=== PATIENT | female | born 1945 | race Caucasian/White ===

== ENCOUNTER → 2016-07-07 | Outpatient (CLI) | payer OTHER, MEDICARE ==
[~2016-07-07] MED LIST: ADVIN25050 PO; AMIO200T4 PO; AMIO200T7 PO; ASPI-435 PO; CALC-354 PO; CHOL100040 PO; CLC100X PO; CMD/1 PO; CMD2 PO; CYAN10004 IM; DOCU100C31 PO; FERROUS SULFATE PO; FLUT0.15 INH; FURO20TA PO; IPRA1AER2 INH; LEVO100T PO; LOSA50TA54 PO; METO25TA3 PO; WARF2TAB PO
[2016-07-07 12:33] LABS: BASO % 1.8 %; BASO ABS # 0.08 K/uL (0-0.2); COMPLETE YES; HEMATOCRIT 41.2 % (37-47); LYMPH ABS # 0.76 K/uL (1.2-3.4); MEAN CORPUSCULAR HEMOGLOBIN 32.2 pg (25-34); MEAN CORPUSCULAR HGB CONC 33.5 g/dl (32-36); MEAN PLATELET VOLUME 10.2 fL (7.4-10.4); MONO % 10.5 %; NEUT % 68.7 %; PLATELET COUNT 205 K/uL (130-400); RED BLOOD COUNT 4.29 M/uL (4.2-5.4); WHITE BLOOD COUNT 4.48 K/uL (4.8-10.8)
[2016-07-07 12:48] LABS: ALT/SGPT 25 U/L (12-78); BLOOD UREA NITROGEN 12 mg/dl (7-18); BUN/CREATININE RATIO 10.9 (10-20); CALCIUM 9.5 mg/dl (8.5-10.1); CARBON DIOXIDE 29 mmol/L (21-32); CHLORIDE 102 mmol/L (98-107); GLUCOSE 114 mg/dl (70-99); POTASSIUM 3.8 mmol/L (3.5-5.1); SODIUM 139 mmol/L (136-145)
[2016-07-07 12:50] LABS: ALKALINE PHOSPHATASE 104 U/L (45-117); AST/SGOT 23 U/L (15-37)
== END | disposition home or self-care (01) ==
LOC: C.LABPVFM 10:31
PROVIDERS: ATTEND Family Medicine
DX: E03.9 Hypothyroidism, unspecified (principal); I48.0 Paroxysmal atrial fibrillation; E78.5 Hyperlipidemia, unspecified; E55.9 Vitamin D deficiency, unspecified

== ENCOUNTER → 2016-07-27 | Outpatient (CLI) | payer OTHER, MEDICARE ==
--- NOTE | 2016-07-27 16:30 | DIAGNOSTIC IMAGING REPORT ---
CHEST 2 VIEWS ROUTINE HISTORY: COUGH WITH FATIGUE COMPARISON: Chest 07/31/2014. Chest CT 10/18/2015. FINDINGS: The lungs remain hyperexpanded with apical predominant emphysematous changes. Patchy density within the base of the left lower lobe. This is new from the prior study. Mild diffuse interstitial thickening is likely chronic. This remains unchanged. The heart is stable in size. Cardiac valve prosthesis and poststernotomy changes. Left-sided dual-chamber pacemaker. IMPRESSION: There is a new patchy density within the base of the left lower lobe. This likely represents a pneumonia. Recommend one month chest x-ray follow-up to ensure resolution. Electronically signed by: Pedro Mckinney M.D. 07/27/2016 4:28 PM Dictated Date/Time: 07/27/2016 4:26 PM
== END | disposition home or self-care (01) ==
LOC: C.RAD1850 16:11
PROVIDERS: ATTEND Family Medicine
DX: R05 Cough (principal); R91.8 Other nonspecific abnormal finding of lung field

== ENCOUNTER → 2016-08-21 | Outpatient (CLI) | payer OTHER, MEDICARE ==
[~2016-08-21] MED LIST changes: -ADVIN25050 PO; -CMD2 PO; -FERROUS SULFATE PO; -WARF2TAB PO
--- NOTE | 2016-08-21 14:16 | DIAGNOSTIC IMAGING REPORT ---
CHEST 2 VIEWS ROUTINE HISTORY: Follow-up pneumonia. COMPARISON: Chest 07/27/2016. FINDINGS: Emphysema. The heart remains mildly enlarged. Postoperative changes and a cardiac valve prosthesis are noted. Mild diffuse interstitial thickening which is likely chronic. Left-sided dual-chamber pacemaker. Stable blunting of the costophrenic sulci. This could be due to the hyperexpanded lungs. Near-complete resolution of the left lower lobe basilar airspace opacity. No new focal lung consolidations. IMPRESSION: Near-complete resolution of the left lower lobe basilar airspace opacity. This is consistent with a resolving pneumonia. Recommend an additional one month chest x-ray follow-up to ensure complete resolution. Electronically signed by: Pedro Mckinney M.D. 08/21/2016 2:15 PM Dictated Date/Time: 08/21/2016 2:13 PM
== END | disposition home or self-care (01) ==
LOC: C.RAD1850 13:12
PROVIDERS: ATTEND Family Medicine
DX: J18.9 Pneumonia, unspecified organism (principal)

== ENCOUNTER → 2016-09-18 | Outpatient (CLI) | payer OTHER, MEDICARE ==
[~2016-09-18] MED LIST changes: +PRLSR20 PO; +SUCR1TAB PO; +WARF1TAB6 PO
--- NOTE | 2016-09-18 13:00 | DIAGNOSTIC IMAGING REPORT ---
CHEST 2 VIEWS ROUTINE CLINICAL HISTORY: PNEUMONIA pneumonitis COMPARISON STUDY: 08/21/2016 FINDINGS: Lungs are now considered clear. Mild stable cardia megaly. Permanent bipolar cardiac pacer. IMPRESSION: Lungs are now considered clear. Electronically signed by: Orlando Colon M.D. 09/18/2016 12:58 PM Dictated Date/Time: 09/18/2016 12:55 PM
== END | disposition home or self-care (01) ==
LOC: C.RAD1850 12:35
PROVIDERS: ATTEND Family Medicine
DX: J18.9 Pneumonia, unspecified organism (principal)

== ENCOUNTER 2016-09-26 15:18 | Inpatient (IN) | payer OTHER, MEDICARE ==
[~2016-09-26] VITALS: Ht 160 cm; Wt 46.0 kg
[~2016-09-26 15:18] MED LIST changes: -AMIO200T4 PO; -DOCU100C31 PO; -PRLSR20 PO; -SUCR1TAB PO; -WARF1TAB6 PO
[2016-09-26] MEDS ORDERED: SODIUM CHLORIDE 0.9% 500ML 500 ML IV STA (15:45)
[2016-09-26] MEDS ORDERED: AMIODARONE 150MG / 100ML D5W IV STA (15:49)
[2016-09-26] MEDS ORDERED: AMIODARONE 360MG / 200ML D5W IV STA (15:49)
--- NOTE | 2016-09-26 15:56 | DIAGNOSTIC IMAGING REPORT ---
SINGLE VIEW CHEST CLINICAL HISTORY: Palpitations. FINDINGS: An AP, portable, upright chest radiograph is compared to study dated 09/18/2016 and correlated with chest CT dated 10/18/2015. The examination is degraded by portable technique and patient rotation. A 2-lead cardiac AICD is unchanged in position and largely obscures the left mid chest. The patient is status post midline sternotomy and there is evidence of previous cardiac valve surgery. The heart is enlarged and there is atherosclerotic calcification of the thoracic aorta. The pulmonary vasculature is noncongested. Enlargement of the central pulmonary vessels suggests pulmonary artery hypertension. Advanced emphysema and chronic interstitial thickening are similar to previous. No airspace consolidation or large pleural effusion is identified. No pneumothorax is seen. The skeletal structures are osteopenic. The bony thorax is grossly intact. IMPRESSION: 1. Cardiomegaly and AICD. There is no radiographic evidence of congestive failure. 2. Advanced emphysema. 3. No airspace consolidation or pleural effusion is identified. Electronically signed by: Chidi Zaragoza M.D. 09/26/2016 3:54 PM Dictated Date/Time: 09/26/2016 3:49 PM
[2016-09-26] MEDS ORDERED: DOCU100C31 PO (16:09)
--- NOTE | 2016-09-26 16:10 | EMERGENCY ROOM VISIT NOTE ---
History Report prepared by Giselle: Jerzy Morales Under the Supervision of: Dr. Bryson Sellers D.O. First contact with patient: 15:27 Chief Complaint: TACHYCARDIA Stated Complaint: RAPID PULSE, NAUSEA History of Present Illness The patient is a 70 year old female who presents to the Emergency Room with complaints of persistent heart palpitations starting last night. Her pulse is normally around 60s but it has been in the 130s since yesterday. She also reports generalized weakness occurring since yesterday. She notes nausea but denies vomiting. She has a history of A-Fib. She was referred to the Emergency Room by Dr. Hollis, paper plate machine tender with [facility] who was concerned about atrial tachycardia. The patient denies chest pain, shortness of breath, abdominal pain, lower extremity pain/swelling, or any other complaints. She denies any recent travels. Source of History: patient Onset: last night Position: chest Quality: other (heart palpitations) Timing: other (persistent) Associated Symptoms: + nausea, + weakness, No SOB, No abdominal pain, No chest pain, No vomiting Review of Systems See HPI for pertinent positives & negatives. A total of 10 systems reviewed and were otherwise negative. Past Medical & Surgical Medical Problems: (1) Atrial fibrillation (2) Atrial fibrillation (3) CHF (congestive heart failure) (4) CHF (congestive heart failure) (5) COPD (chronic obstructive pulmonary disease) (6) History of open heart surgery Surgical Problems: (1) S/P Maze operation for atrial fibrillation (2) S/P MVR (mitral valve repair) Family History Cancer Diabetes mellitus Heart disease Social History Smoking Status: Former Smoker Alcohol Use: occasionally Marital Status: Occupation Status: retired Current/Historical Medications Scheduled Amiodarone Hcl (Pacerone), 200 MG PO QPM Aspirin (Aspirin 81), 1 TAB PO QAM Calcium Carbonate-Cholecalcife (Caltrate 600+D), 1 TAB PO QPM Cholecalciferol (Vitamin D-1000), 2,000 UNITS PO QAM Cyanocobalamin (Vitamin B-12 1000 Mcg), 1,000 MCG IM MONTHLY Docusate Sodium (Docusate Sodium), 1 CAP PO BID Furosemide (Lasix), 20 MG PO 3XWK Levothyroxine Sodium (Synthroid), 100 MCG PO QAM Losartan Potassium (Cozaar), 50 MG PO QAM Metoprolol Succinate (Toprol Xl), 12.5 MG PO QPM Warfarin Sod (Warfarin Sodium), 2 MG PO 6XWK Warfarin Sod (Warfarin Sodium), 1 MG PO WK Scheduled PRN Fluticasone Propionate (Nasal) (Flonase Allergy Relief), 1 SPRAY INH DAILY PRN for Nasal Congestion Ipratropium-Albuterol (Combivent Respimat), 1 PUFFS INH QID PRN for SOB/Wheezing Allergies Coded Allergies: Penicillins (Verified Allergy, Unknown, HIVES; TAKES CEPHALEXIN W/O PROBLEM, 09/26/16) Sulfa Drugs (Verified Allergy, Unknown, NAUSEA, ITCHY, AND "FUNNY THROAT" , 09/26/16) Macrolides and Ketolides (Verified Adverse Reaction, Unknown, "MYCIN ANTIBIOTICS": ITCHY AND NAUSEA, 09/26/16) Physical Exam Vital Signs Date Time Temp Pulse Resp B/P Pulse Ox O2 Delivery O2 Flow Rate FiO2 09/26/16 17:45 126 20 101/73 92 Room Air 09/26/16 17:00 119 16 91/68 97 Room Air 09/26/16 16:45 117 20 98/67 96 Room Air 09/26/16 16:30 96 Room Air 09/26/16 16:29 130 20 88/68 96 Room Air 09/26/16 16:03 116 09/26/16 15:25 36.6 80 18 111/74 95 Room Air Physical Exam GENERAL: Patient is awake, alert, and in no acute distress. Patient is resting comfortably and showing no signs of anxiety EYES: The conjunctivae are clear. The pupils are round and reactive. EARS, NOSE, MOUTH AND THROAT: The nose is without any evidence of any deformity. Mucous membranes are moist tongue is midline NECK: The neck is nontender and supple. RESPIRATORY: Lung sounds are diminished to both bases, no tachypnea or conversational dyspnea noted. CARDIOVASCULAR: Ectopy noted to auscultation, tachycardia noted. GASTROINTESTINAL: The abdomen is soft. Bowel sounds are present in all quadrants. Abdomen is nontender MUSCULOSKELETAL/EXTREMITIES: There is no evidence of gross deformity full range of motion is noted in the hips and shoulders SKIN: There is no obvious evidence of any rash. There are no petechiae, pallor or cyanosis noted. NEUROLOGIC: Patient is awake alert and oriented x3 Medical Decision & Procedures ER Provider Diagnostic Interpretation: X-ray results as stated below per interpretation by me and the radiologist. SINGLE VIEW CHEST CLINICAL HISTORY: Palpitations. FINDINGS: An AP, portable, upright chest radiograph is compared to study dated 09/18/2016 and correlated with chest CT dated 10/18/2015. The examination is degraded by portable technique and patient rotation. A 2-lead cardiac AICD is unchanged in position and largely obscures the left mid chest. The patient is status post midline sternotomy and there is evidence of previous cardiac valve surgery. The heart is enlarged and there is atherosclerotic calcification of the thoracic aorta. The pulmonary vasculature is noncongested. Enlargement of the central pulmonary vessels suggests pulmonary artery hypertension. Advanced emphysema and chronic interstitial thickening are similar to previous. No airspace consolidation or large pleural effusion is identified. No pneumothorax is seen. The skeletal structures are osteopenic. The bony thorax is grossly intact. IMPRESSION: 1. Cardiomegaly and AICD. There is no radiographic evidence of congestive failure. 2. Advanced emphysema. 3. No airspace consolidation or pleural effusion is identified. Electronically signed by: Chidi Zaragoza M.D. 09/26/2016 3:54 PM Dictated Date/Time: 09/26/2016 3:49 PM Laboratory Results 09/26/16 16:10 Red Blood Count 3.81, Mean Corpuscular Volume 95.3, Mean Corpuscular Hemoglobin 31.5, Mean Corpuscular Hemoglobin Concent 33.1, Mean Platelet Volume 9.6, Neutrophils (%) (Auto) 66.9, Lymphocytes (%) (Auto) 21.1, Monocytes (%) (Auto) 9.7, Eosinophils (%) (Auto) 1.4, Basophils (%) (Auto) 0.7, Neutrophils # (Auto) 3.70, Lymphocytes # (Auto) 1.17, Monocytes # (Auto) 0.54, Eosinophils # (Auto) 0.08, Basophils # (Auto) 0.04 09/26/16 16:10 Test 09/26/16 16:10 09/26/16 17:30 White Blood Count 5.54 K/uL (4.8-10.8) Red Blood Count 3.81 M/uL (4.2-5.4) Hemoglobin 12.0 g/dL (12.0-16.0) Hematocrit 36.3 % (37-47) Mean Corpuscular Volume 95.3 fL (80-100) Mean Corpuscular Hemoglobin 31.5 pg (25-34) Mean Corpuscular Hemoglobin Concent 33.1 g/dl (32-36) Platelet Count 192 K/uL (130-400) Mean Platelet Volume 9.6 fL (7.4-10.4) Neutrophils (%) (Auto) 66.9 % Lymphocytes (%) (Auto) 21.1 % Monocytes (%) (Auto) 9.7 % Eosinophils (%) (Auto) 1.4 % Basophils (%) (Auto) 0.7 % Neutrophils # (Auto) 3.70 K/uL (1.4-6.5) Lymphocytes # (Auto) 1.17 K/uL (1.2-3.4) Monocytes # (Auto) 0.54 K/uL (0.11-0.59) Eosinophils # (Auto) 0.08 K/uL (0-0.5) Basophils # (Auto) 0.04 K/uL (0-0.2) RDW Standard Deviation 47.1 fL (36.4-46.3) RDW Coefficient of Variation 13.6 % (11.5-14.5) Immature Granulocyte % (Auto) 0.2 % Immature Granulocyte # (Auto) 0.01 K/uL (0.00-0.02) Anion Gap 7.0 mmol/L (3-11) Est Creatinine Clear Calc Drug Dose 34.5 ml/min Estimated GFR () 58.1 Estimated GFR (Non- 50.1 BUN/Creatinine Ratio 12.3 (10-20) Calcium Level 9.1 mg/dl (8.5-10.1) Phosphorus Level 2.8 mg/dl (2.5-4.9) Magnesium Level 1.9 mg/dl (1.8-2.4) Total Bilirubin 0.4 mg/dl (0.2-1) Direct Bilirubin 0.1 mg/dl (0-0.2) Aspartate Amino Transf (AST/SGOT) 27 U/L (15-37) Alanine Aminotransferase (ALT/SGPT) 29 U/L (12-78) Alkaline Phosphatase 108 U/L (45-117) Troponin I 0.374 ng/ml (0-0.045) Pro-B-Type Natriuretic Peptide 5659 pg/ml (0-900) Total Protein 7.3 gm/dl (6.4-8.2) Albumin 3.4 gm/dl (3.4-5.0) Lipase 118 U/L (73-393) Thyroid Stimulating Hormone (TSH) 4.390 uIu/ml (0.300-4.500) Free Thyroxine 1.53 ng/dl (0.80-1.60) Prothrombin Time 22.1 SECONDS (9.0-12.0) Prothromb Time International Ratio 2.0 (0.9-1.1) Activated Partial Thromboplast Time 44.0 SECONDS (21.0-31.0) Partial Thromboplastin Ratio 1.7 Laboratory results per my review. Medications Administered Medications (Trade) Dose Ordered Sig/Hector Route Start Time Stop Time Status Last Admin Dose Admin Sodium Chloride (Nss 500ml) 500 ml @ 999 mls/hr Q31M STAT IV 09/26/16 15:45 09/26/16 16:15 DC 09/26/16 16:17 999 MLS/HR Amiodarone HCL/ Dextrose (Nexterone / D5w) 150 mg NOW STAT IV 09/26/16 15:49 09/26/16 15:50 DC 09/26/16 16:38 150 MG Amiodarone HCL/ Dextrose (Nexterone / D5w) 360 mg UD STAT IV 09/26/16 15:49 09/26/16 15:50 DC 09/26/16 16:39 360 MG ECG Indication: palpitations, other (Ventricular pacemaker ) Rate (beats per minute): 117 Findings: other (underlying king salmon beats noted with ST depressions) Comparison ECG Date: December 18, 2015 Change: Paced beats are new when compared to December 18, 2015. ED Course 1527: The patient was evaluated in room A09B. A complete history and physical examination were performed. 1545: Sodium Chloride 500 ml @ 999 mls/hr IV 1549: Amiodarone HCl/Dextrose 360 mg IV, Amiodarone HCl/Dextrose 150 mg IV 1547: I discussed the patient's case with Dr. Hollis, paper plate machine tender with [facility]. 1712: Upon reevaluation, the patient is resting comfortably. I discussed results and treatment plan with her. She verbalizes agreement and understanding. I spoke with Dr. Currie of the [facility]. The patient will be evaluated for further management and care. Medical Decision Prior records/ancillary studies reviewed. Triage Nursing notes reviewed. The patient's history was concerning for palpitations. Differential diagnosis: Etiologies such as premature contractions, electrolyte abnormality, cardiac dysrhythmia, thyroid dysfunction, pulmonary embolism, infection, gastrointestinal, as well as others were entertained. The patient is a 70-year-old female who presented to the emergency department for an evaluation of palpitations. The patient has a history of atrial fibrillation but was found to be in atrial tachycardia at her primary paper plate machine tender office. She was sent to the emergency department for further evaluation. She doesn't a history of her mitral fibrillation and is currently on rate control medication as well as anticoagulation. She was treated with IV fluids and IV amiodarone drip in the emergency department. She was reevaluated multiple times. She was evaluated by the covering paper plate machine tender as well [facility] They were able to manage her rate somewhat but she continues to be in atrial flutter. She was felt to be a good candidate for cardioversion. At this time she will be managed medically and then evaluated in the morning for possible cardioversion of this irregular rhythm. I discussed the patient's laboratory and radiographic studies with her. She was feeling somewhat improved on subsequent reevaluation. Consults Time Called: 1540 Consulting Physician: [facility] Holl[facility] Returned Call: 1548 I discussed the patient's case with [facility] Additional Consults: Time Called: 1710 Consulted Physician: Dr. Currie of the [facility] Returned Call: 1718 Additional Comments: I spoke with Dr. Currie of the [facility]. Impression Primary Impression: Rapid atrial fibrillation Additional Impressions: Palpitations Generalized weakness Elevated troponin Critical Care I have personally spent greater than 40 minutes of critical care time in the direct management of this patient. This includes bedside care, interpretation of diagnostic studies, and testing, discussion with consultants, patient, and family members, and other required patient management activities. This 40 minutes is in excess of all separately billable procedures. Scribe Attestation The scribe's documentation has been prepared under my direction and personally reviewed by me in its entirety. I confirm that the note above accurately reflects all work, treatment, procedures, and medical decision making performed by me. Departure Information Dispostion Being Evaluated By Hospitalist Referrals No Doctor, Assigned (PCP) Patient Instructions My [facility] Problem Qualifiers
[2016-09-26 16:46] LABS: BASO % 0.7 %; BASO ABS # 0.04 K/uL (0-0.2); COMPLETE YES; EOS % 1.4 %; HEMATOCRIT 36.3 % (37-47); IG% 0.2 %; LYMPH % 21.1 %; LYMPH ABS # 1.17 K/uL (1.2-3.4); MEAN CELL VOLUME 95.3 fL (80-100); MEAN CORPUSCULAR HEMOGLOBIN 31.5 pg (25-34); MEAN CORPUSCULAR HGB CONC 33.1 g/dl (32-36); MEAN PLATELET VOLUME 9.6 fL (7.4-10.4); MONO % 9.7 %; NEUT % 66.9 %; PLATELET COUNT 192 K/uL (130-400); RED BLOOD COUNT 3.81 M/uL (4.2-5.4); WHITE BLOOD COUNT 5.54 K/uL (4.8-10.8)
[2016-09-26 17:07] LABS: BUN/CREATININE RATIO 12.3 (10-20); CALCIUM 9.1 mg/dl (8.5-10.1); CREATININE 1.1 mg/dl (0.60-1.20); POTASSIUM 3.9 mmol/L (3.5-5.1)
[2016-09-26 17:38] LABS: THYROID STIMULATING HORMONE 4.39 uIu/ml (0.300-4.500)
[2016-09-26] MEDS ORDERED: MoRPHine SULFATE 2 MG/ML CARP IV PRN (17:45)
[2016-09-26] MEDS ORDERED: NITROGLYCERIN 0.4 MG SL PER TAB CHARGE SL PRN (17:45)
[2016-09-26 17:47] LABS: PARTIAL THROMBOPLASTIN RATIO 1.7; PROTHROMBIN TIME (PATIENT) 22.1 SECONDS (9.0-12.0)
[2016-09-26] MEDS ORDERED: IPRATROPIUM BROMIDE/ALBUTEROL respimat INH INH PRN (18:00)
[2016-09-26 18:18] LABS: MAGNESIUM 1.9 mg/dl (1.8-2.4); PHOSPHORUS 2.8 mg/dl (2.5-4.9)
--- NOTE | 2016-09-26 18:21 | History and Physical ---
History & Physical Date & Time of Service: Sep 26, 2016 at 17:58 Chief Complaint: Rapid Pulse, Nausea Primary Care Physician: Lo Reid M.D. History of Present Illness Source: patient 70-year-old female with past medical history of atrial fibrillation, CHF, COPD, hypothyroidism, coronary artery disease status post open heart surgery, status post mitral valve repair, status post dual-chamber ventricle pacemaker present to the ER after she was referred by her coupon and bond collection clerk Dr. Hollis with complaints of palpitations which started yesterday. She has a history of atrial fibrillation which is managed with amiodarone 200 mg every evening and Toprol-XL 12.5 mg every evening with anticoagulation with Coumadin. She developed palpitations yesterday and also complained of heaviness in her chest. Denies any chest pain, difficulty breathing, dizziness or lightheadedness. Denies any weakness, numbness tingling, fevers or chills. Past Medical/Surgical History Medical Problems: (1) Atrial fibrillation Status: Resolved (2) Atrial fibrillation Status: Chronic (3) CHF (congestive heart failure) Status: Chronic (4) CHF (congestive heart failure) Status: Resolved (5) COPD (chronic obstructive pulmonary disease) Status: Chronic (6) History of open heart surgery Status: Resolved Surgical Problems: (1) S/P Maze operation for atrial fibrillation Status: Resolved (2) S/P MVR (mitral valve repair) Status: Chronic Family History Cancer Diabetes mellitus Heart disease Social History Smoking Status: Former Smoker Marital Status: Occupational Status: retired Immunizations History of Influenza Vaccine: Unknown History of Tetanus Vaccine?: Unknown History of Pneumococcal: Unknown History of Hepatitis B Vaccine: Unknown Multi-Drug Resistant Organisms History of MDRO: No Allergies Coded Allergies: Penicillins (Verified Allergy, Unknown, HIVES; TAKES CEPHALEXIN W/O PROBLEM, 09/26/16) Sulfa Drugs (Verified Allergy, Unknown, NAUSEA, ITCHY, AND "FUNNY THROAT" , 09/26/16) Macrolides and Ketolides (Verified Adverse Reaction, Unknown, "MYCIN ANTIBIOTICS": ITCHY AND NAUSEA, 09/26/16) Home Medications Scheduled Amiodarone Hcl (Pacerone), 200 MG PO QPM Aspirin (Aspirin 81), 1 TAB PO QAM Calcium Carbonate-Cholecalcife (Caltrate 600+D), 1 TAB PO QPM Cholecalciferol (Vitamin D-1000), 2,000 UNITS PO QAM Cyanocobalamin (Vitamin B-12 1000 Mcg), 1,000 MCG IM MONTHLY Docusate Sodium (Docusate Sodium), 1 CAP PO BID Furosemide (Lasix), 20 MG PO 3XWK Levothyroxine Sodium (Synthroid), 100 MCG PO QAM Losartan Potassium (Cozaar), 50 MG PO QAM Metoprolol Succinate (Toprol Xl), 12.5 MG PO QPM Warfarin Sod (Warfarin Sodium), 2 MG PO 6XWK Warfarin Sod (Warfarin Sodium), 1 MG PO WK Scheduled PRN Fluticasone Propionate (Nasal) (Flonase Allergy Relief), 1 SPRAY INH DAILY PRN for Nasal Congestion Ipratropium-Albuterol (Combivent Respimat), 1 PUFFS INH QID PRN for SOB/Wheezing Review of Systems Constitutional: No chills, No fever Eyes: No worsening of vision ENT: No hearing loss Respiratory: No cough, No sputum Cardiovascular: + palpitations, No chest pain Abdomen: No nausea, No pain, No vomiting Musculoskeletal: No joint pain Genitourinary - Female: No dysuria Neurologic: No memory loss, No paralysis, No weakness Endocrine: No fatigue Hematologic / Lymphatic: No abnormal bleeding/bruising Integumentary: No rash Physical Exam Vital Signs Date Time Temp Pulse Resp B/P Pulse Ox O2 Delivery O2 Flow Rate FiO2 09/26/16 17:45 126 20 101/73 92 Room Air 09/26/16 17:00 119 16 91/68 97 Room Air 09/26/16 16:45 117 20 98/67 96 Room Air 09/26/16 16:30 96 Room Air 09/26/16 16:29 130 20 88/68 96 Room Air 09/26/16 16:03 116 09/26/16 15:25 36.6 80 18 111/74 95 Room Air General Appearance: WD/WN, no apparent distress Head: normocephalic Eyes: normal inspection ENT: normal ENT inspection, hearing grossly normal Neck: supple Respiratory/Chest: chest non-tender, lungs clear, normal breath sounds, no respiratory distress, no accessory muscle use Cardiovascular: + tachycardia, + irregularly irregular Abdomen/GI: normal bowel sounds, non tender, soft Back: normal range of motion Extremities/Musculoskelatal: no pedal edema, normal range of motion Neurologic/Psych: alert, normal mood/affect, oriented x 3 Skin: normal color Diagnostics Laboratory Results Results Past 24 Hours Test 09/26/16 16:10 09/26/16 17:30 09/26/16 17:41 Range/Units White Blood Count 5.54 4.8-10.8 K/uL Red Blood Count 3.81 4.2-5.4 M/uL Hemoglobin 12.0 12.0-16.0 g/dL Hematocrit 36.3 37-47 % Mean Corpuscular Volume 95.3 80-100 fL Mean Corpuscular Hemoglobin 31.5 25-34 pg Mean Corpuscular Hemoglobin Concent 33.1 32-36 g/dl Platelet Count 192 130-400 K/uL Mean Platelet Volume 9.6 7.4-10.4 fL Neutrophils (%) (Auto) 66.9 % Lymphocytes (%) (Auto) 21.1 % Monocytes (%) (Auto) 9.7 % Eosinophils (%) (Auto) 1.4 % Basophils (%) (Auto) 0.7 % Neutrophils # (Auto) 3.70 1.4-6.5 K/uL Lymphocytes # (Auto) 1.17 1.2-3.4 K/uL Monocytes # (Auto) 0.54 0.11-0.59 K/uL Eosinophils # (Auto) 0.08 0-0.5 K/uL Basophils # (Auto) 0.04 0-0.2 K/uL RDW Standard Deviation 47.1 36.4-46.3 fL RDW Coefficient of Variation 13.6 11.5-14.5 % Immature Granulocyte % (Auto) 0.2 % Immature Granulocyte # (Auto) 0.01 0.00-0.02 K/uL Sodium Level 139 136-145 mmol/L Potassium Level 3.9 3.5-5.1 mmol/L Chloride Level 104 98-107 mmol/L Carbon Dioxide Level 28 21-32 mmol/L Anion Gap 7.0 3-11 mmol/L Blood Urea Nitrogen 14 7-18 mg/dl Creatinine 1.10 0.60-1.20 mg/dl Est Creatinine Clear Calc Drug Dose 34.5 ml/min Estimated GFR () 58.1 Estimated GFR (Non- 50.1 BUN/Creatinine Ratio 12.3 10-20 Random Glucose 128 70-99 mg/dl Calcium Level 9.1 8.5-10.1 mg/dl Total Bilirubin 0.4 0.2-1 mg/dl Direct Bilirubin 0.1 0-0.2 mg/dl Aspartate Amino Transf (AST/SGOT) 27 15-37 U/L Alanine Aminotransferase (ALT/SGPT) 29 12-78 U/L Alkaline Phosphatase 108 45-117 U/L Troponin I 0.374 0-0.045 ng/ml Pro-B-Type Natriuretic Peptide 5659 0-900 pg/ml Total Protein 7.3 6.4-8.2 gm/dl Albumin 3.4 3.4-5.0 gm/dl Lipase 118 73-393 U/L Thyroid Stimulating Hormone (TSH) 4.390 0.300-4.500 uIu/ml Free Thyroxine 1.53 0.80-1.60 ng/dl Prothrombin Time 22.1 9.0-12.0 SECONDS Prothromb Time International Ratio 2.0 0.9-1.1 Activated Partial Thromboplast Time 44.0 21.0-31.0 SECONDS Partial Thromboplastin Ratio 1.7 Diagnostic Radiology [~ rep ct add3]] SINGLE VIEW CHEST CLINICAL HISTORY: Palpitations. FINDINGS: An AP, portable, upright chest radiograph is compared to study dated 09/18/2016 and correlated with chest CT dated 10/18/2015. The examination is degraded by portable technique and patient rotation. A 2-lead cardiac AICD is unchanged in position and largely obscures the left mid chest. The patient is status post midline sternotomy and there is evidence of previous cardiac valve surgery. The heart is enlarged and there is atherosclerotic calcification of the thoracic aorta. The pulmonary vasculature is noncongested. Enlargement of the central pulmonary vessels suggests pulmonary artery hypertension. Advanced emphysema and chronic interstitial thickening are similar to previous. No airspace consolidation or large pleural effusion is identified. No pneumothorax is seen. The skeletal structures are osteopenic. The bony thorax is grossly intact. IMPRESSION: 1. Cardiomegaly and AICD. There is no radiographic evidence of congestive failure. 2. Advanced emphysema. 3. No airspace consolidation or pleural effusion is identified. EKG Wide QRS rhythm with frequent ventricular-paced complexes and fusion beats Undetermined atrial rhythm Left axis deviation T wave abnormality, consider lateral ischemia Abnormal ECG When compared with ECG of 18-DEC-2013 06:33, Electronic ventricular pacemaker has replaced Sinus rhythm Vent. rate has increased BY 62 BPM Confirmed by Tino Reynoso ([id number]) on 09/26/2016 5:12:48 PM Impression Assessment and Plan 70-year-old female with past medical history of atrial fibrillation, CHF, COPD, hypothyroidism, coronary artery disease status post open heart surgery, status post mitral valve repair, status post dual-chamber ventricle pacemaker present to the ER after she was referred by her coupon and bond collection clerk Dr. Hollis with complaints of palpitations which started yesterday. Atrial fibrillation with RVR: [id number] vasc score of 4. Stroke rate of 4.8% per year - TSH WNL - Electrolytes WNL - Echo ordered - Consult cardiology - Currently on amiodarone drip - Anti-coagulation with Coumadin Elevated Troponin/CAD/ - Initial trop at 0.374 - Trend q8h - Continue aspirin, losartan, metoprolol Hypothyroidism: - Continue Synthroid DVT prophylaxis.: -Coumadin Disposition: Admitted to telemetry Resident Physician Supervision Note: I was present with Dr. Deshpande during the history and exam. I discussed the case with the resident and agree with the findings and plan as documented in the note. Any exceptions or clarifications are listed here: Extremely pleasant 70-year-old female presents to the emergency department after being referred here by her coupon and bond collection clerk. Information is also pain from the [facility] EMR, including echocardiogram from 2015 and a device interrogation from early September 2016. At the most recent interrogation, dated , the patient was predominantly A-paced. At some point late yesterday afternoon or early evening, she started to sense heart palpitations. The patient states that she did not sleep well at all. This morning, she called the [facility]acer clinic and when they did not return her call she went to Dr. Hollis's office. She was found to be an atrial tachycardia and subsequently referred to the emergency department for further evaluation. In the emergency department, she was started on amiodarone drip. Cardiology was consult. Attempts to pace subsequently resulted in atrial flutter with 2:1 block; however her ventricular response had decreased. The patient is he mechanically stable. Cardioversion was discussed but unfortunate patient has eaten with the last 6 hours; given her hemodynamic stability, she will be scheduled for cardioversion in the morning. Amiodarone will be discontinued. Documented By: Da Patterson Level of Care Telemetry Resuscitation Status FULL RESUSCITATION VTE Prophylaxis VTE Risk Assessment Done? Y/N: Yes Risk Level: Moderate Given or contraindicated: Warfarin (Coumadin) Resident Tracking Resident Involvement: Resident Care Provided Care Provided: Adult Hospital Medicine
[2016-09-26 19:40] VITALS: BP 121/79; PULSE 90; TEMP 36.6; O2SAT 97; Ht 160 cm; Wt 46.0 kg
[2016-09-26 19:50] VITALS: O2SAT 97
[2016-09-26] MEDS ORDERED: WARFARIN SOD 2 MG TAB PO SCH (20:30)
[2016-09-26] MEDS ORDERED: METOPROLOL SUCC 25MG EXT REL TAB PO SCH (21:00)
[2016-09-26] MEDS: DOCUSATE SODIUM 100 MG CAP PO SCH (21:08)
[2016-09-26 21:55] LABS: URINE APPEARANCE CLEAR (CLEAR); URINE BILIRUBIN NEG (NEG); URINE COLOR YELLOW; URINE NITRITE NEG (NEG); URINE SPECIFIC GRAVITY 1.009 (1.000-1.030); UROBILINOGEN NEG (NEG)
[2016-09-26 22:04] LABS: MANUAL MICROSCOPIC REQUIRED? NO; REVIEW REQ? NO
[2016-09-26 23:49] VITALS: BP 91/56; PULSE 82; TEMP 36.7; O2SAT 92
[2016-09-27] VITALS (9 sets, daily range): BP systolic 87–124; BP diastolic 53–91; PULSE 60–107; TEMP 36.6; O2SAT 91–98
[2016-09-27] MEDS ORDERED: LEVOTHYROXINE 100 MCG TAB PO SCH (06:00)
[2016-09-27 07:37] LABS: BASO % 1.2 %; BASO ABS # 0.06 K/uL (0-0.2); COMPLETE YES; EOS % 3.9 %; HEMATOCRIT 35.8 % (37-47); IG% 0.2 %; LYMPH % 21.8 %; LYMPH ABS # 1.12 K/uL (1.2-3.4); MEAN CELL VOLUME 95.5 fL (80-100); MEAN CORPUSCULAR HEMOGLOBIN 31.5 pg (25-34); MEAN PLATELET VOLUME 9.4 fL (7.4-10.4); MONO % 12.8 %; NEUT % 60.1 %; PLATELET COUNT 184 K/uL (130-400); RED BLOOD COUNT 3.75 M/uL (4.2-5.4); WHITE BLOOD COUNT 5.14 K/uL (4.8-10.8)
--- NOTE | 2016-09-27 07:57 | Clinical Documentation Query ---
Dr. HINOJOSA JAQUI : CLINICAL DOCUMENTATION QUERIES QUERY 1 OF 2 Patient is a 70 year old female admitted for the evaluation and treatment of tachypalpitations. Documentation includes CHF, not otherwise specified. Echocardiogram from 12/15 demonstrated moderately reduced LVEF at 35-40%, severe RV dilation and severely reduced RV systolic function, grade II diastolic dysfunction. Repeat echocardiogram pending. Please clarify when/as clinically appropriate. Thank you. In your clinical opinion is this patient being managed for: ( ) Chronic combined systolic and diastolic CHF ( ) Other explanation of clinical findings (Please Explain) ( ) Unable to determine (Please Define) ( ) Need to Discuss ( ) Not Agree The medical record reflects the following clinical findings, treatment, and risk factors. Clinical Indicators: As above Treatment: Telemetry, repeat echocardiogram, cardiology consultation, amiodarone Risk Factors: S/P mitral valve repair an MAZE procedure 01/13, historical echocardiogram reading as above, paroxysms of atrial fibrillation/flutter, severe COPD QUERY 2 OF 2 BMI noted to be 18.0 Kg/m*m. In order to capture the severity of illness and risk of mortality associated with this, an associated diagnosis (thin, cachectic, etc.) must be explicitly documented by the provider. See below for Coding Clinic related to BMI reporting. In your clinical opinion is this patient: ( ) Underweight/cachectic ( ) Other explanation of clinical findings (Please Explain) ( ) Unable to determine (Please Define) ( ) Need to Discuss ( ) Not Agree The medical record reflects the following clinical findings, treatment, and risk factors. Clinical Indicators: As above Treatment: AHA diet Risk Factors: Clarification - BMI Reporting Coding Clinic [id number], p15 Question: There has been some confusion as to whether nursing staff documentation is acceptable for assigning BMI. Since hospitals are allowed to code the BMI based on the farmworker brooder farm's documentation, it would seem reasonable to assign the BMI based on the nurse's documentation as well. Can coders use nursing documentation to assign the BMI? Answer: Yes, the BMI can be assigned based on medical record documentation from clinicians, including nurses and dieticians who are not the patient's provider. As stated in the Official Guidelines for Coding and Reporting, BMI code assignment may be based on medical record documentation from clinicians who are not the patient's provider, since this information is typically documented by other clinicians involved in the care of the patient. Dieticians were only mentioned as an example of a clinician that might document BMI information. However, the associated diagnosis (such as overweight, obesity, or underweight) must be documented by the provider. Copyright (2017), [facility] [facility] [employer] ("AHA"), [place], [place]. Reproduced with permission. No portion of this publication may be copied without the express, written consent of [facility]. Please clarify and document your clinical opinion in the progress notes and discharge summary. Terms such as "probable", "suspected", "likely", "questionable", "possible", or "still to be ruled out" are acceptable. IF IN AGREEMENT, YOU MUST DOCUMENT ABOVE DIAGNOSTIC STATEMENT IN DAILY PROGRESS NOTES AND DISCHARGE SUMMARY. This document is not part of the patient's record. Thank You, Tyrell Adkins RN [phone]
--- NOTE | 2016-09-27 08:00 | Clinical Documentation Query ---
FARZAD Mcconnell : CLINICAL DOCUMENTATION QUERIES QUERY 1 OF 2 Patient is a 70 year old female admitted for the evaluation and treatment of tachypalpitations. Documentation includes CHF, not otherwise specified. Echocardiogram from 12/15 demonstrated moderately reduced LVEF at 35-40%, severe RV dilation and severely reduced RV systolic function, grade II diastolic dysfunction. Repeat echocardiogram pending. Please clarify when/as clinically appropriate. Thank you. In your clinical opinion is this patient being managed for: ( ) Chronic combined systolic and diastolic CHF ( ) Other explanation of clinical findings (Please Explain) ( ) Unable to determine (Please Define) ( ) Need to Discuss ( X) Not Agree - Neither The medical record reflects the following clinical findings, treatment, and risk factors. Clinical Indicators: As above Treatment: Telemetry, repeat echocardiogram, cardiology consultation, amiodarone Risk Factors: S/P mitral valve repair an MAZE procedure 01/13, historical echocardiogram reading as above, paroxysms of atrial fibrillation/flutter, severe COPD QUERY 2 OF 2 BMI noted to be 18.0 Kg/m*m. In order to capture the severity of illness and risk of mortality associated with this, an associated diagnosis (thin, cachectic, etc.) must be explicitly documented by the provider. See below for Coding Clinic related to BMI reporting. In your clinical opinion is this patient: (X ) Underweight/cachectic ( ) Other explanation of clinical findings (Please Explain) ( ) Unable to determine (Please Define) ( ) Need to Discuss ( ) Not Agree The medical record reflects the following clinical findings, treatment, and risk factors. Clinical Indicators: As above Treatment: AHA diet Risk Factors: Age, severe COPD Clarification - BMI Reportin Coding Clinic [id number], p15 Question: There has been some confusion as to whether nursing staff documentation is acceptable for assigning BMI. Since hospitals are allowed to code the BMI based on the manufacturer representative's documentation, it would seem reasonable to assign the BMI based on the nurse's documentation as well. Can coders use nursing documentation to assign the BMI? Answer: Yes, the BMI can be assigned based on medical record documentation from clinicians, including nurses and dieticians who are not the patient's provider. As stated in the Official Guidelines for Coding and Reporting, BMI code assignment may be based on medical record documentation from clinicians who are not the patient's provider, since this information is typically documented by other clinicians involved in the care of the patient. Dieticians were only mentioned as an example of a clinician that might document BMI information. However, the associated diagnosis (such as overweight, obesity, or underweight) must be documented by the provider. Copyright (2017), [facility] ("AHA"), [place], [place]. Reproduced with permission. No portion of this publication may be copied without the express, written consent of [facility]. Please clarify and document your clinical opinion in the progress notes and discharge summary. Terms such as "probable", "suspected", "likely", "questionable", "possible", or "still to be ruled out" are acceptable. IF IN AGREEMENT, YOU MUST DOCUMENT ABOVE DIAGNOSTIC STATEMENT IN DAILY PROGRESS NOTES AND DISCHARGE SUMMARY. This document is not part of the patient's record. Thank You, Tyrell Adkins RN [phone]
[2016-09-27] MEDS ORDERED: PROPOFOL IV EMULSION 10 MG/ML 20 ML VIAL IV ONE (08:03)
[2016-09-27 08:14] LABS: BUN/CREATININE RATIO 11.5 (10-20); CREATININE 0.89 mg/dl (0.60-1.20); MAGNESIUM 1.9 mg/dl (1.8-2.4); POTASSIUM 3.7 mmol/L (3.5-5.1)
--- NOTE | 2016-09-27 08:28 | Anesthesiology Progress Note ---
Anesthesia Post Op Note Date & Time Sep 27, 2016 at 08:27 Vital Signs Pain Intensity: 0 Vital Signs Past 12 Hours Date Time Temp Pulse Resp B/P Pulse Ox O2 Delivery O2 Flow Rate FiO2 09/27/16 08:15 60 16 96/54 91 Nasal Cannula 2 09/27/16 08:10 60 16 99/60 91 Nasal Cannula 2 09/27/16 08:05 59 16 90/57 91 Nasal Cannula 2 09/27/16 08:00 60 16 93/57 91 Room Air 09/27/16 07:55 60 16 95/58 90 Nasal Cannula 2 09/27/16 07:55 36.6 107 18 113/75 92 Room Air 09/27/16 07:51 60 16 100/63 95 Nasal Cannula 3 09/27/16 07:49 60 16 102/60 93 Nasal Cannula 3 09/27/16 07:46 60 16 100/64 94 Nasal Cannula 3 09/27/16 07:45 87 16 124/91 98 Nasal Cannula 3 09/27/16 07:20 36.6 87 16 102/69 93 Room Air 09/27/16 04:56 102/69 09/27/16 04:00 Room Air 09/27/16 03:39 36.6 87 16 87/53 93 Room Air 09/26/16 23:59 Room Air 09/26/16 23:49 36.7 82 17 91/56 92 Room Air Notes Mental Status: alert / awake / arousable, participated in evaluation Pt Amnestic to Procedure: Yes Nausea / Vomiting: adequately controlled Pain: adequately controlled Airway Patency, RR, SpO2: stable & adequate BP & HR: stable & adequate Hydration State: stable & adequate Anesthetic Complications: no major complications apparent
[2016-09-27 08:30] LABS: CALCIUM 8.9 mg/dl (8.5-10.1); PHOSPHORUS 2.8 mg/dl (2.5-4.9)
[2016-09-27] MEDS: DOCUSATE SODIUM 100 MG CAP PO SCH (08:43)
[2016-09-27] MEDS ORDERED: ASPIRIN 81 MG ECTAB PO SCH (09:00)
[2016-09-27] MEDS ORDERED: LOSARTAN POTASSIUM 50 MG TAB PO SCH (09:00)
--- NOTE | 2016-09-27 09:10 | CARDIOLOGY CONSULTATION ---
DATE OF CONSULTATION: 09/27/2016 REQUESTING PHYSICIAN: Alexandria Deshpande. HELPER DRIVER: Scott Hollis DO, [facility]. REASON FOR CONSULTATION: Atrial tachycardia. Dear Dr. Deshpande, Thank you for requesting cardiology consultation on Julia with regards to her presumed atrial tachycardia. She notes Sunday night, she awoke, feeling her heart racing. It was very different than her previous episodes of atrial fibrillation. She felt a strong beat. It was regular in nature. She notes she did not sleep much of the night. In the morning, she contacted the office. We asked her to download from her device. Her device interrogation was normal. She came to the office to get an EKG, where she was found to be in presumed atrial tachycardia. We did interrogate her device, which confirmed atrial sensing and ventricular sensing or atrial sensing and ventricular pacing at 130 beats per minute, which was the max tracking rate. In light of that, we have recommended she come to the Emergency Room for further evaluation. She is already on amiodarone for her atrial arrhythmias. In discussion with the ER doctor, we gave her additional boluses of an amiodarone to see if she would convert. Unfortunately, her rate remained very fast. In the days before that, she denies any shortness of breath. She noted mild increase in her shortness of breath, but denied any abdominal distention and lower extremity edema to suggest worsening heart failure. She denied any lightheadedness or dizziness, presyncope, or syncope. She did note with the palpitations that she was mildly nauseous, which was new for her. She denies any bleeding, bruising, dark stools or black stools on anticoagulation. The rest of review of systems is otherwise negative. In the Emergency Room, Dr. Reynoso of electrophysiology tried to overdrive pacer, which converted her into an atrial flutter with 2:1 conduction and her rate actually dropped into the 80s and she started feeling better this morning. After being n.p.o. after midnight, she was successfully cardioverted back to an atrial paced rhythm. PAST MEDICAL HISTORY: 1. Status post mitral valve repair with a Maze procedure in January 2012. 2. Moderate left ventricular dysfunction with an EF in the range of 30%-35%. 3. Paroxysmal atrial fibrillation on chronic Coumadin anticoagulation, status post cardioversion in February 2012, remaining in sinus rhythm until her amiodarone was stopped. 4. Recurrent atrial fibrillation, status post cardioversion in May 2013 and September 2015 on amiodarone. 5. Status post dual chamber defibrillator due to sinus node dysfunction and excessive bradycardia while on amiodarone. 6. Left atrial appendage was oversewn at the time of her mitral valve repair. 7. No evidence of epicardial coronary artery disease in July 2011, preoperatively. 8. Echo in August 2015, severely reduced RV function, severe left atrial enlargement, EF 30% with a stroke volume of 26 mL and type 2 diastolic dysfunction while in atrial fibrillation. 9. Hypothyroidism. 10. Anemia. SOCIAL HISTORY: She is . She has helped from her children locally. She smoked in the past, half a pack per day, but stopped at the time of her surgery in 2011. Her children and grandchildren live locally. FAMILY HISTORY: Noncontributory for mitral valve disease or premature heart disease. ALLERGIES: ERYTHROMYCIN, PENICILLIN AND SULFA. MEDICATIONS: Reviewed in electronic medical record. PHYSICAL EXAMINATION: GENERAL: This morning, she is awake, alert and oriented x3. She is in no acute distress. VITAL SIGNS: Her heart rate is 60, blood pressure 96/54, respirations 16, and sat 91% on 2 liters. HEENNT: Mildly reduced carotid upstrokes. No evidence of carotid bruits. Jugular venous pressure appeared mildly elevated. Sclerae anicteric. Her hearing is normal. LUNGS: Clear to auscultation bilaterally. No rales, rhonchi or wheezing. HEART: Regular rate and rhythm. No appreciable murmurs, rubs or gallops. ABDOMEN: Soft, nontender, and nondistended. Positive bowel sounds. EXTREMITIES: No clubbing, cyanosis or edema. PSYCHIATRIC: Affect appeared appropriate. DIAGNOSTIC STUDIES: Chest x-ray, cardiomegaly with a defibrillator, no evidence of heart failure, advanced emphysema, no airspace consolidation or pleural effusion. LABORATORY STUDIES: Hemoglobin 11.8 and platelet count of 184. Sodium 142 and potassium 3.7. Her AST and ALT are pending. Her troponin is minimally elevated at 0.374 and then 0.401. Her TSH and free T4 are normal. IMPRESSION: 1. Atrial tachycardia, status post cardioversion with jainism of an atrial paced ventricularly sensed rhythm. 2. Chronic anticoagulation with Coumadin. 3. Chronic amiodarone to maintain sinus rhythm. 4. Moderate left ventricular dysfunction. 5. Status post dual chamber defibrillator. 6. Status post mitral valve repair with a Maze procedure in January 2012. Dr. Reynoso was kind enough to get her back into sinus rhythm this morning post-cardioversion. She is feeling better already. She will remain on Coumadin for goal INR of 2-3. She will remain on amiodarone 200 mg daily and she will remain on low dose Toprol. Her blood pressure is normally in the 90s. There is not a lot of room to increase her beta blockers further. Additionally, she remains on Lasix. She notes that when she has abdominal distention, usually that is her sign of worsening right-sided heart failure. Her troponin is likely related to demand ischemia as she did not have coronary artery disease in 2012. 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 As discussed with resident, she can be discharged this afternoon on her previous home medications. Thank you for allowing us to participate in her care.
--- NOTE | 2016-09-27 09:20 | Discharge Instructions ---
Discharge Instructions Date of Service Sep 27, 2016. Admission Reason for Admission: Atrial Fibrillation Discharge Discharge Diagnosis / Problem: Atrial Tacycardia Discharge Goals Goal(s): Decrease discomfort, Improve function, Increase independence, Improve disease control Activity Recommendations Activity Limitations: resume your previous activity Lifting Limitations: none Exercise/Sports Limitations: none May Resume Sexual Activity: when tolerated Shower/Bathe: no limitations Driving or Machine Use: no limitations . Instructions / Follow-Up Instructions / Follow-Up 1) Follow-up with cardiology as scheduled. 2) we discussed what to do should her symptoms recur. If it is going to work week, he can contact cardiology. If it is during the weekend, you can call the on-call physician. If at any time if the symptoms are of sudden onset or severe , he should go to the emergency department, [place] 911 if necessary. Current Hospital Diet Patient's current hospital diet: AHA Diet (Heart Healthy) Discharge Diet Recommended Diet: AHA Diet (Heart Healthy) Procedures Procedures Performed: Carioversion Pending Studies Studies pending at discharge: no Medical Emergencies . Who to Call and When: Medical Emergencies: If at any time you feel your situation is an emergency, please call 911 immediately. . Non-Emergent Contact Non-Emergency issues call your: Signal Fitter Call Non-Emergent contact if: temperature is above 100.5, your pain is not controlled, your pain is unusual for you, your pain is concerning you, you have any medication questions . . "Provider Documentation" section prepared by Da Patterson. . VTE Core Measure Inpt VTE Proph given/why not?: Warfarin (Coumadin)
--- NOTE | 2016-09-27 09:29 | Discharge Summary ---
Discharge Summary Date of Service Sep 27, 2016. 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 Procedures: Cardioversion Vaccinations: None Consultations: Cardiology Pending Studies/Follow-Up: None Medication Reconciliation Continued Medications: Amiodarone Hcl (Pacerone) 200 Mg Tab 200 MG PO QPM, TAB Aspirin (Aspirin 81) 81 Mg Tab 1 TAB PO QAM Calcium Carbonate-Cholecalcife (Caltrate 600+D) 1 Tab Tab 1 TAB PO QPM Cholecalciferol (Vitamin D-1000) 1,000 Unit Tab 2000 UNITS PO QAM Cyanocobalamin (Vitamin B-12 1000 Mcg) 1,000 Mcg Tab 1000 MCG IM MONTHLY, TAB Docusate Sodium (Docusate Sodium) 100 Mg Cap 1 CAP PO BID for 15 Days, #30 CAP Fluticasone Propionate (Nasal) (Flonase Allergy Relief) Unknown Strength Spr 1 SPRAY INH DAILY PRN for Nasal Congestion Furosemide (Lasix) 20 Mg Tab 20 MG PO 3XWK, TAB TAKE ON MON, WED, SUN Ipratropium-Albuterol (Combivent Respimat) 1 Aer Aer 1 PUFFS INH QID PRN for SOB/Wheezing, INH Levothyroxine Sodium (Synthroid) 100 Mcg Tab 100 MCG PO QAM, TAB Losartan Potassium (Cozaar) 50 Mg Tab 50 MG PO QAM, TAB Metoprolol Succinate (Toprol Xl) 25 Mg Tabcr 12.5 MG PO QPM, #30 TAB Warfarin Sod (Warfarin Sodium) 1 Mg Tab 2 MG PO 6XWK TAKE ALL DAYS BUT THURSDAYS Warfarin Sod (Warfarin Sodium) 1 Mg Tab 1 MG PO WK TAKE 1 MG ON THURSDAYS Admission Information HPI (per Admitting provider): 70-year-old female with past medical history of atrial fibrillation, CHF, COPD, hypothyroidism, Maze procedure in 2011, status post dual-chamber ventricle pacemaker present to the ER after she was 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 She has a history of atrial fibrillation which is managed with amiodarone 200 mg every evening and Toprol-XL 12.5 mg every evening with anticoagulation with Coumadin. She developed palpitations yesterday and also complained of heaviness in her chest. Denies any chest pain, difficulty breathing, dizziness or lightheadedness. Denies any weakness, numbness tingling, fevers or chills. Physical Exam (per Admitting): General Appearance: WD/WN, no apparent distress Head: normocephalic Eyes: normal inspection ENT: normal ENT inspection, hearing grossly normal Neck: supple Respiratory/Chest: chest non-tender, lungs clear, normal breath sounds, no respiratory distress, no accessory muscle use Cardiovascular: + tachycardia, + irregularly irregular Abdomen/GI: normal bowel sounds, non tender, soft Back: normal range of motion Extremities/Musculoskelatal: no pedal edema, normal range of motion Neurologic/Psych: alert, normal mood/affect, oriented x 3 Skin: normal color Hospital Course The patient was seen and evaluated in emergency department. Cardiology was consult. The patient was found to be in an atrial tachycardia. She was started on an amiodarone drip. Override pacing was attempted and the patient converted to an atrial flutter with a 2-1 block. This actually reduce her ventricular response the patient felt more comfortable. Cardioversion in the emergency department was considered however she had eaten within the last 6 hours, and since she was hemodynamically stable, it was decided to wait into the morning to attempt cardioversion. At this point the amiodarone drip was discontinued. The patient was admitted to the telemetry unit. She was nothing by mouth after midnight. On the morning after admission she underwent successful cardioversion. Post cardioversion, the patient felt well. She denied any chest pain or shortness of breath. The patient was noted to have a troponin elevation thought secondary to demand ischemia, not surprising given her heart rate over the preceding 12-18 hours. No changes to her home medications were made. The patient was cleared by cardiology for discharge. The patient has follow-up scheduled with cardiology. Prior to discharge, I discussed with her prompt treatment should the symptoms recur; these are detailed the patient instructions. Discharge Examination Pleasant alert. No acute distress. She is lying semierect reclined in her bed talking to her son. Trachea is midline. There is no jugular venous distention. Heart regular rate and rhythm without appreciable murmurs. Lungs clear throughout with nonlabored respirations. Abdomen soft and nontender. Tremors without edema. Total time spent on discharge = This includes examination of the patient, discharge planning, medication reconciliation, and communication with other providers. Discharge Instructions See discharge instructions
--- NOTE | 2016-09-27 09:36 | CARDIOVERSION ---
DATE OF OPERATION: 09/27/2016 DATE OF SERVICE: 09/27/2016. PROCEDURE PERFORMED: Electrical cardioversion. STAFF HOME ECONOMICS EXTENSION WORKER: Tino Reynoso M.D. INDICATION: Mrs. Julia Saini is a 70-year-old woman with a history of atypical atrial flutter and atrial tachycardia. She noticed elevation in her heart rate beginning nearly 24 hours prior to the presentation at [facility]. Interrogation of her ICD revealed this to be an atrial tachycardia later transitioning to an atrial flutter. It was resistant to pace termination. As such, she was advised to consider cardioversion. PROCEDURE IN DETAIL: The patient was informed of the risks, benefits and alternatives to the intended procedure. She understood such and wished to proceed. She was taken to the cardiac catheterization holding area in a fasting state. A general anesthetic was administered by the anesthesiology service and the patient was subsequently cardioverted to normal sinus rhythm with 30 joules delivered in a biphasic fashion. The patient's device was interrogated subsequent to the procedure and her rhythm confirmed on EKG. There were no immediate complications and she appeared to be neurologically intact subsequent to the procedure. IMPRESSION: Successful cardioversion of atrial flutter to paced atrial rhythm. The patient will be returned to the wade for a period of monitoring prior to consideration for discharge. I attest to the content of the Intraoperative Record and any orders documented therein. Any exceptio ns are noted below.
[2016-09-28] MEDS ORDERED: WARFARIN SOD 1 MG TAB PO SCH (16:00)
[2016-12-08] MEDS ORDERED: AMIO200T4 PO (11:06)
[2017-04-18] MEDS ORDERED: SUCR1TAB PO (16:18)
[2017-04-18] MEDS ORDERED: WARF1TAB6 PO (16:18)
[2017-04-18] MEDS ORDERED: PRLSR20 PO (16:18)
== END 2016-09-27 10:36 | disposition home or self-care (01) | DRG 309 ==
LOC: ENRESERVDT → ENRESERVTM → C.EDB 15:21 → C.2T 17:54
PROVIDERS: ADMIT Family Medicine; ATTEND Family Medicine
PROC: 5A2204Z Restoration of Cardiac Rhythm, Single (ICD-10-PCS; principal; 2016-09-27 07:30)
DX: I48.92 Unspecified atrial flutter (principal); I24.8 Other forms of acute ischemic heart disease; Z68.1 Body mass index [BMI] 19.9 or less, adult; R64 Cachexia; I47.1 Supraventricular tachycardia; E03.9 Hypothyroidism, unspecified; I48.0 Paroxysmal atrial fibrillation; I25.10 Atherosclerotic heart disease of native coronary artery without angina pectoris; I48.2 Chronic atrial fibrillation; J44.9 Chronic obstructive pulmonary disease, unspecified; I50.9 Heart failure, unspecified; Z83.3 Family history of diabetes mellitus; Z80.9 Family history of malignant neoplasm, unspecified; Z82.49 Family history of ischemic heart disease and other diseases of the circulatory system; Z87.891 Personal history of nicotine dependence; I51.9 Heart disease, unspecified

== ENCOUNTER → 2016-11-30 | Outpatient (CLI) | payer OTHER, MEDICARE ==
[~2016-11-30] MED LIST changes: -CLC100X PO; +DOCU100C31 PO
--- NOTE | 2016-12-01 12:39 | MAMMOGRAPHY REPORT ---
BILATERAL DIGITAL SCREENING MAMMOGRAM WITH CAD: 11/30/2016 CLINICAL HISTORY: Routine screening. TECHNIQUE: Current study was also evaluated with a Computer Aided Detection (CAD) system. Bilateral CC and MLO views were obtained. COMPARISON: Comparison is made to exams dated: 09/09/2014 mammogram, 08/14/2013 mammogram, 06/21/2012 ma mmogram, 06/08/2011 mammogram, 06/07/2010 mammogram, and 04/27/2009 mammogram - [facility]. BREAST COMPOSITION: The tissue of both breasts is heterogeneously dense, which may obscure small mas ses. FINDINGS: No suspicious masses, calcifications, or areas of architectural distortion are noted in ei ther breast. There has been no significant interval change compared to prior exams. IMPRESSION: ACR BI-RADS CATEGORY 1: NEGATIVE There is no mammographic evidence of malignancy. A 1 year screening mammogram is recommended. The pa tient will receive written notification of the results. Approximately 10% of breast cancers are not detected with mammography. A negative mammographic report should not delay biopsy if a clinically suggestive mass is present. Hue Lambert M.D. ah/:11/30/2016 16:25:05 Licensed Surveyor: Nava THOMPSON(R)(M), [facility] letter sent: Normal 1/2 BI-RADS Code: ACR BI-RADS Category 1: Negative
== END | disposition home or self-care (01) ==
LOC: C.MAMM 11:40
PROVIDERS: ATTEND Family Medicine
DX: Z12.31 Encounter for screening mammogram for malignant neoplasm of breast (principal)

== ENCOUNTER → 2016-12-08 | Day surgery (SDC) | payer OTHER, MEDICARE ==
[~2016-12-08] VITALS: Ht 162.6 cm; Wt 47.0 kg
[~2016-12-08] MED LIST changes: +AMIO200T4 PO
--- NOTE | 2016-12-08 08:46 | History and Physical ---
History & Physical Date of Service Dec 08, 2016. History & Physical HPI: This will serve as the history and physical for planned elective cardioversion. Julia contacted the office after noting that her heart rate which is usually in the 60 the beat per minute range was 120 bpm. She noted a slight increase in her level of dyspnea with activity and her symptoms were consistent with her previous atrial tachycardia. In September 2016 she underwent previous cardioversion for an atrial tachycardia. She denies any chest pain chest pressure chest heaviness. She notes some mild lightheadedness. She denies any PND or orthopnea. She has a lower extremity edema. She has any bleeding bruising dark stools or black stools on anticoagulation. Her appetite and weight have been stable. She does describe some increased fatigue with activity the rest of a complete review of systems otherwise negative PAST MEDICAL HISTORY: 1. Status post mitral valve repair with a Maze procedure in January 2012. 2. Moderate left ventricular dysfunction with an EF in the range of 30%-35%. 3. Paroxysmal atrial fibrillation on chronic Coumadin anticoagulation, status post cardioversion in February 2012, remaining in sinus rhythm until her amiodarone was stopped. 4. Recurrent atrial fibrillation, status post cardioversion in May 2013 and September 2015 on amiodarone. 5. Status post dual chamber defibrillator due to sinus node dysfunction and excessive bradycardia while on amiodarone. 6. Left atrial appendage was oversewn at the time of her mitral valve repair. 7. No evidence of epicardial coronary artery disease in July 2011, preoperatively. 8. Echo in August 2015, severely reduced RV function, severe left atrial enlargement, EF 30% with a stroke volume of 26 mL and type 2 diastolic dysfunction while in atrial fibrillation. 9. Hypothyroidism. 10. Anemia. 11. Recurrent atrial tachycardia status post cardioversion September 2016 SOCIAL HISTORY: She is . She has helped from her children locally. She smoked in the past, half a pack per day, but stopped at the time of her surgery in 2011. Her children and grandchildren live locally. FAMILY HISTORY: Noncontributory for mitral valve disease or premature heart disease. ALLERGIES: ERYTHROMYCIN, PENICILLIN AND SULFA. MEDICATIONS: Reviewed in electronic medical record. PHYSICAL EXAMINATION: (From 12/07/16) GENERAL: This morning, she is awake, alert and oriented x3. She is in no acute distress. VITAL SIGNS: Her heart rate is 125, blood pressure 96/54, respirations 16, HEENNT: Mildly reduced carotid upstrokes. No evidence of carotid bruits. Jugular venous pressure appeared mildly elevated. Sclerae anicteric. Her hearing is normal. LUNGS: Clear to auscultation bilaterally. No rales, rhonchi or wheezing. HEART: Regular rate and rhythm (Tachycardic) . No appreciable murmurs, rubs or gallops. ABDOMEN: Soft, nontender, and nondistended. Positive bowel sounds. EXTREMITIES: No clubbing, cyanosis or edema. PSYCHIATRIC: Affect appeared appropriate. EKG reveals an atrial tachycardia A1 117 bpm with a nonspecific intraventricular conduction delay and nonspecific ST-T changes. We'll compared to her prior ECG atrial tachycardia has replaced an atrial paced rhythm. Outpatient INRs were reviewed. Her INR on 11/02/2016 was 2.3 and on 12/07/2016 was 2.2 Impressions: 1) Recurrent atrial tachycardia s/p CV September 2016 1B) Status post mitral valve repair with a Maze procedure in January 2012. 2. Moderate left ventricular dysfunction with an EF in the range of 30%-35%. 3. Paroxysmal atrial fibrillation on chronic Coumadin anticoagulation, status post cardioversion in February 2012, remaining in sinus rhythm until her amiodarone was stopped. 4. Recurrent atrial fibrillation, status post cardioversion in May 2013 and September 2015 on amiodarone. 5. Status post dual chamber defibrillator due to sinus node dysfunction and excessive bradycardia while on amiodarone. 6. Left atrial appendage was oversewn at the time of her mitral valve repair. 7. No evidence of epicardial coronary artery disease in July 2011, preoperatively. 8. Echo in August 2015, severely reduced RV function, severe left atrial enlargement, EF 30% with a stroke volume of 26 mL and type 2 diastolic dysfunction while in atrial fibrillation. As I discussed with Julia I think she needs to undergo elective cardioversion which is planned today. Her INRs have been therapeutic over the last month. Unfortunately she continues to have recurrent atrial arrhythmias even on amiodarone. As I discussed with her this is a short-term solution to get her back in her normal rhythm. She'll remain on amiodarone. We may need to increase her amiodarone in the short-term to 400 mg daily. We discussed long-term she needs to consider an EP study and ablative therapy. Unfortunately she's had recurrent atrial fibrillation and now atrial tachycardia and she also has a history of a Maze procedure at the time of her mitral valve surgery which will likely make this a very complicated ablation. I discussed with Julia that I would be happy to arrange for EP evaluation at a tertiary care facility. I discussed with her the risks and benefits of cardioversion risks including but not limited to low blood pressure or high blood pressure, stroke, heart attack or dying with the procedure were discussed. Given the fact she has a dual-chamber defibrillator there is no significant risks of kyra arrhythmias. She understands the risks and wishes to proceed. The procedure will be performed today in the Industrial Service Technician under the direction of Dr. Reynoso.
[2016-12-08 10:56] VITALS: BP 103/75; PULSE 115; TEMP 36.6; O2SAT 100; Ht 162.6 cm; Wt 47.0 kg
[2016-12-08 11:30] VITALS: BP 106/74; PULSE 117; O2SAT 99
[2016-12-08 11:32] VITALS: BP 93/56; PULSE 117; O2SAT 99
[2016-12-08 12:15] VITALS: BP 94/59; PULSE 60; O2SAT 96
--- NOTE | 2016-12-08 12:32 | Discharge Instructions ---
Discharge Instructions Date of Service Dec 08, 2016. Admission Reason for Admission: W/Anes Atrial Flutter Dr Reynoso To Do Discharge Discharge Diagnosis / Problem: Atrial tachycardia Discharge Goals Goal(s): Improve function Activity Recommendations Activity Limitations: resume your previous activity Lifting Limitations: none Exercise/Sports Limitations: none . Instructions / Follow-Up Instructions / Follow-Up Follow-up with Dr. Hollis as previously arranged Current Hospital Diet Patient's current hospital diet: Discharge Diet Recommended Diet: AHA Diet (Heart Healthy) Pending Studies Studies pending at discharge: no Medical Emergencies . Who to Call and When: Medical Emergencies: If at any time you feel your situation is an emergency, please call 911 immediately. . Non-Emergent Contact Non-Emergency issues call your: Publications Production Supervisor Call Non-Emergent contact if: you have any medication questions . . "Provider Documentation" section prepared by John Reynoso. . VTE Core Measure Inpt VTE Proph given/why not?: Treatment not indicated
--- NOTE | 2016-12-08 14:44 | Anesthesiology Progress Note ---
Anesthesia Post Op Note Date & Time Dec 08, 2016 at 14:43 Vital Signs Pain Intensity: 0 Vital Signs Past 12 Hours Date Time Temp Pulse Resp B/P (MAP) Pulse Ox O2 Delivery O2 Flow Rate FiO2 12/08/16 12:15 60 16 94/59 (71) 96 Room Air 12/08/16 12:00 60 16 82/56 (65) 96 Room Air 12/08/16 11:55 60 16 85/56 (66) 96 Room Air 12/08/16 11:50 60 16 80/58 (65) 96 Room Air 12/08/16 11:45 60 16 82/52 (62) 96 Room Air 12/08/16 11:40 60 16 86/54 (65) 96 Room Air 12/08/16 11:32 117 16 93/56 99 Nasal Cannula 6 12/08/16 11:30 117 16 106/74 99 Nasal Cannula 6 12/08/16 10:56 36.6 115 16 103/75 100 Room Air Notes Mental Status: alert / awake / arousable, participated in evaluation Pt Amnestic to Procedure: Yes Nausea / Vomiting: adequately controlled Pain: adequately controlled Airway Patency, RR, SpO2: stable & adequate BP & HR: stable & adequate Hydration State: stable & adequate Anesthetic Complications: no major complications apparent
--- NOTE | 2016-12-12 13:57 | Cardiology Procedure Brief Nt ---
Preliminary Cardiology Note Procedure Date Dec 08, 2016. Pre-Procedure Diagnosis Atrial tachycardia Post-Procedure Diagnosis Same Procedure(s) Performed Patient underwent synchronized cardioversion with 100J delivered in a biphasic fashion with return to paced atrial rhythm. Forensic Document Examiner [place] Raw Stock Drier Tender(s) None Estimated Blood Loss None Medication(s) Per anesthesiology record (propofol) Preliminary Findings successful cardioversion from atrial tachycardia to paced atrial rhythm Recommendations Continue current medications. Specimens None Complication(s) None Disposition
== END | disposition home or self-care (01) ==
LOC: C.CATH 10:09
PROVIDERS: ATTEND Internal Medicine Cardiovascular Disease
DX: I47.1 Supraventricular tachycardia (principal); I48.0 Paroxysmal atrial fibrillation; Z79.01 Long term (current) use of anticoagulants; E03.9 Hypothyroidism, unspecified; D64.9 Anemia, unspecified; Z79.899 Other long term (current) drug therapy; Z95.0 Presence of cardiac pacemaker; Z87.891 Personal history of nicotine dependence; J44.9 Chronic obstructive pulmonary disease, unspecified; I10 Essential (primary) hypertension; I50.9 Heart failure, unspecified; Z79.82 Long term (current) use of aspirin

== ENCOUNTER → 2017-02-13 | Outpatient (CLI) | payer OTHER, MEDICARE ==
[~2017-02-13] MED LIST changes: -AMIO200T7 PO; -FLUT0.15 INH; +OPTIRAY 320 IV PRN
--- NOTE | 2017-02-13 14:07 | DIAGNOSTIC IMAGING REPORT ---
(CHEST) THORAX WITH CT DOSE: 164.65 mGycm HISTORY: Cough. Dyspnea. R05 [id number] COPD exacerbation appt ached 02-13-17 @ 1:40 pt a TECHNIQUE: Multiaxial CT images of the chest were performed following the intravenous administration of contrast. A dose lowering technique was utilized adhering to the principles of ALARA. COMPARISON: 10/18/2015 FINDINGS: Unchanging emphysematous and mild fibrotic change throughout both hemithoraces. No evidence for acute infiltrate. No significant nodular pathology. No change in the prior exam. Operative findings consistent with a prior median sternotomy, valve replacement, and permanent bipolar cardiac pacemaker. Moderate cardiomegaly. No significant mediastinal or hilar adenopathy. No focal infiltrate. IMPRESSION: 1. Emphysematous and postoperative changes stable from the prior study. 2. No significant infiltrative or nodular pathology. 3. Moderate stable cardiomegaly. 4. No change from the prior exam. The above report was generated using voice recognition software. It may contain grammatical, syntax or spelling errors. Electronically signed by: Orlando Colon M.D. 02/13/2017 2:06 PM Dictated Date/Time: 02/13/2017 2:00 PM
== END | disposition home or self-care (01) ==
LOC: C.CTS 13:31
PROVIDERS: ATTEND Internal Medicine Pulmonary Disease
DX: R05 Cough (principal); J44.1 Chronic obstructive pulmonary disease with (acute) exacerbation; I51.7 Cardiomegaly

== ENCOUNTER → 2017-02-19 | Outpatient (CLI) | payer OTHER, MEDICARE ==
[~2017-02-19] MED LIST changes: -OPTIRAY 320 IV PRN
[2017-02-22 15:25] VITALS: PULSE 61; O2SAT 90
--- NOTE | 2017-03-09 11:08 | CODING QUERY MEDICAL NECESSITY ---
SUPPORTING DIAGNOSIS NEEDED Dr. De Luna, A supporting diagnosis is required for the test/procedure performed on this patient in order for us to be reimbursed by the patient's insurance. Please provide a supporting diagnosis for the following test/procedure listed below next to the test name along with your signature. *If there is no additional diagnosis for this patient that would support the following test/procedure please document that below next to the test/procedure. Test(s)/Procedure(s) that require a supporting diagnosis: * ([id number]) PULSE OX OVERNIGHT STUDY DIAGNOSIS: DATE OF SERVICE: 02/22/17 Provider Signature: Date: Thank you Adalberto Miller [facility] Information Management Once completed, please kindly fax back to [phone] For questions please call [phone]
== END | disposition home or self-care (01) ==
LOC: C.RC 17:17
PROVIDERS: ATTEND Internal Medicine Pulmonary Disease
DX: J44.1 Chronic obstructive pulmonary disease with (acute) exacerbation (principal)

== ENCOUNTER → 2017-06-01 | Outpatient (CLI) | payer OTHER, MEDICARE ==
[~2017-06-01] MED LIST changes: +ANAS1TAB59 PO; +ASCO1CAP3 PO; +CALCTAB7 PO; +CHOL1000 PO; -CMD/1 PO; +CYAN10005 PO; +CYNI1000 SQ; +ENOX40IN SQ; +HYDR-5688 PO; -METO25TA3 PO; +METO25TA4 PO; +OXGN; +WARF-298 PO; +WARF4TAB44 PO
--- NOTE | 2017-06-05 13:36 | MAMMOGRAPHY REPORT ---
UNILATERAL RIGHT DIGITAL DIAGNOSTIC MAMMOGRAM TOMOSYNTHESIS WITH CAD AND TARGETED RIGHT ULTRASOUND: 1 CLINICAL HISTORY: The patient presents for workup of a right breast mass seen on a recent cardiac CT. The patient reports no new lumps or other complaints. TECHNIQUE: Breast tomosynthesis in addition to standard 2D mammography was performed. Current study was also evaluated with a Computer Aided Detection (CAD) system. Right CC and MLO 2-D and tomosynthe sis images were obtained. COMPARISON: Comparison is made to exams dated: 11/30/2016 mammogram, 09/09/2014 mammogram, 08/14/2013 ma mmogram, 06/21/2012 mammogram, 06/08/2011 mammogram, and 06/07/2010 mammogram - [facility]. BREAST COMPOSITION: The tissue of the right breast is heterogeneously dense, which may obscure small masses. FINDINGS: Mammograms of the right breast demonstrate an obscured 16 mm mass within the right lower i nner quadrant. The remainder of the right breast is stable compared to prior exams, without suspicio us masses, calcifications, or areas of architectural distortion noted. Scattered benign-appearing ca lcifications are stable. Targeted ultrasound was performed of the right lower inner quadrant in the region of the breast mass. In the right breast at 5:00, approximately 5 cm from the nipple, there is an irregular mixed echoge nicity, predominantly hypoechoic, solid mass which measures 1.3 x 1.0 x 1.6 cm. This corresponds wit h the mammographic mass as well as the mass seen on the prior CT and is suspicious for malignancy. R ecommend ultrasound guided core needle biopsy for further evaluation. IMPRESSION: ACR BI-RADS CATEGORY 4: SUSPICIOUS, TARGETED ULTRASOUND ACR BI-RADS CATEGORY 4: SUSPICIO US 1. Irregular hypoechoic 1.6 cm mass in the right breast at 5:00, which corresponds with the mass seen on the recent CT. The mass is suspicious for malignancy and ultrasound guided core needle biopsy is recommended for further evaluation. 2. At the time of the biopsy, recommend ultrasound of the right axilla. A phone call was made to the physician's office to confirm faxed results were received. The patient has been verbally notified of the results. She tentatively scheduled the biopsy before leaving the department. Note that the patient will be continuing her aspirin and Coumadin for the procedure. Approximately 10% of breast cancers are not detected with mammography. A negative mammographic report should not delay biopsy if a clinically suggestive mass is present. Hue Lambert M.D. ah/:06/01/2017 14:45:05 Rayon Tester: Jessica THOMPSON(Eliud)(Rich), [facility] letter sent: Abnormal 4/5 BI-RADS Code: ACR BI-RADS Category 4: Suspicious Ultrasound BI-RADS: ACR BI-RADS Category 4: Suspici ous
== END | disposition home or self-care (01) ==
LOC: C.MAMM 13:50
PROVIDERS: ATTEND Obstetrics & Gynecology
DX: N63.14 Unspecified lump in the right breast, lower inner quadrant (principal)

== ENCOUNTER → 2017-06-08 | Outpatient (CLI) | payer OTHER, MEDICARE ==
[~2017-06-08] MED LIST changes: -ANAS1TAB59 PO; -ASCO1CAP3 PO; -CALCTAB7 PO; -CHOL1000 PO; +CMD/1 PO; -CYAN10005 PO; -CYNI1000 SQ; -ENOX40IN SQ; -HYDR-5688 PO; +METO25TA3 PO; -METO25TA4 PO; -OXGN; -WARF-298 PO; -WARF4TAB44 PO
--- NOTE | 2017-06-08 14:04 | Discharge Instructions ---
Discharge Instructions Procedure Procedure Date: Jun 08, 2017. Reason for visit: Right Mass. Discharge Discharge Date: Jun 08, 2017. Discharge Diagnosis: status post breast biopsy Instructions Activity Recommendations: Additional Limitations (see below) Return to School/Work: no limitations Recommended Home Diet: No Limitations Provider Instructions: ACTIVITY RECOMMENDATIONS: * No lifting, pushing, pulling or exercising the affected side for three days. RETURN TO SCHOOL/WORK: * You may return to work/school after the procedure, but do not perform any strenuous activities for 24 to 48 hours. MEDICATIONS: * Tylenol (two 325 mg) every four to six hours if needed for mild pain (if not allergic to Tylenol). DIET: * Resume previous diet. SPECIAL CARE INSTRUCTIONS: * Keep biopsy site dry for 24 hours. May shower after 24 hours, but do not soak (bathe) incision. * May remove Tegaderm (plastic patch) tomorrow AFTER showering. * Leave the steri-strips on for one week. Allow the steri-strips to fall off by themselves. If not off after one week, you may remove them. You may place a Bandaid crosswise over the strips, if desired. * Apply ice 10 minutes on and 10 minutes off as needed. * Wear a bra at bedtime to sleep more comfortably for 2-3 days. * Your referring physician should have the results after approximately 5 to 7 business days. * Call for unusual bleeding, fever, drainage, etc or if you have any questions call during normal business hours or after hours call Dr Lambert, . FOLLOW UP VISIT: Follow-up with Referring Physician as scheduled. Allergies Coded Allergies: Penicillins (Verified Allergy, Unknown, HIVES; TAKES CEPHALEXIN W/O PROBLEM, 09/26/16) Sulfa Antibiotics (Verified Allergy, Unknown, NAUSEA, ITCHY, AND "FUNNY THROAT", 09/26/16) Macrolides and Ketolides (Verified Adverse Reaction, Unknown, "MYCIN ANTIBIOTICS": ITCHY AND NAUSEA, 09/26/16) Luis Mejia Recommendations: Call your doctor if: * Temperature above 101 degrees * Pain not relieved by pain medicine ordered * There is increased drainage or redness from any incision * You have any unanswered questions or concerns. Your Doctors Instructions noted above were prepared by provider Hue Lambert. Patient Signature Section: Patient Instructions Signature Page Julia Saini Patient (or Guardian) Signature/Date: I have read and understand the instructions given to me by my caregivers. Caregiver/RN/Doctor Signature/Date: The above-named patient and/or guardian has received patient instructions on this date. + Original Patient Signature Page (only) stays with chart. Please make copy for patient.
--- NOTE | 2017-06-08 14:36 | MAMMOGRAPHY REPORT ---
ULTRASOUND GUIDED BIOPSY RIGHT BREAST: 06/08/2017 CLINICAL HISTORY: Suspicious right 5:00 breast mass. PATIENT CONSENT: The procedure, risks and benefits were discussed with the patient and informed writt en consent was obtained. A timeout was performed immediately prior to the procedure. PROCEDURE DESCRIPTION: Preprocedural ultrasound was performed of the right axilla, which shows morpho logically normal axillary lymph nodes without evidence of axillary adenopathy. With ultrasound shayy nce, aseptic technique, and lidocaine as the local anesthetic (1% lidocaine to anesthetize the skin a nd 1% lidocaine with epinephrine to anesthetize the deeper tissues), the mass of concern in the right 5:00 breast was sampled 4 times with a 14-gauge Achieve biopsy needle. Immediately thereafter, wit h ultrasound guidance, aseptic technique, and lidocaine as the local anesthetic, a metallic localizer clip was placed centrally in the mass. Direct pressure was applied to the site immediately post pro cedure and hemostasis was achieved. Postprocedure unilateral mammograms were performed to confirm pl acement of the clip in the expected location of the breast mass. The patient tolerated the procedur e without complication. She was given wound care instructions. The specimens were sent to pathology for analysis. COMPARISON: Comparison is made to exams dated: 06/01/2017 ultrasound, 06/01/2017 mammogram, 7 mammogram, 09/09/2014 mammogram, 08/14/2013 mammogram, and 06/21/2012 mammogram - [facility]. IMPRESSION: ULTRASOUND GUIDED BIOPSY Ultrasound guided core needle biopsy of the suspicious mass in the right 5:00 breast, with clip place ment. The patient will receive pathology results from her ordering provider. If pathology results a re malignant, consider preoperative bilateral breast MRI given the dense breast parenchyma mammograph ically. Hue Lambert M.D. /:06/08/2017 14:11:24 Multi Operation Machine Operator: Agustina WELSH)(Rich), [facility]
--- NOTE | 2017-06-11 07:35 | MAMMOGRAPHY REPORT ---
BILATERAL DIGITAL DIAGNOSTIC MAMMOGRAM TOMOSYNTHESIS: 06/08/2017 CLINICAL HISTORY: Status post right breast biopsy. TECHNIQUE: Breast tomosynthesis in addition to standard 2D mammography was performed. Postprocedura l right CC and ML tomosynthesis images including C views and full left MLO and cc 2-D and tomosynthes is images were obtained. COMPARISON: Comparison is made to exams dated: 06/01/2017 ultrasound, 06/01/2017 mammogram, 7 mammogram, 09/09/2014 mammogram, 08/14/2013 mammogram - [facility], and 04/20/2008. BREAST COMPOSITION: The tissue of both breasts is heterogeneously dense, which may obscure small mas ses. FINDINGS: A new biopsy marker clip is seen within the biopsied mass within the right 5:00 breast. N o significant postbiopsy hematoma is seen. Mammograms were also obtained of the left breast given that the right breast mass is suspicious for m alignancy and given that the patient's last screening mammograms of her left breast were performed ov er 6 months ago. Mammograms of the left breast demonstrate no suspicious masses, calcifications, or areas of architectural distortion. IMPRESSION: POST PROCEDURE IMAGING FOR MARKER PLACEMENT 1. New biopsy marker clip status post ultrasound guided biopsy of the right 5:00 breast mass. Patho logy results are pending. 2. No mammographic evidence of malignancy in the left breast. Approximately 10% of breast cancers are not detected with mammography. A negative mammographic report should not delay biopsy if a clinically suggestive mass is present. Hue Lambert M.D. ah/:06/08/2017 14:33:49 Caseworker Intake: Agustina THOMPSON(Eliud)(M), [facility] BI-RADS Code: Post Procedure Imaging For Marker Placement
== END | disposition home or self-care (01) ==
LOC: C.MAMM 13:30
PROVIDERS: ATTEND Obstetrics & Gynecology
DX: R92.0 Mammographic microcalcification found on diagnostic imaging of breast (principal); N63.10 Unspecified lump in the right breast, unspecified quadrant; C50.911 Malignant neoplasm of unspecified site of right female breast

== ENCOUNTER 2017-07-02 06:53 | Inpatient (IN) | payer OTHER, MEDICARE ==
[2017-06-20 11:31] VITALS: Ht 160 cm; Wt 47.1 kg
--- NOTE | 2017-06-20 12:35 | PAT Medication Instructions ---
Service Date Jun 20, 2017. Current Home Medication List Amiodarone Hcl (Cordarone), 200 MG PO HS Aspirin (Aspirin 81), 1 TAB PO QAM Calcium Carbonate-Cholecalcife (Caltrate 600+D), 1 TAB PO QPM Cholecalciferol (Vitamin D-1000), 2,000 UNITS PO QAM Cyanocobalamin (Vitamin B-12 1000 Mcg), 1,000 MCG IM MONTHLY Docusate Sodium (Docusate Sodium), 1 CAP PO BID Furosemide (Lasix), 20 MG PO 3XWK Home O2 Therapy (Oxygen), 2 LITERS NA HS Ipratropium-Albuterol (Combivent Respimat), 1 PUFFS INH QID PRN for SOB/Wheezing Levothyroxine Sodium (Synthroid), 100 MCG PO QAM Losartan Potassium (Cozaar), 50 MG PO QAM Metoprolol Succinate (Toprol Xl), 12.5 MG PO QPM Warfarin Sod (Warfarin Sodium), 2 MG PO QPM Medication Instructions For Your Scheduled Surgery -Continue as directed: Cyanocobalamin (Vitamin B-12 1000 Mcg), 1,000 MCG IM MONTHLY - Follow your surgeon and foundry operator's instructions for: Warfarin Sod (Warfarin Sodium), 2 MG PO QPM - Hold the following medications the morning of surgery: Losartan Potassium (Cozaar), 50 MG PO QAM Furosemide (Lasix), 20 MG PO 3XWK Cholecalciferol (Vitamin D-1000), 2,000 UNITS PO QAM Docusate Sodium (Docusate Sodium), 1 CAP PO BID - Take the following medications the morning of surgery with a sip of water: Levothyroxine Sodium (Synthroid), 100 MCG PO QAM Ipratropium-Albuterol (Combivent Respimat), 1 PUFFS INH QID PRN for SOB/ Wheezing (if needed) Aspirin (Aspirin 81), 1 TAB PO QAM - Take the following medications as scheduled the night before surgery: Metoprolol Succinate (Toprol Xl), 12.5 MG PO QPM Ipratropium-Albuterol (Combivent Respimat), 1 PUFFS INH QID PRN for SOB/ Wheezing (if needed) Home O2 Therapy (Oxygen), 2 LITERS NA HS Calcium Carbonate-Cholecalcife (Caltrate 600+D), 1 TAB PO QPM Docusate Sodium (Docusate Sodium), 1 CAP PO BID Amiodarone Hcl (Cordarone), 200 MG PO HS If you have any questions please call us at [phone] or [phone] or [phone]
[2017-06-20 14:07] LABS: BASO % 0.9 %; BASO ABS # 0.05 K/uL (0-0.2); EOS % 1.7 %; HEMATOCRIT 36.3 % (37-47); HEMOGLOBIN 11.9 g/dL (12.0-16.0); LYMPH % 17.8 %; LYMPH ABS # 1.02 K/uL (1.2-3.4); MEAN CELL VOLUME 94.8 fL (80-100); MEAN CORPUSCULAR HEMOGLOBIN 31.1 pg (25-34); MEAN CORPUSCULAR HGB CONC 32.8 g/dl (32-36); MEAN PLATELET VOLUME 9.9 fL (7.4-10.4); MONO ABS # 0.46 K/uL (0.11-0.59); NEUT % 71.6 %; NEUT ABS # 4.11 K/uL (1.4-6.5); PLATELET COUNT 192 K/uL (130-400); RED CELL DISTRIBUTION WIDTH CV 13.3 % (11.5-14.5); RED CELL DISTRIBUTION WIDTH SD 46.3 fL (36.4-46.3); WHITE BLOOD COUNT 5.74 K/uL (4.8-10.8)
[2017-06-20 14:14] LABS: CALCIUM 9.1 mg/dl (8.5-10.1); CREATININE 0.92 mg/dl (0.60-1.20); POTASSIUM 4.2 mmol/L (3.5-5.1)
[2017-06-20 14:16] LABS: INR 2.1 (0.9-1.1); PTT PATIENT 35.3 SECONDS (21.0-31.0)
[2017-07-02] VITALS (11 sets, daily range): BP systolic 91–124; BP diastolic 56–75; PULSE 80–89; TEMP 36.3–36.7; O2SAT 93–98
[~2017-07-02] VITALS: Ht 160 cm; Wt 47.1 kg
[~2017-07-02 06:53] MED LIST changes: +CLINDAMYCIN IV 900 MG in DEXTROSE 5% 50ML IV SCH; +LACTATED RINGER'S 1000ML 1,000 ML IV SCH; +OXGN
[2017-07-02] MEDS ORDERED: ENOX40IN SQ (07:24)
[2017-07-02 07:52] LABS: INR 1.1 (0.9-1.1); PTT PATIENT 26.2 SECONDS (21.0-31.0)
[2017-07-02] MEDS ORDERED: ONDANSETRON INJ 2 MG/ML 2 ML VIAL ONE ×2 (08:08→09:39)
[2017-07-02] MEDS ORDERED: PROPOFOL IV EMULSION 10 MG/ML 20 ML VIAL IV ONE (08:08)
[2017-07-02] MEDS ORDERED: DEXAMETHASONE SOD INJ 4 MG/ML VIAL ONE ×2 (08:08→09:39)
[2017-07-02] MEDS ORDERED: LIDOCAINE HCL 2% 2 ML VIAL (20MG/ML) ONE (08:08)
[2017-07-02] MEDS ORDERED: FENTANYL CITRATE INJ 50 MCG/1 ML 2 ML VIAL ONE (08:09)
[2017-07-02] MEDS ORDERED: MIDAZOLAM HCL 1 MG/ML 2ML VIAL ONE (08:09)
[2017-07-02] MEDS ORDERED: ISOSULFAN BLUE 10 MG/ML VIAL 5 ML ONE (08:10)
[2017-07-02] MEDS ORDERED: BUPIVACAINE 0.5 % 5 MG/1 ML MPF 30ML VIAL ONE (08:10)
[2017-07-02] MEDS ORDERED: ONDANSETRON INJ 2 MG/ML 2 ML VIAL IV PRN ×2 (08:30→10:30)
[2017-07-02] MEDS ORDERED: EpHEDrine SULFATE INJ 50 MG/ML AMP IV PRN (08:30)
[2017-07-02] MEDS ORDERED: ATROPINE SULFATE 0.1 MG/ML 5ML SYR IV PRN (08:30)
[2017-07-02] MEDS ORDERED: FENTANYL CITRATE INJ 50 MCG/1 ML 2 ML VIAL IV PRN (08:30)
--- NOTE | 2017-07-02 08:35 | History & Physical Bridge Note ---
H&P Re-Evaluation Bridge Note: I have examined the patient, reviewed the History & Physical and in the interval since the performance of the History & Physical I have noted the following changes of clinical significance: No changes noted
--- NOTE | 2017-07-02 08:48 | DIAGNOSTIC IMAGING REPORT ---
RIGHT BREAST LYMPHOSCINTIGRAPHY CLINICAL HISTORY: Breast cancer. Inject only. COMPARISON STUDY: Diagnostic mammogram June 08, 2017. PROCEDURE: The procedure, risks and benefits were discussed with the patient and informed consent was obtained. The procedure was performed by Dr. Amador following a timeout. Skin of the right breast was prepped. A total of 0.54 mCi of Lymphoseek was injected in 5 intradermal aliquots within a right periareolar distribution at 8:15 AM on July 02, 2017. No imaging was requested at this time. The patient tolerated the procedure well and no immediate complications were evident. IMPRESSION: Right breast lymphoscintigraphy. Electronically signed by: Alex Amador M.D. 07/02/2017 8:47 AM Dictated Date/Time: 07/02/2017 8:45 AM
[2017-07-02] MEDS ORDERED: PHENYLEPHRINE 100MCG/ML 5ML SYR ONE (09:38)
[2017-07-02] MEDS ORDERED: EpHEDrine SULFATE 50MG/5ML SYR ONE (09:38)
--- NOTE | 2017-07-02 10:20 | [facility] Operative Report ---
Operative Report Operative Date Jul 02, 2017. Pre-Operative Diagnosis Right Breast Cancer Post-Operative Diagnosis Same as preoperative Procedure(s) Performed Right Breast Lumpectomy with Right [place] Lymph Node Biopsy Surgeon Dr. Calos Ocampo [employer] Repairer Surgeon(s) Adalberto Piña PA-C Estimated Blood Loss 20ml Findings clip w/n breast tissue Specimens FROZEN: 1.) Right Breast, Right [place] Node, Left OR7 @ 0992, Results phoned to surgeon @ 7486 PERMANENT: A.) Right Breast, Additional Right Axillary Lymph Node FRESH: B) Right Breast Tissue, Long Silk Lateral, Short Silk Superior, Plain Suture Inferior, Methylene Blue Deep Margin PERMANENT: C.) Right Breast, Additional Superior Tissue, Long Silk Lateral, Short Silk Medial, Methylene Blue New Deep Margin D.) Right Breast, Additional Inferior Tissue, Long Silk Lateral, Short Silk Medial, Methylene Blue New Deep Margin E.) Right Breast, Additional Inferior Skin, Long Silk Lateral, Short Silk Medial Anesthesia gen/ LMA Complication(s) None Disposition Recovery Room / PACU I attest to the content of the Intraoperative Record and any orders documented therein. Any exceptions are noted below.
[2017-07-02] MEDS ORDERED: LACTATED RINGER'S 1000ML 1,000 ML IV SCH (10:27)
[2017-07-02] MEDS ORDERED: PROMETHAZINE HCL INJ 25 MG in SODIUM CHLORIDE 0.9% 50ML 50 ML IV PRN (10:30)
[2017-07-02] MEDS ORDERED: MoRPHine SULFATE 4 MG/ML 1 ML CARP\\VIAL IV PRN (10:30)
[2017-07-02] MEDS ORDERED: HYDROCODONE/ACETAMOPHEN 5/325MG TAB PO PRN ×2 (10:30)
[2017-07-02] MEDS ORDERED: MoRPHine SULFATE 2 MG/ML CARP IV PRN (10:30)
[2017-07-02] MEDS ORDERED: PROMETHAZINE HCL INJ 12.5 MG in SODIUM CHLORIDE 0.9% 50ML 50 ML IV PRN (10:45)
--- NOTE | 2017-07-02 10:47 | OPERATIVE REPORT ---
DATE OF OPERATION: 07/02/2017 NAME OF OPERATION: Right partial mastectomy with sentinel lymph node biopsy. PREOPERATIVE DIAGNOSIS: Right breast cancer. POSTOPERATIVE DIAGNOSIS: Same. STAFF SURGEON: Dr. Ocampo. MEMBER OF CONGRESS: López Piña PA-C. ANESTHESIA: General LMA. PROCEDURE IN DETAIL: The patient was brought in the operating room and placed on the operating table in supine position. Her right chest and axilla were prepped and draped in usual fashion. She had undergone injection in radiology for sentinel lymph node biopsy. As a note, during the entire procedure, my assistant commissioner helped with prepping and draping, exposing the tissue and then closure of all the wounds. Initially, incision was made in the right axilla, carrying dissection down using a Neoprobe to identify the sentinel lymph node. This was sent for frozen section and found to be negative. Two additional lymph nodes were sent for permanent section. During the frozen section, lumpectomy was performed, making an elliptical incision in the lower right breast and then carrying dissection down around the tissue and excising it and marking it as right breast tissue with a long silk suture lateral, short silk suture superior, plain suture inferior, and methylene blue as the new deep margin. At this point, I took additional superior tissue which was marked long silk suture lateral, short silk suture medial, and methylene blue as new deep margin. I then took additional inferior tissue. In doing this, I had to take additional skin and tissue down to the muscle. It was marked also with long silk suture lateral, short silk suture medial, and methylene blue new deep margin, with the additional skin sent with a long silk suture lateral, short silk suture medial. At this point, the deep tissue in both incisions were reapproximated using 2-0 plain suture, skin in the axilla reapproximated using 4-0 nylon suture and then subcutaneous tissue in the right breast reapproximated using 3-0 Vicryl suture, then the skin reapproximated using 5-0 Prolene suture. Dressings applied. The patient transferred to recovery room in stable condition. As a note, I also used the Faxitron with the tissue placed into the Faxitron with the clip and mass in the center of the tissue. I attest to the content of the Intraoperative Record and any orders documented therein. Any exception s are noted below.
--- NOTE | 2017-07-02 12:07 | Anesthesiology Progress Note ---
Anesthesia Post Op Note Date & Time Jul 02, 2017 at 12:07 Vital Signs Pain Intensity: 0.0 Vital Signs Past 12 Hours Date Time Temp Pulse Resp B/P (MAP) Pulse Ox O2 Delivery O2 Flow Rate FiO2 07/02/17 11:20 36.6 83 17 97/66 (76) 95 Nasal Cannula 2.0 07/02/17 11:20 95 Nasal Cannula 2.0 07/02/17 11:20 95 Nasal Cannula 2.0 07/02/17 11:10 36.2 81 15 102/66 97 Nasal Cannula 2 07/02/17 11:00 81 18 96/64 93 Nasal Cannula 2 07/02/17 10:50 81 17 103/69 98 Oxymask 10 07/02/17 10:40 81 14 101/68 99 Oxymask 10 07/02/17 10:34 36.3 81 15 105/71 99 Oxymask 10 07/02/17 07:30 36.7 89 18 124/75 (91) 96 Room Air Notes Mental Status: alert / awake / arousable, participated in evaluation Pt Amnestic to Procedure: Yes Nausea / Vomiting: adequately controlled Pain: adequately controlled Airway Patency, RR, SpO2: stable & adequate BP & HR: stable & adequate Hydration State: stable & adequate Anesthetic Complications: no major complications apparent
[2017-07-02] MEDS ORDERED: CLINDAMYCIN 600 MG/54 ML D5W IV SCH (14:00)
[2017-07-02] MEDS ORDERED: HydrALAZINE HCL 20 MG/ML VIAL IV. PRN (14:30)
--- NOTE | 2017-07-02 14:40 | Medical Consult ---
Consultation Date of Consultation: Jul 02, 2017. Attending Physician: Calos Ocampo M.D. Reason for Consultation: Medical management History of Present Illness Patient is a 71 y/o female, with PMHx of CAD, systolic CHF, paroxysmal a.fib, hypothyroidism, and COPD, s/p R partial mastectomy with sentinel lymph node biopsy by Dr. Ocampo on 07/02. Hospital team was consulted for medical management. Patient is feeling well postop. Sitting up in bed. No SOB. Wears 2 L O2 HS. Tolerated lunch w/ no issues. Pain is well controlled. No flatus or BM postop. Patient denies any fever, chills, sweats, lightheadedness, dizziness, vision changes, CP, palpitations, edema, SOB, wheezing, cough, abdominal pain, nausea, vomiting, diarrhea, urinary symptoms, melena, numbness/tingling, weakness, muscle/joint pain, anxiety/depression, active bleeding, or new skin discoloration/changes. Past Medical/Surgical History Medical /Surgical History: paroxysmal atrial fibrillation systolic CHF COPD hypothyroidism CAD s/p mitral valve repair s/p dual-chamber ventricle defibrillator due to sinus node dysfunction and excessive bradycardia while on amiodarone s/p MAZE operation for a.fib Family History Cancer Diabetes mellitus Heart disease Social History Smoking Status: Former Smoker Marital Status: Housing Status: lives with family Occupation Status: retired Allergies Coded Allergies: Diazepam (Verified Allergy, Unknown, FEELS WEIRD, 07/02/17) Penicillins (Verified Allergy, Unknown, HIVES; TAKES CEPHALEXIN W/O PROBLEM, 07/02/17) Sulfa Antibiotics (Verified Allergy, Unknown, NAUSEA, ITCHY, AND "FUNNY THROAT", 09/26/16) Macrolides and Ketolides (Verified Adverse Reaction, Unknown, "MYCIN ANTIBIOTICS": ITCHY AND NAUSEA, 07/02/17) ERYTHROMYCIN Home Medications Reported Home Medications Medications Dose Route/Sig Max Daily Dose Days Date Category Dose Instructions Lovenox (Enoxaparin Sodium) 40 Mg/0.4 Ml Inj 40 Mg SQ DAILY 07/02/17 Reported Oxygen Gas 2 Liters NA HS 06/20/17 Reported Cordarone (Amiodarone Hcl) 200 Mg Tab 200 Mg PO HS 12/08/16 Reported Docusate Sodium 100 Mg Cap 1 Cap PO BID 15 09/26/16 Reported Warfarin Sodium (Warfarin Sod) 1 Mg Tab 2 Mg PO QPM 08/17/16 Reported Aspirin 81 (Aspirin) 81 Mg Tab 1 Tab PO QAM 05/13/15 Reported Cozaar (Losartan Potassium) 50 Mg Tab 50 Mg PO QAM 05/13/15 Reported Lasix (Furosemide) 20 Mg Tab 20 Mg PO 3XWK 05/13/15 Reported TAKE ON MON, WED, FRI Vitamin D-1000 (Cholecalciferol) 1,000 Unit Tab 2,000 Units PO QAM 05/13/15 Reported Caltrate 600+D (Calcium Carbonate-Cholecalcife) 1 Tab Tab 1 Tab PO QPM 05/13/15 Reported Synthroid (Levothyroxine Sodium) 100 Mcg Tab 100 Mcg PO QAM 05/13/15 Reported Combivent Respimat (Ipratropium-Albuterol) 1 Aer Aer 1 Puffs INH QID PRN 12/21/13 Reported Toprol Xl (Metoprolol Succinate) 25 Mg Tabcr 12.5 Mg PO QPM 04/30/13 Reported Vitamin B-12 1000 Mcg (Cyanocobalamin) 1,000 Mcg Tab 1,000 Mcg IM MONTHLY 03/01/12 Reported Current Inpatient Medications Current Inpatient Medications Medications (Trade) Dose Ordered Sig/Hector Route Start Time Stop Time Status Last Admin Dose Admin Lactated Ringer's 1,000 ml @ 15 mls/hr Q24H IV 07/02/17 06:00 07/03/17 05:59 Clindamycin Phosphate 900 mg/ Dextrose 56 ml @ 112 mls/hr PREOP IV 07/02/17 06:00 07/02/17 16:00 07/02/17 08:55 112 MLS/HR Fentanyl Citrate (Fentanyl Inj) 25 mcg Q5M PRN IV 07/02/17 08:30 07/02/17 14:30 Ondansetron HCl (Zofran Inj) 4 mg ONE PRN IV 07/02/17 08:30 07/02/17 14:30 Ephedrine Sulfate (EpHEDrine SULFATE INJ) 5 mg Q5M PRN IV 07/02/17 08:30 07/02/17 14:30 Atropine Sulfate (Atropine Sulfate 0.1mg/ml Inj) 0.5 mg Q1M PRN IV 07/02/17 08:30 07/02/17 14:30 Amiodarone HCl (Cordarone Tab) 200 mg HS PO 07/02/17 21:00 08/01/17 20:59 Levothyroxine Sodium (Synthroid Tab) 100 mcg DAILYBB PO 07/03/17 06:00 08/02/17 06:59 Losartan Potassium (coZAAR TAB) 50 mg QAM PO 07/03/17 09:00 08/02/17 08:59 Metoprolol Succinate (Toprol Xl Tab) 12.5 mg QPM PO 07/02/17 21:00 08/01/17 20:59 Acetaminophen/ Hydrocodone Bitart ([place] 5/325 Tab) 1 tab Q4 PRN PO 07/02/17 10:30 07/16/17 10:29 Acetaminophen/ Hydrocodone Bitart ([place] 5/325 Tab) 2 tab Q4 PRN PO 07/02/17 10:30 07/16/17 10:29 Morphine Sulfate (MoRPHine SULFATE INJ) 2 mg Q4H PRN IV 07/02/17 10:30 07/16/17 10:29 Morphine Sulfate (MoRPHine SULFATE INJ) 4 mg Q4H PRN IV 07/02/17 10:30 07/16/17 10:29 Promethazine HCl 25 mg/Sodium Chloride 51 ml @ 204 mls/hr Q6H PRN IV 07/02/17 10:30 08/01/17 10:29 Ondansetron HCl (Zofran Inj) 4 mg Q6H PRN IV 07/02/17 10:30 08/01/17 10:29 Promethazine HCl 12.5 mg/Sodium Chloride 50.5 ml @ 204 mls/hr Q6H PRN IV 07/02/17 10:45 08/01/17 10:44 Lactated Ringer's 1,000 ml @ 50 mls/hr Q20H IV 07/02/17 10:27 07/02/17 15:00 07/02/17 10:27 50 MLS/HR Heparin Sodium/ Dextrose 500 ml @ 14 mls/hr Q24H IV 07/02/17 18:00 08/01/17 17:59 UNV Clindamycin Phosphate 600 mg/ Dextrose 54 ml @ 108 mls/hr Q8H IV 07/02/17 16:00 07/03/17 15:59 Warfarin Sodium (Coumadin Tab) 4 mg DAILY@16 PO 07/02/17 16:00 07/03/17 16:01 Warfarin Sodium (Coumadin Tab) 2 mg DAILY@16 PO 07/04/17 16:00 08/03/17 15:59 Physical Exam Date Time Temp Pulse Resp B/P (MAP) Pulse Ox O2 Delivery O2 Flow Rate FiO2 07/02/17 13:20 36.3 83 16 102/68 (79) 97 Nasal Cannula 2.0 07/02/17 12:20 36.4 80 16 107/61 (76) 97 Nasal Cannula 2.0 07/02/17 11:50 36.3 80 16 98/68 (78) 97 Nasal Cannula 2.0 07/02/17 11:20 36.6 83 17 97/66 (76) 95 Nasal Cannula 2.0 07/02/17 11:20 95 Nasal Cannula 2.0 07/02/17 11:20 95 Nasal Cannula 2.0 07/02/17 11:10 36.2 81 15 102/66 97 Nasal Cannula 2 07/02/17 11:00 81 18 96/64 93 Nasal Cannula 2 07/02/17 10:50 81 17 103/69 98 Oxymask 10 07/02/17 10:40 81 14 101/68 99 Oxymask 10 07/02/17 10:34 36.3 81 15 105/71 99 Oxymask 10 07/02/17 07:30 36.7 89 18 124/75 (91) 96 Room Air General Appearance: no apparent distress, + thin, + pertinent finding (O2 NC) Head: normocephalic, atraumatic Eyes: normal inspection, PERRL ENT: hearing grossly normal Neck: supple Respiratory/Chest: lungs clear, no respiratory distress, no accessory muscle use, + decreased breath sounds (throughout), + pertinent finding (R breast incision site dressing C/D/I ) Cardiovascular: regular rate, rhythm Abdomen/GI: normal bowel sounds, non tender, soft Back: normal inspection Extremities/Musculoskelatal: no calf tenderness, no pedal edema Neurologic/Psych: alert, normal mood/affect, oriented x 3 Skin: normal color, warm/dry, no rash Laboratory Results Last 24 Hours Test 07/02/17 07:27 Prothrombin Time 11.2 SECONDS Prothromb Time International Ratio 1.1 Activated Partial Thromboplast Time 26.2 SECONDS Partial Thromboplastin Ratio 1.0 Assessment & Plan Patient is a 71 y/o female, with PMHx of CAD, systolic CHF, paroxysmal a.fib, hypothyroidism, and COPD, s/p R partial mastectomy with sentinel lymph node biopsy by Dr. Ocampo on 07/02. Hospital team was consulted for medical management. s/p R partial mastectomy with sentinel lymph node biopsy by Dr. Ocampo on 07/02: - Surgical management, pain management, DVT prophylaxis as per primary team - Follow postop CBC and PRP CAD, systolic CHF w/ EF 30%, paroxysmal a.fib- follows w/ Dr. Hollis: - Continue Coumadin as per surgical team- follow INR and adjust dosage PRN - Continue Amiodarone, Metoprolol - Hold Losartan and Lasix pending postop PRP and IVF - IV Hydralazine PRN Hypothyroidism: Continue Synthroid COPD- follows w/ Dr. De Luna: - O2 protocol- wears 2L HS - Encourage incentive spirometer - Continue home inhalers DVT prophylaxis: Coumadin as per surgical team Code status: LEVEL I, FULL Dispo: As per primary team Attending Attestation & Consult Note: Pt seen/examined, chart reviewed, care plan d/w AKIRA Blount. I agree w/ the cason components of her documentation. 71yo female w/ CAD, chronic systolic CHF, PAF, COPD - underwent right-sided partial mastectomy today by Dr. Ocampo. I saw the patient post-op on the surgical floor; denied cp, dyspnea, orthopnea, nausea. Heparin drip to be hung by nursing staff soon. Pt confirms INR goal is 2-3. Right breast pain controlled. PMH, PSH, allergies, meds, sochx, famhx, ros - reviewed VSS no fever gen - NAD, thin neck - no JVD heart - RRR, s1, s2, no murmur lungs - CTA b/l abd - soft, NT, ND, BS+ ext - no edema chest - dressings in place on right, no obvious hematoma A/P: 1. chronic systolic CHF - appears compensated; d/c any additional maintenance fluids. Cont BB, lasix, ARB. Daily weights. BMP am. 2. PAF - defer anticoagulation management to Dr. Ocampo & Dr. Flores. Agree with current plan for heparin bridge while here + coumadin. I am assuming she will use lovenox bridge at discharge? Watch for hematoma formation. CBC in am. Cont amiodarone. 3. CAD - no ischemic sx's at this time. Olga TEJADA MD
[2017-07-02] MEDS: CLINDAMYCIN IV 600 MG in DEXTROSE 5% 50ML 50 ML IV SCH (15:32)
--- NOTE | 2017-07-02 15:50 | MAMMOGRAPHY REPORT ---
SPECIMEN RIGHT BREAST: 07/02/2017 CLINICAL HISTORY: Status post right breast surgical excision. COMPARISON: Comparison is made to exams dated: 06/08/2017 ultrasound biopsy, 06/01/2017 ultrasound, mammogram, 11/30/2016 mammogram, 09/09/2014 mammogram, and 08/14/2013 mammogram - [facility]. Findings: A radiograph was performed of the right breast surgical specimen. A mass with an internal biopsy marker clip is seen centrally within the specimen. Results were discussed with Dr. Ocampo over the telephone. IMPRESSION: SPECIMEN The imaged specimen contains the mass and associated biopsy marker clip. Hue Lambert M.D. ah/:07/02/2017 11:22:20 Medical Research Tech: Jessica THOMPSON(Eliud)(M), [facility]
[2017-07-02] MEDS ORDERED: WARFARIN SOD 7.5 MG TAB PO SCH (16:00)
[2017-07-02] MEDS: WARFARIN SOD 4 MG TAB PO SCH (16:22)
[2017-07-02] MEDS: HEPARIN 25,000 UNIT/500ML D5W 500 ML IV SCH ×2 (17:47→22:56)
[2017-07-02] MEDS: AMIODARONE 200 MG TAB PO SCH (20:48)
[2017-07-02] MEDS ORDERED: METOPROLOL SUCC 25MG EXT REL TAB PO SCH (21:00)
[2017-07-03] VITALS (9 sets, daily range): BP systolic 85–99; BP diastolic 46–65; PULSE 82–92; TEMP 36.3–36.8; O2SAT 93–99
[2017-07-03] MEDS: CLINDAMYCIN IV 600 MG in DEXTROSE 5% 50ML 50 ML IV SCH ×2 (00:05→08:30)
[2017-07-03] MEDS ORDERED: hydrOXYzine HCL 25 MG TAB PO ONE (01:30)
[2017-07-03] MEDS: ACETAMINOPHEN 325 MG TAB PO PRN (01:44)
[2017-07-03] MEDS: LEVOTHYROXINE 100 MCG TAB PO SCH (05:38)
--- NOTE | 2017-07-03 06:01 | Surgery Progress Note ---
Surgery Progress Note Date of Service Jul 03, 2017. Subjective awake alert min pain Objective Vital Signs: Date Time Temp Pulse Resp B/P (MAP) Pulse Ox O2 Delivery O2 Flow Rate FiO2 07/03/17 03:51 89/51 (64) 07/03/17 03:49 36.7 82 16 85/46 (59) 96 Nasal Cannula 2.0 07/03/17 00:05 Nasal Cannula 2.0 07/02/17 23:31 36.6 83 16 91/56 (68) 93 Nasal Cannula 2.0 07/02/17 21:00 84 100/64 (76) 07/02/17 18:59 36.6 81 18 100/68 (79) 94 Room Air 07/02/17 15:25 94 Room Air 07/02/17 15:20 36.4 81 18 95/64 (74) 94 Room Air 07/02/17 14:18 36.3 81 16 102/67 (79) 98 Nasal Cannula 2.0 07/02/17 13:20 36.3 83 16 102/68 (79) 97 Nasal Cannula 2.0 07/02/17 12:20 36.4 80 16 107/61 (76) 97 Nasal Cannula 2.0 07/02/17 11:50 36.3 80 16 98/68 (78) 97 Nasal Cannula 2.0 07/02/17 11:20 36.6 83 17 97/66 (76) 95 Nasal Cannula 2.0 07/02/17 11:20 95 Nasal Cannula 2.0 07/02/17 11:20 95 Nasal Cannula 2.0 07/02/17 11:10 36.2 81 15 102/66 97 Nasal Cannula 2 07/02/17 11:00 81 18 96/64 93 Nasal Cannula 2 07/02/17 10:50 81 17 103/69 98 Oxymask 10 07/02/17 10:40 81 14 101/68 99 Oxymask 10 07/02/17 10:34 36.3 81 15 105/71 99 Oxymask 10 07/02/17 07:30 36.7 89 18 124/75 (91) 96 Room Air General Appearance: no apparent distress Respiratory/Chest: no respiratory distress Abdomen: soft Incision(s): dry, intact Laboratory Results: Results Past 24 Hours Test 07/02/17 07:27 07/03/17 04:44 Range/Units Prothrombin Time 11.2 9.0-12.0 SECONDS Prothromb Time International Ratio 1.1 0.9-1.1 Activated Partial Thromboplast Time 26.2 21.0-31.0 SECONDS Partial Thromboplastin Ratio 1.0 Assessment & Plan 07/03/17- s/p Rt partial mastectomy w/ sentinel lymph node bx currently on Warfarin per coag clinic and low dose Heparin restarted asa . Check PTT- possibly increase Heparin. probable d/c tomorrow
[2017-07-03 07:37] LABS: HEMATOCRIT 32.3 % (37-47); HEMOGLOBIN 10.6 g/dL (12.0-16.0); MEAN CELL VOLUME 93.4 fL (80-100); MEAN CORPUSCULAR HEMOGLOBIN 30.6 pg (25-34); MEAN CORPUSCULAR HGB CONC 32.8 g/dl (32-36); MEAN PLATELET VOLUME 9.7 fL (7.4-10.4); PLATELET COUNT 161 K/uL (130-400); RED CELL DISTRIBUTION WIDTH CV 13.4 % (11.5-14.5); RED CELL DISTRIBUTION WIDTH SD 45.8 fL (36.4-46.3)
[2017-07-03] MEDS: HEPARIN 25,000 UNIT/500ML D5W 500 ML IV SCH ×2 (07:43→22:57)
[2017-07-03 07:51] LABS: INR 1.1 (0.9-1.1); PTT PATIENT 51.6 SECONDS (21.0-31.0)
[2017-07-03 08:10] LABS: CALCIUM 8.6 mg/dl (8.5-10.1); CREATININE 1.01 mg/dl (0.60-1.20); POTASSIUM 4.1 mmol/L (3.5-5.1)
[2017-07-03] MEDS ORDERED: FUROSEMIDE 20 MG TAB PO SCH (09:00)
[2017-07-03] MEDS ORDERED: ASPIRIN 81 MG ECTAB PO SCH (09:00)
[2017-07-03] MEDS ORDERED: LOSARTAN POTASSIUM 50 MG TAB PO SCH ×3 (09:00)
[2017-07-03] MEDS ORDERED: NURSING VERBAL MED ORDER ONE (09:00)
[2017-07-03] MEDS ORDERED: SODIUM CHLORIDE 0.9% 500ML 500 ML IV STA (10:47)
[2017-07-03] MEDS ORDERED: HYDR-5688 PO (13:23)
--- NOTE | 2017-07-03 13:25 | Discharge Instructions ---
Discharge Instructions Date of Service Jul 03, 2017. Admission Reason for Admission: Right Breast Cancer Discharge Discharge Diagnosis / Problem: Rt breast cancer Discharge Goals Goal(s): Decrease discomfort, Improve function, Improve disease control Activity Recommendations Activity Limitations: as noted below Lifting Limitations: no more than 10 pounds Exercise/Sports Limitations: until after follow-up appointment May Resume Sexual Activity: when tolerated Shower/Bathe: tomorrow Driving or Machine Use: resume 3 days after discharge . Instructions / Follow-Up Instructions / Follow-Up SPECIAL CARE INSTRUCTIONS: * Cover incisions and change daily for comfort/drainage. * May use ibuprofen for pain as tolerated. * Expect some swelling and bruising. Call your doctor if: * Temperature above 101 degrees * Pain not relieved by pain medicine ordered * There is increased drainage or redness from any incision * You have any unanswered questions or concerns [phone]. FOLLOW UP VISIT: If not already scheduled, please call the office for a follow-up visit. for next week- some suture removal OFFICE PHONE NUMBER: Dr. Ocampo Office Current Hospital Diet Patient's current hospital diet: Regular Diet Discharge Diet Recommended Diet: Regular Diet Procedures Procedures Performed: Right Breast Lumpectomy with Right [place] Lymph Node Biopsy Pending Studies Studies pending at discharge: no Medical Emergencies . Who to Call and When: Medical Emergencies: If at any time you feel your situation is an emergency, please call 911 immediately. . Non-Emergent Contact Non-Emergency issues call your: Primary Care Provider, Surgeon . "Provider Documentation" section prepared by Calos Ocampo. . VTE Core Measure Inpt VTE Proph given/why not?: Unfractionated heparin SQ, Warfarin (Coumadin), SCD's
[2017-07-03] MEDS: WARFARIN SOD 4 MG TAB PO SCH (15:50)
[2017-07-03] MEDS: AMIODARONE 200 MG TAB PO SCH (21:28)
[2017-07-04] MEDS: HEPARIN 25,000 UNIT/500ML D5W 500 ML IV SCH (02:20)
[2017-07-04] MEDS: LEVOTHYROXINE 100 MCG TAB PO SCH (05:49)
[2017-07-04] MEDS: ACETAMINOPHEN 325 MG TAB PO PRN (05:57)
--- NOTE | 2017-07-04 07:05 | DISCHARGE SUMMARY ---
PRINCIPAL DIAGNOSIS: Right breast cancer. PROCEDURES: The patient underwent a right partial mastectomy with sentinel lymph node biopsy. HISTORY OF PRESENT ILLNESS: The patient is a 71-year-old female who is on chronic anticoagulants and has a recent diagnosis of right breast cancer. HOSPITAL COURSE: The patient was brought into the hospital on 07/02/2017 where she was taken to the operating room and underwent right partial mastectomy with sentinel lymph node biopsy. Postoperatively, she was kept on IV heparin and given Coumadin. She is doing quite well and was advanced and is felt stable for discharge home today to be followed in the surgical clinic next week.
[2017-07-04 07:48] VITALS: BP 94/60; PULSE 87; TEMP 36.6; O2SAT 92
[2017-07-04 08:10] LABS: INR 1.3 (0.9-1.1)
[2017-07-04 08:56] VITALS: O2SAT 92
[2017-07-04 09:44] VITALS: BP 94/60; PULSE 87; TEMP 36.6; O2SAT 92
[2017-07-04] MEDS ORDERED: WARFARIN SOD 2 MG TAB PO SCH (16:00)
== END 2017-07-04 10:50 | disposition home or self-care (01) | DRG 580 ==
LOC: C.ACU 06:53 → C.MSW 09:00 → ENRESERV 10:56
PROVIDERS: ADMIT Surgery; ATTEND Surgery
PROC: 07B50ZX Excision of Right Axillary Lymphatic, Open Approach, Diagnostic (ICD-10-PCS; principal; 2017-07-02 09:00)
PROC: 0HBT0ZZ Excision of Right Breast, Open Approach (ICD-10-PCS; principal; 2017-07-02 09:00)
DX: C50.311 Malignant neoplasm of lower-inner quadrant of right female breast (principal); I50.22 Chronic systolic (congestive) heart failure; I48.0 Paroxysmal atrial fibrillation; J44.9 Chronic obstructive pulmonary disease, unspecified; I25.10 Atherosclerotic heart disease of native coronary artery without angina pectoris; E03.9 Hypothyroidism, unspecified; E53.8 Deficiency of other specified B group vitamins; E55.9 Vitamin D deficiency, unspecified; M81.0 Age-related osteoporosis without current pathological fracture; Z86.711 Personal history of pulmonary embolism; I25.2 Old myocardial infarction; Z95.810 Presence of automatic (implantable) cardiac defibrillator; Z87.891 Personal history of nicotine dependence; Z79.01 Long term (current) use of anticoagulants; Z79.82 Long term (current) use of aspirin; Z79.899 Other long term (current) drug therapy; Z88.0 Allergy status to penicillin; Z88.1 Allergy status to other antibiotic agents; Z88.2 Allergy status to sulfonamides; Z82.49 Family history of ischemic heart disease and other diseases of the circulatory system; Z83.3 Family history of diabetes mellitus; Z80.52 Family history of malignant neoplasm of bladder

== ENCOUNTER → 2017-10-04 | Outpatient (CLI) | payer OTHER, MEDICARE ==
[~2017-10-04] MED LIST changes: -AMIO200T4 PO; +ANAS1TAB19 PO; +ASCO1CAP3 PO; -CALC-354 PO; +CALCTAB7 PO; +CHOL1000 PO; -CLINDAMYCIN IV 900 MG in DEXTROSE 5% 50ML IV SCH; -CMD/1 PO; -CYAN10004 IM; +CYAN10005 PO; +CYNI1000 SQ; -LACTATED RINGER'S 1000ML 1,000 ML IV SCH; -METO25TA3 PO; +METO25TA4 PO; -OXGN; +WARF-298 PO
[2017-10-04 14:42] VITALS: BP 86/61; PULSE 89; TEMP 36.5; O2SAT 96
--- NOTE | 2017-10-04 16:09 | Radiation Oncology Follow-Up ---
Radiation Oncology Follow-Up Date of Visit October 04, 2017. Reason For Visit One-month follow-up and cancer survivorship care plan Radiation Completion Date finished 08-28-2017 , utilizing accelerated partial breast irradiation Diagnosis (1) Malignant neoplasm of lower-inner quadrant of right breast of female, estrogen receptor positive Status: Acute Onset Date: 06/08/2017 Histology Subtype: Ductal Stage: l Permanent Comment: Incidental finding of right breast mass on cardiac CT Status post biopsy 06/08/2017 Invasive ductal carcinoma grade 2 Status post lumpectomy and sentinel lymph node biopsy 07/02/2017 Stage pT1c pN0M0 Oncotype DX 42 Patient declined chemotherapy Status post completion of radiation therapy August 28, 2017. She received 3850 cGy utilizing accelerated partial breast irradiation. Last Edited By: Sanjuana Rehman on Sep 06, 2017 09:12 History of Present Illness Ms. Saini has a family history of breast cancer. Patient was undergoing a cardiac workup and a CT scan of the chest was performed on 03/23/2017. This revealed a 1.3 cm nodule in the lower midline of the right breast. Patient subsequently underwent further evaluation of this finding. On 06/01/2017 she underwent a unilateral right digital diagnostic mammogram with targeted right breast ultrasound. The mammograms demonstrated an obscured 1.6 cm mass within the right lower inner quadrant. Targeted ultrasound was performed to the right lower inner quadrant in the region of the breast mass. At the 5 o'clock position approximate 5 cm the nipple there was an irregular mixed echogenicity predominantly hypoechoic solid mass measuring 1.3 x 1.0 x 1.6 cm that corresponds to the mammographic mass and the CT findings. Recommended ultrasound-guided core needle biopsy was made and the lesion was given a BI- RADS Category 4. On 06/08/2016 patient underwent ultrasound-guided biopsy of the right 5:00 breast mass. This tissue confirmed an invasive ductal carcinoma, Ke grade 2 of 3. Estrogen receptors were positive (95%, intermediate/week intensity, H score 140). Progesterone receptors were negative. HER-2/rory overexpression was negative with a Ki-67 proliferation index of 18%. The carcinoma measured up to 1.3 cm in greatest dimension on the glass slide. Case : [id number]. The patient was seen by Dr. Calos Ocampo. He discussed treatment options with the patient and she agreed to proceed with a breast conserving therapy. This consisted of a right breast partial mastectomy and sentinel node biopsy. This procedure was performed on 07/02/2017. This confirmed a residual invasive carcinoma measuring 1.5 cm with a Ke grade 2 of 3. No DCIS was appreciated. The margins were evaluated and were negative for invasive carcinoma. The distance from the closest margin was 1.5 cm from the inferior margin. 22 lymph nodes were identified one sentinel one non-sentinel and both were negative for metastatic carcinoma. The AJCC pathologic staging was therefore pT1c pN0 (SN -), ER positive, RI negative, HER-2/rory negative. Case : [id number]. The patient was seen by Dr. Anshu Claudio to discuss role of adjuvant systemic therapy. An Oncotype DX test has been ordered and these results are pending. We are also asked to see the patient in referral and is for this reason the patient is being seen today. Interim History She has been doing well over this past month. She denies any changes to her breast the skin irritation following treatment resolved without difficulty. She has mild discomfort laterally and of the upper inner arm. She is noted no masses and no change of the axilla. She has had no swelling of her arm. She was seen in medical oncology and started an aromatase inhibitor. She denies side effects. She had an elevated CA-27-29 and was sent for additional studies. She had a bone scan September 21, 2017. There is no definite evidence of osteoblastic metastasis. There was somewhat heterogeneous uptake in the lower extremities most prominent in the right tibia, this appearance is atypical for metastasis. However if the patient is having pain in this site recommend radiographs for further evaluation. She stated that x-rays were taken and were negative. She does not have pain in this area. She had a CT scan of the abdomen and pelvis which showed marked bilateral emphysema. Bilateral tiny pulmonary nodules. Close interval imaging surveillance CT suggested. Postoperative changes within the right breast including a seroma. Incomplete characterized right adrenal mass. Adrenal mass protocol CT versus abdominal MRI was suggested. Tiny nonspecific sclerotic density within the midline sacrum. Dilated left atrium. With these findings she has been scheduled for a CT for further evaluation of the right adrenal area. Allergies Coded Allergies: Penicillins (Verified Allergy, Intermediate, HIVES; TAKES CEPHALEXIN W/O PROBLEM, 07/03/17) Sulfa Antibiotics (Verified Allergy, Intermediate, NAUSEA, ITCHY, AND "FUNNY THROAT", 07/03/17) Macrolides and Ketolides (Verified Adverse Reaction, Intermediate, "MYCIN ANTIBIOTICS": ITCHY AND NAUSEA, 07/03/17) ERYTHROMYCIN Diazepam (Verified Adverse Reaction, Mild, FEELS WEIRD, 07/03/17) Home Medications Scheduled Anastrozole (Arimidex), 1 TAB PO DAILY Aspirin (Aspirin 81), 1 TAB PO QAM Calcium Carbonate-Vitamin D W/ (Caltrate 600 Plus), 1 TAB PO DAILY Cholecalciferol (Vitamin D-1000), 2,000 UNITS PO QAM Cyanocobalamin (Cyanocobalamin), 1,000 MCG SQ MONTHLY Docusate Sodium (Docusate Sodium), 1 CAP PO BID Furosemide (Lasix), 20 MG PO 3XWK Levothyroxine Sodium (Synthroid), 100 MCG PO QAM Losartan Potassium (Cozaar), 25 MG PO QAM Metoprolol Succinate (Toprol Xl), 12.5 MG PO QPM Warfarin Sod (Warfarin Sodium), 2 MG PO QPM Scheduled PRN Ipratropium-Albuterol (Combivent Respimat), 1 PUFFS INH QID PRN for SOB/Wheezing Review of Systems Gastrointestinal: Symptoms: WNL Oral: Symptoms: No Problems Respiratory: Symptoms: WNL, Dry Cough Other Respiratory: occ dry cough Urinary: Symptoms: WNL Comments: occ nocturia Skin: Symptoms: No Problems Breast: Right Upper Arm Measurement: 20.0 Right Mid Arm Measurement: 19.0 Right Wrist Measurement: 14.0 Left Upper Arm Measurement: 20.0 Left Mid Arm Measurement: 18.5 Left Wrist Measurement: 13.5 Arm Dominence: Right Patient Cosmetic Evaluation: Excellent Staff Cosmetic Evalaluation: Excellent Physical Exam Vital Signs Date Time Temp Pulse Resp B/P (MAP) Pulse Ox O2 Delivery O2 Flow Rate FiO2 10/04/17 14:42 36.5 89 16 86/61 96 Fatigue: None General Appearance: + thin Eyes: normal inspection, EOMI ENT: normal ENT inspection, hearing grossly normal Neck: supple, no adenopathy, thyroid normal Respiratory/Chest: lungs clear, no respiratory distress, no accessory muscle use Breast: Breast examination reveals well-healed incisions of the right breast. There are no masses or tenderness and no axillary adenopathy. She has no edema or skin retractions. Using the [place] score cosmesis she has a good outcome. There is some asymmetry. Left breast showed no masses or tenderness and no axillary adenopathy. Cardiovascular: regular rate, rhythm, no gallop, no murmur Abdomen: non tender, soft Extremities: no pedal edema Neurologic/Psychiatric: no motor/sensory deficits Skin: warm/dry Pain Management Patient Reports Pain: No Side: Bilateral Patient Preferred Pain Scale: 0 - 10 Initial Pain Intensity: 0.0 Pain Management Plan She denies pain therefore requires no pain management. Laboratory Laboratory Results: were reviewed Pathology Pathology Results: were reviewed, and pertinent findings noted in HPI Imaging Imaging Studies: were reviewed, and pertinent findings noted below Imaging Comments Reviewed in the interim history. Assessment & Plan Plan: Continue regular follow-up with Dr. Torres. She is completing additional studies due to the elevated CA-27-29. Today we completed a cancer survivorship care plan. A copy of the document was given to the patient. She was given a survivorship booklet. Mammograms were scheduled for the right breast in 2 months and bilateral in 8. She is going to be seen by a specialist for bra fitting. She will continue regular follow-up with her primary care provider. We asked her to return to our office in 6 months. She may call if she has any questions or concerns in the interim. Total Time In Follow-Up I spent 20 minutes speaking to the patient in performing examination. I spent 20 minutes reviewing information, preparing the survivorship booklet, and completing this note. Copy To Alex Torres MD; Calos Ocampo M.D.; Lo Reid M.D.
== END | disposition home or self-care (01) ==
LOC: C.ONC 14:37
PROVIDERS: ATTEND Physician Assistant Medical
DX: Z08 Encounter for follow-up examination after completed treatment for malignant neoplasm (principal); Z92.3 Personal history of irradiation; Z85.3 Personal history of malignant neoplasm of breast

== ENCOUNTER → 2017-10-08 | Outpatient (CLI) | payer OTHER, MEDICARE ==
[~2017-10-08] MED LIST changes: -ASCO1CAP3 PO; -CHOL1000 PO; -CYAN10005 PO; +OPTIRAY 320 IV PRN
--- NOTE | 2017-10-08 15:26 | DIAGNOSTIC IMAGING REPORT ---
ADRENAL (ABDOMEN) COMBO CLINICAL HISTORY: 71 years-old Female presenting with adrenal gland disorder. TECHNIQUE: Multidetector CT of the abdomen was performed before and after the administration of intravenous contrast. IV contrast: 93 mL of Optiray 320. A dose lowering technique was used consistent with the principles of ALARA (as low as reasonably achievable). COMPARISON: None. CT DOSE (mGy.cm): The estimated cumulative dose is 531.50 mGycm. FINDINGS: Orthodontic Technician topogram: Median sternotomy wires and prosthetic mitral valve. Partially visualized leads to the right atrium and right ventricular apex. The right ventricular apex lead is an implanted cardiac defibrillator lead. Lung bases: Emphysema. Solid 3 mm peripheral nodule in the right lower lobe (series 3 image 21). Multichamber enlargement of the heart. Partially visualized mitral valve replacement. No pericardial or pleural effusion. Liver: Normal morphology. No liver lesion. Patent hepatic vasculature. Biliary: Mild intrahepatic bladder ductal prominence centrally. No extra hepatic ductal dilatation. Slight biliary ductal wall hyperenhancement may be present. Gallbladder may contain gallstones. Pancreas: Normal. Spleen: Normal. Adrenal glands: Left adrenal gland normal. Right adrenal gland contains a 2 cm ovoid lesion, which is consistent with a benign adenoma by density. This contains few small foci of calcification. This has an absolute washout of 67.2%, again consistent with an adenoma. Kidneys and ureters: Several subcentimeter hypodensities noted in the kidneys mainly on the right. These likely represent cysts but are too small to characterize. No nephrolithiasis. No hydronephrosis. Duplicated right renal collecting system. Single left ureter. Bowel: Moderate stool burden throughout the visualized portion of the mildly distended colon. Wall thickening of the gastric antrum, which resolves on delayed phase consistent with peristalsis. No bowel obstruction. Peritoneal cavity: No free fluid or intraperitoneal gas. Lymph nodes: No enlarged lymph nodes in the abdomen. Vasculature: Atherosclerosis of the normal caliber abdominal aorta. IVC patent. Abdominal wall: Postsurgical changes of the right inferior breast with a seroma and surgical clip suggesting prior lumpectomy. Musculoskeletal: Osteopenia. 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 IMPRESSION: 1. Findings consistent with benign right adrenal adenoma. This contains few punctate foci of calcifications. 2. 3 mm solid pulmonary nodule at the right lower lobe. 3. Right breast seroma within the lumpectomy bed. 4. Cardiomegaly with mitral valve replacement. 5. Questionable gallstones. Electronically signed by: Bogdan Fontanez M.D. 10/08/2017 3:25 PM Dictated Date/Time: 10/08/2017 3:15 PM
== END | disposition home or self-care (01) ==
LOC: C.CTS 14:30
PROVIDERS: ATTEND Family Medicine
DX: E27.9 Disorder of adrenal gland, unspecified (principal); R91.1 Solitary pulmonary nodule; L76.34 Postprocedural seroma of skin and subcutaneous tissue following other procedure; I51.7 Cardiomegaly; Z95.2 Presence of prosthetic heart valve

== ENCOUNTER 2018-07-23 17:15 | Inpatient (IN) ==
[2018-07-23] MEDS ORDERED: SODIUM CHLORIDE 0.9% 1000ML 1,000 ML IV SCH (18:45)
--- NOTE | 2018-07-23 19:44 | XRay Report ---
SINGLE VIEW CHEST CLINICAL HISTORY: Generalized weakness. FINDINGS: An AP, portable, upright chest radiograph is compared to study dated 09/26/2016 and correlat ed with chest CT dated 05/03/2018. The examination is degraded by portable technique and patient rota tion. The patient is status post midline sternotomy and cardiac valve surgery. A 2-lead cardiac AICD is unchanged in position and largely obscures the left mid chest. The heart is enlarged and there is atherosclerotic calcification of the thoracic aorta. The pulmonary vasculature is noncongested. Enla rgement of the central pulmonary arteries suggests pulmonary artery hypertension. Advanced emphysema and chronic interstitial thickening are similar to previous. No airspace consolidation or pleural eff usion is identified. No pneumothorax is seen. The skeletal structures are osteopenic. The bony thorax is grossly intact. IMPRESSION: 1. Cardiomegaly and AICD. There is no radiographic evidence of congestive failure. 2. Advanced emphysema. Electronically signed by: Chidi Zaragoza M.D. 07/23/2018 7:43 PM
[2018-07-23 20:00] LABS: Basophils # (auto) 0.03 K/uL (0-0.2); Basophils % (auto) 0.6 %; Eosinophils # (auto) 0.04 K/uL (0-0.5); Eosinophils % (auto) 0.8 %; Hemoglobin 12.5 g/dL (12.0-16.0); Immature Granulocytes # (auto) 0.01 K/uL (0.00-0.02); Immature Granulocytes % (auto) 0.2 %; Lymphocytes # (auto) 0.77 K/uL (1.2-3.4); Lymphocytes % (auto) 15.6 %; Mean Corpuscular Hgb Conc 32.9 g/dL (32-36); Mean Corpuscular Volume 93.1 fL (80-100); Mean Platelet Volume 9.6 fL (7.4-10.4); Monocytes # (auto) 0.54 K/uL (0.11-0.59); Monocytes % (auto) 10.9 %; Neutrophils # (auto) 3.56 K/uL (1.4-6.5); Neutrophils % (auto) 71.9 %; Platelet Count 130 K/uL (130-400); RDW Coefficient of Variation 13.3 % (11.5-14.5); RDW Standard Deviation 45.6 fL (36.4-46.3); Red Blood Count 4.08 M/uL (4.2-5.4); White Blood Count 4.95 K/uL (4.8-10.8)
[2018-07-23 20:08] LABS: INR 1.1 (0.9-1.1); Prothrombin Time 11.4 Seconds (9.0-12.0)
[2018-07-23 20:21] LABS: Albumin Level 3.3 gm/dl (3.4-5.0); BUN Creatinine Ratio 13.5 (10-20); Calcium 8.6 mg/dl (8.5-10.1); Creatinine Clr Calc Pharmacy 44.7 ml/min; Est GFR (Non-African American) 81.1; Magnesium 1.6 mg/dl (1.8-2.4); Potassium 3.6 mmol/L (3.5-5.1)
[2018-07-23 20:38] LABS: Albumin Globulin Ratio 0.8 (0.9-2); Bilirubin,Total 0.9 mg/dl (0.2-1); Globulin 4.2 gm/dl (2.5-4.0); Total Protein 7.5 gm/dl (6.4-8.2); Troponin I 0.738 ng/ml (0-0.045)
[2018-07-23] MEDS ORDERED: SODIUM CHLORIDE 0.9% 1000ML 500 ML IV ONE (20:56)
[2018-07-23] MEDS ORDERED: MAGNESIUM SULFATE / D5W 1 GM/100 ML BAG IV ONE (20:56)
[2018-07-23] MEDS ORDERED: IPRATROPIUM BROMIDE/ALBUTEROL respimat INH INH PRN (22:47)
--- NOTE | 2018-07-23 22:47 | History & Physical Report ---
Date of Service July 23, 2018 Assessment & Plan (1) Elevated troponin: Elevated troponin with EKG changes -trend trops -heparin drip, hold apixiban -Pt follows with Dr. Hollis, will consult -Continue home ASA, lasix, coreg Sinobronchitis -will start doxy BID Afib -rate controlled -hep drip, holding apixiban -Continue coreg COPD -Continue home treatments Breast Ca -Continue home meds -?weight loss related to cancer dx Weight loss -D/W patient further to ascertain details, amount, length, etc. -Consider adding boost once diet resumed Hypothyroid -Cont home meds DVTP: heparin drip CODE: full Dispo: tele admit, awaiting further evaluation. 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: (6) COPD (chronic obstructive pulmonary disease): (7) Breast cancer: (8) S/P Maze operation for atrial fibrillation: (9) S/P MVR (mitral valve repair): (10) History of open heart surgery: (11) AICD (automatic cardioverter/defibrillator) present: (12) Sinobronchitis: (13) Hypothyroid: History of Present Illness Chief Complaint: "feeling unwell" Primary Care Provider: Lo Reid MD Patient is a 72yo F PMH Afib, s/p maze procedure CHF s/p MV repair/AICD, COPD, ER+ breast cancer (s/p partial mastectomy/radiation, current PO treatment), hypothyroidism, who presents with general complaints of feeling unwell for the past month. She reports cough x 10 days, some ear pain, sinus congestion, some diarrhea 10 days ago(resolved), clamminess, and excess burping today. Denies CP , palpitations, lightheadedness, fever. She presented to ER in mid-June with low back pain after caring for her s/p his heart surgery. She states she is "a worrier" and has not been eating as much, resulting in weight loss of unquanitifiable amount which she states has only been over the past few months. Current BMI of 16. She states that she uses home pulse ox for her afib and reports her numbers were "all over the place" in the past month, and she inquired with her pacemaker company and was notified that she had reverted into afib again. Last ablation was in january 2018. In the ER, she was found to have elevated troponin and lateral ST depression on her EKG. She was given a liter bolus for hypotension in the ER and given a supplement of magnesium. Allergies Allergy/AdvReac Type Severity Reaction Status Date / Time Penicillins Allergy Intermediate HIVES; Verified 07/23/18 21:36 TAKES CEPHALEXIN W/O PROBLEM Sulfa (Sulfonamide Allergy Intermediate NAUSEA, Verified 07/23/18 21:36 Antibiotics) ITCHY, AND "FUNNY THROAT" Macrolide Antibiotics AdvReac Intermediate "MYCIN Verified 07/23/18 21:36 ANTIBIOTICS": ITCHY AND NAUSEA diazepam AdvReac Mild FEELS WEIRD Verified 07/23/18 21:36 Home Medications Home Medications Medication Instructions Recorded Confirmed Type metoprolol succinate [Toprol XL] 25 mg PO QPM #30 tab 04/30/13 07/23/18 History ipratropium-albuterol [Combivent 1 puff INHALATION QID PRN #0 inh 12/21/1307/23 History Respimat] aspirin [Aspirin Low Dose] 81 mg PO DAILY #0 05/13/15 07/23/18 History cyanocobalamin (vitamin B-12) 1,000 mcg SUBCUT MONTHLY #0 05/13/15 07/23/18 History furosemide [Lasix] 20 mg PO 3XWK #0 tab 05/13/15 07/23/18 History docusate sodium 100 mg PO HS 15 Days #30 cap 09/26/16 07/23/18 History anastrozole [Arimidex] 1 mg PO DAILY 90 Days #90 tab 10/04/17 07/23/18 History calcium carbonate-vitamin D3 1 tab PO DAILY #0 tab 10/04/17 07/23/18 History [Caltrate 600 + D] apixaban 2.5 mg tablet 2.5 mg PO BID 03/07/18 07/23/18 History levothyroxine 88 mcg capsule 88 mcg PO QAM 04/03/18 07/23/18 History fluticasone-vilanterol [Breo 1 inh INHALATION DAILY 06/16/18 07/23/18 History Ellipta] acetaminophen [Tylenol] 650 mg PO Q6H PRN 07/23/18 07/23/18 History Past Med/Surg History Medical History Anticoagulant disorder 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) Atrial fibrillation (Chronic) History of open heart surgery (Resolved) CHF (congestive heart failure) COPD (chronic obstructive pulmonary disease) (Chronic) Breast cancer (Resolved) Malignant neoplasm of lower-inner quadrant of right breast of female, estrogen receptor positive (Resolved 06/08/17) "Incidental finding of right breast mass on cardiac CT Status post biopsy 06/08/2017 Invasive ductal carcinoma grade 2 Status post lumpectomy and sentinel lymph node biopsy 07/02/2017 Stage pT1c pN0M0 Oncotype DX 42 Patient declined chemotherapy Status post completion of radiation therapy August 28, 2017. She received 3850 cGy utilizing accelerated partial breast irradiation." On 07/17/17 11:36 Sanjuana Rehman wrote "Incidental finding of right breast mass on cardiac CT Status post biopsy 06/08/2017 Invasive ductal carcinoma grade 2 Status post lumpectomy and sentinel lymph node biopsy 07/02/2017 Stage pT1c pN0M0 Oncotype DX pending" On 07/17/17 11:31 Sanjuana Rehman wrote "Incidental finding of right breast mass on cardiac CT Status post biopsy 06/08/2017 Invasive ductal carcinoma grade 2 Status post lumpectomy and sentinel lymph node biopsy 07/02/2017 Stage pT1c pN0M0" Surgical History S/P MVR (mitral valve repair) (Chronic) S/P Maze operation for atrial fibrillation (Resolved) Social History marital status: Current Living Situation: Spouse current occupational status: retired Feels Safe at Home: Yes Safety Concerns: Feels Safe At This Time Smoking Status: Former smoker Hx Alcohol Use: No Hx Substance Use: No Beliefs That Will Affect Care: None Preferred Language: Khmer Communication Ability: Effective Geophysical Operator Required: No Review of Systems All systems reviewed & are unremarkable except as noted in HPI & below Constitutional: + weakness, + anorexia and + weight loss Ear, Nose, Mouth, Throat: + ear pain, + nasal congestion and + post nasal drip Respiratory: + cough and + chest congestion Cardiovascular: no chest pain, no radiating jaw, neck or arm pain, no palpitations, no syncope and no edema Gastrointestinal: no abdominal pain Physical Exam 2 Vital Signs (Past 24 Hours): Last Vital Signs Temp 36.8 C 07/23/18 17:30 Pulse 87 07/23/18 20:14 Resp 16 07/23/18 20:14 BP 76/42 L 07/23/18 20:14 Pulse Ox 98 07/23/18 20:14 Constitutional: WD/WN, vitals as above + ill appearing and + cachectic Eyes: PERRL, conjunctivae normal, anicteric sclerae ENMT: external ear and nose normal, oropharynx normal Neck: normal visual inspection Respiratory: normal respiratory effort, lungs clear to auscultation + cough ; no respiratory distress Cardiovascular: RRR, no murmur, no edema Skin: no rashes, warm and dry + turgor decreased Neurologic: PERRL, EOMI, accommodation nl, no face palsy, no dysarthria Psychiatric: A+Ox3, euthymic affect Affect: + anxious affect Results & Data Laboratory Results 07/23/18 07/23/18 07/23/18 Range/Units 19:40 19:40 19:40 WBC 4.95 (4.8-10.8) K/uL RBC 4.08 L (4.2-5.4) M/uL Hgb 12.5 (12.0-16.0) g/dL Hct 38.0 (37-47) % MCV 93.1 (80-100) fL MCH 30.6 (25-34) pg MCHC 32.9 (32-36) g/dL RDW Std Deviation 45.6 (36.4-46.3) fL RDW Coeff of Jason 13.3 (11.5-14.5) % Plt Count 130 (130-400) K/uL MPV 9.6 (7.4-10.4) fL Immature Gran % (Auto) 0.2 % Neut % (Auto) 71.9 % Lymph % (Auto) 15.6 % [place] % (Auto) 10.9 % Eos % (Auto) 0.8 % Baso % (Auto) 0.6 % Immature Gran # (Auto) 0.01 (0.00-0.02) K/uL Neut # (Auto) 3.56 (1.4-6.5) K/uL Lymph # (Auto) 0.77 L (1.2-3.4) K/uL [place] # (Auto) 0.54 (0.11-0.59) K/uL Eos # (Auto) 0.04 (0-0.5) K/uL Baso # (Auto) 0.03 (0-0.2) K/uL PT (9.0-12.0) Seconds INR (0.9-1.1) APTT 29.3 (21.0-31.0) Seconds PTT Ratio 1.1 Sodium 134 L (136-145) mmol/L Potassium 3.6 (3.5-5.1) mmol/L Chloride 99 (98-107) mmol/L Carbon Dioxide 28 (21-32) mmol/L Anion Gap 7.0 (3-11) BUN 10 (7-18) mg/dl Creatinine 0.73 (0.6-1.2) mg/dl Est Cr Clr Drug Dosing 44.7 ml/min Est GFR ( Amer) 94.0 Est GFR (Non-Af Amer) 81.1 BUN/Creatinine Ratio 13.5 (10-20) Glucose 97 (70-99) mg/dl Calcium 8.6 (8.5-10.1) mg/dl Magnesium 1.6 L (1.8-2.4) mg/dl Total Bilirubin 0.9 (0.2-1) mg/dl AST 21 (15-37) U/L ALT 13 (12-78) U/L Alkaline Phosphatase 77 (45-117) U/L Troponin I 0.738 H* (0-0.045) ng/ml Total Protein 7.5 (6.4-8.2) gm/dl Albumin 3.3 L (3.4-5.0) gm/dl Globulin 4.2 H (2.5-4.0) gm/dl Albumin/Globulin Ratio 0.8 L (0.9-2) TSH 1.170 (0.300-4.500) uIu/ml 07/23/18 Range/Units 19:40 WBC (4.8-10.8) K/uL RBC (4.2-5.4) M/uL Hgb (12.0-16.0) g/dL Hct (37-47) % MCV (80-100) fL MCH (25-34) pg MCHC (32-36) g/dL RDW Std Deviation (36.4-46.3) fL RDW Coeff of Jason (11.5-14.5) % Plt Count (130-400) K/uL MPV (7.4-10.4) fL Immature Gran % (Auto) % Neut % (Auto) % Lymph % (Auto) % [place] % (Auto) % Eos % (Auto) % Baso % (Auto) % Immature Gran # (Auto) (0.00-0.02) K/uL Neut # (Auto) (1.4-6.5) K/uL Lymph # (Auto) (1.2-3.4) K/uL [place] # (Auto) (0.11-0.59) K/uL Eos # (Auto) (0-0.5) K/uL Baso # (Auto) (0-0.2) K/uL PT 11.4 (9.0-12.0) Seconds INR 1.1 (0.9-1.1) APTT (21.0-31.0) Seconds PTT Ratio Sodium (136-145) mmol/L Potassium (3.5-5.1) mmol/L Chloride (98-107) mmol/L Carbon Dioxide (21-32) mmol/L Anion Gap (3-11) BUN (7-18) mg/dl Creatinine (0.6-1.2) mg/dl Est Cr Clr Drug Dosing ml/min Est GFR ( Amer) Est GFR (Non-Af Amer) BUN/Creatinine Ratio (10-20) Glucose (70-99) mg/dl Calcium (8.5-10.1) mg/dl Magnesium (1.8-2.4) mg/dl Total Bilirubin (0.2-1) mg/dl AST (15-37) U/L ALT (12-78) U/L Alkaline Phosphatase (45-117) U/L Troponin I (0-0.045) ng/ml Total Protein (6.4-8.2) gm/dl Albumin (3.4-5.0) gm/dl Globulin (2.5-4.0) gm/dl Albumin/Globulin Ratio (0.9-2) TSH (0.300-4.500) uIu/ml Medications Administered Current Inpatient Medications Acetaminophen (Tylenol) 650 mg PO Q4H PRN PRN Reason: Pain or Fever Stop: 08/22/18 23:45 Al Hydrox/Mg Hydrox/Simethicone (Maalox) 15 ml PO Q4H PRN PRN Reason: Dyspepsia Stop: 08/22/18 23:45 Albuterol (Combivent Respimat) 1 puffs INH QID PRN PRN Reason: Shortness Of Breath Or Wheezing Stop: 08/22/18 22:46 Anastrozole (Arimidex) 1 mg PO DAILY MONIK Stop: 08/23/18 08:59 Docusate Sodium (Colace) 100 mg PO HS MONIK Stop: 08/23/18 20:59 Furosemide (Lasix) 20 mg PO MoWeFr MONIK Stop: 08/23/18 08:59 Heparin Sodium/Dextrose (Heparin Sodium/Dextrose) 25,000 units in 500 mls @ 15 mls/hr IV .Q24H MONIK; Protocol Stop: 08/23/18 00:43 Last Admin: 07/24/18 01:17 Dose: 750 units/hr, 15 mls/hr Levothyroxine Sodium (Synthroid) 88 mcg PO DAILYBB [facility] Stop: 08/23/18 06:29 Magnesium Hydroxide (Milk Of Magnesia) 30 ml PO Q12H PRN PRN Reason: Constipation Stop: 08/22/18 23:45 Metoprolol Succinate (Toprol Xl) 25 mg PO QPM MONIK Stop: 08/23/18 20:59 Miscellaneous (Order Awaiting Action) 1 ea N/A QS [facility] Stop: 08/23/18 00:00 Last Admin: 07/24/18 00:46 Dose: Not Given Nitroglycerin (Nitrostat) 0.4 mg SL UD PRN PRN Reason: Chest Pain Stop: 08/22/18 23:45 Ondansetron HCl (Zofran) 4 mg IV Q6H PRN PRN Reason: Nausea Stop: 08/22/18 23:45 Polyethylene Glycol (Miralax Powder Packet) 17 gm PO DAILY PRN PRN Reason: Constipation Stop: 08/22/18 23:45 Code Status & VTE Plan Code Status full Supervising Physician Co-Signing Physician Notes Attending addendum: I have physically seen this patient, have supervised the medical residents activities, and agree with the H&P unless as otherwise noted. Assessment and Plan: NSTEMI/atrial fibrillation/hypertension/status post MVR/status post maze operation for A. fib/status post AICD-- The patient will be admitted to telemetry for serial cardiac enzymes, serial EKG's, cardiac rhythm monitoring and a 2-D echocardiogram with Dopplers. Hold apixaban. Start heparin drip standard dosing per protocol without bolus. Continue aspirin, Lasix and Coreg. Consult cardiology, patient follows with Dr. Quintanilla. COPD/sinobronchitis-- Duonebs every 4 hours while awake and every 2 hours when necessary. Doxycycline 100 mg p.o. twice daily Sputum Gram stain and culture Remainder of orders and notations as noted. Resident Activity Tracking Resident Involvement: Resident Care Provided Care Provided: Adult Hospital Medicine
[2018-07-23] MEDS ORDERED: POLYETHYLENE (MIRALAX) 17 GM PACK PO PRN (23:46)
[2018-07-23] MEDS ORDERED: ALUMINUM/MAGNESIUM SUSP 30 ML UDC PO PRN (23:46)
[2018-07-23] MEDS ORDERED: MAGNESIUM HYDROXIDE SUSP 30 ML UDC PO PRN (23:46)
[2018-07-23] MEDS ORDERED: NITROGLYCERIN SL 0.4 MG/TAB TAB SL PRN (23:46)
[2018-07-23] MEDS ORDERED: ONDANSETRON INJ 2 MG/ML 2 ML VIAL IV PRN (23:46)
[2018-07-23] MEDS ORDERED: ACETAMINOPHEN 325 MG TAB PO PRN (23:46)
[2018-07-24] MEDS ORDERED: HEPARIN STANDARD DEXTROSE 25,000 UNITS/500 ML IV SCH (00:44)
[2018-07-24] MEDS: Heparin IV Standard *NO* Bolus IV SCH ×2 (00:45→02:13)
[2018-07-24 01:04] LABS: Partial Thromboplastin Ratio 1.1; Partial Thromboplastin Time 29.3 Seconds (21.0-31.0)
--- NOTE | 2018-07-24 01:18 | Emergency Department Note ---
Entered by Natalie Calhoun acting as a scribe for Forest Leger MD ED Provider Note CHIEF COMPLAINT: Nasal congestion HISTORY OF PRESENT ILLNESS: The patient is a 72 year old female who presents to the ER with complaints of a nasal congestion that began several days ago. The patient reports that she has also been experiencing generalized weakness as well as nausea. She states that she has felt "tight" and has had a loss of appetite and a cough. She notes that she has a history of breast cancer, mastectomy, a-fib, and a cardiac ablation. The patient reports that she had episodes of diarrhea 10 days ago. She states that she last took Tylenol 3 hours ago. Pt denies LOC, headache, fevers, chills, diaphoresis, visual changes, neck pain , chest pain, breathing difficulties, abdominal pain, back pain, melena, hematochezia, urinary symptoms, numbness, lymphadenopathy, rash, or other complaints. REVIEW OF SYSTEMS: See HPI for pertinent positives and negatives. A total of ten systems were reviewed and were otherwise negative. PMHx/PSHx: a-fib, breast cancer, mastectomy, back surgery and a cardiac ablation. SOCIAL HISTORY: Patient lives at home. PHYSICAL EXAM: GENERAL: Awake, alert, well-appearing, in no distress HENT: Normocephalic, atraumatic. Oropharynx unremarkable. EYES: Normal conjunctiva. Sclera non-icteric. NECK: Inspection normal. Non-tender. Supple. No nuchal rigidity. FROM. No masses. RESPIRATORY: Clear to auscultation. No wheezes. No rales. Normal respiratory effort. CARDIAC: Normal rate. Irregular rhythm. No murmurs. No rubs. Extremities warm and well perfused. Pulses equal. No JVD. GI: Soft, non-distended. No tenderness to palpation. No rebound or guarding. No masses. RECTAL: Deferred. MUSCULOSKELETAL: Atraumatic. Chest examination reveals no tenderness. The back is symmetrical on inspection without obvious abnormality. There is no CVA tenderness to palpation. No joint edema. Pacemaker in left upper chest. LOWER EXTREMITIES: Calves are equal size bilaterally and non-tender. No edema. No discoloration. NEURO: Normal sensorium. No sensory or motor deficits noted. SKIN: No rash or jaundice noted. EMERGENCY DEPARTMENT COURSE: 184: Past medical records reviewed. The patient was evaluated in room C6, and a complete history and physical examination were performed. 2315: I reviewed the patient's case with Dr. Lara - [facility] Hsopitalist. He will evaluate the patient for further management. MEDICAL DECISION MAKING: Prior records/ancillary studies reviewed and summarized above. Nursing notes reviewed and agree them. Additional history obtained from family.. The patient's history was concerning for nausea, weight loss, and congestion. Differential diagnosis: Etiologies such as pneumonia, metabolic, infection, hypo/hyperglycemia, electrolyte abnormalities, cardiac sources, intracerebral event, toxicologic, neurologic, as well as others were entertained. Physical examination: As above. ER treatment provided: IV Lock Normal saline hydration IV magnesium On reassessment the patient felt better. Diagnostics interpretation by me: ECG: Rate controlled atrial flutter. No acute ischemic change noted. The labs revealed an unremarkable CBC. Chemistry panel revealed hypomagnesemia. The patient's troponin is elevated concerning for myocardial damage. TSH negative Imaging studies: Chest x-ray negative for acute disease. Emphysematous changes. The patient has an elevated troponin. She has had weight loss. She has hypomagnesemia. Her blood pressures are low. She seems dehydrated. She was hydrated. Magnesium given. Further management will be necessary. Consultation: A consultation was placed with the hospitalist. The case was discussed and diagnostics were reviewed. The patient was evaluated in the ER for further treatment. IMPRESSION: Elevated troponin, nausea, hypomagnesemia, cough, a flutter PLAN: Admitted The scribe's documentation has been prepared under my direction and personally reviewed by me in its entirety. I confirm that the note above accurately reflects all work, treatment, procedures, and medical decision making performed by me. Impression & Plan Elevated troponin, Nausea, Cough, Atrial flutter Past Med/Surg History Medical History Anticoagulant disorder detention (current) use of anticoagulants (Chronic) Atrial fibrillation (Chronic) History of open heart surgery (Resolved) CHF (congestive heart failure) COPD (chronic obstructive pulmonary disease) (Chronic) Breast cancer (Resolved) Malignant neoplasm of lower-inner quadrant of right breast of female, estrogen receptor positive (Resolved 06/08/17) "Incidental finding of right breast mass on cardiac CT Status post biopsy 06/08/2017 Invasive ductal carcinoma grade 2 Status post lumpectomy and sentinel lymph node biopsy 07/02/2017 Stage pT1c pN0M0 Oncotype DX 42 Patient declined chemotherapy Status post completion of radiation therapy August 28, 2017. She received 3850 cGy utilizing accelerated partial breast irradiation." On 07/17/17 11:36 Sanjuana Rehman wrote "Incidental finding of right breast mass on cardiac CT Status post biopsy 06/08/2017 Invasive ductal carcinoma grade 2 Status post lumpectomy and sentinel lymph node biopsy 07/02/2017 Stage pT1c pN0M0 Oncotype DX pending" On 07/17/17 11:31 Sanjuana Rehman wrote "Incidental finding of right breast mass on cardiac CT Status post biopsy 06/08/2017 Invasive ductal carcinoma grade 2 Status post lumpectomy and sentinel lymph node biopsy 07/02/2017 Stage pT1c pN0M0" Surgical History S/P MVR (mitral valve repair) (Chronic) S/P Maze operation for atrial fibrillation (Resolved) Social History marital status: Current Living Situation: Spouse current occupational status: retired Feels Safe at Home: Yes Safety Concerns: Feels Safe At This Time Smoking Status: Former smoker Hx Alcohol Use: No Hx Substance Use: No Beliefs That Will Affect Care: None Preferred Language: Hebrew Communication Ability: Effective 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 Results & Data Vital Signs Vital Signs - 24 hr 07/23/18 17:30 07/23/18 20:14 07/23/18 22:42 Temperature 36.8 C Temperature Source Oral Sepsis Recent Fever Within 48 Hours No Sepsis New/Unexplained Change in Mental Status No Sepsis Action Taken by Nursing No Action Required Pulse Rate 110 H Pulse Rate [Left] 87 84 Pulse Rhythm Regular Regular Pulse Rhythm [Left] Regular Pulse Strength Normal Pulse Strength [Left] Normal Respiratory Rate 20 16 16 Respiratory Effort / Characteristics Non-Labored Spontaneous Non-Labored Spontaneous Non-Labored Respiratory Depth Normal Normal Normal Respiratory Pattern Regular Regular Blood Pressure 95/56 L Blood Pressure [Left Arm] Blood Pressure [Right Arm] 76/42 L 93/48 L Blood Pressure Mean 69 Blood Pressure Mean [Left Arm] Blood Pressure Mean [Right Arm] 53 63 Blood Pressure Position Sitting Blood Pressure Position [Left Arm] Blood Pressure Position [Right Arm] Lying Pulse Oximetry 92 98 86 L Oxygen Delivery Method Room Air Room Air Room Air Oxygen Flow Rate 2 07/23/18 23:47 Temperature 36.9 C Temperature Source Oral Sepsis Recent Fever Within 48 Hours Sepsis New/Unexplained Change in Mental Status Sepsis Action Taken by Nursing Pulse Rate Pulse Rate [Left] 98 H Pulse Rhythm Pulse Rhythm [Left] Pulse Strength Pulse Strength [Left] Respiratory Rate 16 Respiratory Effort / Characteristics Non-Labored Respiratory Depth Normal Respiratory Pattern Blood Pressure Blood Pressure [Left Arm] 105/55 L Blood Pressure [Right Arm] Blood Pressure Mean Blood Pressure Mean [Left Arm] 71 Blood Pressure Mean [Right Arm] Blood Pressure Position Blood Pressure Position [Left Arm] Lying Blood Pressure Position [Right Arm] Pulse Oximetry 88 L Oxygen Delivery Method Room Air Oxygen Flow Rate Home Medications Current Medication List: was personally reviewed by me Laboratory Data Attestation: I reviewed the patient's lab results. Result diagrams: 07/23/18 19:40 07/23/18 19:40 Lab Results 07/23/18 07/23/18 07/23/18 Range/Units 19:40 19:40 19:40 WBC 4.95 (4.8-10.8) K/uL RBC 4.08 L (4.2-5.4) M/uL Hgb 12.5 (12.0-16.0) g/dL Hct 38.0 (37-47) % MCV 93.1 (80-100) fL MCH 30.6 (25-34) pg MCHC 32.9 (32-36) g/dL RDW Std Deviation 45.6 (36.4-46.3) fL RDW Coeff of Jason 13.3 (11.5-14.5) % Plt Count 130 (130-400) K/uL MPV 9.6 (7.4-10.4) fL Immature Gran % (Auto) 0.2 % Neut % (Auto) 71.9 % Lymph % (Auto) 15.6 % Riley % (Auto) 10.9 % Eos % (Auto) 0.8 % Baso % (Auto) 0.6 % Immature Gran # (Auto) 0.01 (0.00-0.02) K/uL Neut # (Auto) 3.56 (1.4-6.5) K/uL Lymph # (Auto) 0.77 L (1.2-3.4) K/uL Riley # (Auto) 0.54 (0.11-0.59) K/uL Eos # (Auto) 0.04 (0-0.5) K/uL Baso # (Auto) 0.03 (0-0.2) K/uL PT 11.4 (9.0-12.0) Seconds INR 1.1 (0.9-1.1) APTT (21.0-31.0) Seconds PTT Ratio Sodium 134 L (136-145) mmol/L Potassium 3.6 (3.5-5.1) mmol/L Chloride 99 (98-107) mmol/L Carbon Dioxide 28 (21-32) mmol/L Anion Gap 7.0 (3-11) BUN 10 (7-18) mg/dl Creatinine 0.73 (0.6-1.2) mg/dl Est Cr Clr Drug Dosing 44.7 ml/min Est GFR ( Amer) 94.0 Est GFR (Non-Af Amer) 81.1 BUN/Creatinine Ratio 13.5 (10-20) Glucose 97 (70-99) mg/dl Calcium 8.6 (8.5-10.1) mg/dl Magnesium 1.6 L (1.8-2.4) mg/dl Total Bilirubin 0.9 (0.2-1) mg/dl AST 21 (15-37) U/L ALT 13 (12-78) U/L Alkaline Phosphatase 77 (45-117) U/L Troponin I 0.738 H* (0-0.045) ng/ml Total Protein 7.5 (6.4-8.2) gm/dl Albumin 3.3 L (3.4-5.0) gm/dl Globulin 4.2 H (2.5-4.0) gm/dl Albumin/Globulin Ratio 0.8 L (0.9-2) TSH 1.170 (0.300-4.500) uIu/ml 07/23/18 Range/Units 19:40 WBC (4.8-10.8) K/uL RBC (4.2-5.4) M/uL Hgb (12.0-16.0) g/dL Hct (37-47) % MCV (80-100) fL MCH (25-34) pg MCHC (32-36) g/dL RDW Std Deviation (36.4-46.3) fL RDW Coeff of Jason (11.5-14.5) % Plt Count (130-400) K/uL MPV (7.4-10.4) fL Immature Gran % (Auto) % Neut % (Auto) % Lymph % (Auto) % Riley % (Auto) % Eos % (Auto) % Baso % (Auto) % Immature Gran # (Auto) (0.00-0.02) K/uL Neut # (Auto) (1.4-6.5) K/uL Lymph # (Auto) (1.2-3.4) K/uL Riley # (Auto) (0.11-0.59) K/uL Eos # (Auto) (0-0.5) K/uL Baso # (Auto) (0-0.2) K/uL PT (9.0-12.0) Seconds INR (0.9-1.1) APTT 29.3 (21.0-31.0) Seconds PTT Ratio 1.1 Sodium (136-145) mmol/L Potassium (3.5-5.1) mmol/L Chloride (98-107) mmol/L Carbon Dioxide (21-32) mmol/L Anion Gap (3-11) BUN (7-18) mg/dl Creatinine (0.6-1.2) mg/dl Est Cr Clr Drug Dosing ml/min Est GFR ( Amer) Est GFR (Non-Af Amer) BUN/Creatinine Ratio (10-20) Glucose (70-99) mg/dl Calcium (8.5-10.1) mg/dl Magnesium (1.8-2.4) mg/dl Total Bilirubin (0.2-1) mg/dl AST (15-37) U/L ALT (12-78) U/L Alkaline Phosphatase (45-117) U/L Troponin I (0-0.045) ng/ml Total Protein (6.4-8.2) gm/dl Albumin (3.4-5.0) gm/dl Globulin (2.5-4.0) gm/dl Albumin/Globulin Ratio (0.9-2) TSH (0.300-4.500) uIu/ml Administered Medications Sodium Chloride (Nss 1000ml) 1,000 mls @ 125 mls/hr IV .Q8H MONIK Stop: 07/24/18 02:44 Last Infusion: 07/23/18 23:49 Dose: 0 mls/hr Admin: 07/23/18 19:15 Dose: 125 mls/hr Miscellaneous (Order Awaiting Action) 1 ea N/A QS MONIK Stop: 08/23/18 00:00 Last Admin: 07/24/18 00:46 Dose: Not Given Discontinued Medications Heparin Sodium/Dextrose () 1 ea IV Q15M MONIK; Protocol Stop: 08/23/18 00:00 Last Admin: 07/24/18 00:45 Dose: 1 ea Magnesium Sulfate/Dextrose (Magnesium Sulfate / D5w) 1 gm in 100 mls @ 100 mls/ hr IV ONE ONE Stop: 07/23/18 21:55 Last Infusion: 07/23/18 22:26 Dose: 0 mls/hr Admin: 07/23/18 21:16 Dose: 100 mls/hr Sodium Chloride (Nss 1000ml) 500 mls @ 999 mls/hr IV .Q31M ONE Stop: 07/23/18 21:26 Last Infusion: 07/23/18 22:26 Dose: 0 mls/hr Admin: 07/23/18 21:16 Dose: 999 mls/hr Imaging Data Radiologist's Impression: Radiology results as stated below per my review and the radiologist's interpretation: SINGLE VIEW CHEST CLINICAL HISTORY: Generalized weakness. FINDINGS: An AP, portable, upright chest radiograph is compared to study dated and correlated with chest CT dated 05/03/2018. The examination is degraded by portable technique and patient rotation. The patient is status post midline sternotomy and cardiac valve surgery. A 2-lead cardiac AICD is unchanged in position and largely obscures the left mid chest. The heart is enlarged and there is atherosclerotic calcification of the thoracic aorta. The pulmonary vasculature is noncongested. Enlargement of the central pulmonary arteries suggests pulmonary artery hypertension. Advanced emphysema and chronic interstitial thickening are similar to previous. No airspace consolidation or pleural effusion is identified. No pneumothorax is seen. The skeletal structures are osteopenic. The bony thorax is grossly intact. IMPRESSION: 1. Cardiomegaly and AICD. There is no radiographic evidence of congestive failure. 2. Advanced emphysema. Electronically signed by: Chidi Zaragoza M.D. 07/23/2018 7:43 PM ECG Data Attestation: I personally reviewed and interpreted this ECG as follows: Indication: other (dizzy) Rate (beats per minute): 94 Rhythm: atrial flutter Findings: + other (non-specific interventricular delay) and + ST depression ( lateral) Comparison ECG Date: from (08-DEC-2016) Change: the following changes noted (ST depressions are slightly more pronounced ) Blood Pressure Blood Pressure Findings: Low blood pressure Blood Pressure Disposition: further management by hospitalist Discharge Plan Visit Data *Final* Discharge Date/Time: 07/23/18 23:15 Chief Complaint: Illness Stated Complaint: UNABLE TO EAT, NOT FEELING WELL- HX CANCER/HEART D ED Provider: Forest Leger Discharge Problem: Elevated troponin, Nausea, Cough, Atrial flutter Patient Disposition: Being Evaluated by Hospitalist Discharge Instructions Interventions: ED Discharge Assessment Last Done: 07/23/18 23:15 The scribe's documentation has been prepared under my direction and personally reviewed by me in its entirety. I confirm that the note above accurately reflects all work, treatment, procedures, and medical decision making performed by me.
[2018-07-24] MEDS: LEVOTHYROXINE SODIUM 88 MCG TABLET PO SCH (06:18)
[2018-07-24 06:43] LABS: Appearance Urine Clear (Clear); Bilirubin Urine Negative (Negative); Color Urine Yellow; Glucose Urine UA Negative (Negative); Ketones Urine 2+ (Negative); Leukocyte Esterase Urine Negative (Negative); Nitrite Urine Negative (Negative); Protein Urine Negative (Negative); Specific Gravity Urine 1.015 (1.000-1.030); Urobilinogen Urine Negative (Negative)
[2018-07-24 07:10] LABS: Basophils # (auto) 0.06 K/uL (0-0.2); Basophils % (auto) 1.2 %; Eosinophils # (auto) 0.04 K/uL (0-0.5); Eosinophils % (auto) 0.8 %; Hematocrit (blood only) 35.4 % (37-47); Immature Granulocytes # (auto) 0.01 K/uL (0.00-0.02); Immature Granulocytes % (auto) 0.2 %; Lymphocytes # (auto) 1.01 K/uL (1.2-3.4); Lymphocytes % (auto) 20.9 %; Mean Corpuscular Hgb Conc 33.9 g/dL (32-36); Mean Corpuscular Volume 92.2 fL (80-100); Mean Platelet Volume 9.5 fL (7.4-10.4); Monocytes # (auto) 0.55 K/uL (0.11-0.59); Monocytes % (auto) 11.4 %; Neutrophils # (auto) 3.17 K/uL (1.4-6.5); Neutrophils % (auto) 65.5 %; Platelet Count 121 K/uL (130-400); RDW Coefficient of Variation 13.4 % (11.5-14.5); RDW Standard Deviation 45.1 fL (36.4-46.3); Red Blood Count 3.84 M/uL (4.2-5.4); White Blood Count 4.84 K/uL (4.8-10.8)
[2018-07-24 07:31] LABS: Partial Thromboplastin Ratio 2.2
[2018-07-24 07:35] LABS: Partial Thromboplastin Time 58.8 Seconds (21.0-31.0)
[2018-07-24 07:43] LABS: BUN Creatinine Ratio 15.7 (10-20); Calcium 8.2 mg/dl (8.5-10.1); Creatinine Clr Calc Pharmacy 52.1 ml/min; Est GFR (African American) 103.5; Est GFR (Non-African American) 89.3; Potassium 3.7 mmol/L (3.5-5.1)
[2018-07-24 07:53] LABS: Troponin I 0.724 ng/ml (0-0.045)
[2018-07-24] MEDS: ANASTROZOLE 1 MG TAB PO SCH (08:18)
[2018-07-24] MEDS: ATORVASTATIN 40 MG TAB PO SCH (08:29)
[2018-07-24] MEDS ORDERED: FUROSEMIDE 20 MG TAB PO SCH (09:00)
[2018-07-24] MEDS: DIGOXIN 0.25 MG TAB PO SCH ×2 (09:19→16:57)
[2018-07-24] MEDS: APIXABAN 2.5 MG TAB PO SCH ×2 (09:19→21:19)
[2018-07-24] MEDS: DOXYCYCLINE HYCLATE 100 MG CAP PO SCH ×2 (11:54→21:19)
--- NOTE | 2018-07-24 13:00 | Family Medicine Progress Note ---
Addendum entered and electronically signed by Bill Pollack DO 07/24/18 16: 01: Addendum (Blank) Addendum July 24, 2018 16:00 clarifications: acute sinusitis and bronchitis elevated troponin does not appear to represent NSTEMI -- further on chart review , pt has not had a normal troponin going back to 2012 in our system chronic systolic chf - stable Original Note: Date of Service July 24, 2018 Assessment & Plan (1) Elevated troponin: 72 y/o F with PMH A fib (s/p maze procedure), CHF (s/p MV repair, AICD), COPD, ER+ Breast ca (s/p partial mastectomy/radiation, currently on PO tx) presents with s/s sinusitis/bronchitis and an elevated trop. 1) Elevated troponin -EKG- lateral ST depression -trops : .738, .725, .745. Pt has no s/s ACS at present. Per cards unlikely CAD as cause. Likely due pt's underlying cardiomyopathy combined with this acute stress. Pt will likely need outpt stress test -Continue home ASA, lasix, metoprolol 2) Acute Bronchitis/Sinusitis -will cont doxy BID. Allergies to PCN, Sulfa, Macrolides 3) Afib -rate controlled at present. Transfer to med/surg -d/c hep drip, re-start apixiban -Cont metoprolol -Echo 2013: LV normal in size, normal LV wall thickness. LV systolic function is moderately reduced. EF 35-40% 4) COPD -Continue home treatments 5) Breast Ca/ Weight loss -Cont home meds -decreased appetite 2/2 LBP caused by helping lifting injury and constipation from tramadol use and viral GI course thereafter. Cancer dx prob not helping matters. -Pt states has appetite today, tolerating HH diet. Boost shakes added to diet 6) Hypothyroid -Cont home meds FULL DVT Prophylaxis- Eliquis Dispo: med/surg, likely d/c tomorrow Supervising Physician Co-Signing Physician Notes I personally examined the patient and verified all cason points of history and exam, discussed case, and agree with decision making with Dr Palafox. She is notes overall she has had a bad month or so but it has been a series of separate events. Initially about a month ago she was helping lift her and she strained her back very severely she was in a lot of pain and the pain was keeping her from eating. After that she was started on tramadol and the tramadol caused severe constipation, and while her back pain got better after therapy, the constipation was bad enough that it kept her from eating. Once the constipation improved about 2 weeks ago she got the viral gastroenteritis that has been prevalent in the community and this caused GI distress which kept her from eating. Unfortunately most recently she has had postnasal drip cough and congestion, and she feels fairly nauseated from this which is kept her from eating. With all of this she has lost weight, but she feels that it has all been an unfortunate series of unconnected events. Today in fact she feels hungry. She is not very short of breath, her congestion is not that bad right now let us been going on for a good 10 days. She has no fevers chills or sweats , no significant shortness of breath. She does have a cough. She has no ongoing GI symptoms right now, no abdominal pain. She has no pain after eating. Vitals noted, in general she is awake alert oriented x3 pleasant no acute distress. HEENT normocephalic atraumatic mucous membranes are moist. Cardio is regular without rubs murmurs or gallops. Lungs are diminished air entry globally but no rales rhonchi or wheezes with good effort. Skin shows no rashes no pallor or icterus. Abdomen is soft nondistended nontender most notably no epigastric tenderness. Neuro shows no focal deficits Involuntary weight loss�her delineation of events does appear reassuring in that she has had an unfortunate series of events and appears to be fairly frail and thin at baseline, but there does not seem to be a true "failure to thrive" common thread. She is hungry right now, encourage intake, protein shakes, continue to follow. She notes that it was actually her family bringing her to the hospital because of her poor oral intake that was the main reason they brought her here. Sinusitis/bronchitis�she actually minimizes this a good bit, given the duration and her baseline of COPD, doxycycline does appear to be reasonable coverage. Continue. Atrial fibrillation�rate is controlled, she is anticoagulated. Elevated troponin�cardiology does not believe that coronary artery disease is at play. Continue to follow. Possibly is a troponin spill due to her cardiomyopathy at baseline combined with physiologic stress, if not done in the recent past, however, it would be reasonable to do physiologic stress testing to rule out any type of true demand ischemia, given that she does not appear to have any known coronary disease. Subjective 72 y/o F found today in bed in NAD. Pt reports no CP, SOB, syncope, palpitations. Ongoing complaints of sinusitis sxs cough. Tolerating PO intake. No issues ambulating or voiding. Pt has no other acute concerns or complaints. Review of Systems All systems reviewed & are unremarkable except as noted in HPI & below Physical Exam 2 Vital Signs (Past 24 Hours): Last Vital Signs Temp 36.8 C 07/24/18 11:45 Pulse 109 H 07/24/18 11:45 Resp 16 07/24/18 11:45 BP 96/51 L 07/24/18 11:45 Pulse Ox 97 07/24/18 11:45 Constitutional: + cachectic Eyes: PERRL, conjunctivae normal, anicteric sclerae ENMT: external ear and nose normal, oropharynx normal Respiratory: normal respiratory effort, lungs clear to auscultation + cough Cardiovascular: RRR, no murmur, no edema Gastrointestinal (Abdomen): normal bowel sounds, soft, nontender, no hepatosplenomegaly Skin: no rashes, warm and dry Psychiatric: A+Ox3, euthymic affect Results & Data Laboratory Results Laboratory Results - last 24 hr 07/23/18 07/23/18 07/23/18 19:40 19:40 19:40 WBC 4.95 RBC 4.08 L Hgb 12.5 Hct 38.0 MCV 93.1 MCH 30.6 MCHC 32.9 RDW Std Deviation 45.6 RDW Coeff of Jason 13.3 Plt Count 130 MPV 9.6 Immature Gran % (Auto) 0.2 Neut % (Auto) 71.9 Lymph % (Auto) 15.6 Clare % (Auto) 10.9 Eos % (Auto) 0.8 Baso % (Auto) 0.6 Immature Gran # (Auto) 0.01 Neut # (Auto) 3.56 Lymph # (Auto) 0.77 L Clare # (Auto) 0.54 Eos # (Auto) 0.04 Baso # (Auto) 0.03 PT 11.4 INR 1.1 APTT PTT Ratio Sodium 134 L Potassium 3.6 Chloride 99 Carbon Dioxide 28 Anion Gap 7.0 BUN 10 Creatinine 0.73 Est Cr Clr Drug Dosing 44.7 Est GFR ( Amer) 94.0 Est GFR (Non-Af Amer) 81.1 BUN/Creatinine Ratio 13.5 Glucose 97 Calcium 8.6 Magnesium 1.6 L Total Bilirubin 0.9 AST 21 ALT 13 Alkaline Phosphatase 77 Troponin I 0.738 H* Total Protein 7.5 Albumin 3.3 L Globulin 4.2 H Albumin/Globulin Ratio 0.8 L Triglycerides Cholesterol LDL Cholesterol, Calc VLDL Cholesterol, Calc HDL Cholesterol Cholesterol/HDL Ratio TSH 1.170 Urine Color Urine Appearance Urine pH Ur Specific [place] Urine Protein Urine Glucose (UA) Urine Ketones Urine Blood Urine Nitrite Urine Bilirubin Urine Urobilinogen Ur Leukocyte Esterase 07/23/18 07/24/18 07/24/18 19:40 06:15 06:55 WBC 4.84 RBC 3.84 L Hgb 12.0 Hct 35.4 L MCV 92.2 MCH 31.3 MCHC 33.9 RDW Std Deviation 45.1 RDW Coeff of Jason 13.4 Plt Count 121 L MPV 9.5 Immature Gran % (Auto) 0.2 Neut % (Auto) 65.5 Lymph % (Auto) 20.9 Clare % (Auto) 11.4 Eos % (Auto) 0.8 Baso % (Auto) 1.2 Immature Gran # (Auto) 0.01 Neut # (Auto) 3.17 Lymph # (Auto) 1.01 L Clare # (Auto) 0.55 Eos # (Auto) 0.04 Baso # (Auto) 0.06 PT INR APTT 29.3 PTT Ratio 1.1 Sodium Potassium Chloride Carbon Dioxide Anion Gap BUN Creatinine Est Cr Clr Drug Dosing Est GFR ( Amer) Est GFR (Non-Af Amer) BUN/Creatinine Ratio Glucose Calcium Magnesium Total Bilirubin AST ALT Alkaline Phosphatase Troponin I Total Protein Albumin Globulin Albumin/Globulin Ratio Triglycerides Cholesterol LDL Cholesterol, Calc VLDL Cholesterol, Calc HDL Cholesterol Cholesterol/HDL Ratio TSH Urine Color Yellow Urine Appearance Clear Urine pH 7.0 Ur Specific [place] 1.015 Urine Protein Negative Urine Glucose (UA) Negative Urine Ketones 2+ H Urine Blood Negative Urine Nitrite Negative Urine Bilirubin Negative Urine Urobilinogen Negative Ur Leukocyte Esterase Negative 07/24/18 07/24/18 06:55 06:55 WBC RBC Hgb Hct MCV MCH MCHC RDW Std Deviation RDW Coeff of Jason Plt Count MPV Immature Gran % (Auto) Neut % (Auto) Lymph % (Auto) Clare % (Auto) Eos % (Auto) Baso % (Auto) Immature Gran # (Auto) Neut # (Auto) Lymph # (Auto) Clare # (Auto) Eos # (Auto) Baso # (Auto) PT INR APTT 58.8 H* PTT Ratio 2.2 Sodium 135 L Potassium 3.7 Chloride 103 Carbon Dioxide 24 Anion Gap 8.0 BUN 10 Creatinine 0.61 Est Cr Clr Drug Dosing 52.1 Est GFR ( Amer) 103.5 Est GFR (Non-Af Amer) 89.3 BUN/Creatinine Ratio 15.7 Glucose 86 Calcium 8.2 L Magnesium Total Bilirubin AST ALT Alkaline Phosphatase Troponin I 0.724 H* Total Protein Albumin Globulin Albumin/Globulin Ratio Triglycerides 48 Cholesterol 112 LDL Cholesterol, Calc 44 VLDL Cholesterol, Calc 10 HDL Cholesterol 58 Cholesterol/HDL Ratio 2 TSH Urine Color Urine Appearance Urine pH Ur Specific [place] Urine Protein Urine Glucose (UA) Urine Ketones Urine Blood Urine Nitrite Urine Bilirubin Urine Urobilinogen Ur Leukocyte Esterase Medications Administered Current Inpatient Medications Acetaminophen (Tylenol) 650 mg PO Q4H PRN PRN Reason: Pain or Fever Stop: 08/22/18 23:45 Al Hydrox/Mg Hydrox/Simethicone (Maalox) 15 ml PO Q4H PRN PRN Reason: Dyspepsia Stop: 08/22/18 23:45 Albuterol (Combivent Respimat) 1 puffs INH QID PRN PRN Reason: Shortness Of Breath Or Wheezing Stop: 08/22/18 22:46 Anastrozole (Arimidex) 1 mg PO DAILY [facility] Stop: 08/23/18 08:59 Last Admin: 07/24/18 08:18 Dose: 1 mg Apixaban (Eliquis) 2.5 mg PO BID [facility] Stop: 08/23/18 08:59 Last Admin: 07/24/18 09:19 Dose: 2.5 mg Atorvastatin Calcium (Lipitor) 40 mg PO QAM [facility] Stop: 08/23/18 08:59 Last Admin: 07/24/18 08:29 Dose: 40 mg Digoxin (Lanoxin) 0.25 mg PO BID@0900,1600 [facility] Stop: 07/24/18 16:01 Last Admin: 07/24/18 09:19 Dose: 0.25 mg Digoxin (Lanoxin) 0.125 mg PO DAILY@1600 [facility] Stop: 08/24/18 15:59 Docusate Sodium (Colace) 100 mg PO HS [facility] Stop: 08/23/18 20:59 Doxycycline Hyclate (Vibramycin) 100 mg PO BID [facility] Stop: 07/31/18 08:59 Last Admin: 07/24/18 11:54 Dose: 100 mg Furosemide (Lasix) 20 mg PO MoWeFr [facility] Stop: 08/23/18 08:59 Last Admin: 07/24/18 08:18 Dose: 20 mg Levothyroxine Sodium (Synthroid) 88 mcg PO DAILYBB [facility] Stop: 08/23/18 06:29 Last Admin: 07/24/18 06:18 Dose: 88 mcg Magnesium Hydroxide (Milk Of Magnesia) 30 ml PO Q12H PRN PRN Reason: Constipation Stop: 08/22/18 23:45 Metoprolol Succinate (Toprol Xl) 25 mg PO QPM [facility] Stop: 08/23/18 20:59 Miscellaneous (Order Awaiting Action) 1 ea N/A QS [facility] Stop: 08/23/18 00:00 Last Admin: 07/24/18 08:17 Dose: Not Given Nitroglycerin (Nitrostat) 0.4 mg SL UD PRN PRN Reason: Chest Pain Stop: 08/22/18 23:45 Ondansetron HCl (Zofran) 4 mg IV Q6H PRN PRN Reason: Nausea Stop: 08/22/18 23:45 Polyethylene Glycol (Miralax Powder Packet) 17 gm PO DAILY PRN PRN Reason: Constipation Stop: 08/22/18 23:45 Resident Activity Tracking Resident Involvement: Resident Care Provided Care Provided: Adult Hospital Medicine
[2018-07-24] MEDS ORDERED: METOPROLOL SUCC 25MG EXT REL TAB PO SCH (21:00)
[2018-07-24] MEDS ORDERED: DOCUSATE SODIUM 100 MG CAP PO SCH (21:00)
--- NOTE | 2018-07-24 22:12 | Consultation Report ---
DATE OF CONSULTATION: 07/24/2018 REQUESTING PHYSICIAN: Bill Pollack DO CHANGE ATTENDANT: Scott Hollis DO, [facility]. REASON FOR CONSULTATION: Mild troponin elevation, chronic atrial arrhythmias, and weight loss. Dear Bill: Thank you for requesting cardiology consultation on Julia. She notes she just felt weaker and weaker since she had a compression fracture. She also describes a very harsh sounding cough. She also had a loss of her appetite with this cough. At times, it is somewhat productive. She denies any fevers or chills or night sweats. She just feels very weak. She was placed on Marinol by her primary care provider without any improvement in her appetite. As you remember, she hurt her back caring for her who had bypass surgery. In the ER, she was thought to have sinobronchitis. In addition, there was concern given her EKG changes and minimally elevated troponin that she may be having an acute coronary syndrome. She denies any chest pain, chest pressure, or chest heaviness. She denies any lightheadedness, dizziness, presyncope, or syncope. She has had no increased abdominal distention which has been her sign of heart failure in the past. She denies any lower extremity edema. She denies any bleeding, bruising, dark stool, or black stools on anticoagulation. She is unaware of any palpitations or fluttering, as she now appears to be in chronic atrial tachycardia with rates that have been reasonably well controlled. She notes her p.o. intake is poor. Her weight continues to decline. The rest of her systems otherwise negative. PAST MEDICAL HISTORY: 1. Status post mitral valve repair with a maze procedure 01/2012. 2. Paroxysmal atrial fibrillation on apixaban, status post multiple cardioversions previously on amiodarone, status post ablation of her atrial tachycardia in 2016 and repeat ablation for atrial tachycardia 01/2018. 3. Echocardiogram 08/2015 with a severely reduced RV function, severe left atrial enlargement, EF 30% with a stroke volume of 26 mL and type 2 diastolic dysfunction. 4. Status post [employer] defibrillator, 11/2015. 5. Anemia. 6. Hypothyroidism. 7. Severe chronic obstructive pulmonary disease. 8. Frailty. SOCIAL HISTORY: She is . She did smoke a half a pack per day, stopped doing in 2011. Her children and grandchildren live locally. FAMILY HISTORY: Noncontributory for mitral valve disease and premature heart disease. ALLERGIES: ERYTHROMYCIN, PENICILLIN, AND SULFA. MEDICATIONS: Reviewed in electronic medical record. PHYSICAL EXAMINATION: GENERAL: She is awake, alert, oriented x3. She is frail, she looks more ill than the last time I saw her. VITAL SIGNS: Her heart rate is 105, blood pressure 109/61, respirations 16. Her sats 98% on room air. HEENT: Mildly reduced carotid upstrokes, no evidence of carotid bruits. Jugular venous pressure did not appear elevated. His sclerae are anicteric. Her hearing is normal. LUNGS: Markedly decreased breath sounds on the entire left side with improved aeration in the right upper and middle lobe lung hong. There were no rales, rhonchi, or wheezing. HEART: Irregular rate and rhythm. No appreciable murmurs, rubs, or gallops. ABDOMEN: Soft, nontender, nondistended. Positive bowel sounds. EXTREMITIES: No clubbing, cyanosis, or edema. PSYCHIATRIC: Affect appeared appropriate. NEUROLOGIC: She is awake, alert and oriented x3. DIAGNOSTIC STUDIES: Chest x-ray: Cardiomegaly, defibrillator, no heart failure, advanced emphysema. Chest CT, 05/03/2018, advanced emphysema, cardiomegaly, mild mediastinal adenopathy. No suspicious pulmonary nodules or masses. LABORATORY STUDIES: White count of 4.84. Platelet count of 121. Sodium 135, potassium 3.7, bicarbonate 24, BUN 10, creatinine 0.61. Peak troponin 0.738, second troponin 0.724. Her albumin is 3.3. TSH is normal. EKG: Atrial tachycardia with a controlled ventricular response, ST-T changes then when compared to the EKG at her in the [facility] system from 07/10/2018. No significant change. IMPRESSION: 1. Recurrent atrial tachycardia with borderline controlled heart rates on chronic anticoagulation with apixaban. 2. No evidence of coronary artery disease in 2011 on her preop catheterization. 3. Status post mitral valve repair with a maze procedure. 4. History of severely reduced right ventricular function with severe left atrial enlargement, ejection fraction of 30%. 5. Status post dual chamber defibrillator. 6. Recent episode of an upper respiratory tract infection and bronchitis. 7. Failure to thrive with ongoing weight loss. 8. Mildly elevated troponin. I believe her troponin is a related to demand ischemia and her current illness. Clinically, this does not sound like she is having an ACS or is in heart failure. Her rates with her atrial tachycardia are fast. We will give her digoxin 0.25 mg x2 doses today given her low weight and then start her back on 0.125 mg daily. This may need to be adjusted to Sunday, Sunday, and Sunday as an outpatient. As I discussed with Dr. Pollack by phone, we may need to adjust her medical regimen as she has severe COPD and has very little air movement. She is on antibiotics. She may consider using Xopenex. She notes steroids in the past caused her to have significant jitteriness. One concern for her is failure to thrive at home, in addition to her recent back pain, would be the loss of her atrial kick with her atrial tachycardia. She has already had a maze procedure and 2 ablations at [facility] in [place]. The product managent intern told her the last time she was there that he would not consider a repeat ablation. If we cannot control her rates, then we could consider an AV node ablation with biventricular pacing. Unfortunately, this would not help with the loss of her atrial kick and given the extent of her cardiac disease, this may lead to worsening heart failure. Clinically, it does not sound like she is having right-sided heart failure. As usually when she has right sided CHF it is associated with increased abdominal distension. She may benefit from medical marijuana as a way to increase her appetite and help with the severity of her back pain that she is still having. We will continue to follow her with you. Thank you for allowing us to participate in her care. RONDA
[2018-07-25] MEDS: LEVOTHYROXINE SODIUM 88 MCG TABLET PO SCH (05:37)
[2018-07-25 06:13] LABS: Hematocrit (blood only) 38.1 % (37-47); Hemoglobin 12.8 g/dL (12.0-16.0); Mean Corpuscular Hgb Conc 33.6 g/dL (32-36); Mean Corpuscular Volume 92.3 fL (80-100); Platelet Count 127 K/uL (130-400); RDW Coefficient of Variation 13.3 % (11.5-14.5); RDW Standard Deviation 44.6 fL (36.4-46.3); Red Blood Count 4.13 M/uL (4.2-5.4); White Blood Count 4.09 K/uL (4.8-10.8)
[2018-07-25 06:26] LABS: Partial Thromboplastin Ratio 1.1; Partial Thromboplastin Time 29.7 Seconds (21.0-31.0)
[2018-07-25 06:44] LABS: Albumin Level 2.8 gm/dl (3.4-5.0); BUN Creatinine Ratio 21.8 (10-20); Calcium 8.4 mg/dl (8.5-10.1); Creatinine Clr Calc Pharmacy 51.3 ml/min; Est GFR (Non-African American) 88.8; Potassium 3.7 mmol/L (3.5-5.1)
[2018-07-25 06:47] LABS: Albumin Globulin Ratio 0.7 (0.9-2); Bilirubin,Total 0.5 mg/dl (0.2-1); Globulin 4.1 gm/dl (2.5-4.0); Total Protein 6.9 gm/dl (6.4-8.2)
[2018-07-25 07:32] LABS: Basophils # (auto) 0.11 K/uL (0-0.2); Basophils % (auto) 2.7 %; Eosinophils # (auto) 0.08 K/uL (0-0.5); Lymphocytes # (auto) 1.37 K/uL (1.2-3.4); Lymphocytes % (auto) 33.5 %; Monocytes # (auto) 0.76 K/uL (0.11-0.59); Monocytes % (auto) 18.6 %; Neutrophils # (auto) 1.77 K/uL (1.4-6.5); Neutrophils % (auto) 43.2 %
--- NOTE | 2018-07-25 08:00 | Cardiology Progress Note ---
Date of Service July 25, 2018 She feels much better this morning. She still has a cough. Her color looks better she denies any lightheadedness dizziness presyncope or syncope. She is concerned that the doxycycline may have made her nauseous. She has no chest pain or chest pressure. She has any palpitations or fluttering or feeling her heart racing. She did eat her breakfast this morning Physical Exam 2 Vital Signs (Past 24 Hours): Last Vital Signs Temp 36.8 C 07/25/18 07:38 Pulse 83 07/25/18 07:38 Resp 18 07/25/18 07:38 BP 97/63 L 07/25/18 07:38 Pulse Ox 96 07/25/18 07:38 PHYSICAL EXAMINATION: GENERAL: She is awake, alert, oriented x3. She is frail but looks better today HEENT: Mildly reduced carotid upstrokes, no evidence of carotid bruits. Jugular venous pressure did not appear elevated. His sclerae are anicteric. Her hearing is normal. LUNGS: Improved aeration bilaterally with faint rhonchi on the left HEART: Irregular rate and rhythm. No appreciable murmurs, rubs, or gallops. ABDOMEN: Soft, nontender, nondistended. Positive bowel sounds. EXTREMITIES: No clubbing, cyanosis, or edema. PSYCHIATRIC: Affect appeared appropriate. IMPRESSION: 1. Recurrent atrial tachycardia with borderline controlled heart rates on chronic anticoagulation with apixaban. 2. No evidence of coronary artery disease in 2011 on her preop catheterization. 3. Status post mitral valve repair with a maze procedure. 4. History of severely reduced right ventricular function with severe left atrial enlargement, ejection fraction of 30%. 5. Status post dual chamber defibrillator. 6. Recent episode of an upper respiratory tract infection and bronchitis. 7. Failure to thrive with ongoing weight loss. 8. Chronic mildly elevated troponin. She looks better this morning from my standpoint. Her heart rates are better controlled with digoxin and I would discharge her on digoxin 0.125 mg daily, Toprol 25 mg nightly, and apixaban 2.5 mg twice daily. She chronically has a blood pressure in the 90s and is asymptomatic with this. The hospitalist service will have to confirm whether she has an intolerance to doxycycline. She notes feeling nauseous and having dry heaves after taking it. Given how compromised her lungs are as well as her cardiovascular system she will need antibiotics when she goes home. She will need a BMP and a digoxin level in 10 days time. We may need to reduce her digoxin to 0.125 mg Sunday given her small size. We will arrange for follow-up.
[2018-07-25] MEDS: APIXABAN 2.5 MG TAB PO SCH (08:26)
[2018-07-25] MEDS: DOXYCYCLINE HYCLATE 100 MG CAP PO SCH (08:26)
[2018-07-25] MEDS: ANASTROZOLE 1 MG TAB PO SCH (08:26)
[2018-07-25] MEDS: ATORVASTATIN 40 MG TAB PO SCH (08:26)
--- NOTE | 2018-07-25 11:54 | Discharge Summary ---
Date of Service July 25, 2018 Admission HPI Per Admitting Provider Patient is a 72yo F PMH Afib, s/p maze procedure CHF s/p MV repair/AICD, COPD, ER+ breast cancer (s/p partial mastectomy/radiation, current PO treatment), hypothyroidism, who presents with general complaints of feeling unwell for the past month. She reports cough x 10 days, some ear pain, sinus congestion, some diarrhea 10 days ago(resolved), clamminess, and excess burping today. Denies CP , palpitations, lightheadedness, fever. She presented to ER in mid-June with low back pain after caring for her s/p his heart surgery. She states she is "a worrier" and has not been eating as much, resulting in weight loss of unquanitifiable amount which she states has only been over the past few months. Current BMI of 16. She states that she uses home pulse ox for her afib and reports her numbers were "all over the place" in the past month, and she inquired with her pacemaker company and was notified that she had reverted into afib again. Last ablation was in january 2018. In the ER, she was found to have elevated troponin and lateral ST depression on her EKG. She was given a liter bolus for hypotension in the ER and given a supplement of magnesium. Principal Diagnosis wt loss, afib, elevated trops, sinusitis Discharge Exam Constitutional + cachectic Eyes PERRL, conjunctivae normal, anicteric sclerae ENMT external ear and nose normal, oropharynx normal Respiratory normal respiratory effort, lungs clear to auscultation + cough Cardiovascular RRR, no murmur, no edema Gastrointestinal (Abdomen) normal bowel sounds, soft, nontender, no hepatosplenomegaly Skin no rashes, warm and dry Psychiatric A+Ox3, euthymic affect Discharge Data Allergies Allergy/AdvReac Type Severity Reaction Status Date / Time Penicillins Allergy Intermediate HIVES; Verified 07/23/18 21:36 TAKES CEPHALEXIN W/O PROBLEM Sulfa (Sulfonamide Allergy Intermediate NAUSEA, Verified 07/23/18 21:36 Antibiotics) ITCHY, AND "FUNNY THROAT" Macrolide Antibiotics AdvReac Intermediate "MYCIN Verified 07/23/18 21:36 ANTIBIOTICS": ITCHY AND NAUSEA diazepam AdvReac Mild FEELS WEIRD Verified 07/23/18 21:36 Consultations 07/23/18 20:57 ED Decision to Admit Stat 07/24/18 00:13 Consult Cardiology Routine Hospital Course (1) Elevated troponin: 72 y/o F with PMH A fib (s/p maze procedure, Last ablation Jan 2018), CHF (s/p MV repair, AICD), COPD, ER+ Breast ca (s/p partial mastectomy/radiation, currently on PO tx) presented to [facility] 07/23 at the discretion of her children for concerns over weight loss. Pt had general complaints of feeling unwell for the past month. Pt's recently had heart sx and she was taking care of him. He is a larger man and pt reports she had a lower back injury trying to help lift him. The pain along with constipation 2/2 tramadol use and a bout of viral gastroenteritis shortly thereafter created the perfect storm of unfortunate events that led to weight loss (current BMI of 16). Additionally, pt reported cough x 10 days, some ear pain, and sinus congestion. Pt also stated that she used home pulse ox for her afib and reported her numbers were very variable in the past month, and she inquired with her pacemaker company and was notified that she had reverted into afib again. In the ER, she was found to have elevated troponin and lateral ST depression on her EKG. The following is the medical management during pt's stay here. 1) Elevated troponin -In ER, pt's EKG showed lateral ST depression. Initial trop was.738, and they were trended as follows: .725, .745. Pt had no signs or symptoms of ACS during stay. In consulting/speaking with cardiology, it is unlikely that CAD is at play. Pt has chronically elevated trops. Furthermore, there was no evidence of coronary artery disease in 2011 on her preop catheterization. Elevated trops likely due pt's underlying cardiomyopathy combined with these other acute stressors that she presented with. Pt will likely need outpt stress test to see if there is any underlying ischemia, and Dr. Hollis's office will arrange for f/ u appt. Cards notes that pt's heart rates are better controlled with digoxin. She will be d/c on digoxin 0.125 mg daily, Toprol 25 mg nightly, and apixaban 2.5 mg twice daily. Please note that pt will need a BMP and a digoxin level in 10 days time. 2) Acute Bronchitis/Sinusitis -Pt's symptoms of cough x 10 days, ear pain, and sinus congestion likely bronchitis/sinusitis. Pt was started on doxy 100mg BID, with some noted subjective improvement; however, pt notes N/V from doxy. Pt will be d/c on azithromycin to continue coverage. It is noted in her chart that pt has macrolide allergy (itchy/nausea), but pt cannot recall this. She will be given zofran script to combat this. 3) Afib -Pt's A fib was rate controlled during stay here. She was initally given a hep drip, but then re-started on her home apixiban dose the next day. Pt continued metoprolol here, and will be added on digoxin on d/c as above. Echo from 2013 showed: LV normal in size, normal LV wall thickness. LV systolic function is moderately reduced. Severely reduced right ventricular function with severe left atrial enlargement, ejection fraction of 30%. 4) Weight loss -As mentioned above, pt's weight loss probably due to series of unfortunate events that compounded one another. Pt had a good appetite during stay here, and tolerated a HH diet. Boost shakes were also given to pt, and she was instructed to drink multiple shakes per day to help meet her nutritional needs. Pt also instructed to maintain good hand hygiene and encourage others to as well , so that a similar series of events does not recur. Pt's home meds for hypothyroidism, breast ca, and COPD were continued here. DVT Prophylaxis with Eliquis. At time of d/c, pt had no other acute concerns or complaints. Total Time Total Time Spent Total Time Spent (In Minutes): >30 min Discharge Plan Discharge Items Patient Disposition: Home - Self-Care Reason For Visit: NSTEMI Discharge Diagnosis: Acute bronchitis/sinusitis Discharge Goals: Decrease discomfort and Diagnostic testing Activity: Per 'Additional Instructions' section Non-emergency contact: Primary Care Provider Call non-emergency contact if: you have any medication questions and your symptoms worsen Follow-up/Referrals: Lo Reid MD [Primary Care Provider] - 07/29/18 10:50 am (Please, follow up at Dr. Reid's office on SundayJuly 29 at 10:50 am. *If you need to change this appointment, call the office at [phone].) Diet: Heart Healthy [facility] Provider Instructions: You were admitted for concerns about weight loss, bronchitis/sinusitis and an elevated troponin (heart injury marker). Please follow the below instructions on discharge: -For your sinusitis, you were given doxy antibiotic. Please continue azithromycin antibiotic on discharge. If you notice you are still nauseous with this new antibiotic, please take zofran for your nausea, which you will be given script for. -Your elevated heart markers were likely due to your underlying cardiomyopathy along with your new stressors that brought you here. It is unlikely to be due to coronary artery disease as your levels have been consistent in the range they were when you presented. Please f/u with Dr. Hollis for possible outpatient stress test to see if you have any underlying ischemia. They will arrange for an appt. -Your A fib was rate was controlled here. You will be discharged on digoxin 0.125 mg daily, Toprol 25 mg nightly, and apixaban 2.5 mg twice daily. Please note that you will need a BMP and a digoxin level in 10 days time, and this will be arranged by your PCP. -Please continue to eat/drink as much as you can. Boost shakes are a great source of nutrition and calories that you may consider adding to your diet. -Please maintain good hand hygiene and encourage others to as well Prescriptions: New azithromycin 250 mg tablet 250 mg PO DAILY 3 Days Qty: 3 RF: 0 ondansetron 8 mg tablet,disintegrating 8 mg PO DAILY Qty: 10 RF: 0 digoxin [Digox] 125 mcg tablet 0.125 mg PO DAILY Qty: 10 RF: 0 Continue apixaban [Eliquis] 2.5 mg tablet 2.5 mg PO BID RF: 0 levothyroxine 88 mcg capsule 88 mcg PO QAM RF: 0 metoprolol succinate [Toprol XL] 25 mg Tablet Extended Release 24 Hr 25 mg PO QPM Qty: 30 RF: 0 ipratropium-albuterol [Combivent Respimat] 20-100 mcg/actuation Mist 1 puff INHALATION QID PRN (Reason: Shortness Of Breath Or Wheezing) Qty: 0 RF : 0 aspirin [Aspirin Low Dose] 81 mg Tablet,Delayed Release (Dr/Ec) 81 mg PO DAILY Qty: 0 RF: 0 furosemide [Lasix] 20 mg Tablet 20 mg PO 3XWK Qty: 0 RF: 0 cyanocobalamin (vitamin B-12) 1,000 mcg/mL Kit 1,000 mcg SUBCUT MONTHLY Qty: 0 RF: 0 docusate sodium 100 mg Capsule 100 mg PO HS 15 Days Qty: 30 RF: 0 calcium carbonate-vitamin D3 [Caltrate 600 + D] 600 mg (1,500 mg)-800 unit Tablet,Chewable 1 tab PO DAILY Qty: 0 RF: 0 anastrozole [Arimidex] 1 mg Tablet 1 mg PO DAILY 90 Days Qty: 90 RF: 1 fluticasone-vilanterol [Breo Ellipta] 100-25 mcg/dose Blister With Device 1 inh INHALATION DAILY RF: 0 acetaminophen [Tylenol] 325 mg Capsule 650 mg PO Q6H PRN (Reason: Pain) RF: 0 Stand-Alone Forms: [facility] Discharge Orders: Discharge Order (Routine); Ordered 07/25/18 Ordered By: German Palafox Admission Data Admit Date/Time: 07/23/18 23:00 Attending Provider: Bill Pollack Admit Provider: Elliot Lara Primary Care Provider: Lo Reid Other Providers: Elliot Lara ; Scott Hollis Service: Telemetry Other Interventions: Discharge Summary Assessment (RN) Last Done: 07/25/18 13:05 DC Date/Time DO NOT enter until pt leaves facility: 07/25/18 13:00 Supervising Physician Co-Signing Physician Notes I personally examined the patient and verified all cason points of history and exam, discussed case, and agree with decision making with Dr Palafox. Overall feeling better and feeling up to going home. She believes the doxycycline upset her stomach, but she feels confident enough in her ability to eat that she wants to go home anyway. We discussed treatment for a COPD exacerbation with really requiring atypical coverage and discussed that given her nausea from doxycycline azithromycin would be a very reasonable alternative , but did discuss that in the chart she has listed side effects to macrolide antibiotics. We discussed Zithromax multiple ways, and she does not remember having any problems with it. She is willing to try. We discussed nausea as a medication side effect both to the antibiotic as well as to the increased dose of digoxin as possible causes of concern given her recent but multifactorial failure to thrive. She is aware of this will be paying close attention to her oral intake and having close PCP follow-up. Vitals noted, in general she is awake alert oriented x3 pleasant no acute distress. HEENT normocephalic atraumatic mucous membranes are moist. No icterus. Involuntary weight loss�her delineation of events does appear reassuring in that she has had an unfortunate series of events and appears to be fairly frail and thin at baseline, but there does not seem to be a true "failure to thrive" common thread. Her eating has improved, and she feels stable to go home. We encouraged her to drink boost or Ensure at least once or twice a day to help improve her calorie deficit, and more if she is having any trouble eating. We also discussed close PCP follow-up to troubleshoot should she have any new events, up, as well as the possibility of new med side effects as above, which we would want her to be aware of so they could be stopped quickly. acute sinusitis and acute bronchitis�improving, given that the doxycycline appears to be making her sick to her stomach we will give a cautious trial of Zithromax. Given that she is on room air and improving otherwise if she has difficulties with this, we would hold off on further antibiotic treatment altogether. And just follow her closely. Atrial fibrillation�rate is controlled, she is anticoagulated. Elevated troponin does not appear to represent NSTEMI�cardiology does not believe that coronary artery disease is at play. further on chart review, pt has not had a normal troponin going back to 2011 in our system Continue to follow. Possibly is a troponin spill due to her cardiomyopathy at baseline combined with physiologic stress, if not done in the recent past, however, it would be reasonable to do physiologic stress testing to rule out any type of true demand ischemia, given that she does not appear to have any known coronary disease. chronic systolic chf - stable Stable for home Resident Activity Tracking Resident Involvement: Resident Care Provided Care Provided: Adult Hospital Medicine
[2018-07-25] MEDS ORDERED: DIGOXIN 0.125 MG TAB PO SCH (16:00)
== END 2018-07-25 13:00 | disposition home or self-care (01) | DRG 191 ==
LOC: ED 17:15 → 2E 23:00 → SUATTDRO 23:00 → 2E 23:15

== ENCOUNTER 2024-07-28 16:32 | Inpatient (IN) ==
[2024-07-28 17:15] LABS: Basophils # (auto) 0.03 K/uL (0.00-0.20); Basophils % (auto) 0.7 %; Eosinophils # (auto) 0.24 K/uL (0.00-0.50); Eosinophils % (auto) 5.2 %; Hematocrit (blood only) 32.8 % (37.0-47.0); Hemoglobin 10.4 g/dl (12.0-16.0); Immature Granulocytes # (auto) 0.02 K/uL (0.01-0.20); Immature Granulocytes % (auto) 0.4 %; Lymphocytes # (auto) 0.69 K/uL (1.20-3.40); Mean Corpuscular Hemoglobin 30.3 pg (25.0-34.0); Mean Corpuscular Hgb Conc 31.7 g/dL (32.0-36.0); Mean Corpuscular Volume 95.6 fL (80.0-100.0); Mean Platelet Volume 9.4 fL (9.4-12.4); Neutrophils # (auto) 3.02 K/uL (1.40-6.50); Neutrophils % (auto) 65.7 %; Platelet Count 182 K/uL (130-400); RDW Coefficient of Variation 13.2 % (11.5-14.5); RDW Standard Deviation 46.2 fL (36.4-46.3); Red Blood Count 3.43 M/uL (4.20-5.40)
--- NOTE | 2024-07-28 17:21 | Emergency Department Note ---
Impression & Plan Elevated troponin Admission ED Provider Note HPI: History obtained from patient. The patient is a 78-year-old female with history of atrial fibrillation, currently on Eliquis, history of COPD, on 2 L nasal cannula oxygen at baseline at home, presents the emergency department with chief complaint of worsening shortness of breath and bilateral lower extremity edema. Patient states she is also had the chills. Patient states she has had the symptoms for about the past 2 weeks at home. Patient states that she is increased her baseline oxygen from 2 L to 3.5 L over the past week. On arrival here to the ED, the patient is hemodynamically stable. ROS: - Per HPI Differential Diagnosis: Acute CHF exacerbation, pneumonia, viral upper respiratory infection with dyspnea, acute coronary syndrome, PE, amongst other potential pathologies. *Outpatient medications and allergy history reviewed. PE: General: Alert, frail-appearing, cachectic HEENT: Normocephalic, trachea midline Eyes: Extraocular eye movement is intact, no scleral erythema Pulmonary: Clear to auscultation bilaterally, no wheezing Cardio: Regular rate and rhythm GI: Abdomen is soft to palpation : No suprapubic tenderness MSK: No evidence of trauma or malformation of the extremities, 2+ pitting edema of the bilateral lower extremities without erythema Skin: No evidence of rash Neuro: Alert, no focal deficits Psychiatric: Cooperative INDEPENDENT INTERPRETATIONS: security monitor: (As interpreted by myself): - An order was placed for continuous cardiac monitoring - Patient was noted to be in paced rhythm with a rate of 73 EKG: (As interpreted by myself): Rate: 79 Rhythm: Paced rhythm Intervals: QRS 162 ms, QTc 513 ms, otherwise within normal limits ST changes: No ST elevation Time: 1650 Chest x-ray: (As interpreted by myself): No focal infiltrate Medical Decision Making: IV was established and lab work obtained, patient was placed on gambling monitor. Lab work shows a hemoglobin of 10.4, white blood cell count is 4.6. Platelet count is normal. Venous blood gas shows a pH of 7.46, pCO2 of 51, CMP does not show any evidence of any critical findings. Troponin is elevated at 157, BNP is elevated at 1222. Chest x-ray does not show any evidence of any acute infiltrate per my interpretation, viral panel testing is negative. EKG shows a paced rhythm without any obvious acute ischemic changes. Patient denies any chest pain. On my reassessment the patient is resting comfortably in bed on 4 L nasal cannula oxygen, she is sleeping, her pressures in the 80s systolic therefore will avoid IV Lasix at this time. I suspect that she has some fluid overload causing her lower extremity edema and shortness of breath. This is likely also the source of her elevated troponin. Doubt ACS at this time given lack of any chest pain and EKG without acute ischemic changes. I discussed all the above findings with the patient, she is in agreement for admission. She was ordered aspirin. Case was then discussed via [place] text with the on-call hospitalist, Dr. Link, the patient was placed for admission in stable condition. Consultants/Discussions held with other healthcare providers: -Hospitalist, Dr. Link Disposition discussion held by myself with: -Patient Diagnosis: 1. Dyspnea, acute 2. Elevated troponin, acute 3. Lower extremity edema, acute 4. Elevated BNP, acute Disposition: Admission Orlando Paige DO Emergency Medicine Past Med/Surg History Problem List Elevated troponin (Acute) Chronic respiratory failure with hypoxia Acute respiratory failure with hypoxia Ex-smoker Nocturnal hypoxia Exertional shortness of breath COPD with emphysema Emphysema lung History of tobacco use Hx of chronic obstructive lung disease Hypothyroid Sinobronchitis AICD (automatic cardioverter/defibrillator) present ST segment changes on electrocardiogram Elevated troponin (Acute) Nausea (Acute) Cough (Acute) Atrial flutter (Acute) Anticoagulant disorder intermediate (current) use of anticoagulants (Chronic) Atrial fibrillation (Chronic) CHF (congestive heart failure) COPD (chronic obstructive pulmonary disease) (Chronic) S/P MVR (mitral valve repair) (Chronic) Social History (Updated 04/12/22 @ 08:33 by HOWARD Novoa) Smoking Status: Former smoker Tobacco Type: Cigarettes Age Started Using Tobacco: 16; Age Quit Using Tobacco: 63; packs per day: 0.5; Cigarettes Per Day: 20; Second Hand Exposure: Yes; Hx Alcohol Use: No Hx Substance Use: No Preferred Language: [place] Communication Ability: Effective Visual Impairment: No Limitations Hearing Ability: Normal Mathematics Education Professor Required: No Beliefs That Will Affect Care: None marital status: Current Living Situation: Spouse current occupational status: retired Feels Safe at Home: Yes Assistive Devices: None Allergies Allergies Allergy/AdvReac Type Severity Reaction Status Date / Time Penicillins Allergy Intermediate HIVES; Verified 07/28/24 19:03 TAKES CEPHALEXIN W/O PROBLEM Sulfa (Sulfonamide Allergy Intermediate NAUSEA, Verified 07/28/24 19:03 Antibiotics) ITCHY, AND "FUNNY THROAT" Macrolide Antibiotics AdvReac Intermediate "MYCIN Verified 07/28/24 19:03 ANTIBIOTICS": ITCHY AND NAUSEA diazepam AdvReac Mild FEELS WEIRD Verified 07/28/24 19:03 Home Meds Home Medications Medication Instructions Recorded Confirmed metoprolol succinate 25 mg 25 mg PO QPM #30 tabs 04/30/13 07/28/24 tablet,extended release 24 hr (Toprol XL) docusate sodium 100 mg capsule 100 mg PO HS PRN constation 15 09/26/16 07/28/24 days #30 caps anastrozole 1 mg tablet (Arimidex) 1 mg PO QDD 90 days #90 tabs 10/04/17 07/28/24 calcium 600 mg (as carbonate)-vit 1 tab PO QDD #0 tabs 10/04/17 07/28/24 D3 20 mcg (800 unit) chewable tablet (Caltrate plus D) cholecalciferol (vitamin D3) 25 25 mcg PO QDD 11/16/21 07/28/24 mcg (1,000 unit) capsule famotidine 20 mg tablet (Pepcid AC) 20 mg PO BID 10/16/22 07/28/24 sacubitril 49 mg-valsartan 51 mg 1 tab PO BID 10/16/22 07/28/24 tablet (Entresto) levothyroxine 112 mcg capsule 112 mcg PO DAILYBB 05/15/23 07/28/24 digoxin 125 mcg (0.125 mg) tablet 125 mcg PO 4XWK 07/19/23 07/28/24 torsemide 20 mg tablet 20 mg PO QAM 07/19/23 07/28/24 spironolactone 25 mg tablet 12.5 mg PO QAM 05/06/24 07/28/24 acetaminophen 325 mg tablet 650 mg PO QID PRN Pain 07/28/24 07/28/24 cyanocobalamin (vitamin B-12) 1,000 mcg IM MONTHLY 02/24/25 02/24/25 1,000 mcg/mL injection solution Previous Rx's Medication Instructions Recorded Portable Oxygen #1 ea 10/10/21 albuterol sulfate 90 mcg/actuation 2 puff inhalation QID PRN 07/24/23 aerosol inhaler (Ventolin HFA) shortness of breath or wheezing #3 Inhalers apixaban 2.5 mg tablet (Eliquis) 2.5 mg PO BID #180 tabs 11/20/23 budesonide 160 mcg-glycopyr 9 2 inh inhalation BID #32.1 grams 12/10/23 mcg-formot 4.8 mcg/actuation HFA inhaler (Breztri Aerosphere) Results & Data (ED) Vital Signs Vital Signs - 24 hr 07/28/24 16:40 07/28/24 16:48 07/28/24 17:30 Temperature 36.7 C Temperature Source Temporal Artery Scan Pulse Rate 89 89 95 H Pulse Rate [Right Finger] Pulse Rate from SpO2 Sensor Respiratory Rate 17 17 21 Blood Pressure 100/56 L 109/66 Blood Pressure [Left Arm] Blood Pressure Mean 70 80 Blood Pressure Mean [Left Arm] Pulse Oximetry 97 97 99 Oxygen Delivery Method Room Air Nasal Cannula Nasal Cannula Oxygen Flow Rate 4 Sepsis Recent Fever Within 48 Hours No Sepsis New/Unexplained Change in Mental Status N/A Sepsis Action Taken by Nursing No Action Required 07/28/24 17:35 07/28/24 17:36 07/28/24 18:00 Temperature Temperature Source Pulse Rate 76 76 Pulse Rate [Right Finger] Pulse Rate from SpO2 Sensor 80 Respiratory Rate 20 Blood Pressure 92/52 L Blood Pressure [Left Arm] Blood Pressure Mean 65 Blood Pressure Mean [Left Arm] Pulse Oximetry 97 96 Oxygen Delivery Method Nasal Cannula Oxygen Flow Rate 4 Sepsis Recent Fever Within 48 Hours Sepsis New/Unexplained Change in Mental Status Sepsis Action Taken by Nursing 07/28/24 19:18 07/28/24 20:44 Temperature Temperature Source Pulse Rate Pulse Rate [Right Finger] 75 74 Pulse Rate from SpO2 Sensor Respiratory Rate 16 19 Blood Pressure Blood Pressure [Left Arm] 90/55 L 75/41 L Blood Pressure Mean Blood Pressure Mean [Left Arm] 66 52 Pulse Oximetry 96 99 Oxygen Delivery Method Nasal Cannula Nasal Cannula Oxygen Flow Rate 4 4 Sepsis Recent Fever Within 48 Hours Sepsis New/Unexplained Change in Mental Status Sepsis Action Taken by Nursing Laboratory Data 07/28/24 21:28 02/24/25 16:55 Lab Results 07/28/24 07/28/24 07/28/24 Range/Units 16:55 17:45 17:59 WBC 4.60 L (4.8-10.8) K/ul RBC 3.43 L (4.20-5.40) M/uL Hgb 10.4 L (12.0-16.0) g/dl Hct 32.8 L (37.0-47.0) % MCV 95.6 (80.0-100.0) fL MCH 30.3 (25.0-34.0) pg MCHC 31.7 L (32.0-36.0) g/dL RDW Std Deviation 46.2 (36.4-46.3) fL RDW Coeff of Jason 13.2 (11.5-14.5) % Plt Count 182 (130-400) K/uL MPV 9.4 (9.4-12.4) fL Immature Gran % (Auto) 0.4 % Neut % (Auto) 65.7 % Lymph % (Auto) 15.0 % [place] % (Auto) 13.0 % Eos % (Auto) 5.2 % Baso % (Auto) 0.7 % Neut # (Auto) 3.02 (1.40-6.50) K/uL Lymph # (Auto) 0.69 L (1.20-3.40) K/uL [place] # (Auto) 0.60 H (0.11-0.59) K/uL Eos # (Auto) 0.24 (0.00-0.50) K/uL Baso # (Auto) 0.03 (0.00-0.20) K/uL Immature Gran # (Auto) 0.02 (0.01-0.20) K/uL PT 11.9 (9.0-12.0) Seconds INR 1.1 (0.9-1.1) APTT 28 (21-31) Seconds PTT Ratio 1.0 VBG pH 7.46 H (7.36-7.41) VBG pCO2 51 H (38-50) mmHg VBG pO2 31 mmHg VBG HCO3 36 mmol/L VBG O2 Saturation < 60.0 % VBG Base Excess 10.6 mEq/L Sodium 139 (136-145) mmol/L Potassium 3.7 (3.5-5.1) mmol/L Chloride 98 (98-107) mmol/L Carbon Dioxide 36 H (21-32) mmol/L Anion Gap 5 (3-11) BUN 16 (6-23) mg/dl Creatinine 1.07 (0.6-1.2) mg/dl Est Cr Clr Drug Dosing 27.6 ml/min eGFR 52.51 BUN/Creatinine Ratio 15.0 (10-20) Glucose 104 H (70-99(Fasting)) mg/dl Calcium 9.8 (8.6-10.3) mg/dl Magnesium 1.7 (1.7-2.4) mg/dl Total Bilirubin 0.6 (0.2-1.0) mg/dl AST 22 (13-39) U/L ALT 10 (7-52) U/L Alkaline Phosphatase 77 (34-104) U/L Troponin I High Sens 157.4 H* (0-14) pg/ml B-Natriuretic Peptide 1222 H (0-100) pg/ml Total Protein 6.8 (6.0-8.3) gm/dl Albumin 3.8 (3.4-5.0) gm/dl Globulin 3.0 (2.5-4.0) gm/dl Albumin/Globulin Ratio 1.3 (0.9-2) TSH 1.948 (0.300-4.500) uIu/ml Adenovirus (PCR) Not Detected (NotDetected) B. pertussis DNA (PCR) Not Detected (NotDetected) B.parapertussis DNA PCR Not Detected (NotDetected) C. pneumoniae DNA (PCR) Not Detected (NotDetected) Coronavirus OC43 (PCR) Not Detected (NotDetected) Coronavirus HKU1 (PCR) Not Detected (NotDetected) Coronavirus 229E (PCR) Not Detected (NotDetected) SARS-CoV-2 (PCR) Not Detected (NotDetected) Coronavirus NL63 (PCR) Not Detected (NotDetected) Human Metapneumovir PCR Not Detected (NotDetected) Influenza Type A (PCR) Not Detected (NotDetected) Influenza Type B (PCR) Not Detected (NotDetected) M. pneumoniae (PCR) Not Detected (NotDetected) Parainfluenza 1 (PCR) Not Detected (NotDetected) Parainfluenza 2 (PCR) Not Detected (NotDetected) Parainfluenza 3 (PCR) Not Detected (NotDetected) Parainfluenza 4 (PCR) Not Detected (NotDetected) RSV (PCR) Not Detected (NotDetected) Entero/Rhino (PCR) Not Detected (NotDetected) 07/28/24 Range/Units 19:02 WBC (4.8-10.8) K/ul RBC (4.20-5.40) M/uL Hgb (12.0-16.0) g/dl Hct (37.0-47.0) % MCV (80.0-100.0) fL MCH (25.0-34.0) pg MCHC (32.0-36.0) g/dL RDW Std Deviation (36.4-46.3) fL RDW Coeff of Jason (11.5-14.5) % Plt Count (130-400) K/uL MPV (9.4-12.4) fL Immature Gran % (Auto) % Neut % (Auto) % Lymph % (Auto) % [place] % (Auto) % Eos % (Auto) % Baso % (Auto) % Neut # (Auto) (1.40-6.50) K/uL Lymph # (Auto) (1.20-3.40) K/uL [place] # (Auto) (0.11-0.59) K/uL Eos # (Auto) (0.00-0.50) K/uL Baso # (Auto) (0.00-0.20) K/uL Immature Gran # (Auto) (0.01-0.20) K/uL PT (9.0-12.0) Seconds INR (0.9-1.1) APTT (21-31) Seconds PTT Ratio VBG pH (7.36-7.41) VBG pCO2 (38-50) mmHg VBG pO2 mmHg VBG HCO3 mmol/L VBG O2 Saturation % VBG Base Excess mEq/L Sodium (136-145) mmol/L Potassium (3.5-5.1) mmol/L Chloride (98-107) mmol/L Carbon Dioxide (21-32) mmol/L Anion Gap (3-11) BUN (6-23) mg/dl Creatinine (0.6-1.2) mg/dl Est Cr Clr Drug Dosing ml/min eGFR BUN/Creatinine Ratio (10-20) Glucose (70-99(Fasting)) mg/dl Calcium (8.6-10.3) mg/dl Magnesium (1.7-2.4) mg/dl Total Bilirubin (0.2-1.0) mg/dl AST (13-39) U/L ALT (7-52) U/L Alkaline Phosphatase (34-104) U/L Troponin I High Sens 151.2 H* (0-14) pg/ml B-Natriuretic Peptide (0-100) pg/ml Total Protein (6.0-8.3) gm/dl Albumin (3.4-5.0) gm/dl Globulin (2.5-4.0) gm/dl Albumin/Globulin Ratio (0.9-2) TSH (0.300-4.500) uIu/ml Adenovirus (PCR) (NotDetected) B. pertussis DNA (PCR) (NotDetected) B.parapertussis DNA PCR (NotDetected) C. pneumoniae DNA (PCR) (NotDetected) Coronavirus OC43 (PCR) (NotDetected) Coronavirus HKU1 (PCR) (NotDetected) Coronavirus 229E (PCR) (NotDetected) SARS-CoV-2 (PCR) (NotDetected) Coronavirus NL63 (PCR) (NotDetected) Human Metapneumovir PCR (NotDetected) Influenza Type A (PCR) (NotDetected) Influenza Type B (PCR) (NotDetected) M. pneumoniae (PCR) (NotDetected) Parainfluenza 1 (PCR) (NotDetected) Parainfluenza 2 (PCR) (NotDetected) Parainfluenza 3 (PCR) (NotDetected) Parainfluenza 4 (PCR) (NotDetected) RSV (PCR) (NotDetected) Entero/Rhino (PCR) (NotDetected) Administered Medications Discontinued Medications Aspirin (Aspirin Chew 324 Mg) 324 mg PO NOW STA Stop: 07/28/24 18:38 Last Admin: 07/28/24 19:18 Dose: 324 mg Documented By: ASW Magnesium Sulfate/Dextrose (Magnesium Sulfate / D5w) 1 gm in 100 mls @ 50 mls/hr IV ONE ONE Stop: 07/28/24 21:23 Last Infusion: 07/28/24 22:53 Dose: Infused Documented By: Admin: 07/28/24 20:55 Dose: 50 mls/hr Documented By: ASW Imaging Data Radiologist's Impression: Chest X-Ray 07/28/24 16:48 INDICATION: Chest pain TECHNIQUE: Frontal radiograph of the chest. COMPARISON: Radiograph from 10/20/2022. FINDINGS: Cardiomegaly. Left-sided pacemaker. Pulmonary vasculature appear within normal limits. Chronic appearing interstitial lung markings. No infiltrate, pleural effusion or pneumothorax. No acute osseous abnormality evident. IMPRESSION: No acute cardiopulmonary process. Electronically signed by Yoni Arechiga 07-28-2024 5:23 PM Discharge Plan Visit Data Chief Complaint: Cardiac Assessment Stated Complaint: IRREGULAR HEARTBEAT, SOB, BACK PAIN, FEVER ED Provider: Orlando Paige Discharge Problem: Elevated troponin Discharge Instructions Interventions: ED Discharge Assessment Last Done: 07/28/24 21:33
[2024-07-28 17:30] LABS: Albumin Globulin Ratio 1.3 (0.9-2); Albumin Level 3.8 gm/dl (3.4-5.0); Bilirubin,Total 0.6 mg/dl (0.2-1.0); Calcium 9.8 mg/dl (8.6-10.3); Creatinine Clr Calc Pharmacy 27.6 ml/min; Magnesium 1.7 mg/dl (1.7-2.4); Potassium 3.7 mmol/L (3.5-5.1); Total Protein 6.8 gm/dl (6.0-8.3)
[2024-07-28 17:41] LABS: INR 1.1 (0.9-1.1); Partial Thromboplastin Time 28 Seconds (21-31); Prothrombin Time 11.9 Seconds (9.0-12.0)
[2024-07-28 17:46] LABS: Thyroid Stimulating Hormone 1.948 uIu/ml (0.300-4.500)
[2024-07-28 17:55] LABS: Troponin I High Sensitivity 157.4 pg/ml (0-14)
[2024-07-28 18:05] LABS: Base Excess VBG 10.6 mEq/L; HCO3 VBG 36 mmol/L; Oxygen Saturation VBG < 60.0 %; PCO2 VBG 51 mmHg (38-50); PO2 VBG 31 mmHg; pH VBG 7.46 (7.36-7.41)
[2024-07-28 18:51] LABS: Adenovirus PCR Not Detected (NotDetected); Bordetella parapertussis PCR Not Detected (NotDetected); Bordetella pertussis PCR Not Detected (NotDetected); Chlamydia pneumoniae PCR Not Detected (NotDetected); Coronavirus 229E PCR Not Detected (NotDetected); Coronavirus CoV-2 (COVID19)PCR Not Detected (NotDetected); Coronavirus HKU1 PCR Not Detected (NotDetected); Coronavirus NL63 PCR Not Detected (NotDetected); Coronavirus OC43PCR Not Detected (NotDetected); Human Metapneumovirus PCR Not Detected (NotDetected); Influenza A PCR Not Detected (NotDetected); Influenza B PCR Not Detected (NotDetected); Mycoplasma pneumoniae PCR Not Detected (NotDetected); Parainfluenza Virus 1 PCR Not Detected (NotDetected); Parainfluenza Virus 2 PCR Not Detected (NotDetected); Parainfluenza Virus 3 PCR Not Detected (NotDetected); Parainfluenza Virus 4 PCR Not Detected (NotDetected); Respiratory Syncytial VirusPCR Not Detected (NotDetected); Rhinovirus/Enterovirus PCR Not Detected (NotDetected)
[2024-07-28] MEDS: ASPIRIN CHEW 324 MG PO STA (19:18)
[2024-07-28] MEDS: MAGNESIUM SULFATE / D5W 1 GM/100 ML BAG IV ONE (20:55)
--- NOTE | 2024-07-28 21:01 | History & Physical Report ---
Date of Service July 28, 2024 Assessment & Plan (1) SOB (shortness of breath): Plan: Shortness of breath Underlying pulmonary hypertension, hronic respiratory failure secondary to COPD on home O2 hx chronic systolic heart failure status post ICD (EF 30 to 35%, TTE 2023), Patient presenting with right-sided heart failure symptoms ? New onset anemia contributory to SOB, patient gives history of intermittent epistaxis and possible UGIB at home, history Eliquis Rx for A-fib status post ablation status post maze procedure UGIB abdominal pain in the setting of Eliquis Rx valvular heart disease (moderate TR, mild MS/MR), history MVR R breast cancer status post surgery on anastrozole hypothyroidism, euthyroid as of recent outpatient TSH Malnutrition Re: Low BMI past tobacco abuse Admit to PCU Lasix albumin 1 dose given borderline BP Strict I/Os, daily weights, CHF education, fluid restriction TTE, Cardiology consult re: CHF (Patient known to Dr. Hollis of [facility].) IV PPI for possible UGIB Hold Eliquis for now given GI bleed concerns and significant hemoglobin drop from baseline GI consult re: UGIB, gastritis on CT N.p.o. in anticipation of endoscopy Anemia workup, transfuse PRBC to maintain hemoglobin of at least 8 and/or for symptomatic anemia Nutrition consult re: low BMI DVT prophylaxis. SCDs while Eliquis on hold Full code Text document was generated using [employer] voice recognition software. It may contain grammatical or spelling errors. Kindly contact undersigned for clarification of any documentation item in question. History of Present Illness Chief Complaint: Shortness of breath Primary Care Provider: Jodie Campbell PA-C History obtained from patient, family, and records. Medical history significant for chronic systolic heart failure status post ICD (EF 30 to 35%, TTE 2023), valvular heart disease (moderate TR, mild MS/MR), history MVR, A-fib status post ablation status post maze procedure on Eliquis, pulmonary hypertension, chronic respiratory failure secondary to COPD on home O2, R breast cancer status post surgery on anastrozole, hypothyroidism, past tobacco abuse. Last confinement 2016 for atrial tachycardia status post cardioversion. Patient seen at PCPs office 2 weeks ago. Complains of shortness of breath most on exertion and leg swelling more on the right. Low appetite. No weight gain. No unusual cough symptoms. Compliant with home medications. Episodic epistaxis without unusual headache symptoms. Outpatient hemoglobin 9.8 weeks ago from normal baseline. Patient complaining of achy abdominal pain and distention. Worsening heartburn unresponsive to Pepcid Rx. Discomfort somewhat worsened after eating. Poor appetite with some weight loss as per patient. One-time episode of dark-colored stools. Denies chest pain. Worsening SOB. No hematuria. Denies fever or chills. Right leg still more swollen than the left. Patient directed to ER for evaluation. Medical History as above No prior EGDs. Surgical History : ICD, cataract surgery, right partial mastectomy, pelvic surgery, dental surgery Family History : Heart disease, bladder cancer Personal/Social history : Past tobacco abuse, no EtOH intake, retired schoolteacher Allergies Allergy/AdvReac Type Severity Reaction Status Date / Time Penicillins Allergy Intermediate HIVES; Verified 07/28/24 19:03 TAKES CEPHALEXIN W/O PROBLEM Sulfa (Sulfonamide Allergy Intermediate NAUSEA, Verified 07/28/24 19:03 Antibiotics) ITCHY, AND "FUNNY THROAT" Macrolide Antibiotics AdvReac Intermediate "MYCIN Verified 07/28/24 19:03 ANTIBIOTICS": ITCHY AND NAUSEA diazepam AdvReac Mild FEELS WEIRD Verified 07/28/24 19:03 Home Medications Medication Instructions Recorded Confirmed Type metoprolol succinate 25 mg 25 mg PO QPM #30 tabs 04/30/13 07/28/24 History tablet,extended release 24 hr (Toprol XL) docusate sodium 100 mg capsule 100 mg PO HS PRN constation 15 09/26/07/28/24 History days #30 caps anastrozole 1 mg tablet (Arimidex) 1 mg PO QDD 90 days #90 tabs 10/04/17 07/28/24 History calcium 600 mg (as carbonate)-vit 1 tab PO QDD #0 tabs 10/04/17 07/28/24 History D3 20 mcg (800 unit) chewable tablet (Caltrate plus D) Portable Oxygen #1 ea 10/10/21 07/28/24 Rx cholecalciferol (vitamin D3) 25 25 mcg PO QDD 11/16/21 07/28/24 History mcg (1,000 unit) capsule famotidine 20 mg tablet (Pepcid AC) 20 mg PO BID 10/16/22 07/28/24 History sacubitril 49 mg-valsartan 51 mg 1 tab PO BID 10/16/22 07/28/24 History tablet (Entresto) levothyroxine 112 mcg capsule 112 mcg PO DAILYBB 05/15/23 07/28/24 History digoxin 125 mcg (0.125 mg) tablet 125 mcg PO 4XWK 07/19/23 07/28/24 History torsemide 20 mg tablet 20 mg PO QAM 07/19/23 07/28/24 History albuterol sulfate 90 mcg/actuation 2 puff inhalation QID PRN 07/24/23 07/28/24 Rx aerosol inhaler (Ventolin HFA) shortness of breath or wheezing #3 Inhalers apixaban 2.5 mg tablet (Eliquis) 2.5 mg PO BID #180 tabs 11/20/23 07/28/24 Rx budesonide 160 mcg-glycopyr 9 2 inh inhalation BID #32.1 grams 12/10/23 07/28/24 Rx mcg-formot 4.8 mcg/actuation HFA inhaler (Breztri Aerosphere) spironolactone 25 mg tablet 12.5 mg PO QAM 05/06/24 07/28/24 History acetaminophen 325 mg tablet 650 mg PO QID PRN Pain 07/28/24 07/28/24 History cyanocobalamin (vitamin B-12) 1,000 mcg IM MONTHLY 07/28/24 07/28/24 History 1,000 mcg/mL injection solution Past Med/Surg History Problem List SOB (shortness of breath) Elevated troponin (Acute) Chronic respiratory failure with hypoxia Acute respiratory failure with hypoxia Ex-smoker Nocturnal hypoxia Exertional shortness of breath COPD with emphysema Emphysema lung History of tobacco use Hx of chronic obstructive lung disease Hypothyroid Sinobronchitis AICD (automatic cardioverter/defibrillator) present ST segment changes on electrocardiogram Elevated troponin (Acute) Nausea (Acute) Cough (Acute) Atrial flutter (Acute) Anticoagulant 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 (Chronic) Atrial fibrillation (Chronic) CHF (congestive heart failure) COPD (chronic obstructive pulmonary disease) (Chronic) S/P MVR (mitral valve repair) (Chronic) Social History (Updated 04/12/22 @ 08:33 by HOWARD Novoa) Smoking Status: Former smoker Age Started Using Tobacco: 16; Age Quit Using Tobacco: 63; packs per day: 0.5; Second Hand Exposure: Yes; Hx Alcohol Use: No Hx Substance Use: No Preferred Language: [place] Communication Ability: Effective Visual Impairment: No Limitations Hearing Ability: Normal Healthcare Associate Required: No Beliefs That Will Affect Care: None marital status: Current Living Situation: Spouse current occupational status: retired Other Information That Helps Us Care for You: No Feels Safe at Home: Yes Safety Concerns: Feels Safe At This Time Assistive Devices: Oxygen - Continuous Review of Systems Review of Systems: As per HPI, all other systems reviewed and negative Physical Exam Physical Exam: GENERAL: Comfortable, pleasant, underweight, no respiratory distress SKIN: Pallor, warm HEENT: Pale palpebral conjunctivae, no ptosis, dry buccal mucosa, nasal cannula in place NECK : Supple, no tenderness CHEST : Decreased breath sounds, no tenderness HEART : RRR, systolic murmur ABDOMEN: Some distention, minimal hypogastric tenderness EXTREMITIES : Minimal LE swelling without tenderness, palpable pulses, no other conspicuous deformities noted NEUROLOGIC : Coherent, no facial asymmetry, no other gross focality Results & Data Results & Data Vital Signs (Past 12 Hours) Vital Signs Temp Pulse Pulse Resp BP BP Pulse Ox 07/28/24 20:44 74 19 75/41 L 99 07/28/24 19:18 75 16 90/55 L 96 07/28/24 18:00 76 20 92/52 L 96 07/28/24 17:36 76 07/28/24 17:35 97 07/28/24 17:30 95 H 21 109/66 99 07/28/24 16:48 89 17 97 07/28/24 16:40 36.7 C 89 17 100/56 L 97 O2 Del Method O2 Flow Rate 07/28/24 20:44 Nasal Cannula 4 07/28/24 19:18 Nasal Cannula 4 07/28/24 18:00 07/28/24 17:36 07/28/24 17:35 Nasal Cannula 4 07/28/24 17:30 Nasal Cannula 07/28/24 16:48 Nasal Cannula 4 07/28/24 16:40 Room Air Laboratory Results Laboratory Results WBC 4.60 K/ul (4.8-10.8) L 07/28/24 16:55 RBC 3.43 M/uL (4.20-5.40) L 07/28/24 16:55 Hgb 10.4 g/dl (12.0-16.0) L 07/28/24 16:55 Hct 32.8 % (37.0-47.0) L 07/28/24 16:55 MCV 95.6 fL (80.0-100.0) 07/28/24 16:55 MCH 30.3 pg (25.0-34.0) 07/28/24 16:55 MCHC 31.7 g/dL (32.0-36.0) L 07/28/24 16:55 RDW Std Deviation 46.2 fL (36.4-46.3) 07/28/24 16:55 RDW Coeff of Jason 13.2 % (11.5-14.5) 07/28/24 16:55 Plt Count 182 K/uL (130-400) 07/28/24 16:55 MPV 9.4 fL (9.4-12.4) 07/28/24 16:55 Immature Gran % (Auto) 0.4 % 07/28/24 16:55 Neut % (Auto) 65.7 % 07/28/24 16:55 Lymph % (Auto) 15.0 % 07/28/24 16:55 Frio % (Auto) 13.0 % 07/28/24 16:55 Eos % (Auto) 5.2 % 07/28/24 16:55 Baso % (Auto) 0.7 % 07/28/24 16:55 Neut # (Auto) 3.02 K/uL (1.40-6.50) 07/28/24 16:55 Lymph # (Auto) 0.69 K/uL (1.20-3.40) L 07/28/24 16:55 Frio # (Auto) 0.60 K/uL (0.11-0.59) H 07/28/24 16:55 Eos # (Auto) 0.24 K/uL (0.00-0.50) 07/28/24 16:55 Baso # (Auto) 0.03 K/uL (0.00-0.20) 07/28/24 16:55 Immature Gran # (Auto) 0.02 K/uL (0.01-0.20) 07/28/24 16:55 PT 11.9 Seconds (9.0-12.0) 07/28/24 16:55 INR 1.1 (0.9-1.1) 07/28/24 16:55 APTT 28 Seconds (21-31) 07/28/24 16:55 PTT Ratio 1.0 07/28/24 16:55 VBG pH 7.46 (7.36-7.41) H 07/28/24 17:59 VBG pCO2 51 mmHg (38-50) H 07/28/24 17:59 VBG pO2 31 mmHg 07/28/24 17:59 VBG HCO3 36 mmol/L 07/28/24 17:59 VBG O2 Saturation < 60.0 % 07/28/24 17:59 VBG Base Excess 10.6 mEq/L 07/28/24 17:59 Sodium 139 mmol/L (136-145) 07/28/24 16:55 Potassium 3.7 mmol/L (3.5-5.1) 07/28/24 16:55 Chloride 98 mmol/L (98-107) 07/28/24 16:55 Carbon Dioxide 36 mmol/L (21-32) H 07/28/24 16:55 Anion Gap 5 (3-11) 07/28/24 16:55 BUN 16 mg/dl (6-23) 07/28/24 16:55 Creatinine 1.07 mg/dl (0.6-1.2) 07/28/24 16:55 Est Cr Clr Drug Dosing 27.6 ml/min 07/28/24 16:55 eGFR 52.51 07/28/24 16:55 BUN/Creatinine Ratio 15.0 (10-20) 07/28/24 16:55 Glucose 104 mg/dl (70-99(Fasting)) H 07/28/24 16:55 Calcium 9.8 mg/dl (8.6-10.3) 07/28/24 16:55 Magnesium 1.7 mg/dl (1.7-2.4) 07/28/24 16:55 Total Bilirubin 0.6 mg/dl (0.2-1.0) 07/28/24 16:55 AST 22 U/L (13-39) 07/28/24 16:55 ALT 10 U/L (7-52) 07/28/24 16:55 Alkaline Phosphatase 77 U/L (34-104) 07/28/24 16:55 Troponin I High Sens 151.2 pg/ml (0-14) H* 07/28/24 19:02 B-Natriuretic Peptide 1222 pg/ml (0-100) H 07/28/24 16:55 Total Protein 6.8 gm/dl (6.0-8.3) 07/28/24 16:55 Albumin 3.8 gm/dl (3.4-5.0) 07/28/24 16:55 Globulin 3.0 gm/dl (2.5-4.0) 07/28/24 16:55 Albumin/Globulin Ratio 1.3 (0.9-2) 07/28/24 16:55 TSH 1.948 uIu/ml (0.300-4.500) 07/28/24 16:55 Adenovirus (PCR) Not Detected (NotDetected) 07/28/24 17:45 B. pertussis DNA (PCR) Not Detected (NotDetected) 07/28/24 17:45 B.parapertussis DNA PCR Not Detected (NotDetected) 07/28/24 17:45 C. pneumoniae DNA (PCR) Not Detected (NotDetected) 07/28/24 17:45 Coronavirus OC43 (PCR) Not Detected (NotDetected) 07/28/24 17:45 Coronavirus HKU1 (PCR) Not Detected (NotDetected) 07/28/24 17:45 Coronavirus 229E (PCR) Not Detected (NotDetected) 07/28/24 17:45 SARS-CoV-2 (PCR) Not Detected (NotDetected) 07/28/24 17:45 Coronavirus NL63 (PCR) Not Detected (NotDetected) 07/28/24 17:45 Human Metapneumovir PCR Not Detected (NotDetected) 07/28/24 17:45 Influenza Type A (PCR) Not Detected (NotDetected) 07/28/24 17:45 Influenza Type B (PCR) Not Detected (NotDetected) 07/28/24 17:45 M. pneumoniae (PCR) Not Detected (NotDetected) 07/28/24 17:45 Parainfluenza 1 (PCR) Not Detected (NotDetected) 07/28/24 17:45 Parainfluenza 2 (PCR) Not Detected (NotDetected) 07/28/24 17:45 Parainfluenza 3 (PCR) Not Detected (NotDetected) 07/28/24 17:45 Parainfluenza 4 (PCR) Not Detected (NotDetected) 07/28/24 17:45 RSV (PCR) Not Detected (NotDetected) 07/28/24 17:45 Entero/Rhino (PCR) Not Detected (NotDetected) 07/28/24 17:45 Impressions Chest X-Ray 07/28/24 16:48 INDICATION: Chest pain TECHNIQUE: Frontal radiograph of the chest. COMPARISON: Radiograph from 10/20/2022. FINDINGS: Cardiomegaly. Left-sided pacemaker. Pulmonary vasculature appear within normal limits. Chronic appearing interstitial lung markings. No infiltrate, pleural effusion or pneumothorax. No acute osseous abnormality evident. IMPRESSION: No acute cardiopulmonary process. Electronically signed by Yoni Arechiga 07-28-2024 5:[address] abdomen pelvis: A nonspecific 9.6 x 7.5 cm hepatic isodense mass like structure seen projecting centrally along the inferior border of the liver. The need for additional imaging/dedicated contrast MRA exam to be determined clinically. Hepatic steatosis. Nonspecific periportal edema. Diffuse gastric mucosal edema predominantly of the antrum suggestive of gastritis/antral gastritis. Recommend clinical correlation. Segmental small bowel adynamic ileus. Moderately large volume stool/gas in the colon. Gas filled distended rectosigmoid. Likely a contracted gallbladder present with mild wall thickening/enhancement. No biliary/pancreatic ductal dilatation. Mesenteric edema. Diffuse body wall edema/anasarca. An unchanged 1.6 cm right adrenal mass, likely adenoma with punctate foci of calcifications Diagnostic Findings EKG as per my interpretation : Rate 80, paced rhythm
[2024-07-28] MEDS ORDERED: traMADol HCL 50 MG TABLET PO PRN (21:04)
[2024-07-28] MEDS ORDERED: ACETAMINOPHEN 325 MG TAB PO PRN (21:04)
[2024-07-28] MEDS ORDERED: NITROGLYCERIN SL 0.4 MG/TAB TAB SL PRN (21:33)
[2024-07-28 22:17] LABS: Ferritin 27.8 ng/ml (8-388); Hematocrit (blood only) 26.9 % (37.0-47.0); Hemoglobin 8.7 g/dl (12.0-16.0); Reticulocyte % 1.43 % (0.50-2.00); Reticulocytes # 0.04 10^6/uL (0.020-0.100)
[2024-07-28] MEDS: OPTIRAY 320 100ml IV ONE (23:24)
[2024-07-28 23:51] LABS: Folate (Folic Acid),Ser orPlas 14.13 ng/ml (>5.38)
[2024-07-28] MEDS: FUROSEMIDE INJ 20 MG/2 ML VIAL IV ONE (23:52)
[2024-07-28] MEDS: ALBUMIN 25% 25 GM/100 ML VIAL IV ONE (23:53)
[2024-07-29] MEDS: POTASSIUM CHLORIDE PWD 20 MEQ PACK PO STA (00:01)
[2024-07-29] MEDS ORDERED: DOCUSATE SODIUM 100 MG CAP PO PRN (00:02)
[2024-07-29 00:16] LABS: Appearance Urine Clear (Clear); Bilirubin Urine Negative (Negative); Blood Urine Negative (Negative); Color Urine Yellow; Glucose Urine UA Negative (Negative); Ketones Urine Negative (Negative); Leukocyte Esterase Urine Negative (Negative); Nitrite Urine Negative (Negative); Protein Urine Negative (Negative); Specific Gravity Urine 1.018 (1.000-1.030); Urobilinogen Urine Negative (Negative)
--- NOTE | 2024-07-29 00:40 | CT Scan Report ---
Exam(s): CT ABDOMEN + PELVIS With Contrast IV Amt: 93 ML OPTIRAY 320 EXAM: CT Abdomen and Pelvis With Intravenous Contrast CLINICAL HISTORY: Reason for exam: abd pain, eliquis. TECHNIQUE: Axial computed tomography images of the abdomen and pelvis with intravenous contrast. Automated exposure control was utilized for the study. A dose lowering technique was utilized adhering to the principles of ALARA. CONTRAST: Patient received 93 ML OPTIRAY 320 of IV contrast COMPARISON: STUDY CT abdomen/pelvis: 10/08/2017 FINDINGS: Motion-induced image degradation. Lung bases: Emphysematous changes. No mass. No consolidation. Moderately severe cardiomegaly. Intracardiac electrode leads. Mitral valve replacement. Median sternotomy. ABDOMEN: Liver: Diffusely heterogeneously hypodense liver parenchyma. Demonstrates nonspecific periportal edema. On the coronal image series 300 image 20 a large rounded 9.6 x 7.5 cm isodense mass like structure is seen projecting inferiorly along the inferior border of the liver. Gallbladder and bile ducts: Likely a contracted gallbladder present with mild wall thickening/enhancement (series 300 image 19). No ductal dilation. Pancreas: No contour deforming mass. No ductal dilatation. No splenomegaly. Adrenals: Again demonstrates a 1.6 x 1.1 cm right suprarenal/ adrenal mass with small rounded foci of calcifications. Left adrenal gland: Unremarkable Kidneys and ureters: Stable a few right renal small cortical hypodensities/cysts. No solid mass. No hydronephrosis. Stomach and bowel: Diffuse mucosal edema/wall thickening predominantly involving the gastric antrum demonstrated (series 3 image 151, series 300 image 22). A gas filled 3.2 cm dilated proximal small bowel segment is seen anteriorly in the left side mid abdomen . Moderately large colonic stool volume. Gas and stool filled distended rectosigmoid. No evidence of mechanical bowel obstruction. PELVIS: Appendix: No evidence of acute appendicitis in the region of the appendix. Bladder: A distended urinary bladder. No mass. Reproductive: Prior hysterectomy. ABDOMEN and PELVIS: Intraperitoneal space: Mesenteric edema. No free air. No significant fluid collection. Bones/joints: No acute fracture. No dislocation. Soft tissues: Diffuse body wall soft tissue edema/anasarca. Vasculature: Extensive calcified/noncalcified atherosclerosis of the aortoiliac vasculature and branch vessels.. No abdominal aortic aneurysm. Lymph nodes: No significantly enlarged lymph nodes. IMPRESSION: . A nonspecific 9.6 x 7.5 cm hepatic isodense mass like structure seen projecting centrally along the inferior border of the liver. The need for additional imaging/dedicated contrast MRA exam to be determined clinically. Hepatic steatosis. Nonspecific periportal edema. Diffuse gastric mucosal edema predominantly of the antrum suggestive of gastritis/antral gastritis. Recommend clinical correlation. Segmental small bowel adynamic ileus. Moderately large volume stool/gas in the colon. Gas filled distended rectosigmoid. Likely a contracted gallbladder present with mild wall thickening/enhancement. No biliary/pancreatic ductal dilatation. Mesenteric edema. Diffuse body wall edema/anasarca. An unchanged 1.6 cm right adrenal mass, likely adenoma with punctate foci of calcifications Electronically signed by: Michael Barrios MD, DABR 07/29/24 00:39 AM
[2024-07-29] MEDS: FAMOTIDINE 20 MG TAB PO SCH (00:44)
[2024-07-29] MEDS: PANTOprazole 80 MG in DEXTROSE 5% 100 ML IV STA (02:29)
[2024-07-29] MEDS: LEVOTHYROXINE SODIUM 112 MCG TABLET PO SCH (02:44)
--- OUTSIDE RECORDS SUMMARY | 2024-07-29 03:30 | External Medical Summary | Summary of Care ---
Author Name Unknown Organization [facility] Address [address] [place] [address] Phone [phone] Care Team Providers Care Supervisor Polishing Name Role Phone Jodie Campbell PA-C Primary Care Provider [phone] Reason for Visit * Reason Comments Medication Refill Encounter Details Date Type Department Care Team (Latest Contact Info) Description 07/15/2024 2:00 PM EST Office Visit [facility] [address] [facility] [place] [address] Jodie Campbell PA-C [address] [facility] [place] [address] Hypothyroidism due to acquired atrophy of thyroid*; Chronic obstructive pulmonary disease, unspecified COPD type (HCC); S/P ablation of atrial fibrillation; Chronic systolic congestive heart failure (HCC); Pulmonary emphysema, unspecified emphysema type (HCC); Paroxysmal atrial fibrillation (HCC); Cardiomyopathy, unspecified type (HCC); Senile osteoporosis; Primary pulmonary hypertension ([facility]); Malaise and fatigue Allergies Active Allergy Reactions Criticality Noted Date Comments Diazepam Low 04/12/2022 Other reaction(s): FEELS WEIRD Doxycycline 08/15/2022 Other reaction(s): sick to stomach Erythromycin Base Nausea/vomiting 10/27/2009 Penicillins Hives 10/27/2009 Sulfa Antibiotics Nausea/vomiting 10/27/2009 documented as of this encounter (statuses as of 07/16/2024) Medications TYLENOL 325 MG PO TABS 650mg every 4 hours as needed Active CLINDAMYCIN HCL 300 MG PO CAPS take before dental procedures only Active COLACE 100 MG PO CAPS 1-2 tab daily Active CALCIUM 600+D3 600-200 MG-UNIT PO TABSIndications:O steoporosis one pill daily 30 Tab 5 03/25/20 14 Active Spironolactone 25 MG Oral Tablet (Aldactone) Take 0.5 Tablets by mouth in the morning. 06/08/19 24 Active Digoxin 125 MCG Oral Tablet (Lanoxin)Indicati ons:Chronic atrial fibrillation (HCC) Take 1 tablet by mouth on Mon, Wed, Fri, and Sat only. 07/03/19 24 Active Breztri Aerosphere 160-9-4.8 MCG/ACT Inhalation Aerosol (Budeson-Glycopyr rol-Formoterol) INHALE TWO PUFFS BY MOUTH TWICE DAILY 32.1 g 3 07/23/19 24 Active Albuterol Sulfate HFA 108 (90 Base) MCG/ACT Inhalation Aerosol Solution inhale 2 puffs four times daily As Needed for shortness of breath or wheezing 54 g 3 4 10:34 AM EDT 07/24/19 24 Active Cyanocobalamin 1000 MCG/ML Injection Solution (Cyanocobalamin) INJECT 1ML INTRAMUSCULARLY EVERY THIRTY DAYS 4 mL 3 4 5:22 PM EST 08/14/19 24 2024 Active Entresto 49-51 MG Oral Tablet (sacubitril-valsa rtan 49-51 mg per tab)Indications:P aroxysmal atrial fibrillation (HCC) Take 1 Tablet by mouth 2 times a day. 180 Tablet 3 5 8:44 AM EST 09/18/19 24 Active Vitamin D 125 MCG (5000 UT) Oral Capsule Take 125 mcg by mouth in the morning. 90 Capsule 3 09/28/19 24 Active Metoprolol Succinate ER 25 MG Oral Tablet Extended Release 24 Hour (toPROL XL)Indications:PA F (paroxysmal atrial fibrillation) (HCC) TAKE ONE TABLET BY MOUTH EVERY DAY 90 Tablet 3 4 9:28 AM EST 12/21/19 24 2024 Active Anastrozole 1 MG Oral Tablet (Arimidex)Indicat ions:Malignant neoplasm of right breast in female, estrogen receptor positive, unspecified site of breast (HCC) Take 1 Tablet by mouth in the morning. 90 Tablet 3 01/03/20 24 Active Digoxin 125 MCG Oral Tablet (Lanoxin)Indicati ons:Chronic atrial fibrillation (HCC) Take 1 Tablet by mouth in the morning. 90 Tablet 3 5 8:44 AM EST 03/17/20 24 Active Apixaban 2.5 MG Oral Tablet (Eliquis) take one tablet by mouth twice daily 180 Tablet 1 5 10:49 AM EST 03/18/20 24 Active Torsemide 10 MG Oral Tablet (Demadex) take two tablets by mouth daily 180 Tablet 3 5 6:38 PM EST 05/19/20 24 Active Levothyroxine Sodium 112 MCG Oral Tablet (Levoxyl) Take 1 Tablet by mouth in the morning. 90 Tablet 5 8:18 AM EST 06/16/19 25 Active Famotidine 20 MG Oral Tablet (Pepcid) take 1 tablet by mouth twice daily 180 Tablet 3 06/26/19 25 Active BD Luer-Vicky Syringe 25G X 1-1/2" 3 ML (Syringe/Needle (Disp))Indication s:Vitamin B12 deficiency (dietary) anemia USE ONCE A MONTH FOR INJECTION 12 Each 5 9:38 AM EST 06/27/19 25 Active Albuterol Sulfate HFA 108 (90 Base) MCG/ACT Inhalation Aerosol Solution INHALE 2 PUFFS 4 TIMES DAILY NEEDED FOR SHORTNESS OF BREATH OR WHEEZING 04/14/20 22 2024 Disconti nued(Med ication List Clean Up) Torsemide 10 MG Oral Tablet (Demadex)Indicati ons:Non-ischemic cardiomyopathy (HCC),Chronic systolic congestive heart failure (HCC) Take 2 Tablets by mouth in the morning. 06/08/19 24 2024 Disconti nued(Med ication List Clean Up) Apixaban 2.5 MG Oral Tablet (Eliquis) Take 1 Tablet by mouth 2 times a day. 180 Tablet 1 03/18/20 24 2024 Disconti nued(Med ication List Clean Up) documented as of this encounter (statuses as of 07/16/2024) Active Problems Problem Noted Date Diagnosed Date Chronic systolic congestive heart failure 2024 Pulmonary emphysema 07/15/2024 Paroxysmal atrial fibrillation 07/15/2024 Cardiomyopathy 07/15/2024 Hypothyroidism due to acquired atrophy of thyroi d 07/15/2024 Primary pulmonary hypertension 07/15/2024 Unspecified severe protein-calorie malnutrition 09/11/2022 Chronic obstructive pulmonary disease 09/11/2022 Malignant neoplasm of right female breast 2022 Senile osteoporosis 10/15/2020 Malignant neoplasm of breast in female, estrogen receptor positive 04/22/2019 S/P ablation of atrial fibrillation 01/24/2018 S/P MVR (mitral valve repair) 01/24/2018 S/P Maze operation for atrial fibrillation 02/19 Atrial tachycardia 02/19/2017 ICD (implantable cardioverter-defibrillator) in place 12/01/2015 Non-ischemic cardiomyopathy 11/24/2015 A-fib 07/28/2011 Abnormal electrocardiogram 10/27/2009 Tobacco use disorder 10/27/2009 Chest pain 10/27/2009 Mitral valve insufficiency Atrial fibrillation, chronic Hypothyroid documented as of this encounter (statuses as of 07/16/2024) Resolved Problems Problem Noted Date Diagnosed Date Resolved Date Encounter for examination fo r normal comparison and control in clinical research program 12/01/2015 02/08/2016 Overview (09/20/2020): [employer] Product Surveillance Registry PI: Radha Mcpherson MD Diagnosis changed due to Research Module. Go to Snapshot for study details. Old myocardial infarction 11/25/2009 Overview (09/14/2015): ICD-10 update of inactive term Osteoporosis 09/08/2022 Overview (09/08/2022): Duplicate diagnosis on problem list. documented as of this encounter (statuses as of 07/16/2024) Immunizations Name Administration Dates Next Due COVID-19 mRNA, LNP-s, No Pre serve, 2-Dose Series ([place]) 03/01/2021,08/16/2020,07/19/2020 Covid-19, Mrna, Lnp-s, Pf, B ivalent, 30 Mcg, IM, 12 yrs and above ([place]) 03/23/2022 Pneumococcal Conjugate Vacc, 13 Valent (Prevnar) 11/16/2014,11/13/2014 Pneumococcal Polysaccharide PPV23 (Pneumovax) 01/18/2012 Seasonal Influenza Vac., MDV , IM, 0.5 mL (Fluzone) 03/09/2020,03/03/2019,03/13/2014,04/10 Seasonal Influenza Virus Vac cine, Unspecified Formulation 05/12/2022,03/10/2021,05/06/2013 Seasonal Influenza, High Dos e, Trivalent, PF, IM (Fluzone HD) 03/03/2019,02/21/2018 Seasonal Influenza, Quad, Na lexa (Flumist) 02/17/2017 Seasonal Influenza, Quadriva lent Hd, 65+ Yrs 03/09/2020 TD - Tetanus/Diptheria (ADULT) 07/21/1999 TD, Preservative Free 07/21/1999 TDAP, Age 7 and older, IM (Adacel) 03/08/2015 Zoster Vaccine Recombinant (Shingrix) 07/12/2021 ,05/04/2021 documented as of this encounter Social History Tobacco Use Types Packs/Day Years Used Date Smoking Tobacco: Former Cigarettes 0.5 45 0 07/20/1966 - 07/20/2011 Smokeless Tobacco: Never Alcohol Use Standard Drinks/Week Comments Not Currently 0 (1 standard drink = 0.6 oz pur e alcohol) Comments No Sex and Gender Information Value Date Recorded Sex Assigned at Not on file Legal Sex Female 5:01 AM EST Gender Identity Not on file Sexual Orientation Not on file Occupation Industry Job Start Date Job End Date Retired teacher Not on file Not on file Not on file documented as of this encounter Last Filed Vital Signs Vital Sign Reading Time Taken Comments Blood Pressure 90/60 07/15/2024 2:40 PM EST Pulse 73 07/15/2024 2:40 PM EST Temperature 37.1 C (98.8 F) 07/15/2024 2:40 PM ES T Respiratory Rate 18 07/15/2024 2:40 PM EST Oxygen Saturation 94% 07/15/2024 2:40 PM EST 2L of O2 Inhaled Oxygen Concentration - - Weight 43.2 kg (95 lb 4 oz) 07/15/2024 2:[address] Height - - Body Mass Index 16.87 06/08/2022 1:52 PM EST documented in this encounter Progress Notes * Shannan Jodie CHASE Santoro - 07/15/2024 3:03 PM EST Images from the original note were not included. History of Present Illness Julia Saini is a 78 year old female that presents for Medication Refill Patient is an 78 year old female who presents for a follow up. Feeling more tired and old. Also cold all the time. Taking her thyroid medications. Denies chest pain, palpitations, dizzy Some sob, swelling in feet, some headaches, Appetite low Sleep good Urination/ bowel movements normal Physical Exam Vitals: 07/15/24 1440 Temp: 98.8 F (37.1 C) Pulse: 73 Resp: 18 SpO2: 94% BP: 90/60 BP Readings from Last 3 Encounters: 07/15/24 90/60 01/03/24 90/58 07/02/23 100/64 Wt Readings from Last 3 Encounters: 07/15/24 95 lb 4 oz (43.2 kg) 01/03/24 92 lb (41.7 kg) 10/16/23 92 lb (41.7 kg) General: alert, healthy, no distress, well nourished, well developed, comfortable, and cooperative Head: Normocephalic, No masses, lesions, tenderness or abnormalities Eye Exam: PERRLA, extraocular movements intact, conjunctiva are pink and non- injected, sclera clear Neck: supple, no adenopathy, no bruits, thyroid normal size, non-tender, without nodularity Heart: regular rate & rhythm, no murmur, and no gallops Lungs: chest symmetric with normal AP diameter, no chest deformities noted, normal respiratory rateand rhythm, no chest wall tenderness, diaphragmatic excursion normal, lungs clear to auscultation Extremities: less than 2 second capillary refill, no joint deformities, effusion, or inflammation, no skin discoloration, no clubbing, no cyanosis, mild lower extremity edema. I have reviewed the following results: TSH Assessment and Plan Hypothyroidism due to acquired atrophy of thyroid (Primary) Chronic obstructive pulmonary disease, unspecified COPD type (HCC) S/P ablation of atrial fibrillation Chronic systolic congestive heart failure (HCC) Pulmonary emphysema, unspecified emphysema type (HCC) Paroxysmal atrial fibrillation (HCC) Cardiomyopathy, unspecified type (HCC) Senile osteoporosis Primary pulmonary hypertension (HCC) Malaise and fatigue - CBC; Future; Expected date: 07/15/2024 - COMPREHENSIVE METABOLIC PANEL; Future; Expected date: 07/15/2024 Follow Up: Return in about 6 months (around 01/12/2025) for Clinic Visit. | For: Clinic Visit Wrap-Up Time: I spent a total of 30-39 minutes (exact time 35 mins) on the date of service in preparation, delivery, and documentation of the care provided to Julia Saini excluding any time spent in the performance of separately billed services. documented in this encounter Nursing Notes * Rosemary Cunningham NA - 07/15/2024 2:30 PM EST Julia Saini presents for medication refill. Patient complaining of fatigue, cold sensitivity, and neck pain for about a week and a half. Describes pain with neck movement. States she is experiences neck pain at this time rated at an 8/10 and describes it as a very annoying ache. Describes her fatigue as lack of energy and lack of motivation. Medications & HM reviewed. documented in this encounter Plan of Treatment Upcoming Encounters Date Type Department Care Team (Late st Contact Info) Description 10/20/2024 1:30 PM EDT Imaging Radiology [facility] [address] [place] [phone] 10/20/2024 2:20 PM EDT Office Visit Rheumatology [facility] [address] [place] [phone] Tyrell Gutierrez MD [address] [facility] [place] [address] 01/02/2025 2:00 PM EDT [facility] [place] [address] [facility] [place] [phone] Susan Wallace CRNP [address] [place], [place] [address], [place] [address] 01/12/2025 2:20 PM EDT Office Visit [facility] [place] [address] [facility] [place] [address] Jodie Campbell PA-C [address] [facility] [place] [address] Health Maintenance Due Date Last Done Comments Depression Screening 1957 Alpha-1 Antitrypsin 12/29/1961 Adult Wellness Visit 12/29/2009 *COPD SEVERITY VERIFIED BY PFT 09/14/2022 *BISPHONATE OR OTHER ACCEPTABLE MEDICATION NEEDED FOR OSTEOPOROSIS (REFER TO SMARTSET #1146) 01/14/2023 DXA Scan 12/29/2023 12/28/2021, 12/03, 12/22/2019, Additional history exists COVID-19 Vaccine ( season) 2024 03/23/2022, 03/01/2021, 08/16/2020, Additional history exists Influenza Vaccine (FLU shot) (#1) 2024 05/12/2022, 03/10/2021, 03/09/2020, Additional history exists DIG LEVEL FOR MEDICATION MONITORING YEARLY 06/14/2024 06/14/2023, 06/08/2023 DTap/Tdap Vaccines (2 - Td or Tdap) 03/08/2025 03/08/2015, 07/21/1999, 07/21/1999 TSH 03/14/2025 03/14/2024, 02/02, 11/14/2022, Additional history exists O2 ASSESSMENT COMPLETED IN PAST YEAR FOR COPD 07/15/2025 07/15/2024 Pneumococcal Vaccine: 50+ Years Completed 11/16/2014, 11/13/2014, 01/18/2012 Lung Cancer Screening Completed 10/16/2018, 018 Zoster Vaccines Completed 07/12/2021, 05/04/2021 VITAMIN D LEVEL ONCE IN A LIFETIME-USE SMARTSET# 50423 Completed 11/14/2022, 01/02/2022, 10/20/2021, Additional history exists HPV (Gardasil) Vaccine Aged Out No lo nger eligible based on patient's age to complete this topic Hepatitis B Vaccine Aged Out No longe r eligible based on patient's age to complete this topic MENINGOCOCCAL (MENACTRA/MENVEO) Aged Out No longer eligible based on patient's age to complete this topic documented as of this encounter Medical Devices Not on filedocumented as of this encounter Procedures Procedure Name Priority Date/Time Associated Diagnosis Comments COMPREHENSIVE METABOLIC PANEL Routine 07/15/2024 3:37 PM EST Malaise and fatigue CBC Routine 07/15/2024 3:37 PM EST Malaise and fatigue documented in this encounter Results * (ABNORMAL) COMPREHENSIVE METABOLIC PANEL (07/15/2024 3:37 PM EST) BUN 17 6 - 20 mg/dL 07/15/2024 4:33 PM EST [facility]- CREATININE 1.1(H) 0.5 - 1.0 mg/dL 07/15/2024 4:33 PM EST [facility] 56- EGFR 51(L) >=60 mL/min 07/15/2024 4:33 PM [facility] 56- Comment:eGFR is calculated b ased on the CKD-EPI 2020 equation. SODIUM 140 135 - 146 mmol/L 07/15/2024 4:33 PM EST [facility] 56- POTASSIUM 3.8 3.5 - 5.1 mmol/L 07/15/2024 4:33 PM EST [facility] 56- CHLORIDE 98 98 - 107 mmol/L 07/15/2024 4:33 PM EST [facility] 56- CO2 31 22 - 32 mmol/L 07/15/2024 4:33 PM EST [facility] 56- ANION GAP 11 7 - 15 mmol/L 07/15/2024 4:33 PM EST [facility] 56- GLUCOSE 115 70 - 120 mg/dL 07/15/2024 4:33 PM EST [facility] 56- Albumin 3.7(L) 3.8 - 5.0 g/dL 07/15/2024 4:33 PM [facility] [place] 56- AST 25 10 - 35 U/L 07/15/2024 4:33 PM EST [facility] 56- Alkaline Phosphatase 85 35 - 130 U/L 07/15/2024 4:33 PM EST [facility] 56 Bilirubin, Total 0.5 <=1.2 mg/dL 07/15/2024 4:33 PM EST [facility] 56 CALCIUM 9.6 8.4 - 10.2 mg/dL 07/15/2024 4:33 PM EST [facility] 56 Protein 6.5 6.0 - 8.3 g/dL 07/15/2024 4:33 PM EST [facility] 56 ALT 13 10 - 35 U/L 07/15/2024 4:33 PM EST [facility] 56 Blood Venous blood specimen / Unknown Venipuncture / Unknown 07/15/2024 3:37 PM EST 07/15/2024 3:37 PM EST September Shannan [facility] BLOOD ORDERABLES Final Res ult [facility] [address] [place] [address] * (ABNORMAL) CBC (07/15/2024 3:37 PM EST) WBC 4.27 4.00 - 10.80 K/uL 07/15/2024 3:55 PM EST [facility] 56 RBC 3.22 3.85 - 5.15 M/uL 07/15/2024 3:55 PM [facility] 56 HGB 9.8(L) 12.0 - 15.3 g/dL 07/15/2024 3:55 PM EST [facility] 56- HCT 31.9(L) 36.0 - 45.2 % 07/15/2024 3:55 PM [facility] 56 MCV 99.1 81.5 - 97.5 fL 07/15/2024 3:55 PM EST [facility] 56 MCH 30.4 27.0 - 34.0 pg 07/15/2024 3:55 PM EST [facility] 56 MCHC 30.7 32.0 - 36.0 g/dL 07/15/2024 3:55 PM EST [facility] 56 RDW 13.5 11.5 - 15.5 % 07/15/2024 3:55 PM EST [facility] 56- PLT 178 140 - 400 K/uL 07/15/2024 3:55 PM EST [facility] 56- MPV 9.5 6.6 - 11.1 fL 07/15/2024 3:55 PM EST [facility] 56 Blood Venous blood specimen / Unknown Venipuncture / Unknown 07/15/2024 3:37 PM EST 07/15/2024 3:37 PM EST September Shannan [facility] BLOOD ORDERABLES Final Res ult [facility] [address] [facility] [address] documented in this encounter Visit Diagnoses Diagnosis Hypothyroidism due to acquired atrophy of thyroid- Primary Chronic obstructive pulmonary disease, unspecified COPD type (HCC) S/P ablation of atrial fibrillation Other postprocedural status Chronic systolic congestive heart failure (HCC) Chronic systolic heart failure Pulmonary emphysema, unspecified emphysema type (HCC) Paroxysmal atrial fibrillation (HCC) Atrial fibrillation Cardiomyopathy, unspecified type (HCC) Senile osteoporosis Primary pulmonary hypertension (HCC) Primary pulmonary hypertension Malaise and fatigue Other malaise and fatigue documented in this encounter Care Teams Supervisor Polishing Relationship Specialty Start Date End Date Shannan Jodie CHASE Santoro [address] [facility] [place] [address] PCP - General Physician Boiler Reliner 09/11/22 documented as of this encounter
--- OUTSIDE RECORDS SUMMARY | 2024-07-29 03:30 | External Medical Summary | Summary of Care ---
Author Name Unknown Organization [facility] Address [address] [place] [address] Phone [phone] Care Team Providers Care Acoustic Intelligence Specialist Name Role Phone Jodie Campbell PA-C Primary Care Provider [phone] Reason for Referral * Evaluate & Treat - Unlimited Visits (Within 10 days (routine)) - Authorized Specialty Diagnoses / Procedures Referred By Contact Referred To Contact Cardiovascular Medicine / Cardiology Diagnoses Chronic systolic congestive heart failure (HCC) Jodie Campbell PA-C [address] [place] [address] Phone: tel: fax: Referral ID Status Reason Start Date Expiration Date Visits Requested Visits Authorized [id number] Authorized Specialty Services Required 07/22/[phone] Question Answer Referral Priority Within 10 days (routine) Where should this appointment be scheduled? [facility] For which of the following conditions are you referring? Heart Failure Clinic Reason for Visit * Reason Onset Date Comments Test Results 07/21/2024 LABS - abnormal Encounter Details Date Type Department Care Team (Late st Contact Info) Description 07/21/2024 Telephone Family Practice [facility] [place] [address] [place] [address] Jodie Campbell PA-C [address] [place] [address] Test Results (LABS - abnormal ) Allergies Active Allergy Reactions Criticality Noted Date Comments Diazepam Low 04/12/2022 Other reaction(s): FEELS WEIRD Doxycycline 08/15/2022 Other reaction(s): sick to stomach Erythromycin Base Nausea/vomiting 10/27/2009 Penicillins Hives 10/27/2009 Sulfa Antibiotics Nausea/vomiting 10/27/2009 documented as of this encounter (statuses as of 07/22/2024) Medications TYLENOL 325 MG PO TABS 650mg every 4 hours as needed Active CLINDAMYCIN HCL 300 MG PO CAPS take before dental procedures only Active COLACE 100 MG PO CAPS 1-2 tab daily Active CALCIUM 600+D3 600-200 MG-UNIT PO TABSIndications: Osteoporosis one pill daily 30 Tab 5 03/25/20 14 Active Spironolactone 25 MG Oral Tablet (Aldactone) Take 0.5 Tablets by mouth in the morning. 06/08/19 24 Active Digoxin 125 MCG Oral Tablet (Lanoxin)Indicat ions:Chronic atrial fibrillation (HCC) Take 1 tablet by mouth on Mon, Wed, Fri, and Sat only. 07/03/19 24 Active Breztri Aerosphere 160-9-4.8 MCG/ACT Inhalation Aerosol (Budeson-Glycopy rrol-Formoterol) INHALE TWO PUFFS BY MOUTH TWICE DAILY [...] 3 4 5:22 PM EST 08/14/19 24 025 Active Entresto 49-51 MG Oral Tablet (sacubitril-vals jane 49-51 mg per tab)Indications: Paroxysmal atrial fibrillation (HCC) Take 1 Tablet by mouth 2 times a day. 180 Tablet 3 5 8:44 AM EST 09/18/19 24 Active Vitamin D 125 MCG (5000 UT) Oral Capsule Take 125 mcg by mouth in the morning. 90 Capsule 3 09/28/19 24 Active Metoprolol Succinate ER 25 MG Oral Tablet Extended Release 24 Hour (toPROL XL)Indications:P AF (paroxysmal atrial fibrillation) (HCC) TAKE ONE TABLET BY MOUTH EVERY DAY 90 Tablet 3 4 9:28 AM EST 12/21/19 24 025 Active Anastrozole 1 MG Oral Tablet (Arimidex)Indica tions:Malignant neoplasm of right breast in female, estrogen receptor positive, unspecified site of breast (HCC) Take 1 Tablet by mouth in the morning. 90 Tablet 3 01/03/20 24 Active Digoxin 125 MCG Oral Tablet (Lanoxin)Indicat ions:Chronic atrial fibrillation (HCC) Take 1 Tablet by [...] Syringe 25G X 1-1/2" 3 ML (Syringe/Needle (Disp))Indicatio ns:Vitamin B12 deficiency (dietary) anemia USE ONCE A MONTH FOR INJECTION 12 Each 5 9:38 AM EST 06/27/19 25 Active documented as of this encounter (statuses as of 07/22/2024) Active Problems Problem Noted Date Diagnosed Date [...] as of this encounter (statuses as of 07/22/2024) Resolved Problems Problem Noted Date Diagnosed Date Resolved Date Encounter for examination fo r normal comparison and control in clinical research program 12/01/2015 02/08/2016 Overview (09/20/2020): [employer] Product Surveillance Registry PI: Radha Mcpherson MD Diagnosis changed due to Research Module. Go to Snapshot for study details. Old myocardial infarction 11/25/2009 Overview (09/14/2015): ICD-10 update of inactive term Osteoporosis 09/08/2022 Overview (09/08/2022): Duplicate diagnosis on problem list. documented as of this encounter (statuses as of 07/22/2024) Immunizations Name Administration Dates Next Due COVID-19 mRNA, LNP-s, No Pre serve, 2-Dose Series ([employer]) 03/01/2021,08/16/2020,07/19/2020 Covid-19, Mrna, Lnp-s, Pf, B ivalent, 30 Mcg, IM, 12 yrs and above ([employer]) 03/23/2022 Pneumococcal Conjugate Vacc, 13 Valent (Prevnar) [...] on file documented as of this encounter Miscellaneous Notes * Telephone Encounter - Mallorie Ellsworth RN - 07/22/2024 9:21 AM EST Pt agreeable to [facility] * Telephone Encounter - Jodie Campbell PA-C - 07/22/2024 8:15 AM EST Needs a recheck to eval her stool. She also needs to get in with cardiology/ increased congestive heart levels. * Telephone Encounter - Susan Carnes LPN - 07/21/2024 4:41 PM EST Patient reports a couple of tarry stools last week, and heartburn. Takes famotidine BID as ordered but doesn't feel that it's helping. Feels a little nauseated from time to time. Reports edema in herfeet is about the same as it has been. She says over the past weeks feels like there's been a decline in her health. (When I spoke with her on Sunday she denied dark stools, bloody or tarry stools FYI) Patient wants to know what's going to be done about this. Please advise. * Telephone Encounter - Susan Carnes LPN - 07/21/2024 4:39 PM EST ----- Message from Forest Frey MD sent at 07/21/2024 8:55 AM EST ----- Call please more anemic than she had been is iron deficient is she having any gastrointestinal issues any darker black bowel movements nausea heartburn vomiting is her swelling much worse than it hasbeen in the past * Telephone Encounter - Lesly Kong OSA - 07/21/2024 11:52 AM EST Who is Requesting Test Results: patient Primary Care Provider : Jodie Campbell PA-C Tests Results Requested : Labs Date of Test : 07/15/2024 Location of Test: [facility] Ordering Provider: Jodie Campbell Patient has been made aware that the turnaround time for test results are typically as follows: Laboratory results = within 2-3 days ([facility]), 3-5 days (Non[facility], ie[facility]) Urine Cultures = within 2-3 days depending on growth within the culture Pathology results (biopsy results/PAP) = 1-2 weeks Radiology results = about 1 week Cologuard results = within 2 weeks from the shipment date COVID testing = about 24 hours documented in this encounter Plan of Treatment Upcoming Encounters Date Type Department Care Team (Late st Contact Info) Description 10/20/2024 1:30 PM EDT Imaging Radiology [facility] [address] [place] [phone] 10/20/2024 2:20 PM EDT Office Visit Rheumatology [facility] [address] [place] [address] Tyrell Gutierrez MD [address] [facility] [place] [address] 01/02/2025 2:00 PM EDT Office Visit Hematology/Oncology [facility] [address] [facility] [place] [phone] Susan Wallace CRNP [address] [facility] [place] [address] 01/12/2025 2:20 PM EDT Office Visit Family Practice [facility] [address] [facility] [place] [address] Jodie Campbell PA-C [address] [facility] [place] [address] Scheduled Referrals Name Type Priority Associated Diagnoses Orde r Schedule CARDIOLOGY REFERRAL OP Referral Within 10 days (routine) Chronic systolic congestive heart failure (HCC) Ordered: 07/22/2024 Health Maintenance Due Date Last Done Comments [...] D LEVEL ONCE IN A LIFETIME-USE SMARTSET# [id number] Completed 11/14/2022, 01/02/2022, 10/20/2021, Additional history exists HPV (Gardasil) Vaccine Aged Out No lo nger eligible based on patient's age to complete this topic Hepatitis B Vaccine Aged Out No longe r eligible based on patient's age to complete this topic MENINGOCOCCAL (MENACTRA/MENVEO) Aged Out No longer eligible based on patient's age to complete this topic Meningitis B Vaccine (Bexsero/Trumemba) Aged Out No longer eligible based on patient's age to complete this topic documented as of this encounter Medical Devices Not on filedocumented as of this encounter Visit Diagnoses Diagnosis Chronic systolic congestive heart failure (HCC)- Primary Chronic systolic heart failure documented in this encounter Care Teams Acoustic Intelligence Specialist Relationship Specialty Start Date End Date Jodie Campbell PA-C [address] [place] [address] PCP - General Physician Remote Encoding Center Manager 09/11/22 documented as of this encounter
--- OUTSIDE RECORDS SUMMARY | 2024-07-29 03:30 | External Medical Summary | Summary of Care ---
Author Name Unknown Organization [facility] Address [address] [place] [address] Phone [phone] Care Team Providers Care Machine Operator General Name Role Phone Jodie Campbell PA-C Primary Care Provider [phone] Reason for Referral * Evaluate & Treat - Unlimited Visits (Within 10 days (routine)) - Authorized Specialty Diagnoses / Procedures Referred By Contact Referred To Contact Cardiovascular Medicine / Cardiology Diagnoses Chronic systolic congestive heart failure (HCC) Joide Campbell PA-C [address] [place] [address] Phone: tel: fax: Referral ID Status Reason Start Date Expiration Date Visits Requested Visits Authorized [id number] Authorized Specialty Services Required 07/22/[phone] Question Answer Referral Priority Within 10 days (routine) Where should this appointment be scheduled? [facility] For which of the following conditions are you referring? Heart Failure Clinic Reason for Visit * Reason Onset Date Comments Test Results 07/21/2024 LABS - abnormal Appointment 07/21/2024 Encounter Details Date Type Department Care Team (Late st Contact Info) Description 07/21/2024 Telephone Family Practice [place] [facility] [address] [place] [address] Jodie Campbell PA-C [address] [facility] [place] [address] Test Results (LABS - abnormal ); Appointment Allergies Active Allergy Reactions Criticality Noted Date Comments Diazepam Low 04/12/2022 Other reaction(s): FEELS WEIRD Doxycycline 08/15/2022 Other reaction(s): sick to stomach Erythromycin Base Nausea/vomiting 10/27/2009 Penicillins Hives 10/27/2009 Sulfa Antibiotics Nausea/vomiting 10/27/2009 documented as of this encounter (statuses as of 07/23/2024) Medications TYLENOL 325 MG PO TABS 650mg [...] as of this encounter (statuses as of 07/23/2024) Active Problems Problem Noted Date Diagnosed Date [...] as of this encounter (statuses as of 07/23/2024) Resolved Problems Problem Noted Date Diagnosed Date Resolved Date Encounter for examination fo r normal comparison and control in clinical research program 12/01/2015 02/08/2016 Overview (09/20/2020): [employer] Product Surveillance Registry PI: Radha Mcpherson MD Diagnosis changed due to Research Module. Go to Snapshot for study details. Old myocardial infarction 11/25/2009 Overview (09/14/2015): ICD-10 update of inactive term Osteoporosis 09/08/2022 Overview (09/08/2022): Duplicate diagnosis on problem list. documented as of this encounter (statuses as of 07/23/2024) Immunizations Name Administration Dates Next Due COVID-19 mRNA, LNP-s, No Pre serve, 2-Dose Series ([employer]) 03/01/2021,08/16/2020,07/19/2020 Covid-19, Mrna, Lnp-s, Pf, B ivalent, 30 Mcg, IM, 12 yrs and above ([employer]) 03/23/2022 Pneumococcal Conjugate Vacc, 13 Valent (Prevnar) [...] encounter Miscellaneous Notes * Telephone Encounter - Harmony Herbert OSA - 07/23/2024 11:38 AM EST Pt denies scheduling for tarry stools, faxed referral to Dr. Hollis, contacted Dr. Hollis's office to let them know pt was looking for appointment soon * Telephone Encounter - Mallorie Ellsworth RN - 07/22/2024 9:21 AM EST Pt agreeable to to below advice. Please make an appt for her with at [facility]. He is her executive talent acquisition consultant. There is a cardiology referral ordered. Also schedule her an appt in to assess her tarry stools. * Telephone Encounter - Jodie Campbell PA-C [...] of Test : 07/15/2024 Location of Test: [facility] Ordering Provider: Jodie Campbell Patient [...] Description 10/20/2024 1:30 PM EDT Imaging Radiology [facility] [address] [place] [phone] 10/20/2024 2:20 PM EDT Office Visit Rheumatology [facility] [address] [place] [phone] Tyrell Gutierrez MD [address] [place] [address] [place] [address] 01/02/2025 2:00 PM EDT Office Visit Hematology/Oncology [facility] [place] [address] [place] [address] [phone] Susan Wallace CRNP [address] [place] [address] [place] [address] 01/12/2025 2:20 PM EDT Office [facility] [place] [address] [place] [address] Jodie Campbell PA-C [address] [place] [address] Scheduled Referrals Name Type Priority Associated Diagnoses [...] D LEVEL ONCE IN A LIFETIME-USE SMARTSET# [id number] Completed 11/14/2022, 01/02/2022, 10/20/2021, Additional history exists [...] failure documented in this encounter Care Teams Machine Operator General Relationship Specialty Start Date End Date Shannan September CHASE Santoro [address] [place] [address] PCP - General Physician Ticket Sorter 09/11/22 documented as of this encounter
--- OUTSIDE RECORDS SUMMARY | 2024-07-29 03:30 | External Medical Summary | Summary of Care ---
Author Name Unknown Organization [facility] Address [address] [place] [address] Phone [phone] Care Team Providers Care Compressor Service Technician Name Role Phone Jodie Campbell PA-C Primary Care Provider [phone] Reason for Referral * Evaluate & Treat - Unlimited Visits (Within 10 days (routine)) - Authorized Specialty Diagnoses / Procedures Referred By Contact Referred To Contact Cardiovascular Medicine / Cardiology Diagnoses Chronic systolic congestive heart failure (HCC) Jodie Campbell PA-C [address] [place] [address] Phone: tel: fax: Referral ID Status Reason Start Date Expiration Date Visits Requested Visits Authorized [id number] Authorized Specialty Services Required 07/22/[phone] [...] Practice [place] Samy [place]endo[place] [address] [place] [address] Jodie Campbell PA-C [address] [facility] [place] [address] Test Results (LABS - abnormal ); Appointment [...] clinical research program 12/01/2015 02/08/2016 Overview (09/20/2020): [employer] Product Surveillance Registry PI: Radha Mcpherson MD Diagnosis changed due to Research Module. Go to Snapshot for study details. Old myocardial infarction 11/25/2009 Overview (09/14/2015): ICD-10 update of inactive term Osteoporosis 09/08/2022 Overview (09/08/2022): Duplicate diagnosis on problem list. documented as of this encounter (statuses as of 07/22/2024) Immunizations Name Administration Dates Next Due COVID-19 mRNA, LNP-s, No Pre serve, 2-Dose Series ([employer]) 03/01/2021,08/16/2020,07/19/2020 Covid-19, Mrna, Lnp-s, Pf, B ivalent, 30 Mcg, IM, 12 yrs and above ([employer]) 03/23/2022 Pneumococcal Conjugate Vacc, 13 Valent (Prevnar) [...] make an appt for her with at [facility]. He is her caustic cresylate shift superintendent. There is a cardiology referral ordered. Also schedule her an appt in FP to assess her tarry stools. * Telephone [...] Description 10/20/2024 1:30 PM EDT Imaging Radiology [facility] [address] [place] [phone] 10/20/2024 2:20 PM EDT Office Visit Rheumatology [facility] [address] [place] [phone] Tyrell Gutierrez MD [address] [place] [address] [place] [address] 01/02/2025 2:00 PM EDT Office Visit Hematology/Oncology [facility] [address] [facility] [place] [phone] Susan Wallace CRNP [address] [place] [address] 01/12/2025 2:20 PM EDT Office Visit Family Practice [facility] [address] [facility] [place] [address] Jodie Campbell PA-C [address] [facility] [place] [address] Scheduled Referrals Name Type Priority Associated Diagnoses [...] D LEVEL ONCE IN A LIFETIME-USE SMARTSET# [id number] Completed 11/14/2022, 01/02/2022, 10/20/2021, Additional history exists [...] failure documented in this encounter Care Teams Compressor Service Technician Relationship Specialty Start Date End Date Maraseptember CHASE Santoro [address] [place], [place] [address] PCP - General Physician Clinical Quality Assurance Specialist 09/11/22 documented as of this encounter
--- OUTSIDE RECORDS SUMMARY | 2024-07-29 03:31 | External Medical Summary | Summary of Care ---
Author Name Unknown Organization [facility] Address [address] [place] [address] Phone [phone] Care Team Providers Care Thermal Intelligence Analyst Name Role Phone Jodie Campbell PA-C Primary Care Provider [phone] Reason for Visit * Reason Comments Medication Refill Encounter Details Date Type Department Care Team (Latest Contact Info) Description 07/15/2024 2:00 PM EST Office Visit [facility] [address] [facility] [place] [address] Jodie Campbell PA-C [address] [facility] [place] [address] Hypothyroidism due to acquired atrophy of thyroid*; Chronic obstructive pulmonary disease, unspecified COPD type (HCC); S/P ablation of atrial fibrillation; Chronic systolic congestive heart failure (HCC); Pulmonary emphysema, unspecified emphysema type (HCC); Paroxysmal atrial fibrillation (HCC); Cardiomyopathy, unspecified type (HCC); Senile osteoporosis; Primary pulmonary hypertension ([facility]); Malaise and fatigue Allergies Active Allergy Reactions [...] clinical research program 12/01/2015 02/08/2016 Overview (09/20/2020): [employer] Product Surveillance Registry PI: Radha Mcpherson MD Diagnosis changed due to Research Module. Go to Snapshot for study details. Old myocardial infarction 11/25/2009 Overview (09/14/2015): ICD-10 update of inactive term Osteoporosis 09/08/2022 Overview (09/08/2022): Duplicate diagnosis on problem list. documented as of this encounter (statuses as of 07/16/2024) Immunizations Name Administration Dates Next Due COVID-19 mRNA, LNP-s, No Pre serve, 2-Dose Series ([employer]) 03/01/2021,08/16/2020,07/19/2020 Covid-19, Mrna, Lnp-s, Pf, B ivalent, 30 Mcg, IM, 12 yrs and above ([employer]) 03/23/2022 Pneumococcal Conjugate Vacc, 13 Valent (Prevnar) [...] Description 10/20/2024 1:30 PM EDT Imaging Radiology [facility] [address] [place] [phone] 10/20/2024 2:20 PM EDT Office Visit Rheumatology [facility] [address] [place] [address] Tyrell Gutierrez MD [address] [facility] [place] [address] 01/02/2025 2:00 PM EDT [facility] [place] [address] [facility] [place] [phone] Susan Wallace CRNP [address] [place], [place] [address], [place] [address] 01/12/2025 2:20 PM EDT Office Visit Family Practice [facility] [place] [address] [facility] [place] [address] Jodie Campbell PA-C [address] [facility] [place] [address] Health Maintenance Due Date Last Done Comments [...] D LEVEL ONCE IN A LIFETIME-USE SMARTSET# [id number] Completed 11/14/2022, 01/02/2022, 10/20/2021, Additional history exists [...] 20 mg/dL 07/15/2024 4:33 PM EST [facility] [place] 56- CREATININE 1.1(H) 0.5 - 1.0 mg/dL 07/15/2024 4:33 PM EST [facility] [place] 56- EGFR 51(L) >=60 mL/min 07/15/2024 4:33 PM [facility] 56- Comment:eGFR is calculated b ased on the CKD-EPI 2020 equation. SODIUM 140 135 - 146 mmol/L 07/15/2024 4:33 PM EST [facility] [place] 56- POTASSIUM 3.8 3.5 - 5.1 mmol/L 07/15/2024 4:33 PM EST [facility] [place] 56- CHLORIDE 98 98 - 107 mmol/L 07/15/2024 4:33 PM EST [facility] [place] 56- CO2 31 22 - 32 mmol/L 07/15/2024 4:33 PM EST [facility] [place] 56- ANION GAP 11 7 - 15 mmol/L 07/15/2024 4:33 PM EST [facility] [place] 56- GLUCOSE 115 70 - 120 mg/dL 07/15/2024 4:33 PM EST [facility] [place] 56- Albumin 3.7(L) 3.8 - 5.0 g/dL 07/15/2024 4:33 PM [facility] [place] 56- AST 25 10 - 35 U/L 07/15/2024 4:33 PM EST [facility] 56- Alkaline Phosphatase 85 35 - 130 U/L 07/15/2024 4:33 PM EST [facility] 56 Bilirubin, Total 0.5 <=1.2 mg/dL 07/15/2024 4:33 PM EST [facility] 56 CALCIUM 9.6 8.4 - 10.2 mg/dL 07/15/2024 4:33 PM EST [facility] 56 Protein 6.5 6.0 - 8.3 g/dL 07/15/2024 4:33 PM EST [facility] 56 ALT 13 10 - 35 U/L 07/15/2024 4:33 PM EST [facility] 56 Blood Venous blood specimen / Unknown Venipuncture / Unknown 07/15/2024 3:37 PM EST 07/15/2024 3:37 PM EST September Shannan STONE LAB BLOOD ORDERABLES Final Res ult [facility] [address] [place] [address] * (ABNORMAL) CBC (07/15/2024 3:37 PM EST) WBC 4.27 4.00 - 10.80 K/uL 07/15/2024 3:55 PM EST [facility] 56 RBC 3.22 3.85 - 5.15 M/uL 07/15/2024 3:55 PM [facility] 56 HGB 9.8(L) 12.0 - 15.3 g/dL 07/15/2024 3:55 PM EST [facility] 56- HCT 31.9(L) 36.0 - 45.2 % 07/15/2024 3:55 PM [facility] 56 MCV 99.1 81.5 - 97.5 fL 07/15/2024 3:55 PM EST [facility] 56 MCH 30.4 27.0 - 34.0 pg 07/15/2024 3:55 PM EST [facility] 56 MCHC 30.7 32.0 - 36.0 g/dL 07/15/2024 3:55 PM EST [facility] 56 RDW 13.5 11.5 - 15.5 % 07/15/2024 3:55 PM EST [facility] 56- PLT 178 140 - 400 K/uL 07/15/2024 3:55 PM EST [facility] 56- MPV 9.5 6.6 - 11.1 fL 07/15/2024 3:55 PM EST [facility] 56 Blood Venous blood specimen / Unknown Venipuncture / Unknown 07/15/2024 3:37 PM EST 07/15/2024 3:37 PM EST September Shannan STONE LAB BLOOD ORDERABLES Final Res ult [facility] 56 [facility] [address] documented in this encounter Visit Diagnoses Diagnosis [...] fatigue documented in this encounter Care Teams Thermal Intelligence Analyst Relationship Specialty Start Date End Date Shannan Jodie CHASE Santoro [address] [facility] [place] [address] PCP - General Physician Handicraft Or Hobby Shop Manager 09/11/22 documented as of this encounter
--- OUTSIDE RECORDS SUMMARY | 2024-07-29 03:31 | External Medical Summary | Summary of Care ---
Author Name Unknown Organization [facility] Address [address] [place] [address] Phone [phone] Care Team Providers Care Tanker Service Attendant Name Role Phone Jodie Campbell PA-C Primary Care Provider [phone] Reason for Visit * Reason Comments Medication Refill Encounter Details Date Type Department Care Team (Latest Contact Info) Description 07/15/2024 2:00 PM EST Office Visit [facility] [address] [facility] [place] [address] Jodie Campbell PA-C [address] [facility] [place] [address] Hypothyroidism due to acquired atrophy of thyroid*; Chronic obstructive pulmonary disease, unspecified COPD type (HCC); S/P ablation of atrial fibrillation; Chronic systolic congestive heart failure (HCC); Pulmonary emphysema, unspecified emphysema type (HCC); Paroxysmal atrial fibrillation (HCC); Cardiomyopathy, unspecified type (HCC); Senile osteoporosis; Primary pulmonary hypertension ([facility]); Malaise and fatigue Allergies Active Allergy Reactions [...] clinical research program 12/01/2015 02/08/2016 Overview (09/20/2020): [employer] Product Surveillance Registry PI: Radha Mcpherson MD Diagnosis changed due to Research Module. Go to Snapshot for study details. Old myocardial infarction 11/25/2009 Overview (09/14/2015): ICD-10 update of inactive term Osteoporosis 09/08/2022 Overview (09/08/2022): Duplicate diagnosis on problem list. documented as of this encounter (statuses as of 07/16/2024) Immunizations Name Administration Dates Next Due COVID-19 mRNA, LNP-s, No Pre serve, 2-Dose Series ([employer]) 03/01/2021,08/16/2020,07/19/2020 Covid-19, Mrna, Lnp-s, Pf, B ivalent, 30 Mcg, IM, 12 yrs and above ([employer]) 03/23/2022 Pneumococcal Conjugate Vacc, 13 Valent (Prevnar) [...] Description 10/20/2024 1:30 PM EDT Imaging Radiology [facility] [address] [place] [phone] 10/20/2024 2:20 PM EDT Office Visit Rheumatology [facility] [address] [place] [phone] Tyrell Gutierrez MD [address] [facility] [place] [address] 01/02/2025 2:00 PM EDT [facility] [place] [address] [facility] [place] [phone] Susan Wallace CRNP [address] [place], [place] [address], [place] [address] 01/12/2025 2:20 PM EDT Office Visit Family [facility] [place] [address] [facility] [place] [address] Jodie Campbell PA-C [address] [facility] [place] [address] Health Maintenance Due Date Last Done Comments [...] D LEVEL ONCE IN A LIFETIME-USE SMARTSET# [id number] Completed 11/14/2022, 01/02/2022, 10/20/2021, Additional history exists [...] 20 mg/dL 07/15/2024 4:33 PM EST [facility] [place] 56- CREATININE 1.1(H) 0.5 - 1.0 mg/dL 07/15/2024 4:33 PM EST [facility] [place] 56- EGFR 51(L) >=60 mL/min 07/15/2024 4:33 PM [facility] 56- Comment:eGFR is calculated b ased on the CKD-EPI 2020 equation. SODIUM 140 135 - 146 mmol/L 07/15/2024 4:33 PM EST [facility] [place] 56- POTASSIUM 3.8 3.5 - 5.1 mmol/L 07/15/2024 4:33 PM EST [facility] [place] 56- CHLORIDE 98 98 - 107 mmol/L 07/15/2024 4:33 PM EST [facility] [place] 56- CO2 31 22 - 32 mmol/L 07/15/2024 4:33 PM EST [facility] [place] 56- ANION GAP 11 7 - 15 mmol/L 07/15/2024 4:33 PM EST [facility] [place] 56- GLUCOSE 115 70 - 120 mg/dL 07/15/2024 4:33 PM EST [facility] [place] 56- Albumin 3.7(L) 3.8 - 5.0 g/dL 07/15/2024 4:33 PM [facility] [place] 56- AST 25 10 - 35 U/L 07/15/2024 4:33 PM EST [facility] 56- Alkaline Phosphatase 85 35 - 130 U/L 07/15/2024 4:33 PM EST [facility] 56 Bilirubin, Total 0.5 <=1.2 mg/dL 07/15/2024 4:33 PM EST [facility] 56 CALCIUM 9.6 8.4 - 10.2 mg/dL 07/15/2024 4:33 PM EST [facility] 56 Protein 6.5 6.0 - 8.3 g/dL 07/15/2024 4:33 PM EST [facility] 56 ALT 13 10 - 35 U/L 07/15/2024 4:33 PM EST [facility] 56 Blood Venous blood specimen / Unknown Venipuncture / Unknown 07/15/2024 3:37 PM EST 07/15/2024 3:37 PM EST September Shannan STONE LAB BLOOD ORDERABLES Final Res ult [facility] [address] [place] [address] * (ABNORMAL) CBC (07/15/2024 3:37 PM EST) WBC 4.27 4.00 - 10.80 K/uL 07/15/2024 3:55 PM EST [facility] 56 RBC 3.22 3.85 - 5.15 M/uL 07/15/2024 3:55 PM [facility] 56 HGB 9.8(L) 12.0 - 15.3 g/dL 07/15/2024 3:55 PM EST [facility] 56- HCT 31.9(L) 36.0 - 45.2 % 07/15/2024 3:55 PM [facility] 56 MCV 99.1 81.5 - 97.5 fL 07/15/2024 3:55 PM EST [facility] 56 MCH 30.4 27.0 - 34.0 pg 07/15/2024 3:55 PM EST [facility] 56 MCHC 30.7 32.0 - 36.0 g/dL 07/15/2024 3:55 PM EST [facility] 56 RDW 13.5 11.5 - 15.5 % 07/15/2024 3:55 PM EST [facility] 56- PLT 178 140 - 400 K/uL 07/15/2024 3:55 PM EST [facility] 56- MPV 9.5 6.6 - 11.1 fL 07/15/2024 3:55 PM EST [facility] 56 Blood Venous blood specimen / Unknown Venipuncture / Unknown 07/15/2024 3:37 PM EST 07/15/2024 3:37 PM EST September Shannan STONE LAB BLOOD ORDERABLES Final Res ult [facility] 56 [address] [facility] [address] documented in this encounter Visit Diagnoses Diagnosis [...] fatigue documented in this encounter Care Teams Tanker Service Attendant Relationship Specialty Start Date End Date Shannan Jodie CHASE Santoro 200 [facility] [place] [address] PCP - General Physician Booking Supervisor 09/11/22 documented as of this encounter
--- OUTSIDE RECORDS SUMMARY | 2024-07-29 03:31 | External Medical Summary ---
Author Name Unknown Address Unknown Organization [id number]:LABORATORY [facility] [place] - [address] [place] [address] Laboratory Report Ordering Provider Test Date Status MATHEW GUILLERMO III 07/15/2024 15:37:04 Final Observation Date Value Abnormality Reference (Units ) Status Iron 07/15/2024 15:37:04 20 Below low normal 33-151 (ug/dL) Final Iron-binding capacity 07/15/2024 15:37:04 337 250-425 (ug/dL) Final Transferrin Sat % 07/15/2024 15:37:04 6 Below low normal 15-55 (%) Final Performing Location LABORATORY C - [address] [place] [address]
--- OUTSIDE RECORDS SUMMARY | 2024-07-29 03:31 | External Medical Summary | Summary of Care ---
Author Name Unknown Organization [facility] Address [address] [place] [address] Phone [phone] Care Team Providers Care Vocational Services Specialist Name Role Phone Jodie Campbell PA-C Primary Care Provider [phone] Encounter Details Date Type Department Care Team (Late st Contact Info) Description 06/24/2024 Population Health External Data Unspecified Department Allergies Active Allergy Reactions Criticality Noted Date Comments Diazepam Low 04/12/2022 Other reaction(s): FEELS WEIRD Doxycycline 08/15/2022 Other reaction(s): sick to stomach Erythromycin Base Nausea/vomiting 10/27/2009 Penicillins Hives 10/27/2009 Sulfa Antibiotics Nausea/vomiting 10/27/2009 documented as of this encounter (statuses as of 06/24/2024) Medications TYLENOL 325 MG PO TABS 650mg every 4 hours as needed Active CLINDAMYCIN HCL 300 MG PO CAPS take before dental procedures only Active COLACE 100 MG PO CAPS 1-2 tab daily Active CALCIUM 600+D3 600-200 MG-UNIT PO TABSIndications:O steoporosis one pill daily 30 Tab 5 03/25/20 14 Active Albuterol Sulfate HFA 108 (90 Base) MCG/ACT Inhalation Aerosol Solution INHALE 2 PUFFS 4 TIMES DAILY NEEDED FOR SHORTNESS OF BREATH OR WHEEZING 04/14/20 22 Active BD Luer-Vicky Syringe 22G X 1-1/2" 3 MLIndications:Vit capps B12 deficiency (dietary) anemia USE ONCE A MONTH FOR INJECTION 12 Each 05/30/20 23 Active Torsemide 10 MG Oral Tablet (Demadex)Indicati ons:Non-ischemic cardiomyopathy (HCC),Chronic systolic congestive heart failure (HCC) Take 2 Tablets by mouth in the morning. 06/08/19 24 Active Spironolactone 25 MG Oral Tablet (Aldactone) [...] 025 Active Entresto 49-51 MG Oral Tablet (sacubitril-valsa rtan 49-51 mg per tab)Indications:P aroxysmal atrial fibrillation (HCC) Take 1 Tablet by mouth 2 times a day. 180 Tablet 3 5 8:44 AM EST 09/18/19 24 Active Vitamin D 125 MCG (5000 UT) Oral Capsule Take 125 mcg by mouth in the morning. 90 Capsule 3 09/28/19 24 Active Famotidine 20 MG Oral Tablet (Pepcid) take 1 tablet by mouth twice daily 180 Tablet 3 4 12:22 PM EDT 10/02/19 24 Active Torsemide 10 MG Oral Tablet (Demadex) Take 2 Tablets by mouth daily. 180 Tablet 3 4 7:13 AM EST 10/23/19 24 Active Metoprolol Succinate ER 25 MG Oral Tablet Extended Release 24 Hour (toPROL XL)Indications:PA F (paroxysmal atrial fibrillation) ([facility]) TAKE ONE TABLET BY MOUTH EVERY DAY 90 Tablet 3 4 9:28 AM EST 12/21/19 24 025 Active Anastrozole 1 MG Oral Tablet (Arimidex)Indicat [...] Active Apixaban 2.5 MG Oral Tablet (Eliquis) Take 1 Tablet by mouth 2 times a day. 180 Tablet 1 03/18/20 24 Active Apixaban 2.5 MG Oral Tablet (Eliquis) take one tablet by mouth twice daily 180 Tablet 1 5 10:49 AM EST 03/18/20 24 Active Torsemide 10 MG Oral Tablet (Demadex) take two tablets by mouth daily 180 Tablet 3 05/19/20 24 Active Levothyroxine Sodium 112 MCG Oral Tablet (Levoxyl) Take 1 Tablet by mouth in the morning. 90 Tablet 5 8:18 AM EST 06/16/19 25 Active documented as of this encounter (statuses as of 06/24/2024) Active Problems Problem Noted Date Diagnosed Date Unspecified severe protein-calorie malnutrition 09/11/2022 Chronic obstructive [...] as of this encounter (statuses as of 06/24/2024) Resolved Problems Problem Noted Date Diagnosed Date Resolved Date Encounter for examination fo r normal comparison and control in clinical research program 12/01/2015 02/08/2016 Overview (09/20/2020): [employer] Product Surveillance Registry PI: Radha Mcpherson MD Diagnosis changed due to Research Module. Go to Snapshot for study details. Old myocardial infarction 11/25/2009 Overview (09/14/2015): ICD-10 update of inactive term Osteoporosis 09/08/2022 Overview (09/08/2022): Duplicate diagnosis on problem list. documented as of this encounter (statuses as of 06/24/2024) Immunizations Name Administration Dates Next Due COVID-19 mRNA, LNP-s, No Pre serve, 2-Dose Series ([employer]) 03/01/2021,08/16/2020,07/19/2020 Covid-19, Mrna, Lnp-s, Pf, B ivalent, 30 Mcg, IM, 12 yrs and above (Pfizer) 03/23/2022 Pneumococcal Conjugate Vacc, 13 Valent (Prevnar) [...] drink = 0.6 oz pur e alcohol) Utilities Answer Date Recorded Do you have trouble paying y our heating, water, or electric bill? (Adult - for ages 18 years and over) Not on file 11/20/2023 Is your family able to pay t he heat, water, or electric bill? (Household - for ages 0-17 years) Not on file 11/20/2023 Does your family have access to good internet? (Household - for ages 0-17 years) Not on file 11/20/2023 Social Connections Answer Date Recorded How often do you feel lonely or isolated from those around you? (Adult - for ages 18 years and over) Not on file 11/20/2023 Comments No Sex and Gender Information Value Date Recorded Sex Assigned at Not on file Legal Sex Female 5:01 AM EST Gender Identity Not on file Sexual Orientation Not on file Occupation Industry Job Start Date Job End Date Retired teacher Not on file Not on file Not on file documented as of this encounter Plan of Treatment Upcoming Encounters Date Type Department Care Team (Late st Contact Info) Description 07/15/2024 2:00 PM EST Office Visit Family Practice [facility] [address] [place] [address] Jodie Campbell PA-C [address] [place] [address] 10/20/2024 1:30 PM EDT Imaging Radiology [facility] [address] [place] [phone] 10/20/2024 2:20 PM EDT Office Visit Rheumatology [facility] [address] [place] [phone] Tyrell Gutierrez MD [address] [facility] [place] [address] 01/02/2025 2:00 PM EDT Office Visit Hematology/Oncology [facility] [address] [place] [address] Susna Wallace CRNP [address] [place] [address] Health Maintenance Due Date Last Done Comments [...] FOR MEDICATION MONITORING YEARLY 06/14/2024 06/14/2023, 06/08/2023 O2 ASSESSMENT COMPLETED IN PAST YEAR FOR COPD 01/02/2025 01/03/2024 DTap/Tdap Vaccines (2 - Td or Tdap) 03/08/2025 03/08/2015, 07/21/1999, 07/21/1999 TSH 03/14/2025 03/14/2024, 02/02, 11/14/2022, Additional history exists Pneumococcal Vaccine: 50+ Years Completed 11/16/2014, 11/13/2014, 01/18/2012 Lung Cancer Screening Completed 10/16/2018, 018 Zoster Vaccines Completed 07/12/2021, 05/04/2021 VITAMIN D LEVEL ONCE IN A LIFETIME-USE SMARTSET# [id number] Completed 11/14/2022, 01/02/2022, 10/20/2021, Additional history exists [...] Not on filedocumented as of this encounter Care Teams Vocational Services Specialist Relationship Specialty Start Date End Date ShannanSeptember Yvan, CHASE [address] [place] [address] PCP - General Physician Occupational Therapist Assistants 09/11/22 documented as of this encounter
--- OUTSIDE RECORDS SUMMARY | 2024-07-29 03:31 | External Medical Summary ---
Author Name Unknown Address Unknown Organization K01:[facility] [place] - [facility] [address] [facility] [place] [address] Laboratory Report Ordering Provider Test Date Status MATHEW GUILLERMO III 07/15/2024 15:37:04 Final Exclude Heart Failure: <300 pg/mL
Diagnose Heart Failure:
Age <50 yr: >450 pg/mL
50-75 yr: >900 pg/mL
>75 yr: >1800 pg/mL
GFR is 30-59 mL/min: >1200 pg/mL or Age- adjusted values
GFR <30 mL/min: do not use, not reliable

Prognostic threshold: 1000 pg/mL Observation Date Value Abnormality Reference (Units ) Status BNP, Pro-hormone 07/15/2024 15:37:04 3172 Above high no rmal <300 (pg/mL) Final Performing Location [facility] - [address] [place] [address]
--- OUTSIDE RECORDS SUMMARY | 2024-07-29 03:31 | External Medical Summary ---
Author Name Unknown Address Unknown Organization K09:[facility]AT[facility]- [address] [place] [address] Laboratory Report Ordering Provider Test Date Status 07/15/2024 15:37:04 Final Observation Date Value Abnormality Reference (Units ) Status BUN 07/15/2024 15:37:04 17 6-20 (mg/dL) Final Creatinine 07/15/2024 15:37:04 1.1 Above high normal 0.5-1.0 (mg/dL) Final Glomerular filtration rate/1.73 sq M.predicted [Volume Rate/Area] in Serum, Plasma or Blood by Creatinine-based formula (CKD-EPI) 07/15/2024 15:37:04 51 Below low normal >=60 (mL/min) Final eGFR is calculated based on the CKD-EPI 2020 equation. Sodium 07/15/2024 15:37:04 140 135-146 (m mol/L) Final Potassium 07/15/2024 15:37:04 3.8 3.5-5.1 (m mol/L) Final Cl 07/15/2024 15:37:04 98 98-107 (mm ol/L) Final CO2 07/15/2024 15:37:04 31 22-32 (mmo l/L) Final Anion gap 07/15/2024 15:37:04 11 7-15 (mmol /L) Final Glucose 07/15/2024 15:37:04 115 70-120 (mg /dL) Final Albumin 07/15/2024 15:37:04 3.7 Below low normal 3.8 -5.0 (g/dL) Final AST (Aspartate aminotransferase) 07/15/2024 15:37:04 25 10-35 (U/L) Fin al Alk Phos 07/15/2024 15:37:04 85 35-130 (U/ L) Final Bilirubin, Total 07/15/2024 15:37:04 0.5 <=1 .2 (mg/dL) Final Calcium 07/15/2024 15:37:04 9.6 8.4-10.2 ( mg/dL) Final Protein 07/15/2024 15:37:04 6.5 6.0-8.3 (g /dL) Final ALT (Alanine aminotransferase) 07/15/2024 15:37:04 13 10-35 (U/L) Jony shaw Performing Location LAB[facility]ATORY [facility] [place] [address]
--- OUTSIDE RECORDS SUMMARY | 2024-07-29 03:31 | External Medical Summary ---
Author Name Unknown Address Unknown Organization K01:LABORATORY [facility] [place] - [address] [facility] [place] [facility] [address] Laboratory Report Ordering Provider Test Date Status MATHEW GUILLERMO III 07/15/2024 15:37:04 Final Observation Date Value Abnormality Reference (Units ) Status Folic Acid 07/15/2024 15:37:04 15.3 >4.5 (ng/ mL) Final Performing Location [facility] - [address] [facility] [address]
--- OUTSIDE RECORDS SUMMARY | 2024-07-29 03:31 | External Medical Summary ---
Author Name Unknown Address Unknown Organization K01:[facility]ORY [facility] [place] - [address] [facility] [facility] [address] Laboratory Report Ordering Provider Test Date Status MATHEW GUILLERMO III 07/15/2024 15:37:04 Final Observation Date Value Abnormality Reference (Units ) Status Ferritin 07/15/2024 15:37:04 86 13-150 (ng /mL) Final Postmenopausal women have hi gher ferritin levels than pre-menopausal women. The above reference interval is based on pre-menopausal women. Performing Location [facility] - [address] [facility] [address]
--- OUTSIDE RECORDS SUMMARY | 2024-07-29 03:31 | External Medical Summary | Summary of Care ---
Author Name Unknown Organization [facility] Address [address] [place] [address] Phone [phone] Care Team Providers Care Pharmacy Manager Name Role Phone Jodie Campbell PA-C Primary Care Provider [phone] Reason for Visit * Reason Comments Medication Refill Encounter Details Date Type Department Care Team (Late st Contact Info) Description 06/03/2024 Refill Family Practice [facility] [address] [facility] [place] [address] Jodie Campbell PA-C [address] [facility] [place] [address] Allergies Active Allergy Reactions Criticality Noted Date Comments Diazepam Low 04/12/2022 Other reaction(s): FEELS WEIRD Doxycycline 08/15/2022 Other reaction(s): sick to stomach Erythromycin Base Nausea/vomiting 10/27/2009 Penicillins Hives 10/27/2009 Sulfa Antibiotics Nausea/vomiting 10/27/2009 documented as of this encounter (statuses as of 06/11/2024) Medications TYLENOL 325 MG PO TABS 650mg [...] morning. 90 Tablet 3 01/03/20 24 Active Levothyroxine Sodium 112 MCG Oral Tablet (Levoxyl) Take 1 Tablet by mouth in the morning. 90 Tablet 4 12:10 PM EDT 03/11/20 24 Active Digoxin 125 MCG Oral Tablet [...] by mouth twice daily 180 Tablet 1 4 6:49 PM EST 03/18/20 24 Active Torsemide 10 MG Oral Tablet (Demadex) take two tablets by mouth daily 180 Tablet 3 05/19/20 24 Active documented as of this encounter (statuses as of 06/11/2024) Active Problems Problem Noted Date Diagnosed Date [...] as of this encounter (statuses as of 06/11/2024) Resolved Problems Problem Noted Date Diagnosed Date Resolved Date Encounter for examination fo r normal comparison and control in clinical research program 12/01/2015 02/08/2016 Overview (09/20/2020): [employer] Product Surveillance Registry PI: Radha Mcpherson MD Diagnosis changed due to Research Module. Go to Snapshot for study details. Old myocardial infarction 11/25/2009 Overview (09/14/2015): ICD-10 update of inactive term Osteoporosis 09/08/2022 Overview (09/08/2022): Duplicate diagnosis on problem list. documented as of this encounter (statuses as of 06/11/2024) Immunizations Name Administration Dates Next Due COVID-19 mRNA, LNP-s, No Pre serve, 2-Dose Series ([employer]) 03/01/2021,08/16/2020,07/19/2020 Covid-19, Mrna, Lnp-s, Pf, B ivalent, [...] encounter Miscellaneous Notes * Telephone Encounter - Lindsey Garcia CPhT - 06/11/2024 3:27 PM EST pt calling to check on status of levothyroxine. Caller can be reached at [phone]. Thank you, Lindsey Garcia CphT Corporate Manager III [facility] Services([facility]) 06/11/24 * Telephone Encounter - Elijah Dominguez DO - 06/06/2024 1:06 PM EST Refused Prescriptions: Disp Refills Levothyroxine Sodium 112 MCG Oral Tablet (*90 Tab*0 Sig: Take 1 Tablet by mouth in the morning. Refused By: ELIJAH DOMINGUEZ Reason for Refusal: Appt. Required, please call patient * Telephone Encounter - Mirna Hankins CPhT - 06/06/2024 12:17 PM ESTPending Prescriptions: Disp Refills Levothyroxine Sodium 112 MCG Oral Tablet (*90 Tab*0 Sig: Take 1 Tablet by mouth in the morning. * Telephone Encounter - Mirna Hankins CPhT - 06/06/2024 12:16 PM EST Received message from [facility] regarding patient needing an appointment. Call Placed, Left message on voicemail to call back and schedule appointment. Thank you, Mirna Hankins CPhT Corporate Manager Centralized Clinical Pharmacy Services ([facility]) 06/06/2024,12:16 PM * Telephone Encounter - Belen Shepard [facility] - 06/05/2024 9:42 AM ESTPending Prescriptions: Disp Refills Levothyroxine Sodium 112 MCG Oral Tablet (*90 Tab*0 Sig: Take 1 Tablet by mouth in the morning. * Telephone Encounter - Belen Shepard RPh - 06/05/2024 9:42 AM EST Please contact patient so that an appointment can be scheduled with her PRIMARY CARE provider before this refill can be authorized. After contacting patient, please forward request to Jodie Campbell PA-C. Last Visit: 09/11/2022 (in office), Visit date not found (telemedicine) Next Visit: Visit date not found Belen Barcenas, PharmD Clinical Pharmacist Centralized Clinical Pharmacy Services [phone] 06/05/2024 9:42 AM documented in this encounter Plan of Treatment Upcoming Encounters Date Type Department Care Team (Late st Contact Info) Description 10/20/2024 1:30 PM EDT Imaging Radiology [facility] [address] [place] [phone] 10/20/2024 2:20 PM EDT Office Visit Rheumatology [address] [place] [address] Tyrell Gutierrez MD [facility] [place] [address] 01/02/2025 2:00 PM EDT Office Visit Hematology/Oncology [facility] [address] [facility] [place] [phone] Susan Wallace CRNP [address] [place] [address] [place] [address] Health Maintenance Due Date Last Done Comments [...] D LEVEL ONCE IN A LIFETIME-USE SMARTSET# [id number] Completed 11/14/2022, 01/02/2022, 10/20/2021, Additional history exists [...] filedocumented as of this encounter Care Teams Pharmacy Manager Relationship Specialty Start Date End Date Shannan September Yvan, CHASE [address] [place] [address] PCP - General Physician [place] Supervisor 09/11/22 documented as of this encounter
--- OUTSIDE RECORDS SUMMARY | 2024-07-29 03:31 | External Medical Summary ---
Author Name Unknown Address Unknown Organization K01:[facility]ORY [facility] [place] [address] [place] [address] Laboratory Report Ordering Provider Test Date Status MATHEW GUILLERMO III 07/15/2024 15:37:04 Final Observation Date Value Abnormality Reference (Units ) Status Vitamin B12 07/15/2024 15:37:04 797 850-9867 (pg/mL) Final Performing Location [facility] - [address] [place] [address]
--- OUTSIDE RECORDS SUMMARY | 2024-07-29 03:31 | External Medical Summary | Summary of Care ---
Author Name Unknown Organization [facility] Address [address] [place] [address] Phone [phone] Care Team Providers Care Steamfitter Name Role Phone oJdie Campbell PA-C Primary Care Provider [phone] Reason for Visit * Reason Onset Date Comments Medication Refill 06/16/2024 Encounter Details Date Type Department Care Team (Late st Contact Info) Description 06/16/2024 Refill Family Practice [facility] [address] [facility] [place] [address] Jodie Campbell PA-C 200 [facility] [place] [address] Allergies Active Allergy Reactions Criticality Noted Date Comments Diazepam Low 04/12/2022 Other reaction(s): FEELS WEIRD Doxycycline 08/15/2022 Other reaction(s): sick to stomach Erythromycin Base Nausea/vomiting 10/27/2009 Penicillins Hives 10/27/2009 Sulfa Antibiotics Nausea/vomiting 10/27/2009 documented as of this encounter (statuses as of 06/16/2024) Medications TYLENOL 325 MG PO TABS 650mg [...] by mouth in the morning. 90 Tablet 06/16/19 25 Active Levothyroxine Sodium 112 MCG Oral Tablet (Levoxyl) Take 1 Tablet by mouth in the morning. 90 Tablet 4 12:10 PM EDT 03/11/20 24 2024 Disconti nued(Ref ill) documented as of this encounter (statuses as of 06/16/2024) Active Problems Problem Noted Date Diagnosed Date [...] as of this encounter (statuses as of 06/16/2024) Resolved Problems Problem Noted Date Diagnosed Date Resolved Date Encounter for examination fo r normal comparison and control in clinical research program 12/01/2015 02/08/2016 Overview (09/20/2020): [employer] Product Surveillance Registry PI: Radha Mcpherson MD Diagnosis changed due to Research Module. Go to Snapshot for study details. Old myocardial infarction 11/25/2009 Overview (09/14/2015): ICD-10 update of inactive term Osteoporosis 09/08/2022 Overview (09/08/2022): Duplicate diagnosis on problem list. documented as of this encounter (statuses as of 06/16/2024) Immunizations Name Administration Dates Next Due COVID-19 mRNA, LNP-s, No Pre serve, 2-Dose Series ([employer]) 03/01/2021,08/16/2020,07/19/2020 Covid-19, Mrna, Lnp-s, Pf, B ivalent, 30 Mcg, IM, 12 yrs and above ([employer]) 03/23/2022 Pneumococcal Conjugate Vacc, 13 Valent (Prevnar) [...] encounter Miscellaneous Notes * Telephone Encounter - Ani Reyna [facility] - 06/16/2024 10:10 AM ESTSigned Prescriptions: Disp Refills Levothyroxine Sodium 112 MCG Oral Tablet (*90 Tab*0 Sig: Take 1 Tablet by mouth in the morning.Authorizing Provider: JODIE CAMPBELL AOrdering User: ANI REYNA-- * Telephone Encounter - Ani Reyna RP - 06/16/2024 10:09 AM EST RX authorized. Zero refills given until upcoming appt. 07/15/2024 Thanks, Ani Reyna, PharmD Clinical Pharmacist [facility] ([facility]) [phone] 06/16/2024 10:09 AM * Telephone Encounter - Beverly Garces CPhT - 06/16/2024 9:55 AM EST Pt is asking high priority stating that she is going to be out on and pt set up OV for 07/15. Did you pend patient's preferred pharmacy and medication before forwarding?yes Pharmacy: [email or web address] Pending Prescriptions: Disp Refills Levothyroxine Sodium 112 MCG Oral Tablet *90 Tab*0 Sig: Take 1 Tablet by mouth in the morning. Last Visit: 09/11/2022 (in office), Visit date not found (telemedicine) Next Visit: 07/15/2024 If no future appointments scheduled, and last appointment is greater than a year ago, please schedule patient for a follow-up appointment Last date the medication was ordered: 03/11/2024 Is this request for a controlled substance?No Urine Drug Screen:No results found for this or any previous visit. Patient Phone Numbers Labs: Lab Results Component Value Date/Time CREAT 1.0 06/08/2023 02:40 PM CREAT 1.08 (A) 06/06/2023 12:00 AM CREAT 1.0 06/21/2020 12:14 PM POTASSIUM 3.7 06/08/2023 02:40 PM POTASSIUM 4.2 06/06/2023 12:00 AM POTASSIUM 4.3 04/22/2019 02:47 PM TSH 1.13 03/14/2024 02:48 PM LDL 74 09/11/2022 11:32 AM LDL 70 11/04/2009 09:08 AM ALT 21 06/08/2023 02:40 PM ALT 12 04/22/2019 02:47 PM documented in this encounter Plan of Treatment Upcoming Encounters Date Type Department Care Team (Late st Contact Info) Description 07/15/2024 2:00 PM EST Office Visit Family Practice [facility] 200 [facility] [place] [address] Jodie Campbell PA-C [address] [facility] [address] 10/20/2024 1:30 PM EDT Imaging Radiology [facility] [address] [place] [phone] 10/20/2024 2:20 PM EDT Office Visit Rheumatology [facility] [address] [place] [phone] Tyrell Gutierrez MD [address] [place] [address] [place] [address] 01/02/2025 2:00 PM EDT Office Visit Hematology/Oncology [facility] 200 [facility] [place] [phone] Susan Wallace CRNP [address] [place] [address] Health Maintenance Due Date Last Done Comments [...] D LEVEL ONCE IN A LIFETIME-USE SMARTSET# [id number] Completed 11/14/2022, 01/02/2022, 10/20/2021, Additional history exists [...] filedocumented as of this encounter Care Teams Steamfitter Relationship Specialty Start Date End Date ShannanSeptember CHASE Santoro [address] [place] [address] PCP - General Physician Biological Technical Officer 09/11/22 documented as of this encounter
--- OUTSIDE RECORDS SUMMARY | 2024-07-29 03:31 | External Medical Summary | Summary of Care ---
Author Name Unknown Organization [facility] Address [address] [place] [address] Phone [phone] Care Team Providers Care Metal Engineering Process Worker Name Role Phone Jodie Chaudhari PA-C Primary Care Provider [phone] Reason for Visit * Reason Onset Date Comments Medication Refill 06/26/2024 Encounter Details Date Type Department Care Team (Late st Contact Info) Description 06/26/2024 Refill Family Practice [facility] [place] 200 [facility] [place] [address] Jodie Chaudhari PA-C 200 [facility] [place] [address] Vitamin B12 deficiency (dietary) anemia Allergies Active Allergy Reactions Criticality Noted Date Comments Diazepam Low 04/12/2022 Other reaction(s): FEELS WEIRD Doxycycline 08/15/2022 Other reaction(s): sick to stomach Erythromycin Base Nausea/vomiting 10/27/2009 Penicillins Hives 10/27/2009 Sulfa Antibiotics Nausea/vomiting 10/27/2009 documented as of this encounter (statuses as of 06/27/2024) Medications TYLENOL 325 MG PO TABS 650mg [...] OF BREATH OR WHEEZING 04/14/20 22 Active Torsemide 10 MG Oral Tablet (Demadex)Indicati [...] ONCE A MONTH FOR INJECTION 12 Each 06/27/19 25 Active BD Luer-Vicky Syringe 22G X 1-1/2" 3 MLIndications:Vit capps B12 deficiency (dietary) anemia USE ONCE A MONTH FOR INJECTION 12 Each 05/30/20 23 2024 Disconti nued(Ref ill) Torsemide 10 MG Oral Tablet (Demadex) Take 2 Tablets by mouth daily. 180 Tablet 3 4 7:13 AM EST 10/23/19 24 2024 Disconti nued(Med ication List Clean Up) BD Luer-Vicky Syringe 22G X 1-1/2" 3 MLIndications:Vit capps B12 deficiency (dietary) anemia USE ONCE A MONTH FOR INJECTION 12 Each 06/27/19 25 2024 Disconti nued(Ref ill) documented as of this encounter (statuses as of 06/27/2024) Active Problems Problem Noted Date Diagnosed Date [...] as of this encounter (statuses as of 06/27/2024) Resolved Problems Problem Noted Date Diagnosed Date Resolved Date Encounter for examination fo r normal comparison and control in clinical research program 12/01/2015 02/08/2016 Overview (09/20/2020): [employer] Product Surveillance Registry PI: Radha Mcpherson MD Diagnosis changed due to Research Module. Go to Snapshot for study details. Old myocardial infarction 11/25/2009 Overview (09/14/2015): ICD-10 update of inactive term Osteoporosis 09/08/2022 Overview (09/08/2022): Duplicate diagnosis on problem list. documented as of this encounter (statuses as of 06/27/2024) Immunizations Name Administration Dates Next Due COVID-19 mRNA, LNP-s, No Pre serve, 2-Dose Series ([employer]) 03/01/2021,08/16/2020,07/19/2020 Covid-19, Mrna, Lnp-s, Pf, B ivalent, 30 Mcg, IM, 12 yrs and above ([employer]) 03/23/2022 Pneumococcal Conjugate Vacc, 13 Valent [...] encounter Miscellaneous Notes * Telephone Encounter - Radha Flood, [facility] - 06/27/2024 5:21 PM EST Rx resent to pharmacy as requested. Thank you, Radha Flood, PharmD Clinical Pharmacist [facility] ([facility]) [phone] 06/27/2024, 5:21 PM * Telephone Encounter - Lindsey Garcia CPhT - 06/27/2024 2:41 PM EST Pharmacy states BD Luer lol syringe 22G x 1-1/2" 3ML is not available and asking if it can be changed to BD Luer-Vicky 25G 1-1/2" 3ml ([facility] [id number]) as this one is available If agreeable please send script for 90 days supply to [facility] Thank you, Lindsey Garcia CphT Mill Operator III [facility]) 06/27/24 * Telephone Encounter - Jodie Chaudhari PA-C - 06/27/2024 8:13 AM ESTSigned Prescriptions: Disp Refills BD Luer-Vicky Syringe 22G X 1-1/2" 3 ML 12 Each0 Sig: USE ONCE A MONTH FOR INJECTION Authorizing Provider: JODIE CHAUDHARI Refused Prescriptions: Disp Refills BD Luer-Vicky Syringe 22G X 1-1/2" 3 ML 12 Each0 Sig: USE ONCE A MONTH FOR INJECTION Refused By: ABIOLA MASCORRO Reason for Refusal: Manage d by another physician * Telephone Encounter - Rosemary Cunningham NA - 06/26/2024 3:27 PM EST Did you pend patient's preferred pharmacy and medication before forwarding?yes Pharmacy: [facility] Pending Prescriptions: Disp Refills BD Luer-Vicky Syringe 22G X 1-1/2" 3 ML 12 Each0 Sig: USE ONCE A MONTH FOR INJECTION Refused Prescriptions: Disp Refills BD Luer-Vicky Syringe 22G X 1-1/2" 3 ML 12 Each0 Sig: USE ONCE A MONTH FOR INJECTION Refused By: ABIOLA MASCORRO Reason for Refusal: Managed by another physician Last Visit: 01/03/2024 (in office), Visit date not found (telemedicine) Next Visit: 01/02/2025 If no future appointments scheduled, and last appointment is greater than a year ago, please schedule patient for a follow-up appointment Last date the medication was ordered: 05/30/23 Is this request for a controlled substance?No [...] 02:40 PM ALT 12 04/22/2019 02:47 PM * Telephone Encounter - Abiola Mascorro LPN - 06/26/2024 9:38 AM ESTRefused Prescriptions: Disp Refills BD Luer-Vicky Syringe 22G X 1-1/2" 3 ML 12 Each0 Sig: USE ONCE A MONTH FOR INJECTION Refused By: ABIOLA MASCORRO Reason for Refusal: Managed by another physician * Telephone Encounter - Abiola Mascorro LPN - 06/26/2024 9:38 AM EST Prescription is managed by Jodie Chaudhari PA-C documented in this encounter Plan of Treatment Upcoming Encounters Date Type Department Care Team (Late st Contact Info) Description 07/15/2024 2:00 PM EST [facility] [place] 200 [facility] [place] [address] Jodie Chaudhrai PA-C [facility] [place] [place] [facility] [place] [address] 10/20/2024 1:30 PM EDT Imaging Radiology [facility] [address] [place] [address] 10/20/2024 2:20 PM EDT Office Visit Rheumatology [facility] [address] [place] [phone] Tyrell Gutierrez MD [facility] [place] [address] 01/02/2025 2:00 PM EDT Office Visit Hematology/On[facility] [place] [address] [facility] [place] [phone] Susan Wallace CRNP [address] [place] [address] Health Maintenance Due Date Last Done Comments [...] D LEVEL ONCE IN A LIFETIME-USE SMARTSET# [id number] Completed 11/14/2022, 01/02/2022, 10/20/2021, Additional history exists [...] as of this encounter Visit Diagnoses Diagnosis Vitamin B12 deficiency (dietary) anemia Other vitamin B12 deficiency anemia documented in this encounter Care Teams Metal Engineering Process Worker Relationship Specialty Start Date End Date Shannan September CHASE Santoro [address] [place] [address] PCP - General Physician Corporate Travel Agent 09/11/22 documented as of this encounter
--- OUTSIDE RECORDS SUMMARY | 2024-07-29 03:31 | External Medical Summary ---
Author Name Unknown Address Unknown Organization K09:[facility] [place] [address] Laboratory Report Ordering Provider Test Date Status 07/15/2024 15:37:04 Final Observation Date Value Abnormality Reference (Units ) Status WBC, Total 07/15/2024 15:37:04 4.27 4.00-10.8 0 (K/uL) Final RBC 07/15/2024 15:37:04 3.22 3.85-5.15 (M/uL) Final Hemoglobin 07/15/2024 15:37:04 9.8 Below low normal 12 .0-15.3 (g/dL) Final HCT 07/15/2024 15:37:04 31.9 Below low normal 36. 0-45.2 (%) Final MCV 07/15/2024 15:37:04 99.1 81.5-97.5 (fL) Final MCH 07/15/2024 15:37:04 30.4 27.0-34.0 (pg) Final MCHC 07/15/2024 15:37:04 30.7 32.0-36.0 (g/dL) Final RDW 07/15/2024 15:37:04 13.5 11.5-15.5 (%) Final Platelets 07/15/2024 15:37:04 178 140-400 (K /uL) Final MPV 07/15/2024 15:37:04 9.5 6.6-11.1 ( fL) Final Performing Location [facility] [place] [address]
--- OUTSIDE RECORDS SUMMARY | 2024-07-29 03:32 | External Medical Summary | Summary of Care ---
Author Name Unknown Organization [facility] Address [address] [place] [address] Phone [phone] Care Team Providers Care Nursing Instructor Name Role Phone Jodie Campbell PA-C Primary Care Provider [phone] Reason for Visit * Reason Comments Medication Refill Encounter Details Date Type Department Care Team (Late st Contact Info) Description 06/11/2024 Refill Family Practice [facility] 200 [facility] [place] [address] Jodie Campbell PA-C 200 [facility] [place] [address] Allergies Active Allergy Reactions Criticality Noted Date [...] clinical research program 12/01/2015 02/08/2016 Overview (09/20/2020): [employer] Product Surveillance Registry PI: Radha Mcpherson MD Diagnosis changed due to Research Module. Go to Snapshot for study details. Old myocardial infarction 11/25/2009 Overview (09/14/2015): ICD-10 update of inactive term Osteoporosis 09/08/2022 Overview (09/08/2022): Duplicate diagnosis on problem list. documented as of this encounter (statuses as of 06/11/2024) Immunizations Name Administration Dates Next Due COVID-19 mRNA, LNP-s, No Pre serve, 2-Dose Series ([employer]) 03/01/2021,08/16/2020,07/19/2020 Covid-19, Mrna, Lnp-s, Pf, B ivalent, [...] encounter Miscellaneous Notes * Telephone Encounter - Shasha Acuna - 06/11/2024 3:05 PM ESTRefused Prescriptions: Disp Refills Levothyroxine Sodium 112 MCG Oral Tablet (*90 Tab*0 Sig: Take 1Tablet by mouth in the morning.Refused By: Sarina ACUNA for Refusal: Duplicate Request------- documented in this encounter Plan of Treatment Upcoming Encounters Date Type Department Care Team (Late st Contact Info) Description 10/20/2024 1:30 PM EDT Imaging Radiology [facility] [address] [place] [phone] 10/20/2024 2:20 PM EDT Office Visit Rheumatology [facility] [address] [facility] [place] [address] Tyrell Gutierrez MD [address] [facility] [place] [address] 01/02/2025 2:00 PM EDT Office Visit Hematology/Oncology [facility] 200 [facility] [place] [phone] Susan Wallace CRNP [address] [place] [address] Health Maintenance Due Date [...] D LEVEL ONCE IN A LIFETIME-USE SMARTSET# [id number] Completed 11/14/2022, 01/02/2022, 10/20/2021, Additional history exists [...] filedocumented as of this encounter Care Teams Nursing Instructor Relationship Specialty Start Date End Date ShannanSeptember Yvan, HANSC [address] [place] [address] PCP - General Physician Clay Roaster 09/11/22 documented as of this encounter
--- OUTSIDE RECORDS SUMMARY | 2024-07-29 03:32 | External Medical Summary | Summary of Care ---
Author Name Unknown Organization [facility] Address [address] [place] [address] Phone [phone] Care Team Providers Care Lodge Sales Associate Name Role Phone Jodie Campbell PA-C Primary Care Provider [phone] Reason for Visit * Reason Comments Medication Refill Encounter Details Date Type Department Care Team (Late st Contact Info) Description 06/03/2024 Refill Family Practice [facility] 200 [facility] [place] [address] Jodie Campbell PA-C 200 [facility] [place] [address] Allergies Active Allergy Reactions Criticality Noted Date Comments Diazepam Low 04/12/2022 Other reaction(s): FEELS WEIRD Doxycycline 08/15/2022 Other reaction(s): sick to stomach Erythromycin Base Nausea/vomiting 10/27/2009 Penicillins Hives 10/27/2009 Sulfa Antibiotics Nausea/vomiting 10/27/2009 documented as of this encounter (statuses as of 06/06/2024) Medications TYLENOL 325 MG PO TABS 650mg [...] 2 times a day. 180 Tablet 3 4 12:10 PM EDT 09/18/19 24 Active Vitamin D 125 MCG [...] mouth in the morning. 90 Tablet 3 4 11:11 AM EDT 03/17/20 24 Active Apixaban 2.5 MG Oral [...] as of this encounter (statuses as of 06/06/2024) Active Problems Problem Noted Date Diagnosed Date [...] as of this encounter (statuses as of 06/06/2024) Resolved Problems Problem Noted Date Diagnosed Date Resolved Date Encounter for examination fo r normal comparison and control in clinical research program 12/01/2015 02/08/2016 Overview (09/20/2020): [employer] Product Surveillance Registry PI: Radha Mcpherson MD Diagnosis changed due to Research Module. Go to Snapshot for study details. Old myocardial infarction 11/25/2009 Overview (09/14/2015): ICD-10 update of inactive term Osteoporosis 09/08/2022 Overview (09/08/2022): Duplicate diagnosis on problem list. documented as of this encounter (statuses as of 06/06/2024) Immunizations Name Administration Dates Next Due COVID-19 mRNA, LNP-s, No Pre serve, 2-Dose Series ([employer]) 03/01/2021,08/16/2020,07/19/2020 Covid-19, Mrna, Lnp-s, Pf, B ivalent, [...] encounter Miscellaneous Notes * Telephone Encounter - Elijah Dominguez DO [...] 06/06/2024 12:16 PM EST Received message from [facility] regarding patient needing an appointment. Call Placed, Left message on voicemail to call back and schedule appointment. Thank you, Mirna Hankins CPhT Television News Producer [facility] ([facility]) 06/06/2024,12:16 PM * Telephone Encounter - Belen Shepard [facility] - 06/05/2024 9:42 AM ESTPending Prescriptions: Disp Refills Levothyroxine Sodium 112 MCG Oral Tablet (*90 Tab*0 Sig: Take 1 Tablet by mouth in the morning. * Telephone Encounter - Belen Shepard [facility] - 06/05/2024 9:42 AM EST Please contact patient so that an appointment can be scheduled with her PRIMARY CARE provider before this refill can be authorized. After contacting patient, please forward request to Jodie Campbell PA-C. Last Visit: 09/11/2022 (in office), Visit date not found (telemedicine) Next Visit: Visit date not found Belen Barcenas, PharmD Clinical Pharmacist [facility] [phone] 06/05/2024 9:42 AM documented in this encounter Plan of Treatment Upcoming Encounters Date Type Department Care Team (Late st Contact Info) Description 10/20/2024 1:30 PM EDT Imaging Radiology [facility] [address] [place] [phone] 10/20/2024 2:20 PM EDT Office Visit Rheumatology [place] [address] [employer] [place] [address] Tyrell Gutierrez MD [address] [employer] [place] [address] 01/02/2025 2:00 PM EDT Office Visit Hematology/Oncology [facility] 200 [facility] [place] [address] Susan Wallace CRNP [address] [facility] [place] [address] Health Maintenance Due Date Last Done [...] D LEVEL ONCE IN A LIFETIME-USE SMARTSET# [id number] Completed 11/14/2022, 01/02/2022, 10/20/2021, Additional history exists [...] filedocumented as of this encounter Care Teams Lodge Sales Associate Relationship Specialty Start Date End Date Shannan September CHASE Santoro [address] [place] [address] PCP - General Physician Power And Recovery Superintendent 09/11/22 documented as of this encounter
[2024-07-29 06:56] LABS: Basophils # (auto) 0.03 K/uL (0.00-0.20); Basophils % (auto) 0.8 %; Eosinophils # (auto) 0.37 K/uL (0.00-0.50); Eosinophils % (auto) 9.3 %; Hematocrit (blood only) 27.5 % (37.0-47.0); Hemoglobin 8.7 g/dl (12.0-16.0); Immature Granulocytes # (auto) 0.02 K/uL (0.01-0.20); Immature Granulocytes % (auto) 0.5 %; Lymphocytes # (auto) 0.69 K/uL (1.20-3.40); Lymphocytes % (auto) 17.3 %; Mean Corpuscular Hemoglobin 29.9 pg (25.0-34.0); Mean Corpuscular Hgb Conc 31.6 g/dL (32.0-36.0); Mean Corpuscular Volume 94.5 fL (80.0-100.0); Mean Platelet Volume 9.7 fL (9.4-12.4); Monocytes # (auto) 0.55 K/uL (0.11-0.59); Monocytes % (auto) 13.8 %; Neutrophils # (auto) 2.32 K/uL (1.40-6.50); Neutrophils % (auto) 58.3 %; Platelet Count 149 K/uL (130-400); RDW Coefficient of Variation 13.3 % (11.5-14.5); RDW Standard Deviation 45.8 fL (36.4-46.3); Red Blood Count 2.91 M/uL (4.20-5.40); White Blood Count 3.98 K/ul (4.8-10.8)
[2024-07-29 07:15] LABS: BUN Creatinine Ratio 14.3 (10-20); Calcium 8.9 mg/dl (8.6-10.3); Creatinine Clr Calc Pharmacy 32.5 ml/min
[2024-07-29] MEDS: FLUTICASONE FUROATE 200MCG 14 PUFFS/INHALER INH SCH (09:00)
[2024-07-29] MEDS: UMECLIDINIUM/VILANTEROL 62.5/25MCG 7 PUFFS/INHALER INH SCH (09:01)
[2024-07-29] MEDS: PANTOprazole 40 MG/10 ML SYR IV SCH (09:02)
--- NOTE | 2024-07-29 09:06 | Ultrasound Report ---
US liver CLINICAL HISTORY: abnormal CT GB GB fossa COMPARISON STUDY: CT yesterday FINDINGS: Liver demonstrates mild diffuse heterogeneity with no focal mass seen. There is trace ascit es adjacent to the liver. Pancreas is obscured. There is normal direction of flow in the portal vein and visualized hepatic veins. Common bile duct measures normal diameter of 4 mm. Gallbladder is contr acted but otherwise unremarkable. No gallstones seen. Right kidney shows no hydronephrosis. IMPRESSION: 1. Mild heterogeneity of the liver could represent mild fatty liver or early cirrhosis. No focal live r mass seen. 2. Contracted gallbladder. Otherwise the gallbladder is unremarkable. ACT 112: Negative or not required by law. Electronically signed by: Yuriy Farias M.D. 07/29/2024 9:05 AM
--- NOTE | 2024-07-29 09:59 | Gastrointestinal Consultation ---
Date of Consultation July 29, 2024 Assessment & Plan (1) Anemia: (2) Liver lesion: Plan Patient is an 78 year old female admitted with symptomatic anemia in the setting of recurrent nosebleeds. nosebleeds are likely playing a factor in her anemia. Upon evaluation, her CT imaging also had shown a hepatic lesion, though this was not seen on US. Question of ileus on CT with moderate/large volume of stool/gas in colon. - consider ENT evaluation of epistaxis. - follow hgb/hct and transfuse as needed. - continue with protonix 40mg IV bid. - continue to hold eliquis. Patient tells me that her last dose was 07/28 in the AM. - will hold off on any endoscopic evaluation at this time given eliquis use. will continue to monitor. - check AFP given liver lesion. - patient will likely need further imaging to further evaluate liver lesion. - start miralax 17gm dialy. can titrate as needed for her bowels. - further recommendations to follow, see MD append. Supervising Physician Co-Signing Physician Notes Asked to see for anemia and dark stool. However patient has a history of chronic nosebleeds. Certainly ingested blood could account for melena. Peptic ulcer disease upper GI AVMs not excluded. The CT scan did suggest gastritis or diffuse gastritis however I reviewed this with the radiologist there is a lack of gastric distention which can give a very similar pattern. Also in regards to the liver lesion. They believe that the CT report is actually misprint. He was describing the gallbladder. The ultrasound shows no mass. This does not require further evaluation or intervention. I note from the lumber carrier notes that they think she is at significant risk for endoscopy. We will follow her counts at present. Hold the Eliquis. Based on clinical pattern we could consider an endoscopy if it was felt to be important in regards to elucidating an intervening of bleeding though once again her nosebleeds are likely source. PPI recommended. Will follow-up History of Present Illness Reason for Consultation: gastritis on CT, progressive anemia Requesting Physician: Danilo Link MD Attending Physician: Larry Peterson MD History of Present Illness Patient is an 78 year old female with a past medical history of atrial fibrillation on Eliquis (last dosage was 07/28 AM), history of COPD on 2 L nasal cannula oxygen at baseline at home, who presented to the ED on 07/28 with chief complaint of worsening shortness of breath and bilateral lower extremity edema over the past month. She also reports worsening issues with nosebleeds over the past month. She tells me that nasal bleeding can be heavy at times. Patient states that she feels the nosebleeds are caused by her oxygen use as well as the dry air. On arrival here to the ED, the patient was hemodynamically stable, though her hgb was found to be 8.7. She tends to move her bowels daily, though admits to needing stool softeners at times. she denies any nausea, vomiting, abdominal pain, changes in bowels, melena, or brbpr. she tells me that her last colonoscopy and EGD were done about 3 years ago through [facility] and were unremarkable though I do not have these records. CT 07/28/24 A nonspecific 9.6 x 7.5 cm hepatic isodense mass like structure seen projecting centrally along the inferior border of the liver. The need for additional imaging/dedicated contrast MRA exam to be determined clinically. Hepatic steatosis. Nonspecific periportal edema. Diffuse gastric mucosal edema predominantly of the antrum suggestive of gastritis/antral gastritis. Recommend clinical correlation. Segmental small bowel adynamic ileus. Moderately large volume stool/gas in the colon. Gas filled distended rectosigmoid. Likely a contracted gallbladder present with mild wall thickening/enhancement. No biliary/pancreatic ductal dilatation. Mesenteric edema. Diffuse body wall edema/anasarca. An unchanged 1.6 cm right adrenal mass, likely adenoma with punctate foci of calcifications. US 07/29/24 Mild heterogeneity of the liver could represent mild fatty liver or early cirrhosis. No focal liver mass seen. Contracted gallbladder. Otherwise the gallbladder is unremarkable. Allergies Allergy/AdvReac Type Severity Reaction Status Date / Time Penicillins Allergy Intermediate HIVES; Verified 07/28/24 19:03 TAKES CEPHALEXIN W/O PROBLEM Sulfa (Sulfonamide Allergy Intermediate NAUSEA, Verified 07/28/24 19:03 Antibiotics) ITCHY, AND "FUNNY THROAT" Macrolide Antibiotics AdvReac Intermediate "MYCIN Verified 07/28/24 19:03 ANTIBIOTICS": ITCHY AND NAUSEA diazepam AdvReac Mild FEELS WEIRD Verified 07/28/24 19:03 Home Medications Medication Instructions Recorded Confirmed Type metoprolol succinate 25 mg 25 mg PO QPM #30 tabs 04/30/13 07/28/24 History tablet,extended release 24 hr (Toprol XL) docusate sodium 100 mg capsule 100 mg PO HS PRN constation 15 09/26/16 07/28/24 History days #30 caps anastrozole 1 mg tablet (Arimidex) 1 mg PO QDD 90 days #90 tabs 10/04/17 07/28/24 History calcium 600 mg (as carbonate)-vit 1 tab PO QDD #0 tabs 10/04/17 07/28/24 History D3 20 mcg (800 unit) chewable tablet (Caltrate plus D) Portable Oxygen #1 ea 10/10/21 07/28/24 Rx cholecalciferol (vitamin D3) 25 25 mcg PO QDD 11/16/21 07/28/24 History mcg (1,000 unit) capsule famotidine 20 mg tablet (Pepcid AC) 20 mg PO BID 10/16/22 07/28/24 History sacubitril 49 mg-valsartan 51 mg 1 tab PO BID 10/16/22 07/28/24 History tablet (Entresto) levothyroxine 112 mcg capsule 112 mcg PO DAILYBB 05/15/23 07/28/24 History digoxin 125 mcg (0.125 mg) tablet 125 mcg PO 4XWK 07/19/23 07/28/24 History torsemide 20 mg tablet 20 mg PO QAM 07/19/23 07/28/24 History albuterol sulfate 90 mcg/actuation 2 puff inhalation QID PRN 07/24/23 07/28/24 R x aerosol inhaler (Ventolin HFA) shortness of breath or wheezing #3 Inhalers apixaban 2.5 mg tablet (Eliquis) 2.5 mg PO BID #180 tabs 11/20/23 07/28/24 Rx budesonide 160 mcg-glycopyr 9 2 inh inhalation BID #32.1 grams 12/10/23 07/28/24 Rx mcg-formot 4.8 mcg/actuation HFA inhaler (Breztri Aerosphere) spironolactone 25 mg tablet 12.5 mg PO QAM 05/06/24 07/28/24 History acetaminophen 325 mg tablet 650 mg PO QID PRN Pain 07/28/24 07/28/24 History cyanocobalamin (vitamin B-12) 1,000 mcg IM MONTHLY 07/28/24 07/28/24 History 1,000 mcg/mL injection solution Patient History Social History Smoking Status: Former smoker Age Started Using Tobacco: 16; Age Quit Using Tobacco: 63; packs per day: 0.5; Second Hand Exposure: Yes; Hx Alcohol Use: No Hx Substance Use: No Preferred Language: Upper Sorbian Communication Ability: Effective Visual Impairment: No Limitations Hearing Ability: Normal Debt Counselor Required: No Beliefs That Will Affect Care: None marital status: Current Living Situation: Spouse current occupational status: retired Other Information That Helps Us Care for You: No Feels Safe at Home: Yes Safety Concerns: Feels Safe At This Time Assistive Devices: Oxygen - Continuous Review of Systems Review of Systems: All systems reviewed & are unremarkable except as noted in HPI & below Physical Exam Constitutional: WD/WN, vitals as above Respiratory: normal respiratory effort, lungs clear to auscultation Cardiovascular: Rate/Rhythm: regular rate and regular rhythm Gastrointestinal (Abdomen): normal bowel sounds, soft, nontender, no hepatosplenomegaly Psychiatric: Orientation: alert and oriented x 3 Affect: euthymic affect Results & Data Vital Signs (Past 12 Hours) Vital Signs Temp Pulse Pulse Resp BP Pulse Ox O2 Del Method 07/29/24 09:50 73 07/29/24 09:20 Nasal Cannula 07/29/24 08:09 98.1 F 84 18 91/55 L 97 Nasal Cannula 07/29/24 03:04 98.1 F 71 18 87/59 L 98 Room Air 07/29/24 00:22 72 07/29/24 00:09 Nasal Cannula 07/28/24 23:42 97.2 F L 73 17 96/50 L 95 Nasal Cannula O2 Flow Rate 07/29/24 09:50 07/29/24 09:20 5 07/29/24 08:09 5 07/29/24 03:04 07/29/24 00:22 07/29/24 00:09 4 07/28/24 23:42 4 Coding Level of Care Code 50637 INT INP/OBS CARE 2/55MIN Diagnoses Anemia D64.9 Liver lesion K76.9
--- NOTE | 2024-07-29 10:06 | Cardiology Consultation ---
Date of Consultation July 29, 2024 Assessment & Plan (1) SOB (shortness of breath): (2) Elevated troponin: (3) Chronic respiratory failure with hypoxia: (4) Anemia: (5) Atrial fibrillation: (6) CHF (congestive heart failure): Plan Pmhx: 1. Status post mitral valve repair with maze procedure (01/2012). 2. Echocardiogram, 09/2020, with mild left ventricular dysfunction and an EF in the range of 45% with akinesis of the anterior septum and distal anterior wall, mild RV dysfunction with a TAPSE of 1.3 cm, and mild to moderate eccentric mitral regurgitation with mild pulmonary hypertension. - Echocardiogram, 05/2022, with severe RV and LV dysfunction, severe mitral regurgitation, severe tricuspid regurgitation, and moderate pulmonary hypertension likely underestimated due to the severity of her RV dysfunction. 3. Paroxysmal atrial fibrillation on chronic Coumadin anticoagulation, status post cardioversion 02/2012, remaining in sinus rhythm on amiodarone until it was stopped. a. Recurrent atrial fibrillation status post cardioversion 05/2013 and 09/2015 while on amiodarone therapy (currently off amiodarone therapy). b. No evidence of epicardial coronary artery disease 07/2011 by cardiac catheterization. c. Left atrial appendage was oversewn at the time of her mitral valve repair. 4. Hypothyroidism. 5. Anemia. 6. Status post dual chamber [employer] defibrillator 11/2015, followed in our device clinic. 7. Episode of atrial tachycardia at a rate of 130 beats per minute, 09/2016 status post cardioversion. 8. Episode of atrial tachycardia rate 134, on 12/2016 status post cardioversion. 9. Status post repeat AFib and A tach ablation 03/2017 at [facility] in [facility]. 10. Recurrent atrial tachycardia status post tach ablation and left atrial flutter mapping and ablation, 01/23/2018. Ms. Saini is still feeling sob. Her leg edema has improved with furosemide. Her bnp was elevated on admission and is chronically so. She can continue with gentle diuresis as her blood pressure can tolerate. Her kidney function is stable and her blood pressure generally runs mildly hypotensive. Her troponin elevated mildly, likely due to demand ischemia. She is not having any anginal symptoms. An echo is pending. Her rate is controlled and she is pacing on the monitor. Some of her sob may be due to her anemia. There is concern for GI bleed and/or epistaxis. With her complex medical history, she is high risk for anesthesia. Her fluid balance is improving and she is not congested on CXR. Other than the pending echo, there is not further cardiac testing I would recommend preop should GI decide to take her for a scope. She is high risk for stroke in the setting of afib but given her probable bleeding, her anticoagulation should be held for now. Her stroke risk is tempered by her oversewn atrial appendage. History of Present Illness Attending Physician: Larry Peterson MD History of Present Illness Ms. Saini presented to the cardiology clinic yesterday afternoon complaining of feeling very unwell with aches and chills. She was febrile. She was referred to the ED. Her viral panel is negative and there's no evidence of pneumonia. She is however newly anemic. She denies melena although she noted some darker stools a couple of weeks ago. She has had some short lived nose bleeds. She is not having chest pain. She has required more oxygen than her usual amount. Her legs were more swollen but feel much better today after Lasix administered yesterday. She is pacing on the monitor. Allergies Allergy/AdvReac Type Severity Reaction Status Date / Time Penicillins Allergy Intermediate HIVES; Verified 07/28/24 19:03 TAKES CEPHALEXIN W/O PROBLEM Sulfa (Sulfonamide Allergy Intermediate NAUSEA, Verified 07/28/24 19:03 Antibiotics) ITCHY, AND "FUNNY THROAT" Macrolide Antibiotics AdvReac Intermediate "MYCIN Verified 07/28/24 19:03 ANTIBIOTICS": ITCHY AND NAUSEA diazepam AdvReac Mild FEELS WEIRD Verified 07/28/24 19:03 Home Medications Medication Instructions Recorded Confirmed Type metoprolol succinate 25 mg 25 mg PO QPM #30 tabs 04/30/13 07/28/24 History tablet,extended release 24 hr (Toprol XL) docusate sodium 100 mg capsule 100 mg PO HS PRN constation 15 09/26/16 07/28/24 History days #30 caps anastrozole 1 mg tablet (Arimidex) 1 mg PO QDD 90 days #90 tabs 10/04/17 07/28/24 History calcium 600 mg (as carbonate)-vit 1 tab PO QDD #0 tabs 10/04/17 07/28/24 History D3 20 mcg (800 unit) chewable tablet (Caltrate plus D) Portable Oxygen #1 ea 10/10/21 07/28/24 Rx cholecalciferol (vitamin D3) 25 25 mcg PO QDD 11/16/21 07/28/24 History mcg (1,000 unit) capsule famotidine 20 mg tablet (Pepcid AC) 20 mg PO BID 10/16/22 07/28/24 History sacubitril 49 mg-valsartan 51 mg 1 tab PO BID 10/16/22 07/28/24 History tablet (Entresto) levothyroxine 112 mcg capsule 112 mcg PO DAILYBB 05/15/23 07/28/24 History digoxin 125 mcg (0.125 mg) tablet 125 mcg PO 4XWK 07/19/23 07/28/24 History torsemide 20 mg tablet 20 mg PO QAM 07/19/23 07/28/24 History albuterol sulfate 90 mcg/actuation 2 puff inhalation QID PRN 07/24/23 07/28/24 Rx aerosol inhaler (Ventolin HFA) shortness of breath or wheezing #3 Inhalers apixaban 2.5 mg tablet (Eliquis) 2.5 mg PO BID #180 tabs 11/20/23 07/28/24 Rx budesonide 160 mcg-glycopyr 9 2 inh inhalation BID #32.1 grams 12/10/23 07/28/24 Rx mcg-formot 4.8 mcg/actuation HFA inhaler (Breztri Aerosphere) spironolactone 25 mg tablet 12.5 mg PO QAM 05/06/24 07/28/24 History acetaminophen 325 mg tablet 650 mg PO QID PRN Pain 07/28/24 07/28/24 History cyanocobalamin (vitamin B-12) 1,000 mcg IM MONTHLY 07/28/24 07/28/24 History 1,000 mcg/mL injection solution Patient History Social History Smoking Status: Former smoker Age Started Using Tobacco: 16; Age Quit Using Tobacco: 63; packs per day: 0.5; Second Hand Exposure: Yes; Hx Alcohol Use: No Hx Substance Use: No Preferred Language: Sammarinese Communication Ability: Effective Visual Impairment: No Limitations Hearing Ability: Normal Beer Runner Required: No Beliefs That Will Affect Care: None marital status: Current Living Situation: Spouse current occupational status: retired Other Information That Helps Us Care for You: No Feels Safe at Home: Yes Safety Concerns: Feels Safe At This Time Assistive Devices: Oxygen - Continuous Review of Systems Review of Systems: All systems reviewed & are unremarkable except as noted in HPI & below Physical Exam Constitutional: WD/WN, vitals as above Respiratory: normal respiratory effort, lungs clear to auscultation Cardiovascular: RRR, no murmur, no edema Skin: no rashes, warm and dry Neurologic: moves all extremities and awake Psychiatric: A+Ox3, euthymic affect Results & Data Vital Signs (Past 12 Hours) Vital Signs Temp Pulse Pulse Resp BP Pulse Ox O2 Del Method 07/29/24 09:50 73 07/29/24 09:20 Nasal Cannula 07/29/24 08:09 36.7 C 84 18 91/55 L 97 Nasal Cannula 07/29/24 03:04 36.7 C 71 18 87/59 L 98 Room Air 07/29/24 00:22 72 07/29/24 00:09 Nasal Cannula 07/28/24 23:42 36.2 C L 73 17 96/50 L 95 Nasal Cannula O2 Flow Rate 07/29/24 09:50 07/29/24 09:20 5 07/29/24 08:09 5 07/29/24 03:04 07/29/24 00:22 07/29/24 00:09 4 07/28/24 23:42 4 (5) Atrial fibrillation Atrial fibrillation type: unspecified Qualified Code(s): I48.91 - Unspecified atrial fibrillation (6) CHF (congestive heart failure) Heart failure chronicity: acute on chronic Heart failure type: systolic Qualified Code(s): I50.23 - Acute on chronic systolic (congestive) heart failure
--- NOTE | 2024-07-29 13:43 | Hospitalist Progress Note ---
Date of Service July 29, 2024 Assessment & Plan (1) SOB (shortness of breath): Plan: Shortness of breath Underlying pulmonary hypertension, Chronic respiratory failure secondary to COPD on home O2 hx chronic systolic heart failure status post ICD (EF 30 to 35%, TTE 2023), Upper GI bleed -likely 2/2 anemia -GI consulted, appreciate recs -continue protonix -discussed case with ENT, rec conservative management at this time (mupriocen bid, normal saline spary 4x daily, afrin prn for bleeding) -cardiology consulted, appreciate reecs -on Eliquis Rx for A-fib status post ablation status post maze procedure -continue breathing treatments, start IS and flutter valve Liver Mass -unclear etiology -concerning however with recent weight loss, BMI of 17, US unrevealing -unable to have MRI due to pacemaker Plan: -check AFP -discuss with oncology regarding imaging, tissue dx may be difficult Gastritis Adynamic Ileus -noted on imaging -progress diet as tolerated, clear liquids for now -bisacodyl suppository prn -start D5LR -hold opioids, other anticholinergic medications UGIB abdominal pain in the setting of Eliquis Rx valvular heart disease (moderate TR, mild MS/MR), history MVR R breast cancer status post surgery on anastrozole hypothyroidism, euthyroid as of recent outpatient TSH -Malnutrition Re: Low BMI -past tobacco abuse Insomnia -start melatonin 3mg at bedtime Feeding/fluids: clear liquids Analgesia: tylenol Sedation: na Thromboprophylaxis: start SCDs Head up position: na Ulcer prophylaxis: na Glycemic control: na Spontaneous breathing trial: on 5L, 4L chronically Bowel care: bisacodyl suppository prn Indwelling catheter removal: na Deescalation of antibiotics: na I spent a total of 55 minutes in direct patient care, including [id number] time with the patient and/or family, reviewing medical records, ordering and reviewing diagnostic tests, and coordinating care with other healthcare providers. This time includes: history taking, physical examination, medical decision making, counseling, ECG interpretation, imaging interpretation, lab interpretation, orders, and education, excluding time spent in the performance of separately billed services. Admission and Anticipated Discharge Date Admission Date: July 28, 2024 Subjective patient seen and examined at bedside. Patient is doing okay today. She states she has had a significant amount of weight loss over the past couple months. She states she has no appetite either. She states she is not eating or drinking well. She asked if she can go home and follow-up outpatient, she does not want to be in the hospital. I explained to her that her low blood count, hypotension, concern for an upper GI bleed, nosebleed, new liver mass means it is medically recommended for her to stay in the hospital at this time. She is agreeable with the plan. Review of Systems Review of Systems: CONSTITUTIONAL: weight loss, fatigue EYES: Patient denies any visual symptoms. EARS, NOSE, AND THROAT: No difficulties with hearing. No symptoms of rhinitis or sore throat. CARDIOVASCULAR: Patient denies chest pains, palpitations, orthopnea and paroxysmal nocturnal dyspnea. RESPIRATORY: SOB GI: No nausea, vomiting, diarrhea, constipation, abdominal pain, hematochezia or melena. : No urinary hesitancy or dribbling. No nocturia or urinary frequency. No abnormal urethral discharge. MUSCULOSKELETAL: No myalgias or arthralgias. NEUROLOGIC: No chronic headaches, no seizures. Patient denies numbness, tingling or weakness. PSYCHIATRIC: Patient denies problems with mood disturbance. No problems with anxiety. ENDOCRINE: No excessive urination or excessive thirst. DERMATOLOGIC: Patient denies any rashes or skin changes. Physical Exam Physical Exam: Gen: A&O 3 NAD, significant cachexia noted HEENT: NCAT, EOMI, not icteric. External ears normal. No rhinorrhea. Moist mucous membranes. Neck: Supple, full range of motion, no observable masses, No meningeal sign. Lungs: No Respiratory distress. CV: RRR, no edema. Abdomen: Soft, nondistended, No rebound tenderness. MSK: No joint swelling, no redness. Skin: No rashes, petechiae, lesions. Normal color per patient. Neuro: Normal Gait, Grossly intact. Psych: Appropriate for situation. Results & Data Results & Data Vital Signs (Past 12 Hours) Vital Signs Temp Pulse Pulse Resp BP Pulse Ox O2 Del Method 07/29/24 11:12 90/52 L 07/29/24 10:58 36.6 C 65 17 80/49 L 98 Nasal Cannula 07/29/24 09:50 73 07/29/24 09:20 Nasal Cannula 07/29/24 08:09 36.7 C 84 18 91/55 L 97 Nasal Cannula 07/29/24 03:04 36.7 C 71 18 87/59 L 98 Room Air O2 Flow Rate 07/29/24 11:12 07/29/24 10:58 5 07/29/24 09:50 07/29/24 09:20 5 07/29/24 08:09 5 07/29/24 03:04 Laboratory Results -personally reviewed, decreaseing leukotyosis, Hgb and troponins noted, decrease in Hgb likely 2/2 epistaxis and likely upper GI bleed Medications Administered Fluticasone Furoate (Fluticasone Furoate 200mcg 14 Puffs/Inhaler) 1 puffs INH QAM [facility] Stop: 08/28/24 08:59 Last Admin: 07/29/24 09:00 Dose: 1 puffs Documented By: ANNA Pantoprazole Sodium (Protonix) 40 mg in 10 mls @ 5 mls/min IV BID [facility] Stop: 08/28/24 08:59 Last Admin: 07/29/24 09:02 Dose: 5 mls/min Documented By: ANNA Levothyroxine Sodium (Levothyroxine Sodium 112 Mcg Tablet) 112 mcg PO DAILYBB [facility] Stop: 08/28/24 06:29 Last Admin: 07/29/24 02:44 Dose: 112 mcg Documented By: CHANI Umeclidinium/Vilanterol (Umeclidinium/Vilanterol 62.5/25mcg 7 Puffs/Inhaler) 1 puffs INH QAM [facility] Stop: 08/28/24 08:59 Last Admin: 07/29/24 09:01 Dose: 1 puffs Documented By: ANNA
[2024-07-29] MEDS ORDERED: SODIUM CHLORIDE 0.65% NA SOLN 45 ML (OCEAN) PRN (13:45)
[2024-07-29] MEDS ORDERED: bisacodyL 5 MG TABEC PO PRN (13:51)
[2024-07-29] MEDS: D5W AND LACTATED RINGERS 1,000 ML IV SCH (14:32)
[2024-07-29] MEDS: POLYETHYLENE (MIRALAX) 17 GM PACK PO SCH (14:32)
--- NOTE | 2024-07-29 15:42 | Electrocardiogram Report ---
Test Reason : Blood Pressure : */* mmHG Vent. Rate : 79 BPM Atrial Rate : 41 BPM P-R Int : 168 ms QRS Dur : 162 ms QT Int : 448 ms P-R-T Axes : * 258 73 degrees QTcB Int : 513 ms AV dual-paced rhythm with Premature supraventricular complexes Abnormal ECG When compared with ECG of 23-Jul-2018 18:59, Electronic ventricular pacemaker has replaced Atrial fibrillation Confirmed by Bryson Owen ([id number]) on 07/29/2024 3:42:21 PM Referred By: REFERRED SELF Confirmed By: Bryson Owen
[2024-07-29] MEDS ORDERED: CHOLECALCIFEROL 25 MCG (1000 UNITS) TAB PO SCH (16:30)
[2024-07-29] MEDS: ANASTROZOLE 1 MG TAB PO SCH (17:03)
[2024-07-29] MEDS: CALCIUM 600MG + VIT D 400 IU TAB PO SCH (17:03)
[2024-07-29 18:13] LABS: Hematocrit (blood only) 26.7 % (37.0-47.0); Hemoglobin 8.3 g/dl (12.0-16.0); Mean Corpuscular Hgb Conc 31.1 g/dL (32.0-36.0); Mean Corpuscular Volume 96.4 fL (80.0-100.0); Mean Platelet Volume 9.9 fL (9.4-12.4); Platelet Count 135 K/uL (130-400); RDW Coefficient of Variation 13.3 % (11.5-14.5); RDW Standard Deviation 47.2 fL (36.4-46.3); Red Blood Count 2.77 M/uL (4.20-5.40); White Blood Count 2.72 K/ul (4.8-10.8)
[2024-07-29] MEDS: ACETAMINOPHEN 500 MG TAB PO PRN (20:40)
[2024-07-29] MEDS: MUPIROCIN 2% OINT 22 GM TUBE EXT SCH (20:40)
[2024-07-29] MEDS: MELATONIN 3 MG TAB PO PRN (20:40)
[2024-07-29] MEDS: METOPROLOL SUCC 25MG EXT REL TAB PO SCH (23:14)
--- NOTE | 2024-07-29 23:19 | Communication Note ---
Date of Service: July 29, 2024
[2024-07-29] MEDS: ALBUMIN 25% 12.5 GM/50 ML VIAL IV ONE (23:35)
[2024-07-29] MEDS: ALBUT/IPRATROP 3MG/0.5MG NEB 3 ML VIAL NEB STA (23:46)
[2024-07-30 00:02] LABS: Base Excess VBG 10.6 mEq/L; HCO3 VBG 36 mmol/L; Oxygen Saturation VBG 99.1 %; PCO2 VBG 51 mmHg (38-50); PO2 VBG 125 mmHg; pH VBG 7.46 (7.36-7.41)
[2024-07-30 00:06] LABS: Hematocrit (blood only) 25.2 % (37.0-47.0); Hemoglobin 8.1 g/dl (12.0-16.0)
--- NOTE | 2024-07-30 01:52 | XRay Report ---
Exam(s): XR CXR 1 VIEW EXAM: XR Chest, 1 View CLINICAL HISTORY: low o2. TECHNIQUE: Frontal view of the chest. COMPARISON: 07/28/2024 FINDINGS: Left subclavian dual-chamber pacemaker with AICD. Status post sternotomy. Heart is enlarged. No CHF. Interval development of right- sided pleural effusion with right lung interstitial prominence greatest at lung base suspicious for a pneumonia. No pneumothorax Bones are unchanged. IMPRESSION: New right pleural effusion with right lung interstitial prominence greatest lung base suspicious for pneumonia or aspiration. Electronically signed by: Jermaine Welsh M.D. 07/30/24 01:51 AM
[2024-07-30 06:09] LABS: Hematocrit (blood only) 25.6 % (37.0-47.0); Mean Corpuscular Hemoglobin 30.1 pg (25.0-34.0); Mean Corpuscular Hgb Conc 31.3 g/dL (32.0-36.0); Mean Corpuscular Volume 96.2 fL (80.0-100.0); Mean Platelet Volume 10.1 fL (9.4-12.4); Platelet Count 135 K/uL (130-400); RDW Coefficient of Variation 13.4 % (11.5-14.5); RDW Standard Deviation 47.7 fL (36.4-46.3); Red Blood Count 2.66 M/uL (4.20-5.40); White Blood Count 3.04 K/ul (4.8-10.8)
[2024-07-30 06:17] LABS: BUN Creatinine Ratio 12.2 (10-20); Creatinine Clr Calc Pharmacy 30.1 ml/min; Potassium 3.9 mmol/L (3.5-5.1)
--- NOTE | 2024-07-30 08:57 | Electrocardiogram Report ---
Test Reason : Blood Pressure : */* mmHG Vent. Rate : 120 BPM Atrial Rate : 129 BPM P-R Int : * ms QRS Dur : 148 ms QT Int : 348 ms P-R-T Axes : * -64 99 degrees QTcB Int : 491 ms Intermittent Ventricular paced rhythm, suspected underlying atrial fibrillation with run of wide comp barb tachycardia-aberrant Afib vs VT Left axis deviation Left bundle branch block Abnormal ECG When compared with ECG of 28-Jul-2024 16:50, Compare to prior ECG, there has been a change in the rhythm Confirmed by Anu Anderson (Yvonne) on 07/30/2024 8:57:00 AM Referred By: REFERRED SELF Confirmed By: Anu Anderson
--- NOTE | 2024-07-30 10:33 | Gastroenterology Progress Note ---
Date of Service July 30, 2024 Assessment & Plan (1) Anemia: Plan - follow hgb/hct and transfuse as needed. - continue with protonix 40mg IV bid. - continue to hold eliquis. Patient tells me that her last dose was 07/28 in the AM. - Cardiology is requesting an EGD to be done in light of patient needing to restart anticoagulation. unfortunately, she had breakfast today. Will make NPO at midnight and plan to proceed with an EGD tomorrow. Admission and Anticipated Discharge Date Admission Date: July 28, 2024 Supervising Physician Co-Signing Physician Notes Stable. Discussed procedure of EGD to evaluate for potential upper GI bleed source in light of need for anticoagulation. Suspect it is related to her nosebleeds, but documentation of absence of a ulcer or bleeding AVM reassuring. Will attempt to do her endoscopy first thing in a.m. to facilitate her planned discharge tomorrow. Reviewed with patient she is agreeable. Subjective Patient has not had any further nosebleeding. no nausea, vomiting, abdominal pain, heartburn. stools have been brown. no melena or brbpr. I spoke with Dr. Claudio who is requesting EGD to ensure no bleeding prior to restarting anticoagulation. Review of Systems Review of Systems: All systems reviewed & are unremarkable except as noted in HPI & below Physical Exam Constitutional: WD/WN, vitals as above Respiratory: normal respiratory effort, lungs clear to auscultation Cardiovascular: Rate/Rhythm: regular rate and regular rhythm Gastrointestinal (Abdomen): normal bowel sounds, soft, nontender, no hepatosplenomegaly Psychiatric: Orientation: alert and oriented x 3 Affect: euthymic affect Results & Data Results & Data Vital Signs (Past 12 Hours) Vital Signs Temp Pulse Pulse Resp BP Pulse Ox O2 Del Method 07/30/24 08:28 122 H 123/74 07/30/24 07:58 97.3 F L 67 16 94/57 L 97 Nasal Cannula 07/30/24 07:18 70 07/30/24 06:10 66 88/41 L 94 Nasal Cannula 07/30/24 03:08 98.1 F 71 16 81/50 L 100 Nasal Cannula 07/30/24 00:57 90/47 L 07/30/24 00:12 70 07/29/24 23:12 98.2 F 66 16 74/41 L 97 Nasal Cannula O2 Flow Rate 07/30/24 08:28 07/30/24 07:58 4.0 07/30/24 07:18 07/30/24 06:10 4 07/30/24 03:08 2 07/30/24 00:57 07/30/24 00:12 07/29/24 23:12 2 Coding Level of Care Code 51019 SUB INP/OBS CARE 2/35MIN Diagnoses Anemia D64.9
--- NOTE | 2024-07-30 16:05 | Cardiology Progress Note ---
Date of Service July 30, 2024 Assessment & Plan (1) SOB (shortness of breath): Plan: this appears to have resolved. Suspect related to rapid drop in her hgb. If hgb < 7-8 would consider transfusion. (2) Elevated troponin: Plan: suspect type II due to rapid drop in her hgb and due to myocardial demand. She has not had CP. She is at least an intermediate risk from a cardiac standpoint g iven her underlying LV and RV dysfunction along with MV Repair, but is safer to do this here in the hospital while an inpatient. (3) Chronic respiratory failure with hypoxia: (4) Anemia: Plan: hgb remains around 8; consider transfusion if drops lower. (5) Atrial fibrillation: Plan: PAF wit TBS s/p PPM-given her MV repair along with PAF, I think appropriate to do her GI eval while her so that we can decide when it's ok to safely resume her AC for stroke prevention. (6) CHF (congestive heart failure): Plan: The LV dysfunction is not new according to her old records. I need to co back and review her last OP echo done (the last we have in the hospital was from 2013). her edema has improved with the IV lasix. Plan Pmhx: 1. Status post mitral valve repair with maze procedure (01/2012). 2. Echocardiogram, 09/2020, with mild left ventricular dysfunction and an EF in the range of 45% with akinesis of the anterior septum and distal anterior wall, mild RV dysfunction with a TAPSE of 1.3 cm, and mild to moderate eccentric mitral regurgitation with mild pulmonary hypertension. - Echocardiogram, 05/2022, with severe RV and LV dysfunction, severe mitral regurgitation, severe tricuspid regurgitation, and moderate pulmonary hypertension likely underestimated due to the severity of her RV dysfunction. 3. Paroxysmal atrial fibrillation on chronic Coumadin anticoagulation, status post cardioversion 02/2012, remaining in sinus rhythm on amiodarone until it was stopped. a. Recurrent atrial fibrillation status post cardioversion 05/2013 and 09/2015 while on amiodarone therapy (currently off amiodarone therapy). b. No evidence of epicardial coronary artery disease 07/2011 by cardiac catheterization. c. Left atrial appendage was oversewn at the time of her mitral valve repair. 4. Hypothyroidism. 5. Anemia. 6. Status post dual chamber [employer] defibrillator 11/2015, followed in our device clinic. 7. Episode of atrial tachycardia at a rate of 130 beats per minute, 09/2016 status post cardioversion. 8. Episode of atrial tachycardia rate 134, on 12/2016 status post cardioversion. 9. Status post repeat AFib and A tach ablation 03/[address] [facility] in [facility]. 10. Recurrent atrial tachycardia status post tach ablation and left atrial flutter mapping and ablation, 01/23/2018. Ms. Saini is still feeling sob. Her leg edema has improved with furosemide. Her bnp was elevated on admission and is chronically so. She can continue with gentle diuresis as her blood pressure can tolerate. Her kidney function is stable and her blood pressure generally runs mildly hypotensive. Her troponin elevated mildly, likely due to demand ischemia. She is not having any anginal symptoms. An echo is pending. Her rate is controlled and she is pacing on the monitor. Some of her sob may be due to her anemia. There is concern for GI bleed and/or epistaxis. With her complex medical history, she is high risk for anesthesia. Her fluid balance is improving and she is not congested on CXR. Other than the pending echo, there is not further cardiac testing I would recommend preop should GI decide to take her for a scope. She is high risk for stroke in the setting of afib but given her probable bleeding, her anticoagulation should be held for now. Her stroke risk is tempered by her oversewn atrial appendage. Admission and Anticipated Discharge Date Admission Date: July 28, 2024 Subjective Was seen today in cardiac follow-up. She continues to be off of her anticoagulation due to the significant anemia. She recalls maybe at 1 point over the last several weeks noticing very dark bowel movement but does not recall seeing ana maria blood. She feels comfortable at this time. Earlier this morning when she got out of bed she felt a little bit lightheaded and dizzy and felt her heart rate going fast. Her EKG done shows A-fib with RVR and intermittent ventricular paced rhythm. I am concerned because of her history of the mitral valve repair and the atrial fibrillation that if we hold her anticoagulation for long periods of time we are going to put her at increased risk for stroke. It would be much easier for her if we were able to do her GI workup while she is an inpatient. ECHO reviewed below. Review of Systems Review of Systems: All systems reviewed & are unremarkable except as noted in HPI & below Physical Exam Physical Exam: thin in NAD; lying flat in bed Neck: no JVD Respiratory: no rales noted Cardiovascular: irregular, MR noted Results & Data Vital Signs (Past 12 Hours) Vital Signs Temp Pulse Pulse Resp BP Pulse Ox O2 Del Method 07/30/24 15:38 36.5 C 60 20 86/62 L 95 Nasal Cannula 07/30/24 11:39 36.5 C 72 20 86/43 L 92 Nasal Cannula 07/30/24 08:28 122 H 123/74 07/30/24 07:58 36.3 C L 67 16 94/57 L 97 Nasal Cannula 07/30/24 07:18 70 07/30/24 06:10 66 88/41 L 94 Nasal Cannula O2 Flow Rate 07/30/24 15:38 4.0 07/30/24 11:39 4.0 07/30/24 08:28 07/30/24 07:58 4.0 07/30/24 07:18 07/30/24 06:10 4 Laboratory Results Abnormal lab results 07/29/24 07/29/24 07/30/24 Range/Units 17:29 23:44 05:41 WBC 2.72 L 3.04 L (4.8-10.8) K/ul RBC 2.77 L 2.66 L (4.20-5.40) M/uL Hgb 8.3 L 8.1 L 8.0 L (12.0-16.0) g/dl Hct 26.7 L 25.2 L 25.6 L (37.0-47.0) % MCHC 31.1 L 31.3 L (32.0-36.0) g/dL RDW Std Deviation 47.2 H 47.7 H (36.4-46.3) fL VBG pH 7.46 H (7.36-7.41) VBG pCO2 51 H (38-50) mmHg Carbon Dioxide 36 H (21-32) mmol/L Glucose 103 H (70-99(Fasting)) mg/dl (5) Atrial fibrillation Atrial fibrillation type: unspecified Qualified Code(s): I48.91 - Unspecified atrial fibrillation (6) CHF (congestive heart failure) Heart failure type: systolic Heart failure chronicity: acute on chronic Qualified Code(s): I50.23 - Acute on chronic systolic (congestive) heart failure
[2024-07-30] MEDS: DIGOXIN 0.125 MG TAB PO SCH (17:23)
--- NOTE | 2024-07-30 17:54 | Hospitalist Progress Note ---
Date of Service July 30, 2024 Assessment & Plan (1) SOB (shortness of breath): Plan: Shortness of breath Underlying pulmonary hypertension, Chronic respiratory failure secondary to COPD on home O2 hx chronic systolic heart failure status post ICD (EF 30 to 35%, TTE 2023), Upper GI bleed -likely 2/2 anemia -GI consulted, appreciate recs -continue protonix -discussed case with ENT, rec conservative management at this time (mupriocen bid, normal saline spary 4x daily, afrin prn for bleeding) -cardiology consulted, appreciate reecs -on Eliquis Rx for A-fib status post ablation status post maze procedure, in order to restart requires EGD, GI performing tomorrow -continue breathing treatments, start IS and flutter valve Gastritis Adynamic Ileus -noted on imaging -progress diet as tolerated, clear liquids for now -bisacodyl suppository prn -hold opioids, other anticholinergic medications UGIB abdominal pain in the setting of Eliquis Rx valvular heart disease (moderate TR, mild MS/MR), history MVR R breast cancer status post surgery on anastrozole hypothyroidism, euthyroid as of recent outpatient TSH -Malnutrition Re: Low BMI -past tobacco abuse -EGD tomorrow Insomnia -start melatonin 3mg at bedtime Feeding/fluids: clear liquids, NPO for EGD Analgesia: tylenol Sedation: na Thromboprophylaxis: SCDs Head up position: na Ulcer prophylaxis: na Glycemic control: na Spontaneous breathing trial: on 5L, 4L chronically Bowel care: bisacodyl suppository prn Indwelling catheter removal: na Deescalation of antibiotics: na I spent a total of 40 minutes in direct patient care, including [id number] time with the patient and/or family, reviewing medical records, ordering and reviewing diagnostic tests, and coordinating care with other healthcare providers. This time includes: history taking, physical examination, medical decision making, counseling, ECG interpretation, imaging interpretation, lab interpretation, orders, and education, excluding time spent in the performance of separately billed services. Admission and Anticipated Discharge Date Admission Date: July 28, 2024 Subjective Patient seen and exmained at bedside. Nose bleed resolved today per patient. Stools have been brown. Discussed staying one more night to track stability and EGD tomorrow, patient appreciative and agreeable with plan. Review of Systems Review of Systems: CONSTITUTIONAL: weight loss, fatigue EYES: Patient denies any visual symptoms. EARS, NOSE, AND THROAT: No difficulties with hearing. No symptoms of rhinitis or sore throat. CARDIOVASCULAR: Patient denies chest pains, palpitations, orthopnea and paroxysmal nocturnal dyspnea. RESPIRATORY: SOB GI: No nausea, vomiting, diarrhea, constipation, abdominal pain, hematochezia or melena. : No urinary hesitancy or dribbling. No nocturia or urinary frequency. No abnormal urethral discharge. MUSCULOSKELETAL: No myalgias or arthralgias. NEUROLOGIC: No chronic headaches, no seizures. Patient denies numbness, tingling or weakness. PSYCHIATRIC: Patient denies problems with mood disturbance. No problems with anxiety. ENDOCRINE: No excessive urination or excessive thirst. DERMATOLOGIC: Patient denies any rashes or skin changes. Physical Exam Physical Exam: Gen: A&O 3 NAD, significant cachexia noted HEENT: NCAT, EOMI, not icteric. External ears normal. No rhinorrhea. Moist mucous membranes. Neck: Supple, full range of motion, no observable masses, No meningeal sign. Lungs: No Respiratory distress. CV: RRR, no edema. Abdomen: Soft, nondistended, No rebound tenderness. MSK: No joint swelling, no redness. Skin: No rashes, petechiae, lesions. Normal color per patient. Neuro: Normal Gait, Grossly intact. Psych: Appropriate for situation. Results & Data Results & Data Vital Signs (Past 12 Hours) Vital Signs Temp Pulse Pulse Resp BP Pulse Ox O2 Del Method 07/30/24 17:23 85 07/30/24 16:55 85 07/30/24 15:38 36.5 C 60 20 86/62 L 95 Nasal Cannula 07/30/24 11:39 36.5 C 72 20 86/43 L 92 Nasal Cannula 07/30/24 08:28 122 H 123/74 07/30/24 07:58 36.3 C L 67 16 94/57 L 97 Nasal Cannula 07/30/24 07:18 70 07/30/24 06:10 66 88/41 L 94 Nasal Cannula O2 Flow Rate 07/30/24 17:23 07/30/24 16:55 07/30/24 15:38 4.0 07/30/24 11:39 4.0 07/30/24 08:28 07/30/24 07:58 4.0 07/30/24 07:18 07/30/24 06:10 4 Laboratory Results -personally reviewed,
[2024-07-31 06:41] LABS: Hematocrit (blood only) 28.7 % (37.0-47.0); Hemoglobin 9.2 g/dl (12.0-16.0); Mean Corpuscular Hemoglobin 30.6 pg (25.0-34.0); Mean Corpuscular Hgb Conc 32.1 g/dL (32.0-36.0); Mean Corpuscular Volume 95.3 fL (80.0-100.0); Mean Platelet Volume 10.4 fL (9.4-12.4); Platelet Count 155 K/uL (130-400); RDW Coefficient of Variation 13.4 % (11.5-14.5); RDW Standard Deviation 46.8 fL (36.4-46.3); Red Blood Count 3.01 M/uL (4.20-5.40); White Blood Count 4.68 K/ul (4.8-10.8)
[2024-07-31 07:14] LABS: BUN Creatinine Ratio 15.7 (10-20); Calcium 9.3 mg/dl (8.6-10.3); Potassium 4.2 mmol/L (3.5-5.1)
[2024-07-31] MEDS: METOPROLOL TARTRATE 1 MG/ML VIAL IV STA (09:36)
--- NOTE | 2024-07-31 10:07 | Cardiology Progress Note ---
Date of Service July 31, 2024 Assessment & Plan (1) Anemia: (2) Heart failure with reduced ejection fraction (HFrEF, <= 40%): (3) Elevated troponin: (4) FH: mitral valve repair: (5) Mitral regurgitation: Plan: Severe by echo (6) COPD with emphysema: (7) Chronic respiratory failure with hypoxia: (8) Paroxysmal atrial fibrillation: (9) Presence of combination internal cardiac defibrillator (ICD) and pacemaker: Plan I would recommend that we go forward with doing the EGD to better understand possible etiology of her anemia and GI bleeding so that we can safely decide when it is okay to restart resume her anticoagulation. She is already been on the lower dose of Eliquis 2.5 mg twice daily given her small size and age. Depending on the results of the EGD further recommendations will follow. I gave her an extra dose of IV metoprolol this morning to help control her heart rate. We can also give additional doses if need be and her blood pressure allows. I will be available in the hospital if there are any issues or concerns. Admission and Anticipated Discharge Date Admission Date: July 28, 2024 Shanti Dumont was seen today at bedside. She is lying flat in bed and appears comfortable in no distress. She reports that her breathing is as usual. She h ad an episode early this a.m. when her oxygen saturations dropped down and she developed significant tachycardia which appears to be A-fib flutter with RVR. This is the same arrhythmia she had yesterday morning. She does report that this happens on occasion at home and usually what she does is just increases her oxygen to 3 L[address] She follows with Dr. Skelton and was last seen by him in May 2022 and is reported to have (1) COPD with emphysema: (2) History of tobacco use: (3) Exertional shortness of breath: (4) Nocturnal hypoxia: (5) Ex-smoker: (6) Chronic respiratory failure with hypoxia The last echo that we did in our office appears very similar to the one that was done this week here in the hospital. The LV dysfunction is not new and I would find it unlikely that her EF would improve without any intervention. Finalized by Dr. Scott Hollis MD on 05/15/2022 01:08 PM Summary 1. Moderately dilated left ventricle for BSA of 1.40 m2. 2. The inferoseptal wall is dyskinetic and scarred. 3. Severe hypokinesis to akinesis of the inferior, mid/distal inferolateral, apical septum and apical anterior kaba and LV apex. 4. The anteroseptal and mid to distal anterior kaba are akinetic and scarred. 5. Severely reduced systolic function, ejection fraction calculated by Biplane Hurt's method is 25%. 6. Elevated left ventricular end-diastolic pressure. Grade II diastolic dysfunction of the left ventricle (pseudonormal filling pattern). 7. Moderate right ventricular dilation. 8. Severely reduced RV systolic function. TAPSE is 0.6 cm. 9. Markedly dilated left atrium. 10. Severely dilated right atrium. 11. S/P mitral valve repair with severe regurgitation. 12. Severe tricuspid valve regurgitation. 13. Mild to moderate pulmonary regurgitation. 14. Estimated pulmonary arterial mean pressure is 43 mmHg. 15. Estimated PASP is 58 mmHg, underestimated due to RV systolic dysfunction. 16. PA diastolic 28 mm/hg. 17. Compared to the previous study performed 10/07/2020, LV systolic function has declined from 45% to 25% with new wall motion abnormalities, the degree of mitral regurgitation and tricuspid regurgitation are significantly worse, RV function has declined and PA pressures are higher. Her case was discussed this morning with anesthesia. Although she is a high risk patient, this is not a high risk procedure. I feel strongly that the EGD should at least be done to rule out at least 1 source of GI bleeding prior to us restarting any anticoagulation on her. Given her mitral valve repair paroxysmal atrial fibrillation she is at risk for stroke and under the current circumstances I am not sure when would be appropriate to resume her anticoagulation. This was discussed with the patient and she understands that there is a certain amount of risk. I am going to give her an extra dose of IV metoprolol this morning to help control her heart rate a little bit better. Review of Systems Review of Systems: All systems reviewed & are unremarkable except as noted in HPI & below Physical Exam Physical Exam: Thin lying flat in bed in no apparent distress Respiratory: Rales coarse noted bilaterally worse on the right Cardiovascular: Currently her heart was regular there is a systolic murmur at the apex consistent with mitral regurgitation Results & Data Vital Signs (Past 12 Hours) Vital Signs Temp Pulse Pulse Resp BP BP Pulse Ox 07/31/24 09:36 89 108/74 07/31/24 07:10 36.3 C L 131 H 18 108/74 95 07/31/24 03:02 36.7 C 73 16 110/66 99 07/30/24 22:55 36.6 C 57 L 16 85/43 L 97 O2 Del Method O2 Flow Rate 07/31/24 09:36 07/31/24 07:10 Nasal Cannula 4 07/31/24 03:02 Nasal Cannula 2 07/30/24 22:55 Nasal Cannula 2 Laboratory Results Abnormal lab results 07/31/24 Range/Units 06:20 WBC 4.68 L (4.8-10.8) K/ul RBC 3.01 L (4.20-5.40) M/uL Hgb 9.2 L (12.0-16.0) g/dl Hct 28.7 L (37.0-47.0) % RDW Std Deviation 46.8 H (36.4-46.3) fL Glucose 101 H (70-99(Fasting)) mg/dl Troponin peaked at 151 on July 28
[2024-07-31] MEDS: LACTATED RINGER'S 1,000 ML IV SCH (13:48)
--- NOTE | 2024-07-31 14:22 | Anesthesiology Consultation ---
Date of Service July 31, 2024 Assessment & Plan Consults Requested medical & cardiac Pulmonary ASA ASA4 Proposed Anesthesia Anesthesia Type: MAC Risk / Benefits Reviewed With: PT / POA / Parent / Guardian, Accepts Plan and Informed Consent Obtained History Surgery Operation Date: 07/31/24 11:20 Proposed Procedures p Esophagogastroduodenoscopy - Antonio Whitley MD Height/Weight Height: 5 ft 1 in Weight: 41.2 kg Allergies Allergy/AdvReac Type Severity Reaction Status Date / Time Penicillins Allergy Intermediate HIVES; Verified 07/28/24 19:03 TAKES CEPHALEXIN W/O PROBLEM Sulfa (Sulfonamide Allergy Intermediate NAUSEA, Verified 07/28/24 19:03 Antibiotics) ITCHY, AND "FUNNY THROAT" Macrolide Antibiotics AdvReac Intermediate "MYCIN Verified 07/28/24 19:03 ANTIBIOTICS": ITCHY AND NAUSEA diazepam AdvReac Mild FEELS WEIRD Verified 07/28/24 19:03 Medications Home Medications Medication Instructions Recorded Confirmed Last Taken metoprolol succinate 25 mg 25 mg PO QPM #30 tabs 04/30/13 07/28/24 07/27/24 tablet,extended release 24 hr (Toprol XL) docusate sodium 100 mg capsule 100 mg PO HS PRN constation 15 09/26/16 07/28/24 07/27/24 days #30 caps anastrozole 1 mg tablet (Arimidex) 1 mg PO QDD 90 days #90 tabs 10/04/17 07/28/24 07/27/24 calcium 600 mg (as carbonate)-vit 1 tab PO QDD #0 tabs 10/04/17 07/28/24 07/27/24 D3 20 mcg (800 unit) chewable tablet (Caltrate plus D) Portable Oxygen #1 ea 10/10/21 07/28/24 Unknown cholecalciferol (vitamin D3) 25 25 mcg PO QDD 11/16/21 07/28/24 07/27/24 mcg (1,000 unit) capsule famotidine 20 mg tablet (Pepcid AC) 20 mg PO BID 10/16/22 07/28/24 07/28/24 am sacubitril 49 mg-valsartan 51 mg 1 tab PO BID 10/16/22 07/28/24 07/28/24 09:00 tablet (Entresto) levothyroxine 112 mcg capsule 112 mcg PO DAILYBB 05/15/23 07/28/24 07/28/24 07:00 digoxin 125 mcg (0.125 mg) tablet 125 mcg PO 4XWK 07/19/23 07/28/24 07/27/24 torsemide 20 mg tablet 20 mg PO QAM 07/19/23 07/28/24 07/28/24 08:00 albuterol sulfate 90 mcg/actuation 2 puff inhalation QID PRN 07/24/23 07/28/24 Unknown aerosol inhaler (Ventolin HFA) shortness of breath or wheezing #3 Inhalers apixaban 2.5 mg tablet (Eliquis) 2.5 mg PO BID #180 tabs 11/20/23 07/28/24 07/28/24 09:00 budesonide 160 mcg-glycopyr 9 2 inh inhalation BID #32.1 grams 12/10/23 07/28/24 07/28/24 mcg-formot 4.8 mcg/actuation HFA aam dose inhaler (Breztri Aerosphere) spironolactone 25 mg tablet 12.5 mg PO QAM 05/06/24 07/28/24 07/28/24 08:00 acetaminophen 325 mg tablet 650 mg PO QID PRN Pain 07/28/24 07/28/24 Unknown cyanocobalamin (vitamin B-12) 1,000 mcg IM MONTHLY 07/28/24 07/28/24 07/02/24 1,000 mcg/mL injection solution Active Medications Generic Name Dose Route Start Last Admin Trade Name Freq PRN Reason Stop Dose Admin Acetaminophen 500 mg 07/29/24 02:02 07/30/24 20:51 Acetaminophen 500 Mg Tab PO 08/28/24 02:01 500 mg Q6H PRN Administration fever/pain Anastrozole 1 mg 07/29/24 16:30 07/30/24 17:23 Anastrozole 1 Mg Tab PO 08/28/24 16:29 1 mg QDD MONIK Administration Calcium/Vitamin D 1 tab 07/29/24 16:30 07/30/24 17:23 Calcium 600mg + Vit D 400 Iu Tab PO 08/28/24 16:29 1 tab QDD MONIK Administration Digoxin 0.125 mg 07/30/24 16:00 07/30/24 17:23 Digoxin 0.125 Mg Tab PO 08/29/24 15:59 0.125 mg [id number] MONIK Administration Fluticasone Furoate 1 puffs 07/29/24 09:00 07/31/24 08:58 Fluticasone Furoate 200mcg 14 Puffs/Inhaler INH 08/28/24 08:59 1 puffs QAM MONIK Administration Pantoprazole Sodium 40 mg in 10 mls @ 5 mls/min 07/29/24 09:00 07/31/24 08:58 Protonix IV 08/28/24 08:59 5 mls/min BID MONIK Administration Dextrose/Lactated Ringer's 1,000 mls @ 80 mls/hr 07/29/24 14:00 07/29/24 23:26 D5w And Lactated Ringers IV 08/28/24 13:59 0 mls/hr .[id number] MONIK Infusion Lactated Ringer's 1,000 mls @ 0 mls/hr 07/31/24 13:30 07/31/24 13:48 Lr IV 08/01/24 13:29 15 mls/hr .Q0M MONIK Administration KVO Levothyroxine Sodium 112 mcg 07/29/24 06:30 07/31/24 05:49 Levothyroxine Sodium 112 Mcg Tablet PO 08/28/24 06:29 Not Given DAILYBB MONIK Melatonin 3 mg 07/29/24 02:02 07/29/24 20:40 Melatonin 3 Mg Tab PO 08/28/24 02:01 3 mg HS PRN Administration Sleep Metoprolol Succinate 25 mg 07/29/24 21:00 07/30/24 20:50 Metoprolol Succ 25mg Ext Rel Tab PO 08/28/24 20:59 25 mg QPM MONIK Administration Mupirocin 1 appln 07/29/24 21:00 07/31/24 08:58 Mupirocin 2% Oint 22 Gm Tube EXT 08/28/24 20:59 1 appln BID MONIK Administration Polyethylene Glycol 17 gm 07/29/24 10:15 07/31/24 08:59 Polyethylene (Miralax) 17 Gm Pack PO 08/28/24 10:14 Not Given DAILY MONIK Umeclidinium/Vilanterol 1 puffs 07/29/24 09:00 07/31/24 08:58 Umeclidinium/Vilanterol 62.5/25mcg 7 Puffs/Inhaler INH 08/28/24 08:59 1 puffs QAM MONIK Administration NPO Date Last Intake of Fluids: 07/28/24 Time Last Intake of Fluids: 13:00 Date Last Intake of Solids: 07/30/24 Time Last Intake of Solids: 21:00 Exercise / Class Metabolic Activity III < 4 Walking/Shop/Light housework Past Anesthesia History No Hx of Anesthesia Complications and No Family Hx of Anesthesia Complications History of PONV No Hx of PONV and No Hx of Motion Sickness Social History Smoking Status: Former smoker Hx Alcohol Use: No Hx Substance Use: No Physical Exam Vital Signs Last Vital Signs Temp 36.3 C L 07/31/24 13:28 Pulse 80 07/31/24 13:28 Resp 20 07/31/24 13:28 BP 102/53 L 07/31/24 13:28 Pulse Ox 93 07/31/24 13:28 O2 Del Method Room Air 07/31/24 13:28 O2 Flow Rate 4 07/31/24 11:07 Constitutional WD/WN, vitals as above + cachectic; no acute distress ENMT Mouth: + small oral opening; no dentition abnormality Thyromental Distance: > or= 3.5 Finger Breadths Mallampati Class: III Neck normal visual inspection Respiratory normal respiratory effort, lungs clear to auscultation normal respiratory effort; no respiratory distress Auscultation: lungs clear to auscultation bilaterally Cardiovascular RRR, no murmur, no edema Rate/Rhythm: regular rate and regular rhythm Heart Sounds: + murmur (consistent with mitral regurgitation) Chest (Breasts) Chest: + pacemaker (AICD/pacer ) Gastrointestinal (Abdomen) normal bowel sounds, soft, nontender, no hepatosplenomegaly Musculoskeletal Spine: normal cervical ROM Skin no rashes, warm and dry Neurologic moves all extremities and awake Psychiatric A+Ox3, euthymic affect Orientation: alert and oriented x 3 Affect: euthymic affect Testing Laboratory Results 07/31/24 06:20 07/31/24 06:20 PT 11.9 Seconds (9.0-12.0) 07/28/24 16:55 INR 1.1 (0.9-1.1) 07/28/24 16:55 APTT 28 Seconds (21-31) 07/28/24 16:55 Urine Color Yellow 07/28/24 23:58 Urine Appearance Clear (Clear) 07/28/24 23:58 Urine pH 7.0 (4.5-7.5) 07/28/24 23:58 Ur Specific Union 1.018 (1.000-1.030) 07/28/24 23:58 Urine Protein Negative (Negative) 07/28/24 23:58 Urine Glucose (UA) Negative (Negative) 07/28/24 23:58 Urine Ketones Negative (Negative) 07/28/24 23:58 Urine Nitrite Negative (Negative) 07/28/24 23:58 Ur Leukocyte Esterase Negative (Negative) 07/28/24 23:58 Blood Type O Positive 07/28/24 21:28 Antibody Screen NEGATIVE 07/28/24 21:28 Day of Procedure Evaluation. Date of Surgery July 31, 2024 Height/Weight Height: 5 ft 1 in Weight: 41.2 kg Vital Signs Last Vital Signs Temp 36.3 C L 07/31/24 13:28 Pulse 80 07/31/24 13:28 Resp 20 07/31/24 13:28 BP 102/53 L 07/31/24 13:28 Pulse Ox 93 07/31/24 13:28 O2 Del Method Room Air 07/31/24 13:28 O2 Flow Rate 4 07/31/24 11:07 Allergies Allergy/AdvReac Type Severity Reaction Status Date / Time Penicillins Allergy Intermediate HIVES; Verified 07/28/24 19:03 TAKES CEPHALEXIN W/O PROBLEM Sulfa (Sulfonamide Allergy Intermediate NAUSEA, Verified 07/28/24 19:03 Antibiotics) ITCHY, AND "FUNNY THROAT" Macrolide Antibiotics AdvReac Intermediate "MYCIN Verified 07/28/24 19:03 ANTIBIOTICS": ITCHY AND NAUSEA diazepam AdvReac Mild FEELS WEIRD Verified 07/28/24 19:03 Medications Home Medications Medication Instructions Recorded Confirmed Last Taken metoprolol succinate 25 mg 25 mg PO QPM #30 tabs 04/30/13 07/28/24 07/27/24 tablet,extended release 24 hr (Toprol XL) docusate sodium 100 mg capsule 100 mg PO HS PRN constation 15 09/26/16 07/28/24 07/27/24 days #30 caps anastrozole 1 mg tablet (Arimidex) 1 mg PO QDD 90 days #90 tabs 05/03/18 02/24/25 02/23/25 calcium 600 mg (as carbonate)-vit 1 tab PO QDD #0 tabs 10/04/17 07/28/24 07/27/24 D3 20 mcg (800 unit) chewable tablet (Caltrate plus D) Portable Oxygen #1 ea 10/10/21 07/28/24 Unknown cholecalciferol (vitamin D3) 25 25 mcg PO QDD 11/16/21 07/28/24 07/27/24 mcg (1,000 unit) capsule famotidine 20 mg tablet (Pepcid AC) 20 mg PO BID 10/16/22 07/28/24 07/28/24 am sacubitril 49 mg-valsartan 51 mg 1 tab PO BID 10/16/22 07/28/24 07/28/24 09:00 tablet (Entresto) levothyroxine 112 mcg capsule 112 mcg PO DAILYBB 05/15/23 07/28/24 07/28/24 07:00 digoxin 125 mcg (0.125 mg) tablet 125 mcg PO 4XWK 07/19/23 07/28/24 07/27/24 torsemide 20 mg tablet 20 mg PO QAM 07/19/23 07/28/24 07/28/24 08:00 albuterol sulfate 90 mcg/actuation 2 puff inhalation QID PRN 07/24/23 07/28/24 Unknown aerosol inhaler (Ventolin HFA) shortness of breath or wheezing #3 Inhalers apixaban 2.5 mg tablet (Eliquis) 2.5 mg PO BID #180 tabs 11/20/23 07/28/24 07/28/24 09:00 budesonide 160 mcg-glycopyr 9 2 inh inhalation BID #32.1 grams 12/10/23 07/28/24 07/28/24 mcg-formot 4.8 mcg/actuation HFA aam dose inhaler (Breztri Aerosphere) spironolactone 25 mg tablet 12.5 mg PO QAM 05/06/24 07/28/24 07/28/24 08:00 acetaminophen 325 mg tablet 650 mg PO QID PRN Pain 07/28/24 07/28/24 Unknown cyanocobalamin (vitamin B-12) 1,000 mcg IM MONTHLY 07/28/24 07/28/24 07/02/24 1,000 mcg/mL injection solution Active Medications Generic Name Dose Route Start Last Admin Trade Name Gisela PRN Reason Stop Dose Admin Acetaminophen 500 mg 07/29/24 02:02 07/30/24 20:51 Acetaminophen 500 Mg Tab PO 08/28/24 02:01 500 mg Q6H PRN Administration fever/pain Anastrozole 1 mg 07/29/24 16:30 07/30/24 17:23 Anastrozole 1 Mg Tab PO 08/28/24 16:29 1 mg QDD MONIK Administration Calcium/Vitamin D 1 tab 07/29/24 16:30 07/30/24 17:23 Calcium 600mg + Vit D 400 Iu Tab PO 08/28/24 16:29 1 tab QDD MONIK Administration Digoxin 0.125 mg 07/30/24 16:00 07/30/24 17:23 Digoxin 0.125 Mg Tab PO 08/29/24 15:59 0.125 mg [id number] MONIK Administration Fluticasone Furoate 1 puffs 07/29/24 09:00 07/31/24 08:58 Fluticasone Furoate 200mcg 14 Puffs/Inhaler INH 08/28/24 08:59 1 puffs QAM MONIK Administration Pantoprazole Sodium 40 mg in 10 mls @ 5 mls/min 07/29/24 09:00 07/31/24 08:58 Protonix IV 08/28/24 08:59 5 mls/min BID MONIK Administration Dextrose/Lactated Ringer's 1,000 mls @ 80 mls/hr 07/29/24 14:00 07/29/24 23:26 D5w And Lactated Ringers IV 08/28/24 13:59 0 mls/hr .[id number] MONIK Infusion Lactated Ringer's 1,000 mls @ 0 mls/hr 07/31/24 13:30 07/31/24 13:48 Lr IV 08/01/24 13:29 15 mls/hr .Q0M MONIK Administration KVO Levothyroxine Sodium 112 mcg 07/29/24 06:30 07/31/24 05:49 Levothyroxine Sodium 112 Mcg Tablet PO 08/28/24 06:29 Not Given DAILYBB MONIK Melatonin 3 mg 07/29/24 02:02 07/29/24 20:40 Melatonin 3 Mg Tab PO 08/28/24 02:01 3 mg HS PRN Administration Sleep Metoprolol Succinate 25 mg 07/29/24 21:00 07/30/24 20:50 Metoprolol Succ 25mg Ext Rel Tab PO 08/28/24 20:59 25 mg QPM MONIK Administration Mupirocin 1 appln 07/29/24 21:00 07/31/24 08:58 Mupirocin 2% Oint 22 Gm Tube EXT 08/28/24 20:59 1 appln BID MONIK Administration Polyethylene Glycol 17 gm 07/29/24 10:15 07/31/24 08:59 Polyethylene (Miralax) 17 Gm Pack PO 08/28/24 10:14 Not Given DAILY MNOIK Umeclidinium/Vilanterol 1 puffs 07/29/24 09:00 07/31/24 08:58 Umeclidinium/Vilanterol 62.5/25mcg 7 Puffs/Inhaler INH 08/28/24 08:59 1 puffs QAM MONIK Administration Past Anesthesia History No Hx of Anesthesia Complications and No Family Hx of Anesthesia Complications History of PONV No Hx of PONV and No Hx of Motion Sickness NPO Date Last Intake of Fluids: 07/28/24 Time Last Intake of Fluids: 13:00 Date Last Intake of Solids: 07/30/24 Time Last Intake of Solids: 21:00 Home Medications Home Medications Medication Instructions Recorded Confirmed Last Taken metoprolol succinate 25 mg 25 mg PO QPM #30 tabs 04/30/13 07/28/24 07/27/24 tablet,extended release 24 hr (Toprol XL) docusate sodium 100 mg capsule 100 mg PO HS PRN constation 15 09/26/16 07/28/24 07/27/24 days #30 caps anastrozole 1 mg tablet (Arimidex) 1 mg PO QDD 90 days #90 tabs 10/04/17 07/28/24 07/27/24 calcium 600 mg (as carbonate)-vit 1 tab PO QDD #0 tabs 10/04/17 07/28/24 07/27/24 D3 20 mcg (800 unit) chewable tablet (Caltrate plus D) Portable Oxygen #1 ea 10/10/21 07/28/24 Unknown cholecalciferol (vitamin D3) 25 25 mcg PO QDD 06/15/22 02/24/25 02/23/25 mcg (1,000 unit) capsule famotidine 20 mg tablet (Pepcid AC) 20 mg PO BID 10/16/22 07/28/24 07/28/24 am sacubitril 49 mg-valsartan 51 mg 1 tab PO BID 10/16/22 07/28/24 07/28/24 09:00 tablet (Entresto) levothyroxine 112 mcg capsule 112 mcg PO DAILYBB 05/15/23 07/28/24 07/28/24 07:00 digoxin 125 mcg (0.125 mg) tablet 125 mcg PO 4XWK 07/19/23 07/28/24 07/27/24 torsemide 20 mg tablet 20 mg PO QAM 07/19/23 07/28/24 07/28/24 08:00 albuterol sulfate 90 mcg/actuation 2 puff inhalation QID PRN 07/24/23 07/28/24 Unknown aerosol inhaler (Ventolin HFA) shortness of breath or wheezing #3 Inhalers apixaban 2.5 mg tablet (Eliquis) 2.5 mg PO BID #180 tabs 11/20/23 07/28/24 07/28/24 09:00 budesonide 160 mcg-glycopyr 9 2 inh inhalation BID #32.1 grams 12/10/23 07/28/24 07/28/24 mcg-formot 4.8 mcg/actuation HFA aam dose inhaler (Breztri Aerosphere) spironolactone 25 mg tablet 12.5 mg PO QAM 05/06/24 07/28/24 07/28/24 08:00 acetaminophen 325 mg tablet 650 mg PO QID PRN Pain 07/28/24 07/28/24 Unknown cyanocobalamin (vitamin B-12) 1,000 mcg IM MONTHLY 07/28/24 07/28/24 07/02/24 1,000 mcg/mL injection solution Active Medications Generic Name Dose Route Start Last Admin Trade Name Freq PRN Reason Stop Dose Admin Acetaminophen 500 mg 07/29/24 02:02 07/30/24 20:51 Acetaminophen 500 Mg Tab PO 08/28/24 02:01 500 mg Q6H PRN Administration fever/pain Anastrozole 1 mg 07/29/24 16:30 07/30/24 17:23 Anastrozole 1 Mg Tab PO 08/28/24 16:29 1 mg QDD MONIK Administration Calcium/Vitamin D 1 tab 07/29/24 16:30 07/30/24 17:23 Calcium 600mg + Vit D 400 Iu Tab PO 08/28/24 16:29 1 tab QDD MONIK Administration Digoxin 0.125 mg 07/30/24 16:00 07/30/24 17:23 Digoxin 0.125 Mg Tab PO 08/29/24 15:59 0.125 mg [id number] MONIK Administration Fluticasone Furoate 1 puffs 07/29/24 09:00 07/31/24 08:58 Fluticasone Furoate 200mcg 14 Puffs/Inhaler INH 08/28/24 08:59 1 puffs QAM MONIK Administration Pantoprazole Sodium 40 mg in 10 mls @ 5 mls/min 07/29/24 09:00 07/31/24 08:58 Protonix IV 08/28/24 08:59 5 mls/min BID MONIK Administration Dextrose/Lactated Ringer's 1,000 mls @ 80 mls/hr 07/29/24 14:00 07/29/24 23:26 D5w And Lactated Ringers IV 08/28/24 13:59 0 mls/hr .[id number] MONIK Infusion Lactated Ringer's 1,000 mls @ 0 mls/hr 07/31/24 13:30 07/31/24 13:48 Lr IV 08/01/24 13:29 15 mls/hr .Q0M MONIK Administration KVO Levothyroxine Sodium 112 mcg 07/29/24 06:30 07/31/24 05:49 Levothyroxine Sodium 112 Mcg Tablet PO 08/28/24 06:29 Not Given DAILYBB MONIK Melatonin 3 mg 07/29/24 02:02 07/29/24 20:40 Melatonin 3 Mg Tab PO 08/28/24 02:01 3 mg HS PRN Administration Sleep Metoprolol Succinate 25 mg 07/29/24 21:00 07/30/24 20:50 Metoprolol Succ 25mg Ext Rel Tab PO 08/28/24 20:59 25 mg QPM MONIK Administration Mupirocin 1 appln 07/29/24 21:00 07/31/24 08:58 Mupirocin 2% Oint 22 Gm Tube EXT 08/28/24 20:59 1 appln BID MONIK Administration Polyethylene Glycol 17 gm 07/29/24 10:15 07/31/24 08:59 Polyethylene (Miralax) 17 Gm Pack PO 08/28/24 10:14 Not Given DAILY MONIK Umeclidinium/Vilanterol 1 puffs 07/29/24 09:00 07/31/24 08:58 Umeclidinium/Vilanterol 62.5/25mcg 7 Puffs/Inhaler INH 08/28/24 08:59 1 puffs QAM MONIK Administration Exercise / Class Metabolic Activity Metabolic Activity: III < 4 Walking/Shop/Light housework Physical Exam Constitutional: + cachectic; no acute distress Mouth: + small oral opening; no dentition abnormality Thyromental Distance: > or= 3.5 Finger Breadths Mallampati Class: III Neck: + visual inspection normal Respiratory: + respiratory effort normal and + clear to auscultation bilaterally; no respiratory distress Cardiovascular: + regular rate, + regular rhythm and + murmur (consistent with mitral regurgitation) Chest: + pacemaker (AICD/pacer ) Musculoskeletal: no limited cervical ROM Neurologic: + moves all extremities Psychiatric: + alert and + oriented x 3 ASA ASA4 Proposed Anesthesia Proposed Anesthesia: MAC Risk / Benefits Reviewed With: PT / POA / Parent / Guardian, Accepts Plan and Informed Consent Obtained Additional Comments: Echocardiogram 07/2024 EF 20-25% mod/severe Mitral regurgitation; 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 Labs and vital signs reviewed EKG reviewed Patient is very high risk. I discussed Ms Saini with her brass polisher, Dr. Anderson. Dr. Anderson has diagnosed Ms Saini with demand ischemia leading to elevated troponin level with a relatively unchanged diminished cardiac ejection fraction. She feels that Ms Saini's anemia may have a GI source and that EGD benefit outweighs the risk of the procedure/anesthesia to rule out a GI lesion so that Ms Saini can resume anticoagulation to minimize her risk of stroke which is elevated given her history of paroxysmal atrial fibrillation, low ejection fraction, and mitral valve repair. Ms Saini understands that she is a high risk patient even with a low risk EGD procedure with sedation. She wishes to proceed. Chace Walter MD
[2024-07-31] MEDS ORDERED: LIDOCAINE 2% 2 ML VIAL/AMP(20MG/ML) INFIL ONE (14:24)
[2024-07-31] MEDS ORDERED: PROPOFOL IV EMULSION 10 MG/ML 20 ML VIAL IV ONE (14:24)
--- NOTE | 2024-07-31 14:49 | Communication Note ---
Date of Service: July 31, 2024 team conference between GI, Aneasthesia and Cardiology. Risk of test present but information gi bleeding risk with re-anticoagulation required. EGD today. Informed consent obtained.
--- NOTE | 2024-07-31 15:10 | Communication Note ---
Date of Service: July 31, 2024 EGD MAC anesthesia Hiatal hernia, no blood noted in the upper GI tract. No ulcerations. There is diffuse mucosal atrophy of the stomach consistent with chronic gastritis. Duodenum first second parts were normal No GI contraindication anticoagulation based on upper endoscopy.
--- NOTE | 2024-07-31 15:20 | GI REPORT ---
[facility] Patient: PRECIOUS JAVED : 1945 Sex at : Female Age: 78 Years Procedure: Upper GI endoscopy Date: 07/31/2024 Attending Physician: Antonio Whitley MD Referring MD: Larry Peterson MD Indications: - Suspected upper gastrointestinal bleeding Medications: - Monitored Anesthesia Care Complications: - No immediate complications. Estimated Blood Loss: - Estimated blood loss: None. Procedure: - The egd scope was introduced through the mouth and advanced to the second part of the duodenum. - The upper GI endoscopy was accomplished without difficulty. - The patient tolerated the procedure well. - The upper GI endoscopy was accomplished with ease. Findings: - A hiatal hernia was present. - Diffuse atrophic mucosa was found in the entire examined stomach. - The examined duodenum was normal. Impression: - Hiatal hernia. - Gastric mucosal atrophy. - Normal examined duodenum. - No specimens collected. - No bleeding lesions ulcerations or pathology to put her at risk of upper GI bleeding identified. - No contraindication from an upper GI perspective for anticoagulation if required Recommendation: - See above Procedure Code(s): - 19155, Esophagogastroduodenoscopy, flexible, transoral; diagnostic, including collection of specimen(s) by brushing or washing, when performed (separate procedure) Diagnosis Code(s): - K44.9, Diaphragmatic hernia without obstruction or gangrene - K31.89, Other diseases of stomach and duodenum CPT(R) - 2023 copyright [employer]. All Rights Reserved. The CPT codes, CCI edits and ICD codes generated are intended as suggestions and were generated based on input data. These codes are preliminary and upon b2b sales professional review may be revised to meet current compliance and payer requirements. The provider is responsible for the final determination of appropriate codes, and modifiers. Antonio Whitley MD This document has been electronically signed. Note Initiated:07/31/2024 Note Completed:07/31/2024 3:20 PM [id number]
--- NOTE | 2024-07-31 15:38 | Anesthesiology Progress Note ---
Date of Service July 31, 2024 Anesthesia Post Procedure Vital Signs Vital Signs: Temp Pulse Pulse Pulse Resp BP BP 07/31/24 15:30 70 21 07/31/24 15:21 36.7 C 71 16 07/31/24 14:29 66 07/31/24 13:28 36.3 C L 80 20 102/53 L 07/31/24 11:07 36.3 C L 71 18 89/53 L 07/31/24 10:47 71 07/31/24 10:35 07/31/24 10:07 72 95/61 L 07/31/24 09:36 89 108/74 07/31/24 07:10 36.3 C L 131 H 18 108/74 07/31/24 03:02 36.7 C 73 16 110/66 07/30/24 22:55 36.6 C 57 L 16 85/43 L 07/30/24 21:54 71 07/30/24 21:00 07/30/24 19:00 36.7 C 89 16 97/57 L 07/30/24 17:23 85 07/30/24 16:55 85 BP Pulse Ox O2 Del Method O2 Flow Rate 07/31/24 15:30 97/59 L 100 Nasal Cannula 4 07/31/24 15:21 94/62 L 97 Nasal Cannula 4 07/31/24 14:29 07/31/24 13:28 93 Room Air 07/31/24 11:07 93 Nasal Cannula 4 07/31/24 10:47 07/31/24 10:35 Nasal Cannula 3 07/31/24 10:07 07/31/24 09:36 07/31/24 07:10 95 Nasal Cannula 4 07/31/24 03:02 99 Nasal Cannula 2 07/30/24 22:55 97 Nasal Cannula 2 07/30/24 21:54 07/30/24 21:00 Nasal Cannula 4 07/30/24 19:00 92 Nasal Cannula 2 07/30/24 17:23 07/30/24 16:55 Pain Intensity Right Medial Back: Pain Intensity: 5 Transfer of Care Handoff Completed per policy Notes Mental Status: alert / awake / arousable Patient Amnestic to Procedure: Yes Nausea / Vomiting: adequately controlled Pain: adequately controlled Airway Patency, RR, SpO2: stable & adequate BP & HR: stable & adequate Hydration State: stable & adequate Anesthetic Complications: no major complications apparent
--- NOTE | 2024-07-31 19:52 | Hospitalist Progress Note ---
Date of Service July 31, 2024 Assessment & Plan (1) SOB (shortness of breath): Plan: Shortness of breath Underlying pulmonary hypertension, Chronic respiratory failure secondary to COPD on home O2 hx chronic systolic heart failure status post ICD (EF 30 to 35%, TTE 2023), Chronic Gastritis -likely 2/2 anemia -GI consulted, appreciate recs -continue protonix -EGD unrevealing for cause of bleed, chronic gastritis -discussed case with ENT, rec conservative management at this time (mupriocen bid, normal saline spary 4x daily, afrin prn for bleeding) -cardiology consulted, appreciate reecs -on Eliquis Rx for A-fib status post ablation status post maze procedure, per GI no contraindication to anticoagulation from GI perspective -continue breathing treatments, continue IS and flutter valve Gastritis Adynamic Ileus -noted on imaging -progress diet as tolerated, clear liquids for now -bisacodyl suppository prn -hold opioids, other anticholinergic medications UGIB abdominal pain in the setting of Eliquis Rx valvular heart disease (moderate TR, mild MS/MR), history MVR R breast cancer status post surgery on anastrozole hypothyroidism, euthyroid as of recent outpatient TSH -Malnutrition Re: Low BMI -past tobacco abuse Insomnia -continue melatonin 3mg at bedtime Feeding/fluids: clear liquids, NPO for EGD Analgesia: tylenol Sedation: na Thromboprophylaxis: SCDs Head up position: na Ulcer prophylaxis: na Glycemic control: na Spontaneous breathing trial: on 5L, 4L chronically Bowel care: bisacodyl suppository prn Indwelling catheter removal: na Deescalation of antibiotics: na I spent a total of 45 minutes in direct patient care, including [id number] time with the patient and/or family, reviewing medical records, ordering and reviewing diagnostic tests, and coordinating care with other healthcare providers. This time includes: history taking, physical examination, medical decision making, counseling, ECG interpretation, imaging interpretation, lab interpretation, orders, and education, excluding time spent in the performance of separately billed services. I spent a total of 30 minutes providing advanced care planning to the patient and/or family, including [id number] time discussing the patient's health status, prognosis, and treatment options. This time includes specific activities such as: discussing advance directives, goals of care, prognostication, and end-of-life planning. Admission and Anticipated Discharge Date Admission Date: July 28, 2024 Subjective Patient seen and examined at bedside. Patient is doing okay today, tolerated procedure fairly well. Had discussion with daughter, patient, , grandson at bedside regarding clinical condition and goals and values see discussion below. Advanced Care Plannin minutes spent with family discussing goals and values. Meeting entered by started by introducing ourselves and our role in the family and team. When asked about their understanding of what is going on with the patient, they were able to verbalize that she has ongoing heart failure, atrial fibrillation, severe lung disease. They were also able to verbalize that she has had a bleed. I discussed that the patient is not doing well overall. Discussed that I am concerned by her worsening heart failure, atrial fibrillation, severe lung disease, and bleeding. We discussed that she has had some weight loss recently over the past few months and decreasing ADLs, and that this can be a sign that we are heading in the wrong direction. When asked about prognosis, I discussed that given her rate of decline, cachexia, severe medical conditions, anemia it would be reasonable to think of the prognosis on the scale of months. Answer question to best my ability. We will have a further conversation with family present tomorrow to further discuss goals and values. Of note, patient states that she generally does not want to return to the hospital. Review of Systems Review of Systems: CONSTITUTIONAL: weight loss, fatigue EYES: Patient denies any visual symptoms. EARS, NOSE, AND THROAT: No difficulties with hearing. No symptoms of rhinitis or sore throat. CARDIOVASCULAR: Patient denies chest pains, palpitations, orthopnea and paroxysmal nocturnal dyspnea. RESPIRATORY: SOB GI: No nausea, vomiting, diarrhea, constipation, abdominal pain, hematochezia or melena. : No urinary hesitancy or dribbling. No nocturia or urinary frequency. No abnormal urethral discharge. MUSCULOSKELETAL: No myalgias or arthralgias. NEUROLOGIC: No chronic headaches, no seizures. Patient denies numbness, tingling or weakness. PSYCHIATRIC: Patient denies problems with mood disturbance. No problems with anxiety. ENDOCRINE: No excessive urination or excessive thirst. DERMATOLOGIC: Patient denies any rashes or skin changes. Physical Exam Physical Exam: Gen: A&O 3 NAD, significant cachexia noted HEENT: NCAT, EOMI, not icteric. External ears normal. No rhinorrhea. Moist mucous membranes. Neck: Supple, full range of motion, no observable masses, No meningeal sign. Lungs: No Respiratory distress. CV: RRR, no edema. Abdomen: Soft, nondistended, No rebound tenderness. MSK: No joint swelling, no redness. Skin: No rashes, petechiae, lesions. Normal color per patient. Neuro: Normal Gait, Grossly intact. Psych: Appropriate for situation. Results & Data Results & Data Vital Signs (Past 12 Hours) Vital Signs Temp Pulse Pulse Pulse Resp BP BP 07/31/24 16:54 76 18 07/31/24 16:27 07/31/24 15:30 70 21 07/31/24 15:21 36.7 C 71 16 07/31/24 14:29 66 07/31/24 13:28 36.3 C L 80 20 102/53 L 07/31/24 11:07 36.3 C L 71 18 89/53 L 07/31/24 10:47 71 07/31/24 10:35 07/31/24 10:07 72 95/61 L 07/31/24 09:36 89 108/74 BP Pulse Ox O2 Del Method O2 Flow Rate 07/31/24 16:54 99/63 L 07/31/24 16:27 92 Nasal Cannula 4 07/31/24 15:30 97/59 L 100 Nasal Cannula 4 07/31/24 15:21 94/62 L 97 Nasal Cannula 4 07/31/24 14:29 07/31/24 13:28 93 Room Air 07/31/24 11:07 93 Nasal Cannula 4 07/31/24 10:47 07/31/24 10:35 Nasal Cannula 3 07/31/24 10:07 07/31/24 09:36 Laboratory Results -personally reviewed, Hgb appears to have stabilized Medications Administered Acetaminophen (Acetaminophen 500 Mg Tab) 500 mg PO Q6H PRN PRN Reason: fever/pain Stop: 08/28/24 02:01 Last Admin: 07/31/24 17:03 Dose: 500 mg Documented By: Admin: 07/30/24 20:51 Dose: 500 mg Documented By: Admin: 07/29/24 20:40 Dose: 500 mg Documented By: KONRAD Anastrozole (Anastrozole 1 Mg Tab) 1 mg PO QDD MONIK Stop: 08/28/24 16:29 Last Admin: 07/31/24 17:03 Dose: 1 mg Documented By: BHANU Co-signed By: SILAS Admin: 07/30/24 17:23 Dose: 1 mg Documented By: BHANU Co-signed By: DEBBIE Admin: 07/29/24 17:03 Dose: 1 mg Documented By: SONIAL Co-signed By: ANNA Calcium/Vitamin D (Calcium 600mg + Vit D 400 Iu Tab) 1 tab PO QDD MONIK Stop: 08/28/24 16:29 Last Admin: 07/31/24 17:03 Dose: 1 tab Documented By: Admin: 07/30/24 17:23 Dose: 1 tab Documented By: Admin: 07/29/24 17:03 Dose: 1 tab Documented By: CAMILA Digoxin (Digoxin 0.125 Mg Tab) 0.125 mg PO [id number] [facility] Stop: 08/29/24 15:59 Last Admin: 07/30/24 17:23 Dose: 0.125 mg Documented By: BHANU Fluticasone Furoate (Fluticasone Furoate 200mcg 14 Puffs/Inhaler) 1 puffs INH QAM [facility] Stop: 08/28/24 08:59 Last Admin: 07/31/24 08:58 Dose: 1 puffs Documented By: Admin: 07/30/24 09:37 Dose: 1 puffs Documented By: Admin: 07/29/24 09:00 Dose: 1 puffs Documented By: ANNA Pantoprazole Sodium (Protonix) 40 mg in 10 mls @ 5 mls/min IV BID MONIK Stop: 08/28/24 08:59 Last Admin: 07/31/24 08:58 Dose: 5 mls/min Documented By: Admin: 07/30/24 20:52 Dose: 5 mls/min Documented By: Admin: 07/30/24 09:37 Dose: 5 mls/min Documented By: Admin: 07/29/24 20:40 Dose: 5 mls/min Documented By: Admin: 07/29/24 09:02 Dose: 5 mls/min Documented By: ANNA Dextrose/Lactated Ringer's (D5w And Lactated Ringers) 1,000 mls @ 80 mls/hr IV .[id number] MONIK Stop: 08/28/24 13:59 Last Infusion: 07/31/24 15:52 Dose: Infused Documented By: Infusion: 07/29/24 23:26 Dose: 0 mls/hr Documented By: Admin: 07/29/24 14:32 Dose: 80 mls/hr Documented By: ESL Lactated Ringer's (Lr) 1,000 mls @ 0 mls/hr IV .Q0M MONIK Stop: 08/01/24 13:29 Last Admin: 07/31/24 13:48 Dose: 15 mls/hr Documented By: TDRich Levothyroxine Sodium (Levothyroxine Sodium 112 Mcg Tablet) 112 mcg PO DAILYBB [facility] Stop: 08/28/24 06:29 Last Admin: 07/31/24 05:49 Dose: Not Given Documented By: Admin: 07/30/24 06:08 Dose: 112 mcg Documented By: Admin: 07/29/24 02:44 Dose: 112 mcg Documented By: CHANI Melatonin (Melatonin 3 Mg Tab) 3 mg PO HS PRN PRN Reason: Sleep Stop: 08/28/24 02:01 Last Admin: 07/29/24 20:40 Dose: 3 mg Documented By: KONRAD Metoprolol Succinate (Metoprolol Succ 25mg Ext Rel Tab) 25 mg PO QPM MONIK Stop: 08/28/24 20:59 Last Admin: 07/30/24 20:50 Dose: 25 mg Documented By: Admin: 07/29/24 23:14 Dose: Not Given Documented By: KONRAD Mupirocin (Mupirocin 2% Oint 22 Gm Tube) 1 appln EXT BID MONIK Stop: 08/28/24 20:59 Last Admin: 07/31/24 08:58 Dose: 1 appln Documented By: Admin: 07/30/24 20:52 Dose: 1 appln Documented By: Admin: 07/30/24 09:37 Dose: 1 appln Documented By: Admin: 07/29/24 20:40 Dose: 1 appln Documented By: KONRAD Polyethylene Glycol (Polyethylene (Miralax) 17 Gm Pack) 17 gm PO DAILY MONIK Stop: 08/28/24 10:14 Last Admin: 07/31/24 08:59 Dose: Not Given Documented By: Admin: 07/30/24 09:37 Dose: Not Given Documented By: Admin: 07/29/24 14:32 Dose: Not Given Documented By: ESL Umeclidinium/Vilanterol (Umeclidinium/Vilanterol 62.5/25mcg 7 Puffs/Inhaler) 1 puffs INH QAM [facility] Stop: 08/28/24 08:59 Last Admin: 07/31/24 08:58 Dose: 1 puffs Documented By: Admin: 07/30/24 09:37 Dose: 1 puffs Documented By: Admin: 07/29/24 09:01 Dose: 1 puffs Documented By: ANNA
--- NOTE | 2024-07-31 23:15 | CT Scan Report ---
Exam(s): CT CHEST Without Contrast EXAM: CT Chest Without Intravenous Contrast CLINICAL HISTORY: Reason for exam: sob. TECHNIQUE: Axial computed tomography images of the chest without intravenous contrast. CTDI is 6.47 mGy and DLP is 246 mGy-cm. Automated exposure control was utilized for the study. A dose lowering technique was utilized adhering to the principles of ALARA. COMPARISON: No relevant prior studies available. FINDINGS: Lungs: Atelectasis in the right lower lobe. Cannot exclude a component of pneumonia or aspiration. Severe emphysema. Pleural space: Small right pleural effusion. Heart: Marked cardiomegaly. Bones/joints: No acute findings. Soft tissues: Body wall edema. Vasculature: Unremarkable. Lymph nodes: Unremarkable. Intraperitoneal space: Ascites in the upper abdomen. IMPRESSION: 1. Small right pleural effusion. 2. Atelectasis in the right lower lobe. Cannot exclude a component of pneumonia or aspiration. 3. Severe emphysema. 4. Marked cardiomegaly. Electronically signed by: Pravin Quinteros MD 07/31/24 23:14 PM
[2024-08-01] MEDS: CEFEPIME 2000MG 2,000 MG/20 ML SYR IV STA (01:11)
[2024-08-01] MEDS: DOXYCYCLINE HYCLATE 100 MG CAP PO STA ×2 (01:53)
[2024-08-01 06:09] LABS: Hematocrit (blood only) 28.8 % (37.0-47.0); Hemoglobin 9.4 g/dl (12.0-16.0); Mean Corpuscular Hemoglobin 30.5 pg (25.0-34.0); Mean Corpuscular Hgb Conc 32.6 g/dL (32.0-36.0); Mean Corpuscular Volume 93.5 fL (80.0-100.0); Mean Platelet Volume 10.9 fL (9.4-12.4); Platelet Count 167 K/uL (130-400); RDW Coefficient of Variation 13.6 % (11.5-14.5); RDW Standard Deviation 45.9 fL (36.4-46.3); Red Blood Count 3.08 M/uL (4.20-5.40); White Blood Count 6.71 K/ul (4.8-10.8)
[2024-08-01 06:44] LABS: BUN Creatinine Ratio 25.8 (10-20); Calcium 9.1 mg/dl (8.6-10.3); Creatinine Clr Calc Pharmacy 18.8 ml/min; Potassium 4.4 mmol/L (3.5-5.1)
[2024-08-01 07:59] VITALS: BP 122/78; RESP 18
[2024-08-01] MEDS: DOXYCYCLINE HYCLATE 100 MG in DEXTROSE 5% MINI-B 100 ML IV SCH (08:33)
[2024-08-01] MEDS: SODIUM CHLORIDE 0.9% 1,000 ML IV SCH (08:37)
[2024-08-01] MEDS ORDERED: AZITHROMYCIN 250 MG TAB PO SCH (09:00)
[2024-08-01] MEDS ORDERED: DOXYCYCLINE HYCLATE 100 MG CAP PO SCH ×2 (09:00)
--- NOTE | 2024-08-01 09:15 | Cardiology Progress Note ---
Date of Service August 01, 2024 Assessment & Plan (1) Heart failure with reduced ejection fraction (HFrEF, <= 40%): (2) Elevated troponin: (3) Chronic respiratory failure with hypoxia: (4) AICD (automatic cardioverter/defibrillator) present: (5) Atrial fibrillation: Plan Impression: 1. Status post mitral valve repair with maze procedure (01/2012). 2. Echocardiogram, 09/2020, with mild left ventricular dysfunction and an EF in the range of 45% with akinesis of the anterior septum and distal anterior wall, mild RV dysfunction with a TAPSE of 1.3 cm, and mild to moderate eccentric mitral regurgitation with mild pulmonary hypertension. - Echocardiogram, 05/2022, with severe RV and LV dysfunction, severe mitral regurgitation, severe tricuspid regurgitation, and moderate pulmonary hypertension likely underestimated due to the severity of her RV dysfunction. - Echo this admission with EF 20-25%, moderate to severe mitral valve regurgitation 3. Paroxysmal atrial fibrillation on chronic Coumadin anticoagulation, status post cardioversion 02/2012, remaining in sinus rhythm on amiodarone until it was stopped. a. Recurrent atrial fibrillation status post cardioversion 05/2013 and 09/2015 while on amiodarone therapy (currently off amiodarone therapy). b. No evidence of epicardial coronary artery disease 07/2011 by cardiac catheterization. c. Left atrial appendage was oversewn at the time of her mitral valve repair. 4. Hypothyroidism. 5. Anemia. 6. Status post dual chamber [employer] defibrillator 11/2015, followed in our device clinic. 7. Episode of atrial tachycardia at a rate of 130 beats per minute, 09/2016 status post cardioversion. 8. Episode of atrial tachycardia rate 134, on 12/2016 status post cardioversion. 9. Status post repeat AFib and A tach ablation 03/2017 at [facility] in [facility]. 10. Recurrent atrial tachycardia status post tach ablation and left atrial flutter mapping and ablation, 01/23/2018. Ms. Saini is very sure she wants to go home today. The hospitalist discussed goals of care yesterday with her and her family and plans to discuss again today. I agree that she may be better served on hospice so that the focus can turn to comfort given her comorbidities and frailty especially if her wish is not to return to the hospital at this point. Her apixaban can be re-started. H&H should be rechecked on Sunday. Her rate is controlled. Her blood pressure is stable. She has a mild FABI on labs today and is receiving gentle fluids. We will need to watch her fluid balance carefully with that. She can have a bmp on Sunday with the H&H and decide on restarting her Entresto at that time. She is febrile this morning and has a new pneumonia on CT. Treatment per hospitalists. Admission and Anticipated Discharge Date Admission Date: July 28, 2024 Subjective Ms. Saini is anxious to get home and is very clear that she would like to be discharged today. She is still a bit short of breath. No edema. Afib/pacing on the monitor with heart rate in the 60s Review of Systems Review of Systems: All systems reviewed & are unremarkable except as noted in HPI & below Physical Exam Constitutional: WD/WN, vitals as above Respiratory: + labored breathing Auscultation: + c rackles (right base) Cardiovascular: Rate/Rhythm: + abnormal rate and + abnormal rhythm Heart Sounds: normal S1 and normal S2 Extremities: no edema Skin: no rashes, warm and dry Neurologic: moves all extremities and awake Psychiatric: A+Ox3, euthymic affect Results & Data Vital Signs (Past 12 Hours) Vital Signs Temp Pulse Pulse Resp BP BP Pulse Ox 08/01/24 07:50 81 18 122/78 94 08/01/24 03:18 38.0 C H 85 22 118/66 95 07/31/24 22:41 36.5 C 66 18 91/51 L 97 07/31/24 22:10 77 109/58 L 07/31/24 21:41 70 O2 Del Method O2 Flow Rate 08/01/24 07:50 Nasal Cannula 4 08/01/24 03:18 Room Air 07/31/24 22:41 Nasal Cannula 3 07/31/24 22:10 07/31/24 21:41 (5) Atrial fibrillation Atrial fibrillation type: unspecified Qualified Code(s): I48.91 - Unspecified atrial fibrillation
--- NOTE | 2024-08-01 10:38 | Gastroenterology Progress Note ---
Date of Service August 01, 2024 Assessment & Plan (1) Anemia: Plan: Patient feels well. no signs of gi bleeding seen on the EGD done yesterday. - okay for anticoagulation from a GI standpoint based off of EGD findings. - continue to monitor hgb/hct. transfuse as needed. - Continue with protonix 40mg IV bid. Admission and Anticipated Discharge Date Admission Date: July 28, 2024 Subjective no signs of GI bleeding at this time. no further nose bleeds. rest of GI ros are unremarkable. she feels well from GI standpoint. hgb 9.4 (previously 9.2) EGD 07/30 Hiatal hernia, no blood noted in the upper GI tract. No ulcerations. There is diffuse mucosal atrophy of the stomach consistent with chronic gastritis. Duodenum first second parts were normal. Review of Systems Review of Systems: All systems reviewed & are unremarkable except as noted in HPI & below Physical Exam Constitutional: WD/WN, vitals as above Respiratory: normal respiratory effort, lungs clear to auscultation Cardiovascular: Rate/Rhythm: regular rate and regular rhythm Gastrointestinal (Abdomen): normal bowel sounds, soft, nontender, no hepatosplenomegaly Psychiatric: Orientation: alert and oriented x 3 Affect: euthymic affect Results & Data Results & Data Vital Signs (Past 12 Hours) Vital Signs Temp Pulse Resp BP BP Pulse Ox O2 Del Method 08/01/24 07:50 81 18 122/78 94 Nasal Cannula 08/01/24 03:18 100.4 F H 85 22 118/66 95 Room Air 07/31/24 22:41 97.7 F 66 18 91/51 L 97 Nasal Cannula O2 Flow Rate 08/01/24 07:50 4 08/01/24 03:18 07/31/24 22:41 3 Coding Level of Care Code 68307 SUB INP/OBS CARE 06/28MIN Diagnoses Anemia D64.9
[2024-08-01 11:38] VITALS: PULSE 83; TEMP 97.7; O2SAT 92
[2024-08-01] MEDS: CEFEPIME 1000MG 1,000 MG/10 ML SYR IV SCH (13:59)
--- NOTE | 2024-08-01 15:45 | Discharge Summary ---
Discharge Summary Date of Service August 01, 2024 Principal Dx & Hospital Course #1 = Principal Diagnosis (1) SOB (shortness of breath): Shortness of breath Underlying pulmonary hypertension, Chronic respiratory failure secondary to COPD on home O2 hx chronic systolic heart failure status post ICD (EF 30 to 35%, TTE 2023), Chronic Gastritis -likely 2/2 anemia -GI consulted, appreciate recs -continue protonix -EGD unrevealing for cause of bleed, chronic gastritis -discussed case with ENT, rec conservative management at this time (mupriocen bid, normal saline spary 4x daily, afrin prn for bleeding) -cardiology consulted, appreciate reecs -on Eliquis Rx for A-fib status post ablation status post maze procedure, per GI no contraindication to anticoagulation from GI perspective -continue breathing treatments, continue IS and flutter valve Advanced Care Plannin minutes spent discussing goals and values with patient, , grandson, daughter. Continuation of care conversation yesterday. Updated patient and family on updated clinical condition and, including aspiration pneumonia, continues to have severe heart failure, severe COPD, atrial fibrillation with questionable rate control, and now bleed of unknown origin. Discussed that patient has lost a significant amount of weight over the past couple months, and this could be a harbinger for an overall decline. Patient is now doing very few of her own ADLs at home. Discussed case with cardiology as well, who agree that patient is declining and that hospice is appropriate. 2 options were presented to the patient and family. 1 option is to continue medical care, with the understanding that she is going to be spending a lot of time coming back and forth to the hospital given her overall decline. The other option is to focus on comfort focused care, treating symptoms rather than the underlying illness. Patient states she does not want to return to the hospital and would like to focus on comfort at this time. Introduced hospice. Explained benefits of hospice explained at length. Discussed that hospice at home, which she wants, would require significant caregiver support from family. She is agreeable and understands this. Sister states that she is able to help with this. Gastritis Adynamic Ileus -noted on imaging -progress diet as tolerated, clear liquids for now -bisacodyl suppository prn UGIB abdominal pain in the setting of Eliquis Rx valvular heart disease (moderate TR, mild MS/MR), history MVR R breast cancer status post surgery on anastrozole hypothyroidism, euthyroid as of recent outpatient TSH -Malnutrition Re: Low BMI -past tobacco abuse Insomnia -continue melatonin 3mg at bedtime Notes For Next Care Provider Medical history significant for chronic systolic heart failure status post ICD (EF 30 to 35%, TTE 2023), valvular heart disease (moderate TR, mild MS/MR), history MVR, A-fib status post ablation status post maze procedure on Eliquis, pulmonary hypertension, chronic respiratory failure secondary to COPD on home O2, R breast cancer status post surgery on anastrozole, hypothyroidism, past tobacco abuse. Presented for SOB and leg swelling. On medicine, noted to have acute blood loss anemia from suspected GI bleed and nose bleed. Nose bleed resolved. GI consulted, EGD found chronic gastritis without clear source of bleed. Cardilogy consulted for heart failure and rate control. Goals of care (see above) resulted in patient transitioning to comfort focused care and hospice. [facility] chosen as hospice, referral sent before discharge, care kit sent home with patient for discharge. Medication Changes From Visit -hospice care kit until signs with hospice agency Admission HPI Per Admitting Provider History obtained from patient, family, and records. Medical history significant for chronic systolic heart failure status post ICD (EF 30 to 35%, TTE 2023), valvular heart disease (moderate TR, mild MS/MR), history MVR, A-fib status post ablation status post maze procedure on Eliquis, pulmonary hypertension, chronic respiratory failure secondary to COPD on home O2, R breast cancer status post surgery on anastrozole, hypothyroidism, past tobacco abuse. Last confinement 2016 for atrial tachycardia status post cardioversion. Patient seen at PCPs office 2 weeks ago. Complains of shortness of breath most on exertion and leg swelling more on the right. Low appetite. No weight gain. No unusual cough symptoms. Compliant with home medications. Episodic epistaxis without unusual headache symptoms. Outpatient hemoglobin 9.8 weeks ago from normal baseline. Patient complaining of achy abdominal pain and distention. Worsening heartburn unresponsive to Pepcid Rx. Discomfort somewhat worsened after eating. Poor appetite with some weight loss as per patient. One-time episode of dark-colored stools. Denies chest pain. Worsening SOB. No hematuria. Denies fever or chills. Right leg still more swollen than the left. Patient directed to ER for evaluation. Medical History as above No prior EGDs. Surgical History : ICD, cataract surgery, right partial mastectomy, pelvic surgery, dental surgery Family History : Heart disease, bladder cancer Personal/Social history : Past tobacco abuse, no EtOH intake, retired schoolteacher Discharge Exam Gen: A&O 3 NAD, significant cachexia noted HEENT: NCAT, EOMI, not icteric. External ears normal. No rhinorrhea. Moist mucous membranes. Neck: Supple, full range of motion, no observable masses, No meningeal sign. Lungs: No Respiratory distress. CV: RRR, no edema. Abdomen: Soft, nondistended, No rebound tenderness. MSK: No joint swelling, no redness. Skin: No rashes, petechiae, lesions. Normal color per patient. Neuro: Normal Gait, Grossly intact. Psych: Appropriate for situation. Updated Medication List Medication Instructions Recorded Confirmed Type metoprolol succinate 25 mg 25 mg PO QPM #30 tabs 04/30/13 07/28/24 History tablet,extended release 24 hr (Toprol XL) anastrozole 1 mg tablet (Arimidex) 1 mg PO QDD 90 days #90 tabs 10/04/17 07/28/24 History Portable Oxygen #1 ea 10/10/21 07/28/24 Rx sacubitril 49 mg-valsartan 51 mg 1 tab PO BID 10/16/22 07/28/24 History tablet (Entresto) levothyroxine 112 mcg capsule 112 mcg PO DAILYBB 05/15/23 07/28/24 History digoxin 125 mcg (0.125 mg) tablet 125 mcg PO 4XWK 07/19/23 07/28/24 History torsemide 20 mg tablet 20 mg PO QAM 07/19/23 07/28/24 History albuterol sulfate 90 mcg/actuation 2 puff inhalation QID PRN 07/24/23 07/28/24 Rx aerosol inhaler (Ventolin HFA) shortness of breath or wheezing #3 Inhalers apixaban 2.5 mg tablet (Eliquis) 2.5 mg PO BID #180 tabs 11/20/23 07/28/24 Rx budesonide 160 mcg-glycopyr 9 2 inh inhalation BID #32.1 grams 12/10/23 07/28/24 Rx mcg-formot 4.8 mcg/actuation HFA inhaler (Breztri Aerosphere) spironolactone 25 mg tablet 12.5 mg PO QAM 05/06/24 07/28/24 History acetaminophen 325 mg tablet 650 mg PO QID PRN Pain 07/28/24 07/28/24 History azithromycin 500 mg tablet 500 mg PO DAILY 7 days #7 tabs 08/01/24 Rx bisacodyl 5 mg tablet,delayed 5 mg PO Q12 PRN constipation #10 08/01/24 Rx release (Gentle Laxative tabs (bisacodyl)) cephalexin 750 mg capsule 750 mg PO BID 7 days #14 caps 08/01/24 Rx lorazepam 0.5 mg tablet (Ativan) 0.5 mg PO DAILY PRN anxiety #5 tabs 08/01/24 Rx morphine 10 mg/5 mL oral solution 5 mg (2.5 mL) PO Q6H PRN pain #100 08/01/24 Rx mL mupirocin 2 % topical ointment 1 applic EXT BID #15 grams 08/01/24 Rx ondansetron 4 mg disintegrating 4 mg PO DAILY PRN nausea and 08/01/24 Rx tablet vomiting 4 days #10 tabs polyethylene glycol 3350 17 gram 17 g PO DAILY #14 ea 08/01/24 Rx oral powder packet (Miralax) sodium chloride 0.65 % nasal spray 1 spray NA Q6 PRN dry nasal 08/01/24 Rx aerosol (Saline Mist) passages #45 mL Hospital Stay Data Consultations 07/28/24 19:05 ED Decision to Admit Stat 07/29/24 01:02 Consult Cardiology Routine 07/29/24 02:00 Consult Gastroenterology Routine Procedures Performed Operation Date: 07/31/24 11:20 Actual Procedures p Esophagogastroduodenoscopy - Antonio Whitley MD Diagnostic Imagining Performed 07/28/24 21:02 CT Abd and Pelvis [CT abd pelvis IV con only] Stat 07/29/24 06:57 US liver Routine 07/31/24 20:56 CT chest diagnostic wo con Urgent Pending Results Patient Have Any Pending Studies at Discharge: No Discharge Instructions Given to Patient (Per Discharging Provider) 1. Please sign on with hospice services. 2. Utilize home care kit as needed: morphine for pain/dyspnea, ondansetron for nausea/vomiting, miralax for bowel regiment, ativan for anxiety/agitation. Total Time Total Time Spent Total Time Spent (In Minutes): I spent a total of 35 minutes in direct patient care, including [id number] time with the patient and/or family, reviewing medical records, ordering and reviewing diagnostic tests, and coordinating care with other healthcare providers. This time includes: history taking, physical examination, medical decision making, counseling, ECG interpretation, imaging interpretation, lab interpretation, orders, and education, excluding time spent in the performance of separately billed services. I spent a total of 30 minutes providing advanced care planning to the patient and/or family, including [id number] time discussing the patient's health status, prognosis, and treatment options. This time includes specific activities such as: discussing advance directives, goals of care, prognostication, and end-of-life planning.
--- NOTE | 2024-08-02 15:46 | Communication Note ---
Received message from hydrotreater operator in regards to hospice agency going to patient home and patient no longer wanting hospice services. Called daughter in law, who was with patient, and patient states that now that she is home, she would like to continue her breast cancer medication and be resuscitated if need be via her defibrillator. Despite goals of care conversation with patient and family before discharge and patient requesting hospice services, she would now like home health agency instead. She still does not want to return to the hospital. This provider explained that these goals may not line up with each other, as the chances of her decompensating even over the next few days to weeks are very high and she would likely require inpatient care at that time, and she does not want to return to the hospital. However, this provider referred for home healthcare and a palliative care referral through case management, and further further enquiries in regards to hospice and palliative care services should be directed to PCP in the outpatient setting. Date of Service: August 02, 2024
== END 2024-08-01 15:28 | disposition home health service (06) | DRG 377 ==
LOC: ED 16:32 → EDINP 21:01 → 2S 21:33
DX: K92.2 Gastrointestinal hemorrhage, unspecified; K56.0 Paralytic ileus; I27.20 Pulmonary hypertension, unspecified; J96.11 Chronic respiratory failure with hypoxia; I50.22 Chronic systolic (congestive) heart failure; I48.20 Chronic atrial fibrillation, unspecified; E43 Unspecified severe protein-calorie malnutrition